=== PATIENT | male | born 1955 | race Caucasian/White ===

== ENCOUNTER 2019-04-18 15:49 | Inpatient (IN) | payer MEDICARE, SELFPAY ==
[2019-04-18] VITALS (9 sets, daily range): BP systolic 125–136; BP diastolic 62–73; PULSE 86–109; RESP 18–24; TEMP 36.6–37.1; O2SAT 87–97; BMI 32.1
--- NOTE | 2019-04-18 16:12 | XR_ITS ---
WS: [id number] PORTABLE CHEST HISTORY: cough COMPARISON: 02/07/2012 New pulmonary congestion since the prior study. Interstitial thickening has progressed. There is thic kening along the fissures. No pneumonia. Minimal blunting of the costophrenic angles. Cardiac size: Mildly enlarged cardiac silhouette. Mediastinum/Aorta: Mild atherosclerosis aorta. No osseous abnormality seen. XR/XR chest 1V portable [id number] IMPRESSION: 1. Interval development of mild CHF. 2. Very tiny small pleural effusions versus pleural thickening.
--- NOTE | 2019-04-18 16:13 | ED_ITS ---
Entered by Mya Vail, acting as scribe for Radha Esquivel HPI - General Adult General: Chief complaint: General Medical Stated complaint: sob Time Seen by Provider: 04/18/19 16:11 Source: patient Mode of arrival: ambulatory Limitations: no limitations History of Present Illness: HPI narrative: 63 yo Male presents to ED with complaint of shortness of breath. Pt states that he thinks he has pneumonia. Pt states that he has been coughing and short of breath. Pt denies having any COPD or CHF. Pt states that he has been sick for about 3 weeks. Pt states that he has a productive cough with yellow phlegm. Pt denies chest pain, leg pain, and sweling. MD complaint: SOB Onset (ago): week(s) Location: chest Radiation: non-radiation Pain Consistency: constant Relieving factors: none Exacerbating factors: none Associated symptoms: Reports cough, dyspnea, fevers/chills and short of breath; Deny chest pain, confusion, diaphoresis, headache(s), malaise, nausea, rash or vomiting Treatments prior to arrival: none Review of Systems General: Reports: other (negative unless marked) Const: Denies: fever, chills, body aches, fatigue, malaise or diaphoresis Eyes: Denies: change in vision or blurry vision ENMT: Denies: throat pain, painful swallowing, hoarseness, ear pain, ear discharge, Change in hearing or nasal discharge Card: Denies: chest pain Resp: Reports: shortness of breath GI: Denies: abdominal pain, nausea, vomiting, vomiting blood, coffee grounds in vomit, diarrhea, constipation, cramping, blood in stool or black tarry stool : Denies: flank pain, difficulty urinating, painful urination, urinary frequency, urinary urgency, decreased urine ouput, urinary incontinence or blood in urine Musc: Denies: neck pain, back pain, extremity pain, extremity swelling, joint pain, joint swelling, joint warmth or joint stiffness Skin/Breast: Denies: rash, skin tenderness or yellow skin Neuro: Denies: headache, numbness in extremities, weakness in extremities, changes in sensation, lack of coordination, difficulty walking, dizziness, vertigo or confusion Endo: Denies: excessive thirst, tired all the time, cold intolerance, excessive sweating, flushing or hot flashes Andrew/Lymph: Denies: easy bruising, easy bleeding, petechiae or enlarged lymph nodes All/Imm: Denies: hives, throat swelling, tongue swelling, facial swelling or acute wheezing PFSH ED PFSH: Statuses (acute, chronic, etc) shown below reflect problem list status as previously entered and may not be historically accurate Medical History DM type 2 (diabetes mellitus, type 2) (Acute) Smoking addiction (Acute) Surgical History History of transmetatarsal amputation of foot (Acute) Family History Father Urinary bladder cancer Brother Urinary bladder cancer Social History Smoking and tobacco status: current every day smoker cigarettes Packs smoked per day: 0.5 Alcohol intake: never Substance/Drug Use: never Household members: spouse Marital status: Current occupational status: retired Physical Exam Const: COMMON NORMALS: no apparent distress, oriented x3, no limitations, healthy appearing and well nourished EXAM LIMITATIONS: no altered mental status GENERAL APPEARANCE: cooperative, well kempt and well developed ORIENTATION/CONSCIOUSNESS: Yes awake HENMT: COMMON NORMALS: normocephalic, head/scalp atraumatic, hearing grossly normal bilaterally, external ears normal, EAC's normal, external nose normal and moist oral mucous membranes HEAD & SCALP: normal to inspection, normocephalic and atraumatic FACE & SINUS: normal facial exam and face symmetric NOSE: external nose normal and nares normal EXTERNAL EAR: Yes external ears normal EXTERNAL AUDITORY CANAL: EAC's normal MOUTH: oral and palatal mucosa normal and tongue normal Eye: COMMON NORMALS: PERRL, EOMs intact bilaterally, conjunctivae normal and no scleral icterus GENERAL EYE: normal appearance of both eyes and normal light reflex CONJUNCTIVA: Yes conjunctivae normal SCLERA: sclerae normal CORNEA: Yes corneas normal PUPIL: Yes PERRL DIRECT OPHTHALMOSCOPY: Yes normal light reflex Neck/C-Spine: COMMON NORMALS: full ROM, no lymphadenopathy, supple, no menin geal signs and no JVD GENERAL: Yes normal visual inspection and Yes trachea midline CERVICAL SPINE: Yes cervical ROM normal Chest: COMMONS NORMALS: inspection of chest normal and palpation of chest normal Resp: COMMON NORMALS: normal respiratory effort, no retractions and no use of accessory muscles EFFORT & INSPECTION: Yes able to speak in complete sentences AUSCULTATION: rales and wheezes Cardio: COMMON NORMALS: no JVD, regular rate, regular rhythm, S1 normal heart sound, S2 normal heart sound, no gallops, no clicks, no murmurs and no rub JUGULAR VENOUS DISTENTION: no JVD RATE: regular rate RHYTHM: regular rhythm HEART SOUNDS: S1 normal and S2 normal GI: COMMON NORMALS: soft to palpation, non-tender, no hepatosplenomegaly and no masses INSPECTION: Yes normal to inspection PALPATION: Yes soft and Yes no hepatosplenomegaly : COMMON NORMALS: Yes no CVA tenderness BLADDER/KIDNEY EXAM: Yes no CVA tenderness Back/Pelvis: COMMON NORMALS: no CVA tenderness, thoracic and lumbar spine normal to inspection, no thoracic nor lumbar tenderness and thoraco-lumbar ROM normal Extremity: COMMON NORMALS: normal to inspection, full ROM, normal capillary refill, no joint enlargement, no clubbing, cyanosis or edema and no calf tenderness Neuro: COMMON NORMALS: oriented x3, CN's II-XII intact bilaterally, moves all extremities, no focal motor deficits and no sensory deficits noted MENINGEAL SIGNS: Yes no meningeal signs Psych: COMMON NORMALS: mental status grossly normal, thought process normal, cooperative, affect normal, speech normal and activity/motor behavior normal APPEARANCE: Yes well kempt SPEECH: Yes normal speech THOUGHT PROCESS: normal thought process Skin: COMMON NORMALS: no rashes or lesions noted, skin turgor normal, no jaundice, no petechiae and no mottling GENERAL SKIN EXAM: no rashes or lesions noted and turgor normal Course Vital Signs: Vital signs: Vital Signs Temperature 98.1 F 04/18/19 19:29 Pulse Rate 100 04/18/19 19:29 Respiratory Rate 20 H 04/18/19 19:29 Blood Pressure 125/73 04/18/19 19:29 Pulse Oximetry 93 04/18/19 19:29 MDM - General Adult MDM Narrative: Medical decision making narrative: Case reviewed with Dr. Chandra, he agrees to admission. He would like a d-dimer added and agrees to follow the YEARS algorithm with an adjusted d-dimer with the patient. Dr. Lyons is been notified about consult. Currently the patient is stable without shortness of breath or chest tightness. If the d-dimer is positive Dr. Sherman would like a CTA ordered and he will follow-up on those results. The patient will be covered with Lovenox for any type of PE in the interim. Lab Data: Labs: Lab Results 04/18/19 04/18/19 04/18/19 Range/Units 16:25 16:25 16:25 WBC 9.2 (4.0-10.0) 10^3/ uL RBC 4.60 (4.1-5.3) 10^6/u L Hgb 13.1 (11.7-16.6) g/dL Hct 41.7 L (42.0-52.0) % MCV 90.7 (80-94) fL MCH 28.5 (28.0-34.0) pg MCHC 31.4 (30.0-36.0) g/dL RDW 13.5 (12.1-15.1) % Plt Count 238 (130-400) 10^3/c mm MPV 11.2 H (7.4-10.4) fL Neut % (Auto) 65.3 % Lymph % (Auto) 25.5 % Vance % (Auto) 6.4 % Eos % (Auto) 2.2 % Baso % (Auto) 0.4 % Neut # (Auto) 6.0 (1.8-7.7) 10^3/u L Lymph # (Auto) 2.3 (0.8-4.8) 10^3/u L Vance # (Auto) 0.6 (0.2-0.9) 10^3/u L Eos # (Auto) 0.2 (0.0-0.8) 10^3/u L Baso # (Auto) 0.0 (0.0-0.1) 10^3/u L Nucleated RBC % (a uto) 0 % Nucleated RBCs # 0.0 /100WBC D-Dimer (0-0.59) ug/mIFE U Specimen Type Sample Site ABG pH (7.35-7.45) ABG pCO2 (35-45) mmHg ABG pO2 (80.0-100.0) mmH g ABG HCO3 (22-26) mmol/L ABG Base Excess (-2.0-2.0) mmol/ L Camron Test Hematocrit (42-52) % Public Information Officer ID Sodium 142 (136-145) mmol/L Potassium 3.9 (3.5-5.1) mmol/L Chloride 102 (98-107) mmol/L Carbon Dioxide 30 H (22-29) mmol/L Anion Gap 13.9 (5-19) BUN 14 (8-23) mg/dL Creatinine 0.8 (0.7-1.2) mg/dL GFR Calculation 97.3 (90-130) mL/min Glucose 78 (65-115) mg/dL Lactic Acid 1.7 (0.5-2.2) mmol/L Calcium 10.1 (8.5-10.5) mg/dL Total Bilirubin 0.5 (0.15-1.2) mg/dL AST 24 (0-40) U/L ALT 27 (0-41) U/L Alkaline Phosphata se 108 (40-130) IU/L Troponin T Baselin e (0-15) ng/mL Troponin T 120 Min [place] (0-15) ng/mL Delta Troponin T (0-10) ABS# NT-Pro-B Natriuret Pep 2051 H (0-125) pg/mL Total Protein 7.3 (6.6-8.7) g/dL Albumin 3.8 (3.5-5.2) g/dL Globulin 3.5 (1.3-4.6) g/dL Influenza Type A A g (Negative) POC Influenza B Ag (Negative) 04/18/19 04/18/19 04/18/19 Range/Units 16:25 16:25 16:38 WBC (4.0-10.0) 10^3/ uL RBC (4.1-5.3) 10^6/u L Hgb (11.7-16.6) g/dL Hct (42.0-52.0) % MCV (80-94) fL MCH (28.0-34.0) pg MCHC (30.0-36.0) g/dL RDW (12.1-15.1) % Plt Count (130-400) 10^3/c mm MPV (7.4-10.4) fL Neut % (Auto) % Lymph % (Auto) % Vance % (Auto) % Eos % (Auto) % Baso % (Auto) % Neut # (Auto) (1.8-7.7) 10^3/u L Lymph # (Auto) (0.8-4.8) 10^3/u L Vance # (Auto) (0.2-0.9) 10^3/u L Eos # (Auto) (0.0-0.8) 10^3/u L Baso # (Auto) (0.0-0.1) 10^3/u L Nucleated RBC % (a uto) % Nucleated RBCs # /100WBC D-Dimer 1.47 H (0-0.59) ug/mIFE U Specimen Type Arterial Sample Site Radial, left ABG pH 7.41 (7.35-7.45) ABG pCO2 51.5 H (35-45) mmHg ABG pO2 61.6 L (80.0-100.0) mmH g ABG HCO3 33.0 H (22-26) mmol/L ABG Base Excess 6.9 H (-2.0-2.0) mmol/ L Camron Test Pos Hematocrit 41.4 L (42-52) % Public Information Officer ID ed Sodium (136-145) mmol/L Potassium (3.5-5.1) mmol/L Chloride (98-107) mmol/L Carbon Dioxide (22-29) mmol/L Anion Gap (5-19) BUN (8-23) mg/dL Creatinine (0.7-1.2) mg/dL GFR Calculation (90-130) mL/min Glucose (65-115) mg/dL Lactic Acid (0.5-2.2) mmol/L Calcium (8.5-10.5) mg/dL Total Bilirubin (0.15-1.2) mg/dL AST (0-40) U/L ALT (0-41) U/L Alkaline Phosphata se (40-130) IU/L Troponin T Baselin e 207 H* (0-15) ng/mL Troponin T 120 Min [place] (0-15) ng/mL Delta Troponin T (0-10) ABS# NT-Pro-B Natriuret Pep (0-125) pg/mL Total Protein (6.6-8.7) g/dL Albumin (3.5-5.2) g/dL Globulin (1.3-4.6) g/dL Influenza Type A A g (Negative) POC Influenza B Ag (Negative) 04/18/19 04/18/19 Range/Units 16:48 18:24 WBC (4.0-10.0) 10^3/ uL RBC (4.1-5.3) 10^6/u L Hgb (11.7-16.6) g/dL Hct (42.0-52.0) % MCV (80-94) fL MCH (28.0-34.0) pg MCHC (30.0-36.0) g/dL RDW (12.1-15.1) % Plt Count (130-400) 10^3/c mm MPV (7.4-10.4) fL Neut % (Auto) % Lymph % (Auto) % Vance % (Auto) % Eos % (Auto) % Baso % (Auto) % Neut # (Auto) (1.8-7.7) 10^3/u L Lymph # (Auto) (0.8-4.8) 10^3/u L Vance # (Auto) (0.2-0.9) 10^3/u L Eos # (Auto) (0.0-0.8) 10^3/u L Baso # (Auto) (0.0-0.1) 10^3/u L Nucleated RBC % (a uto) % Nucleated RBCs # /100WBC D-Dimer (0-0.59) ug/mIFE U Specimen Type Sample Site ABG pH (7.35-7.45) ABG pCO2 (35-45) mmHg ABG pO2 (80.0-100.0) mmH g ABG HCO3 (22-26) mmol/L ABG Base Excess (-2.0-2.0) mmol/ L Camron Test Hematocrit (42-52) % Public Information Officer ID Sodium (136-145) mmol/L Potassium (3.5-5.1) mmol/L Chloride (98-107) mmol/L Carbon Dioxide (22-29) mmol/L Anion Gap (5-19) BUN (8-23) mg/dL Creatinine (0.7-1.2) mg/dL GFR Calculation (90-130) mL/min Glucose (65-115) mg/dL Lactic Acid (0.5-2.2) mmol/L Calcium (8.5-10.5) mg/dL Total Bilirubin (0.15-1.2) mg/dL AST (0-40) U/L ALT (0-41) U/L Alkaline Phosphata se (40-130) IU/L Troponin T Baselin e (0-15) ng/mL Troponin T 120 Min [place] 217.60 H (0-15) ng/mL Delta Troponin T 10.60 H* (0-10) ABS# NT-Pro-B Natriuret Pep (0-125) pg/mL Total Protein (6.6-8.7) g/dL Albumin (3.5-5.2) g/dL Globulin (1.3-4.6) g/dL Influenza Type A A g Negative (Negative) POC Influenza B Ag Negative (Negative) Imaging Data^: CXR: My impression: Cardiomegaly with mild to moderate pulmonary vascular congestion. EKG Data^: EKG 1: Attestation: I personally reviewed and interpreted this EKG as follows: EKG interpretation date: 04/18/19 EKG interpretation time: 16:42 Interpretation: Normal sinus rhythm at 86 beats a minute, incomplete right bundle branch block, nonspecific ST-T wave changes. Computer generated interpretation: Chest CTA 04/18/19 18:05 IMPRESSION: 1. There are bilateral pleural effusions with underlying compressive atelectasis or infiltrate. In with cardiomegaly, findings are consistent with congestive heart failure. 2. There are bilateral pulmonary ground-glass opacities likely representing pulmonary edema in this patient. 3. There is mucosal thickening of the distal esophagus consistent with esophagitis. Follow-up to exclude neoplasm as clinically warranted. 4. No evidence for pulmonary embolus. Radiation Dose CTDIVOL = (mGy): DLP = 577.8 (mGy-cm) Discharge Plan Discharge Patient Disposition: Admitted As Inpatient Admit Provider: Juan Carlos Chandra Clinical Impression: Acute non-ST elevation myocardial infarction (NSTEMI) CHF (congestive heart failure) Qualifiers: Heart failure type: unspecified Heart failure chronicity: acute Qualified Code(s): I50.9 - Heart failure, unspecified Condition: Stable Referrals: EDEN SHELTON DO [Primary Care Provider] - Discharge Date/Time: 04/18/19 19:08 Coding Level of Care Code ED Material Distributor for Chg Fwd Exam Problem Focused The documentation recorded by the Yared harman Carmen, accurately reflects the service I personally performed and the decisions made by me, Radha Esquivel
--- NOTE | 2019-04-18 16:15 | PC.NURSE ---
Pt was 87% on room air. Placed on nasal cannula at 2 lpm and immediately jumped to 94%
--- NOTE | 2019-04-18 16:19 | ECG_ITS ---
Measurements Intervals [place] Rate: 107 P: 18 OR: 149 QRS: 149 QRSD: 109 T: 45 QT: 387 QTc: 518 SINUS TACHYCARDIA POSSIBLE LEFT ATRIAL ENLARGEMENT [-0.1mV P WAVE IN V1/V2] INDETERMINATE AXIS LEFT POSTERIOR FASCICULAR BLOCK [QRS AXIS > 109, INFERIOR Q] PROBABLE INFERIOR MYOCARDIAL INFARCTION [35 ms Q WAVE IN II/aVF], PROBABLY OLD WITH POSTERIOR EXTENSION [PROMINENT R WAVE IN V1 No previous ECG available for comparison Electronically Signed On 04-18-2019 22:24:52 PORTFOLIO ADMINISTRATOR by Familia Plata M.D. [email or web address]
[2019-04-18 16:39] LABS: Basophils % 0.4 %; Eosinophils # 0.2 10^3/uL (0.0-0.8); Eosinophils % 2.2 %; Hematocrit 41.7 % (42.0-52.0); Hemoglobin 13.1 g/dL (11.7-16.6); Lymphocytes # 2.3 10^3/uL (0.8-4.8); Lymphocytes % 25.5 %; Mean Corpuscular HGB Conc 31.4 g/dL (30.0-36.0); Mean Corpuscular Hemoglobin 28.5 pg (28.0-34.0); Mean Corpuscular Volume 90.7 fL (80-94); Mean Platelet Volume 11.2 fL (7.4-10.4); Monocytes # 0.6 10^3/uL (0.2-0.9); Monocytes % 6.4 %; Neutrophils % 65.3 %; Nucleated Red Blood Cells % 0 %; Platelet Count 238 10^3/cmm (130-400); Red Cell Distribution Width 13.5 % (12.1-15.1); White Blood Count 9.2 10^3/uL (4.0-10.0)
[2019-04-18 16:49] LABS: ABG PCO2 51.5 mmHg (35-45); ABG PH Result 7.41 (7.35-7.45); Arterial Blood Gas Hematocrit 41.4 % (42-52); Base Excess ABG 6.9 mmol/L (-2.0-2.0); Blood Gas Allen Test Pos; Blood Gas Sample Site Radial, left; Blood Gas Sample Type Arterial; PO2 ABG 61.6 mmHg (80.0-100.0)
[2019-04-18 17:07] LABS: Lactic Sepsis W/Reflex 1.7 mmol/L (0.5-2.2)
[2019-04-18 17:13] LABS: Alanine Aminotransferase 27 U/L (0-41); Albumin Level 3.8 g/dL (3.5-5.2); Alkaline Phosphatase 108 IU/L (40-130); Anion Gap 13.9 (5-19); Aspartate Amino Transferase 24 U/L (0-40); Blood Urea Nitrogen 14 mg/dL (8-23); Calcium 10.1 mg/dL (8.5-10.5); Carbon Dioxide 30 mmol/L (22-29); Chloride 102 mmol/L (98-107); Creatinine Clr Calc Pharmacy 114.6734; Globulin 3.5 g/dL (1.3-4.6); Glomerular Filtration Rate 97.3 mL/min (90-130); Glucose 78 mg/dL (65-115); NT Pro B Type Natriuretic Pept 2051 pg/mL (0-125); Potassium 3.9 mmol/L (3.5-5.1); Sodium 142 mmol/L (136-145); Total Bilirubin 0.5 mg/dL (0.15-1.2); Total Protein 7.3 g/dL (6.6-8.7)
[2019-04-18 17:17] LABS: Troponin(5th) Baseline 207 ng/mL (0-15)
[2019-04-18] MEDS: ipratropium-albuterol 3 mL Neb 9 ML INHALATION (17:17)
[2019-04-18 17:29] LABS: Influenza A by IFA Negative (Negative); Influenza B by IFA Negative (Negative)
[2019-04-18] MEDS: FUROsemide 10 mg/mL SDV 4mL 40 MG IVP (17:34)
[2019-04-18] MEDS: aspirin 325 mg Tablet PO (17:34)
[2019-04-18] MEDS: enoxaparin 100 mg/mL Syringe SUBCUT (17:39)
[2019-04-18] MEDS: nitroglycerin 1 gm/inch oint Pkt 1 INCH TOPICAL (17:41)
[2019-04-18] MEDS: levofloxacin-dextrose 5 % 750 MG/150 ML PREMIX 150 MG IV (17:43)
[2019-04-18 17:59] LABS: D Dimer 1.47 ug/mIFEU (0-0.59)
--- NOTE | 2019-04-18 18:05 | CTR_ITS ---
PROCEDURE INFORMATION: Exam: CT Angiography Chest With Contrast Exam date and time: 04/18/2019 6:34 PM Age: 63 years old Clinical indication: Dyspnea; Patient HX: C/O SOB w elev d-dimer; Additional info: Dyspnea, positive d-dimer TECHNIQUE: Imaging protocol: Computed tomographic angiography of the chest with intravenous contrast. 3D rendering: MIP and/or 3D reconstructed images were created by the technologist. Total DLP: 577.8 mGy-cm Radiation optimization: All CT scans at this facility use at least one of these dose optimization techniques: automated exposure control; mA and/or kV adjustment per patient size (includes targeted exams where dose is matched to clinical indication); or iterative reconstruction. Contrast material: OMNI 350; Contrast volume: 95 ml; Contrast route: 20G; COMPARISON: CR XR chest 1V portable [id number] 04/18/2019 4:28 PM FINDINGS: Pulmonary arteries: Normal. No pulmonary emboli. Aorta: Unremarkable. No aortic aneurysm. No aortic dissection. Lungs: Bilateral pulmonary ground-glass opacities. Pleural space: There are bilateral pleural effusions with underlying compressive atelectasis or infiltrate. Heart: Mild cardiomegaly. There is a small amount of fluid in the superior pericardial recess. Mediastinum: There is mucosal thickening of the distal esophagus. Kidneys and ureters: Partially visualized left renal cyst. Lymph nodes: There are multiple mediastinal and perihilar lymph nodes. Largest lymph node is subcarinal and measures 2.8 x 1.8 centimetres. Bones/joints: There are degenerative changes in the visualized spine.There are diffuse enthesopathic changes consistent with benign diffuse idiopathic skeletal hyperostosis (DISH). Soft tissues: Unremarkable. CT/CT angio chest PE protcl [id number] IMPRESSION: 1. There are bilateral pleural effusions with underlying compressive atelectasis or infiltrate. In with cardiomegaly, findings are consistent with congestive heart failure. 2. There are bilateral pulmonary ground-glass opacities likely representing pulmonary edema in this patient. 3. There is mucosal thickening of the distal esophagus consistent with esophagitis. Follow-up to exclude neoplasm as clinically warranted. 4. No evidence for pulmonary embolus. Radiation Dose CTDIVOL = (mGy): DLP = 577.8 (mGy-cm)
--- NOTE | 2019-04-18 18:14 | PM.HP ---
Providers/Chief Complaint Primary Care Provider: EDEN SHELTON DO Chief Complaint: NSTEMI, CHF History of Present Illness Camron Burnett is a 63 year old pleasant gentleman with history of DM 2, current smoker presented to ER for evaluation due to progressive shortness of breath over the last 2-3 weeks. He states that he has been getting so short of breath that he has not been able to smoke even. Currently down to half a pack per day. He denies prior diagnosis of COPD or emphysema. He denies chest pain. He complains of severe dyspnea on even minimal exertion. Severe orthopnea, having to sleep upright in a chair. He reports he has been coughing. Her cough is productive of yellowish sputum. In ER his chest x-ray did not reveal pneumonia. His troponin is noted elevated at 207. EKG with nonspecific changes. He reports having right arm pain several weeks ago, although not currently. His BNP is elevated at 2050. Review of Systems Const: Reports: fatigue; Denies: fever, chills, body aches or malaise Eyes: Denies: change in vision or eye redness ENMT: Denies: throat pain, oral sores/lesions or ear pain Card: Reports: edema, shortness of breath on exertion and shortness of breath when lying down; Denies: chest pain or pre-syncope Resp: Reports: productive cough; Denies: shortness of breath, change in phlegm color or coughing up blood GI: Denies: abdominal pain, nausea, vomiting, diarrhea, constipation, blood in stool or black tarry stool : Denies: flank pain, difficulty urinating, urinary frequency or blood in urine Musc: Denies: back pain, joint swelling or redness Skin/Breast: Denies: rash, sores or new lesion Neuro: Denies: headache, numbness in extremities, weakness in extremities, dizziness, confusion or seizure-like activity Endo: Denies: excessive urination or excessive thirst Andrew/Lymph: Denies: easy bleeding or purpura All/Imm: Denies: hives, throat swelling or tongue swelling Medications/Allergies Home Medications Medication Instructions Recorded Confirmed Last Taken Type No Known Home Medications 04/18/19 04/18/19 Unknown History Allergies Allergy/AdvReac Type Severity Reaction Status Date / Time Penicillins Allergy ALGY-Difficulty Verified 04/18/19 16:09 Breathing PFSH Acute PFSH: Statuses (acute, chronic, etc) shown below reflect problem list status as previously entered and may not be historically accurate Medical History DM type 2 (diabetes mellitus, type 2) (Acute) Smoking addiction (Acute) Surgical History History of transmetatarsal amputation of foot (Acute) Family History Father Urinary bladder cancer Brother Urinary bladder cancer Social History Smoking and tobacco status: current every day smoker cigarettes Packs smoked per day: 0.5 Alcohol intake: never Substance/Drug Use: never Household members: spouse Marital status: Current occupational status: retired Vitals/I&O/Wt Last Vital Signs Temp 98.8 F 04/18/19 16:04 Pulse 106 H 04/18/19 18:12 Resp 18 04/18/19 18:12 BP 131/62 04/18/19 16:04 Pulse Ox 97 04/18/19 18:12 Weight last 48 hrs Weight 104.326 kg Physical Exam Const: COMMON NORMALS: no apparent distress and oriented x3 HENMT: COMMON NORMALS: oropharynx normal Neck/C-Spine: COMMON NORMALS: no JVD Resp: COMMON NORMALS: normal respiratory effort and clear to auscultation bilaterally AUSCULTATION: clear to auscultation bilaterally Cardio: COMMON NORMALS: no JVD, regular rhythm, S1 normal heart sound, S2 normal heart sound and no murmurs RHYTHM: regular rhythm HEART SOUNDS: S1 normal and S2 normal GI: COMMON NORMALS: normal to inspection, nondistended, normoactive bowel sounds, soft to palpation and non-tender PALPATION: Yes soft Extremity: COMMON NORMALS: no joint enlargement and no pedal edema Neuro: COMMON NORMALS: oriented x3 and moves all extremities Skin: COMMON NORMALS: no rashes or lesions noted GENERAL SKIN EXAM: no rashes or lesions noted Data : 04/18/19 16:25 04/18/19 16:25 Micro: Microbiology 04/18/19 16:15 Blood Culture - Preliminary Blood SPECIMEN COLLECTED 04/18/19 16:25 Blood Culture - Preliminary Blood SPECIMEN COLLECTED A&P Assessment and plan (1) Acute respiratory failure with hypoxia: Not normally on oxygen. PO2 61.6 on presentation. This appears to be multifactorial secondary to congestive heart failure with orthopnea, peripheral edema, likely also undiagnosed COPD, although currently no wheezing, and with decent air entry, and possible PE. No pneumonia on chest x-ray. D-dimer is not low. He is going to be assessed by CTA. Received aspirin, started on Lovenox due to suspected non-STEMI. We will start him on Lasix. Breathing treatments for COPD. Oxygen support Status: Acute Code(s): J96.01 - Acute respiratory failure with hypoxia (2) Acute non-ST elevation myocardial infarction (NSTEMI): Aspirin, Lovenox. Add statin. No beta-zahida at this time due to CHF. Will leave decision regarding Plavix to cardiology. Monitor on telemetry. N.p.o. after midnight. His risk factors for coronary disease include smoking history, diabetes. Status: Acute Code(s): I21.4 - Non-ST elevation (NSTEMI) myocardial infarction (3) CHF (congestive heart failure): No prior echo. Acute exacerbation of unknown type of CHF with orthopnea, MITCHELL, peripheral edema. BNP elevated at 2050. We will start him on Lasix. Assessed by TTE. Oxygen support. Status: Acute Qualifiers: Heart failure chronicity: acute Heart failure type: unspecified Qualified Code(s): I50.9 - Heart failure, unspecified Code(s): I50.9 - Heart failure, unspecified (4) DM type 2 (diabetes mellitus, type 2): Consistent carbohydrate diet. Continue insulin. Assess A1c. Status: Acute Code(s): E11.9 - Type 2 diabetes mellitus without complications (5) Smoking addiction: Discuss smoking cessation with him for 4 minutes. He reports he has been more short of breath recently, to the point he has had to cut down to half a pack per day. Advised him to stop entirely. Will order nicotine patch, gum for cravings. Status: Acute Code(s): F17.200 - Nicotine dependence, unspecified, uncomplicated Attestations Medical Necessity Statement*: Admission of over 2 midnights is continued for assessment and management of acute respiratory failure with hypoxia, non-STEMI. Coding Level of Care Code Acute Journalism Internship for Renzo Fwd Diagnoses Acute respiratory failure with hypoxia J96.01 Acute non-ST elevation myocardial infarction (NSTEMI) I21.4 CHF (congestive heart failure) I50.9 Heart failure chronicity: acute Heart failure type: unspecified DM type 2 (diabetes mellitus, type 2) E11.9 Smoking addiction F17.200
--- NOTE | 2019-04-18 18:19 | ECG_ITS ---
Measurements Intervals [place] Rate: 99 P: 26 IN: 146 QRS: 139 QRSD: 110 T: 62 QT: 389 QTc: 500 SINUS RHYTHM POSSIBLE LEFT ATRIAL ENLARGEMENT [-0.1mV P WAVE IN V1/V2] POSSIBLE INFERIOR MYOCARDIAL INFARCTION [30 ms Q WAVE IN II/aVF], PROBABLY OLD WITH POSTERIOR EXTENSION [PROMINENT R WAVE IN V1 No previous ECG available for comparison Electronically Signed On 04-18-2019 22:25:59 WAREHOUSE SHIPPING SUPERVISOR by Familia Plata M.D. [email or web address]
[2019-04-18] MEDS: iohexol 350 mg/mL 100 mL Btl IV (18:54)
--- NOTE | 2019-04-18 19:03 | PC.NURSE ---
REPORT RECEIVED FROM CRISTEL JOSEPH AND CARE TRANSFERRED TO CRISTEL PADILLA
[2019-04-18 20:15] LABS: Glucose Point of Care 129 mg/dL (70-110)
[2019-04-18] MEDS: atorvastatin 40 mg Tablet PO (20:22)
[2019-04-18] MEDS: FUROsemide 10 mg/mL SDV 2mL 20 MG IVP (20:22)
[2019-04-18 20:47] LABS: Estmated Average Glucose 194; Hemoglobin A1C 8.4 % (4.0-6.0)
[2019-04-18] MEDS: ipratropium-albuterol 3 mL Neb INHALATION (21:38)
--- NOTE | 2019-04-18 22:19 | ECG_ITS ---
Measurements Intervals Glennie Rate: 86 P: 21 NV: 142 QRS: 132 QRSD: 105 T: 71 QT: 385 QTc: 461 SINUS RHYTHM POSSIBLE LEFT ATRIAL ENLARGEMENT [-0.1mV P WAVE IN V1/V2] POSSIBLE INFERIOR MYOCARDIAL INFARCTION , PROBABLY OLD WITH POSTERIOR EXTENSION [30 ms Q WAVE IN II/aVFPROMINENT R WAVE IN V1/ No previous ECG available for comparison Electronically Signed On 04-18-2019 22:25:53 IMPROVEMENT NURSE by Familia Plata M.D. [email or web address]
--- NOTE | 2019-04-18 22:29 | P.CONIM_ITS ---
Providers/Reason For Consult Consulting Physican/Specialty*: Cardiology Reason for Consult*: Non-ST elevation RI CHF exacerbation Attending Physician: Juan Carlos Chandra Primary Care Provider: EDEN SHELTON DO History of Present Illness History of Present Illness Camron Burnett is a 63 year old male Past medical history significant for continuous tobacco abuse, PossibleCOPD, hypertension, Diabetes mellitus was admitted with worsening of shortness of breath PND orthopnea and some lower extremity edema. He was noted to be in heart failure. He was given IV Lasix and admitted. Investigation came back with troponin in the range of 206 qualifying for non-ST elevation RI. According to the patient couple of weeks ago he felt right arm pain for couple of hours which he relates 10 out of 10 otherwise he denies any history of chest pain. He admits to worsening of shortness of breath for couple months but for the last 2 weeks he has been progressively noticing that he cannot walk short distance and for last few days he was not able to sleep flat in the bed. Twelve-lead EKG is consistent with right bundle branch block otherwise no significant ST?T changes. Review of Systems General: Reports: other (negative unless marked) Const: Reports: fatigue; Denies: fever, chills, body aches, malaise or diaphoresis Eyes: Denies: change in vision, blurry vision or eye redness ENMT: Denies: throat pain, painful swallowing, hoarseness, oral sores/lesions, ear pain, ear discharge, change in hearing or nasal discharge Card: Reports: edema, shortness of breath on exertion and shortness of breath when lying down; Denies: chest pain or pre-syncope Resp: Reports: productive cough; Denies: shortness of breath, change in phlegm color or coughing up blood GI: Denies: abdominal pain, nausea, vomiting, vomiting blood, coffee grounds in vomit, diarrhea, constipation, cramping, blood in stool or black tarry stool : Denies: flank pain, difficulty urinating, painful urination, urinary frequency, urinary urgency, decreased urine ouput, urinary incontinence or blood in urine Musc: Denies: neck pain, back pain, extremity pain, extremity swelling, joint pain, joint swelling, redness, joint warmth or joint stiffness Skin/Breast: Denies: rash, skin tenderness, sores, new lesion or yellow skin Neuro: Denies: headache, numbness in extremities, weakness in extremities, changes in sensation, lack of coordination, difficulty walking, dizziness, vertigo, confusion or seizure-like activity Endo: Denies: excessive urination, excessive thirst, tired all the time, cold intolerance, excessive sweating, flushing or hot flashes Andrew/Lymph: Denies: easy bruising, easy bleeding, petechiae, purpura or enlarged lymph nodes All/Imm: Denies: hives, throat swelling, tongue swelling, facial swelling or acute wheezing Meds/Allergies Home Medications and Allergies Home Medications Medication Instructions Recorded Confirmed Type No Known Home Medications 04/18/19 04/18/19 History Allergies Allergy/AdvReac Type Severity Reaction Status Date / Time Penicillins Allergy ALGY-Difficulty Verified 04/18/19 16:09 Breathing Current Medications Current Medications Generic Name Dose Route Start Last Admin Trade Name Freq PRN Reason Stop Dose Admin Albuterol/Ipratropium 3 ml 04/18/19 21:00 04/18/19 21:38 Duoneb INHALATION 3 ml Q6H.RESPIRATORY CARSON Administration Atorvastatin Calcium 40 mg 04/18/19 21:00 04/18/19 20:22 Lipitor PO 40 mg BEDTIME CARSON Administration Furosemide 20 mg 04/18/19 19:16 04/18/19 20:22 Lasix IVP 20 mg Q12H CARSON Administration Insulin Aspart 0 unit 04/18/19 21:00 04/18/19 20:22 Novolog SUBCUT Not Given WM&BEDTIME CARSON Protocol Insulin Glargine 20 unit 04/18/19 21:00 04/18/19 20:22 Lantus SUBCUT Not Given BEDTIME CARSON PFSH Acute PFSH: Statuses (acute, chronic, etc) shown below reflect problem list status as previously entered and may not be historically accurate Medical History DM type 2 (diabetes mellitus, type 2) (Acute) Smoking addiction (Acute) Surgical History History of transmetatarsal amputation of foot (Acute) Family History Father Urinary bladder cancer Brother Urinary bladder cancer Social History Smoking and tobacco status: current every day smoker cigarettes Packs smoked per day: 0.5 Alcohol intake: never Substance/Drug Use: never Household members: spouse Marital status: Current occupational status: retired Vitals/I&O/Wt Last Vital Signs Temp 98.1 F 04/18/19 19:29 Pulse 102 H 04/18/19 21:39 Resp 24 H 04/18/19 21:39 BP 125/73 04/18/19 19:29 Pulse Ox 91 04/18/19 21:39 04/18/19 04/18/19 04/18/19 06:59 14:59 22:59 Output Total 500 / 500 Balance -500 / -500 Weight last 48 hrs Weight 230 lb Physical Exam Narrative: EXAM NARRATIVE: GENERAL: Patient is alert, awake and oriented x3. HEENT: No cyanosis. No icterus. No pallor. HEART: Regular S1 and S2. No murmur, rub or gallop. LUNGS: Basal to mid inspiratory crackles more on right then left. ABDOMEN: Soft, nontender and nondistended. Positive bowel sounds. No guarding, rebound or tenderness. CENTRAL NERVOUS SYSTEM: Grossly nonfocal. EXTREMITIES: Lower extremities with 1+ edema bilaterally. Data Micro: Micro: Microbiology 04/18/19 16:15 Blood Culture - Pr eliminary Blood SPE[facility]IMEN [facility] 04/18/19 16:25 Blood Culture - Pr eliminary Blood SPECIMEN [facility] A&P Assessment and plan (1) Acute non-ST elevation myocardial infarction (NSTEMI): Patient has underlying coronary artery disease Since he was not symptomatic, He had not seek any help. He presented this time with Acute congestive heart failure exacerbation most likely of systolic type. He has been treated as per ACS protocol. Continue aspirin statin, will add beta zahida once out of acute decompensated phase of heart failure.Continue anticoagulation with Lovenox for now. Once euvolemic which most likely over next 48 hours the plan to perform coronary angiogram for risk stratification. He will also be started on Plavix. Status: Acute Code(s): I21.4 - Non-ST elevation (NSTEMI) myocardial infarction (2) Acute respiratory failure with hypoxia: Most likely mixed picture of COPD and CHF exacerbation. Continue current regimen Status: Acute Code(s): J96.01 - Acute respiratory failure with hypoxia (3) CHF (congestive heart failure): Most likely systolic type secondary to ischemic cardiomyopathy. Echocardiogram will be a pain the morning. I will increase Lasix to 60 IV twice a day. Goal is to diurese him -1.5 L per day. Left right will be replenished. Once euvolemic we will start him on Coreg Status: Acute Qualifiers: Heart failure chronicity: acute Heart failure type: unspecified Qualified Code(s): I50.9 - Heart failure, unspecified Code(s): I50.9 - Heart failure, unspecified (4) DM type 2 (diabetes mellitus, type 2): As per medicine Status: Acute Code(s): E11.9 - Type 2 diabetes mellitus without complications (5) Smoking addiction: Status: Acute Code(s): F17.200 - Nicotine dependence, unspecified, uncomplicated Consult Attestations Medical Necessity Statement: Patient requires continuation hospitalization for above defined care. I'm expecting his stay to cross more than 2 midnights. 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
[2019-04-18 23:11] LABS: Troponin 5 6HR 191.8 ng/L (0-15); Troponin 5 6HR Delta -15.2 ng/L (0-12)
[2019-04-19] VITALS (15 sets, daily range): BP systolic 100–123; BP diastolic 53–63; PULSE 96–111; RESP 13–30; TEMP 36.3–36.9; O2SAT 90–97
[2019-04-19] MEDS: FUROsemide 10 mg/mL SDV 2mL 20 MG IVP (00:03)
[2019-04-19] MEDS: ipratropium-albuterol 3 mL Neb INHALATION ×4 (02:10→20:03)
[2019-04-19 05:19] LABS: Hematocrit 40.5 % (42.0-52.0); Hemoglobin 12.9 g/dL (11.7-16.6); Lymphocytes # 0.7 10^3/uL (0.8-4.8); Lymphocytes % 8.1 %; Mean Corpuscular HGB Conc 31.9 g/dL (30.0-36.0); Mean Corpuscular Hemoglobin 28.5 pg (28.0-34.0); Mean Corpuscular Volume 89.4 fL (80-94); Mean Platelet Volume 11.2 fL (7.4-10.4); Monocytes # 0.1 10^3/uL (0.2-0.9); Monocytes % 0.6 %; Neutrophils % 91.1 %; Nucleated Red Blood Cells % 0 %; Platelet Count 220 10^3/cmm (130-400); Red Blood Count 4.53 10^6/uL (4.1-5.3); Red Cell Distribution Width 13.4 % (12.1-15.1); White Blood Count 8.8 10^3/uL (4.0-10.0)
[2019-04-19 05:46] LABS: Anion Gap 21.1 (5-19); Blood Urea Nitrogen 18 mg/dL (8-23); Calcium 9.5 mg/dL (8.5-10.5); Carbon Dioxide 26 mmol/L (22-29); Chloride 94 mmol/L (98-107); Glomerular Filtration Rate 75.2 mL/min (90-130); Glucose 343 mg/dL (65-115); Osmolality Calculated 294 mOsm/kg (285-295); Potassium 4.1 mmol/L (3.5-5.1); Sodium 137 mmol/L (136-145)
[2019-04-19 06:20] LABS: Glucose Point of Care 304 mg/dL (70-110)
[2019-04-19] MEDS: aspirin 325 mg Tablet PO (08:23)
[2019-04-19] MEDS: FUROsemide 10 mg/mL SDV 10mL 60 MG IVP ×2 (10:52→23:34)
[2019-04-19] MEDS: morphine 4 mg/mL SDV 1 mL IVP ×2 (10:58→19:58)
[2019-04-19] MEDS: ondansetron 2 mg/ML SDV 2 mL 4 MG IVP (10:59)
[2019-04-19 11:06] LABS: Oxygen Device RA
[2019-04-19 11:32] LABS: Glucose Point of Care 372 mg/dL (70-110)
--- NOTE | 2019-04-19 14:03 | CT_ITS ---
WS: [id number] CT scan of the abdomen and pelvis with IV contrast. Additional two-dimensional coronal and sagittal reconstruction was performed. 04/19/2019 Clinical Data: Abdominal distention, pain Comparison: None. DLP: 1883.[address] scans at [facility] use at least one of these dose optimization techniques: automat ed exposure control; mA and/or kV adjustment per patient size (includes targeted exams where dose is matched to clinical indication); or iterative reconstruction. Findings: The lower lungs show no nodules or masses. There is a small right pleural effusion. The liver, spleen, adrenal glands and pancreas are normal. There are numerous small stones within th e gallbladder. The kidneys show equal bilateral contrast excretion with with bilateral renal cysts. The largest cyst on the right is 5.95 cm and on the left 4.82 cm. No renal masses, hydronephrosis or obstructing calc shravan are seen. The abdominal aorta is slightly dilated to 2.5 cm with calcification in the wall. No ab scess, adenopathy, ascites, mass, obstruction or free air is seen.. No appendicitis or diverticulitis is seen. The stomach, small bowel and colon show no acute abnormali ties. There is food material within the stomach. There is fecal material throughout colon with many s igmoid diverticula. The bladder is unremarkable. No inguinal hernia is seen. The prostate is enlarged. 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 Impression: 1. Cholelithiasis. 2. Small right pleural effusion. 3. Negative for acute intra-abdominal or pelvic abnormalities.
[2019-04-19] MEDS: acetaminophen 325 mg Tablet 650 MG PO (14:18)
[2019-04-19] MEDS: pantoprazole DR 40 mg Tablet PO (14:19)
[2019-04-19] MEDS: LORazepam 0.5 mg Tablet PO ×2 (14:30→23:34)
[2019-04-19 16:44] LABS: Glucose Point of Care 189 mg/dL (70-110)
--- NOTE | 2019-04-19 17:58 | PC.CHAP ---
Pastoral Care Encounter/Spiritual Assessment Type of Contact [] Declined butcher's assistant visit [] Patient/Family/Request visit [] Outpatient visit [] Follow-up visit [] Physician referral [] Code/Alert [x] Routine visit [] Staff referral [] Actively dying [] Patient sleeping [] Family support [] [] Out of room [] Palliative care [] [] Receiving care in room [] Pre-surgical visit [] Trauma [] Long length of stay [] ICU visit [] Other: Relational/Emotional Strength [] Patient feels connected with others/family/visitors/staff [] Distress [] Loneliness/isolation [] Abandonment Spirituality of Patient [] Person of Shakila [] Attends Anabaptism of their Shakila [] Believes in Prayer [] Reads Bible or Advent materials [] There are Spiritual issues to be addressed [employer] Consultant Interventions [] Prayer [] Active listening [] Non-anxious presence [] Spiritual/emotional support [] Crisis/trauma care [] Spiritual counseling [] Bereavement support [] Provided bereavement packet [] Provided Bible/devotional materials [] Provided toy/stuffed animal, coloring book to patient or family member [] Provided Communion [] Anointing/[place] [] Salvation [] Completed spiritual assessment [] Other: Impact on Illness or Injury [] Angry [] Fearful [] Anxious [] Often cries [] Exhaustion [] Unable to work [] Unable to attend latter day [] Unable to walk/stand [] Unable to read [] Unable to drive [] Unable to eat/drink [] Unable to sleep [] Unable to be with family [] Patient intubated [] Other: Summary Patient declined prayer and didn't need anything from the chaplains. Time spent with patient 3 minutes
--- NOTE | 2019-04-19 18:17 | PM.PN ---
Subjective Subjective: Interval history: Patient is feeling much better denies any chest pressure.Shortness of breath has improved. Diuresing adequately Vitals/I&O/Wt Last Vital Signs Temp 97.8 F 04/19/19 15:46 Pulse 106 H 04/19/19 15:46 Resp 20 H 04/19/19 15:46 BP 120/60 04/19/19 15:46 Pulse Ox 97 04/19/19 15:46 04/19/19 04/19/19 04/19/19 06:59 14:59 22:59 Intake Total 360 / 360 240 / 600 Output Total 1350 / 1850 100 / 100 150 / 250 Balance -1350 / -1850 260 / 260 90 / 350 Weight last 48 hrs Weight 235 lb 4.8 oz Weight 230 lb Physical Exam Narrative: EXAM NARRATIVE: GENERAL: Patient is alert, awake and oriented x3. HEENT: No cyanosis. No icterus. No pallor. HEART: Regular S1 and S2. No murmur, rub or gallop. LUNGS: Basal Mild Inspiratory crackles otherwise premature improved lung inspiration. ABDOMEN: Soft, nontender and nondistended. Positive bowel sounds. No guarding, rebound or tenderness. CENTRAL NERVOUS SYSTEM: Grossly nonfocal. EXTREMITIES: Lower extremities Without edema bilaterally. Data : 04/19/19 04:59 04/19/19 04:59 Micro: Microbiology 04/18/19 16:15 Blood Culture - Preliminary Blood NEGATIVE TO DATE 04/18/19 16:25 Blood Culture - Preliminary Blood NEGATIVE TO DATE A&P Assessment and plan (1) Acute non-ST elevation myocardial infarction (NSTEMI): Currently patient is stable denies any more chest pain. Continue current regimen. Once euvolemic we will proceed with angiogram. He is getting better most likely angiogram tomorrow. Status: Acute Code(s): I21.4 - Non-ST elevation (NSTEMI) myocardial infarction (2) Acute respiratory failure with hypoxia: Most likely mixed picture of COPD and CHF exacerbation. Continue current regimen Status: Acute Code(s): J96.01 - Acute respiratory failure with hypoxia (3) CHF (congestive heart failure): I will back off on Lasix to 40 mg twice a day IV. Appeared to be getting euvolemic hopefully by tomorrow we will reassess in. We will proceed with angiogram tomorrow. Status: Acute Qualifiers: Heart failure chronicity: acute Heart failure type: unspecified Qualified Code(s): I50.9 - Heart failure, unspecified Code(s): I50.9 - Heart failure, unspecified (4) DM type 2 (diabetes mellitus, type 2): As per medicine Status: Acute Code(s): E11.9 - Type 2 diabetes mellitus without complications (5) Smoking addiction: Status: Acute Code(s): F17.200 - Nicotine dependence, unspecified, uncomplicated Attestations Medical Necessity Statement*: Required continuation hospitalization for above defined Care. 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
[2019-04-19] MEDS: enoxaparin 100 mg/mL Syringe SUBCUT (18:31)
[2019-04-19] MEDS: nicotine 21 mg Patch 1 PATCH TRANSDERMA (18:34)
--- NOTE | 2019-04-19 19:16 | USCV_ITS ---
Camron Burnett Age: 63 Gender: M : 1955 Exam Date: 04/19/2019 06:28 Ordering Phys: Juan Carlos Chandra MD Technologist: Clarita Santiago [place] [facility] [place] CHF BP: 100 / 53 HR: 98 Rhythm: Sinus Technical Quality: Adequate MEASUREMENTS (Male / Female) Normal Values 2D ECHO LV Diastolic Diameter PLAX 4.1 cm 4.2 - 5.9 / 3.9 - 5.3 cm LV Systolic Diameter PLAX 4.2 cm LV Chamber Size 4.1 cm IVS Diastolic Thickness 2.0 cm 0.6 - 1.0 / 0.6 - 0.9 cm IVS Systolic Thickness 2.3 cm LVPW Diastolic Thickness 1.1 cm 0.6 - 1.0 / 0.6 - 0.9 cm LVPW Systolic Thickness 1.9 cm RV Chamber Size 3.5 cm LVOT Diameter 2.0 cm LV Ejection Fraction 2D Teich 5.9 % LV Ejection Fraction MOD 2C 50.6 % LV Ejection Fraction 2C AL 53.6 % LA Diameter 5.3 cm LA Width 3.1 cm LA Height 4.4 cm RA Width 3.6 cm RA Height 4.3 cm Aorta at Sinotubular Diameter 3.3 cm M-MODE LV Diastolic Diameter MM 5.9 cm 4.2 - 5.9 / 3.9 - 5.3 cm LV Systolic Diameter MM 3.9 cm LV Ejection Fraction MM Teich 61.5 % IVS Diastolic Thickness MM 1.3 cm 0.6 - 1.0 / 0.6 - 0.9 cm IVS Systolic Thickness MM 1.7 cm LVPW Diastolic Thickness MM 1.3 cm 0.6 - 1.0 / 0.6 - 0.9 cm LVPW Systolic Thickness MM 1.8 cm RV Diastolic Diameter MM 1.9 cm Aortic Annulus Diameter 4.3 cm LA Ao Ratio MM 1.2 MV E Point Septal Separation 0.7 cm DOPPLER AV Peak Velocity 143.0 cm/s LVOT Peak Velocity 95.0 cm/s AV Area Cont Eq vti 2.0 cm squared AV Area Cont Eq pk 2.1 cm squared MV Area PHT 9.6 cm squared Mitral E to A Ratio 1.0 MV E' Velocity 8.0 cm/s Mitral E to MV E' Ratio 15.5 Mitral E to LV E' Lateral Ratio 14.3 Mitral E to LV E' Septal Ratio 16.9 TR Peak Velocity 150.4 cm/s TR Peak Gradient 9.0 mmHg TR Mean Velocity 109.2 cm/s TR Mean Gradient 5.7 mmHg TR Velocity Time Integral 41.0 cm TV Peak E Velocity 91.0 cm/s Right Atrial Pressure 8.0 mmHg Pulmonary Artery Systolic Pressu 17.0 mmHg PV Peak Velocity 98.0 cm/s RV Acceleration Time 0.1 s RV Ejection Time 0.3 s RV AcT/ET 0.4 FINDINGS Left Ventricle Normal left ventricular size and systolic function, EF 55 %. No regional wall motion abnormalities. Right Ventricle Normal right ventricular size and systolic function. Right Atrium Upper limit of normal size Left Atrium Upper limit of normal size Mitral Valve No gross abnormalities noted Aortic Valve No gross abnormalities noted Tricuspid Valve No gross abnormalities noted Pulmonic Valve No gross abnormalities noted Pericardium No pericardial effusion. Aorta Normal aortic annulus size. CONCLUSIONS Normal left ventricular size and systolic function, EF 55 %. No regional wall motion abnormalities. Both atria, upper limit of normal size. There is no pericardial effusion. Normal aortic root size. Technically somewhat limited study because of poor ultrasonic window No previous study is available for comparison. Dr Jovon Marinelli MD FACC (Electronically Signed) Final Date: 19 April 2019 17:16 S
--- NOTE | 2019-04-19 20:04 | PC.NURSE ---
Patient sitting up in bed/c/o pain in abdominal area and refused treatment from respiratory therapy, encouraged patient to allow for the respiratory treatment and teaching provided to patient, will be moving patient to room 106, patient c/o heat control in room from neighbor. Consents signed for cardiac cath in am. Patient getting respiratory treatment at this time. Call light within reach. Care continued.
--- NOTE | 2019-04-19 20:07 | PM.PN ---
Subjective Subjective: Interval history: This morning he was initially feeling somewhat better, subsequently having some spasms in the upper abdomen which were contributing to his discomfort, as well as shortness of breath. He does have cough which may be contributing to his spasms. Denies any vomiting. Last bowel movement was yesterday. Denies eructation. Feels that his abdomen is somewhat full. Denies trouble urinating. Vitals/I&O/Wt Last Vital Signs Temp 97.4 F L 04/19/19 19:32 Pulse 99 04/19/19 20:03 Resp 18 04/19/19 19:58 BP 109/59 04/19/19 19:32 Pulse Ox 96 04/19/19 20:03 04/19/19 04/19/19 04/19/19 06:59 14:59 22:59 Intake Total 360 / 360 240 / 600 Output Total 1350 / 1850 100 / 100 150 / 250 Balance -1350 / -1850 260 / 260 90 / 350 Weight last 48 hrs Weight 106.73 kg Weight 104.326 kg Physical Exam Const: COMMON NORMALS: oriented x3 GENERAL APPEARANCE: in distress (Mild distress with abdominal spasms in the upper abdomen. Causing him some additional trouble breathing. Saturation is 97% on nasal cannula.) NUTRITIONAL APPEARANCE: overweight HENMT: COMMON NORMALS: oropharynx normal Neck/C-Spine: COMMON NORMALS: no JVD Resp: COMMON NORMALS: normal respiratory effort and clear to auscultation bilaterally AUSCULTATION: clear to auscultation bilaterally Cardio: COMMON NORMALS: no JVD, regular rhythm, S1 normal heart sound, S2 normal heart sound and no murmurs RHYTHM: regular rhythm HEART SOUNDS: S1 normal and S2 normal GI: COMMON NORMALS: soft to palpation and non-tender INSPECTION: Yes abdominal distension and Yes central obesity AUSCULTATION: Yes normoactive bowel sounds PALPATION: Yes soft Extremity: COMMON NORMALS: no joint enlargement and no pedal edema Neuro: COMMON NORMALS: oriented x3 and moves all extremities Skin: COMMON NORMALS: no rashes or lesions noted GENERAL SKIN EXAM: no rashes or lesions noted Data : 04/19/19 04:59 04/19/19 04:59 Micro: Microbiology 04/18/19 16:15 Blood Culture - Preliminary Blood NEGATIVE TO DATE 04/18/19 16:25 Blood Culture - Preliminary Blood NEGATIVE TO DATE A&P Assessment and plan (1) Acute respiratory failure with hypoxia: This morning initially feeling better, subsequently with some worse respiratory distress due to abdominal discomfort, with cramping in the upper abdomen. Saturation 97% on 5 L nasal cannula. He felt that his abdomen is somewhat distended. Requested for bladder scan. He does report he had a last bowel movement yesterday. Denies eructation, vomiting. Requested assessment by CT abdomen pelvis without contrast, with finding of unremarkable urinary bladder. With cholelithiasis, possibly contributing to symptoms, otherwise as discussed with him symptoms suspected secondary to esophagitis as seen on CTA. Started on PPI. Suspected undiagnosed COPD. Prescription with him and family family think he is also somewhat anxious/irritable secondary to nicotine withdrawal. Ordered nicotine patch. Continue treatment for heart failure per cardiology. His Lasix dose was increased to 60 mg IV twice daily. There are bilateral pleural effusions with underlying compressive atelectasis or infiltrate. Continue breathing treatments for COPD. Add budesonide nebs. Oxygen support. He is agreeable to BiPAP support in case this was necessary. Status: Acute Code(s): J96.01 - Acute respiratory failure with hypoxia (2) Acute non-ST elevation myocardial infarction (NSTEMI): Aspirin, Lovenox. Statin. No beta-zahida at this time due to CHF. Monitor on telemetry. His risk factors for coronary disease include smoking history, diabetes. Appreciate cardiology recommendations. Plan is for additional risk stratification by angiography when he is closer to euvolemia. Status: Acute Code(s): I21.4 - Non-ST elevation (NSTEMI) myocardial infarction (3) CHF (congestive heart failure): Acute diastolic CHF. Orthopnea, MITCHELL, peripheral edema. BNP elevated at 2050. Continue Lasix. Oxygen support. Status: Acute Qualifiers: Heart failure chronicity: acute Heart failure type: unspecified Qualified Code(s): I50.9 - Heart failure, unspecified Code(s): I50.9 - Heart failure, unspecified (4) DM type 2 (diabetes mellitus, type 2): Consistent carbohydrate diet. Continue insulin. A1c is close to goal at 8.4. Status: Acute Code(s): E11.9 - Type 2 diabetes mellitus without complications (5) Smoking addiction: Continue to encourage cessation. Nicotine patch and gum. Status: Acute Code(s): F17.200 - Nicotine dependence, unspecified, uncomplicated Additional A&P Information Esophagitis: Continue PPI. Once he is out of acute episode consider follow-up to exclude neoplasm. Attestations Medical Necessity Statement*: Continue admission for assessment of management of acute respiratory failure with hypoxia, CHF exacerbation, suspected undiagnosed COPD, non-STEMI. 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
[2019-04-19 20:39] LABS: Glucose Point of Care 244 mg/dL (70-110)
[2019-04-19] MEDS: insulin glargine 100 units/1 mL 20 UNIT SUBCUT (21:33)
[2019-04-19] MEDS: atorvastatin 40 mg Tablet PO (21:33)
[2019-04-19] MEDS: levofloxacin-dextrose 5 % 750 MG/150 ML PREMIX 150 MG IV (21:39)
[2019-04-20] VITALS (12 sets, daily range): BP systolic 120–137; BP diastolic 66–76; PULSE 94–103; RESP 13–24; TEMP 36.4–36.7; O2SAT 94–98
[2019-04-20] MEDS: ipratropium-albuterol 3 mL Neb INHALATION ×4 (01:29→20:45)
[2019-04-20 05:12] LABS: Basophils % 0.1 %; Eosinophils % 0.1 %; Hematocrit 45.2 % (42.0-52.0); Hemoglobin 13.8 g/dL (11.7-16.6); Lymphocytes # 2.6 10^3/uL (0.8-4.8); Lymphocytes % 17.6 %; Mean Corpuscular HGB Conc 30.5 g/dL (30.0-36.0); Mean Corpuscular Hemoglobin 29.5 pg (28.0-34.0); Mean Corpuscular Volume 96.6 fL (80-94); Mean Platelet Volume 11.8 fL (7.4-10.4); Monocytes % 6.7 %; Neutrophils # 11.1 10^3/uL (1.8-7.7); Neutrophils % 75.1 %; Nucleated Red Blood Cells % 0 %; Platelet Count 195 10^3/cmm (130-400); Red Blood Count 4.68 10^6/uL (4.1-5.3); Red Cell Distribution Width 13.9 % (12.1-15.1); White Blood Count 14.8 10^3/uL (4.0-10.0)
[2019-04-20] MEDS: enoxaparin 100 mg/mL Syringe SUBCUT ×2 (05:34→18:17)
[2019-04-20 05:37] LABS: Alanine Aminotransferase 22 U/L (0-41); Alkaline Phosphatase 101 IU/L (40-130); Anion Gap 21.7 (5-19); Aspartate Amino Transferase 20 U/L (0-40); Blood Urea Nitrogen 33 mg/dL (8-23); Calcium 9.5 mg/dL (8.5-10.5); Carbon Dioxide 29 mmol/L (22-29); Chloride 95 mmol/L (98-107); Globulin 3.1 g/dL (1.3-4.6); Glucose 164 mg/dL (65-115); Potassium 4.7 mmol/L (3.5-5.1); Sodium 141 mmol/L (136-145); Total Bilirubin 0.4 mg/dL (0.15-1.2); Total Protein 7.1 g/dL (6.6-8.7)
[2019-04-20 06:12] LABS: Glucose Point of Care 180 mg/dL (70-110)
--- NOTE | 2019-04-20 07:37 | PC.NURSE ---
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 CREATININE 1.4. VERBAL ORDERS RECEIVED TO POSTPONE THE [facility] SCHEDULED FOR THIS AM TO Friday AT 1000. DR NEAL WAS GOING TO NOTIFY [facility] AND THIS NURSE SPOKE WITH EDEN IN SCHEDULING.
[2019-04-20] MEDS: budesonide 0.5 mg/2 mL Neb INHALATION ×2 (08:23→20:46)
[2019-04-20] MEDS: aspirin 325 mg Tablet PO (08:37)
[2019-04-20] MEDS: pantoprazole DR 40 mg Tablet PO (08:37)
[2019-04-20] MEDS: nicotine 21 mg Patch 1 PATCH TRANSDERMA (08:37)
[2019-04-20 11:32] LABS: Glucose Point of Care 141 mg/dL (70-110)
[2019-04-20 16:46] LABS: Glucose Point of Care 151 mg/dL (70-110)
--- NOTE | 2019-04-20 19:48 | PM.PN ---
Subjective Subjective: Interval history: Breathing much better however creatinine has worsened due to slightly over diuresis. Vitals/I&O/Wt Last Vital Signs Temp 97.7 F 04/20/19 19:13 Pulse 101 H 04/20/19 19:13 Resp 24 H 04/20/19 19:13 BP 128/76 04/20/19 19:13 Pulse Ox 97 04/20/19 19:13 04/20/19 04/20/19 04/20/19 06:59 14:59 22:59 Intake Total 580 / 580 240 / 820 Output Total 1925 / 2175 600 / 600 Balance -1925 / -1575 580 / 580 -360 / 220 Weight last 48 hrs Weight 228 lb 4.8 oz Weight 235 lb 4.8 oz Physical Exam Narrative: EXAM NARRATIVE: GENERAL: Patient is alert, awake and oriented x3. NECK: No jugular vein distension. HEENT: No cyanosis. No icterus. No pallor. HEART: Regular S1 and S2. No murmur, rub or gallop. LUNGS: Clear to auscultate bilaterally. ABDOMEN: Soft, nontender and nondistended. Positive bowel sounds. No guarding, rebound or tenderness. CENTRAL NERVOUS SYSTEM: Grossly nonfocal. EXTREMITIES: Lower extremities without edema bilaterally. Pulses palpable in the lower extremities, both dorsalis pedis and posterior tibial. Data : 04/20/19 04:20 04/20/19 04:20 Micro: Microbiology 04/18/19 16:15 Blood Culture - Preliminary Blood NEGATIVE TO DATE 04/18/19 16:25 Blood Culture - Preliminary Blood NEGATIVE TO DATE A&P Assessment and plan (1) Acute respiratory failure with hypoxia: Mixed picture of CHF and COPD. Much improved. Continue current regimen Status: Acute Code(s): J96.01 - Acute respiratory failure with hypoxia (2) Smoking addiction: Patient was counseled about smoking Status: Acute Code(s): F17.200 - Nicotine dependence, unspecified, uncomplicated (3) DM type 2 (diabetes mellitus, type 2): As per medicine Status: Acute Code(s): E11.9 - Type 2 diabetes mellitus without complications (4) Acute non-ST elevation myocardial infarction (NSTEMI): We will proceed with coronary angiogram tomorrow if creatinine is stable until continue current regimen. Status: Acute Code(s): I21.4 - Non-ST elevation (NSTEMI) myocardial infarction (5) CHF (congestive heart failure): I will hold Lasix for now. We'll check his chem 7 the morning if stable we'll proceed with angiogram otherwise it will be deferred. 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
[2019-04-20 20:17] LABS: Glucose Point of Care 178 mg/dL (70-110)
[2019-04-20 20:33] LABS: Anion Gap 19.1 (5-19); Blood Urea Nitrogen 34 mg/dL (8-23); Calcium 9.5 mg/dL (8.5-10.5); Carbon Dioxide 26 mmol/L (22-29); Chloride 96 mmol/L (98-107); Glucose 195 mg/dL (65-115); Osmolality Calculated 285 mOsm/kg (285-295); Potassium 5.1 mmol/L (3.5-5.1); Sodium 136 mmol/L (136-145)
[2019-04-20] MEDS: levofloxacin-dextrose 5 % 750 MG/150 ML PREMIX 150 MG IV (20:50)
[2019-04-20] MEDS: atorvastatin 40 mg Tablet PO (20:51)
[2019-04-20] MEDS: sodium chloride 0.9% 1,000 ML 100 ML IV (20:52)
[2019-04-20] MEDS: insulin glargine 100 units/1 mL 20 UNIT SUBCUT (20:54)
--- NOTE | 2019-04-20 21:05 | P.PN_ITS ---
Subjective Subjective: Interval history: Today he is doing better. Breathing is improved. He has been weaning down on oxygen. Currently down to 2 L. Symptoms in his belly have improved. He reports has not had a bowel movement in several days. Vitals/I&O/Wt Last Vital Signs Temp 97.7 F 04/20/19 19:13 Pulse 101 H 04/20/19 20:50 Resp 24 H 04/20/19 20:50 BP 128/76 04/20/19 19:13 Pulse Ox 95 04/20/19 20:50 04/20/19 04/20/19 04/20/19 06:59 14:59 22:59 Intake Total 580 / 580 240 / 820 Output Total 1925 / 2175 600 / 600 Balance -1925 / -1425 580 / 580 -360 / 220 Weight last 48 hrs Weight 103.555 kg Weight 106.73 kg Physical Exam Const: COMMON NORMALS: oriented x3 GENERAL APPEARANCE: cooperative and comfortable; not in distress NUTRITIONAL APPEARANCE: overweight HENMT: COMMON NORMALS: oropharynx normal Neck/C-Spine: COMMON NORMALS: no JVD Resp: COMMON NORMALS: normal respiratory effort and clear to auscultation bilaterally AUSCULTATION: clear to auscultation bilaterally Cardio: COMMON NORMALS: no JVD, regular rhythm, S1 normal heart sound, S2 normal heart sound and no murmurs RHYTHM: regular rhythm HEART SOUNDS: S1 normal and S2 normal GI: COMMON NORMALS: soft to palpation and non-tender INSPECTION: Yes abdominal distension and Yes central obesity AUSCULTATION: Yes normoactive bowel sounds PALPATION: Yes soft Extremity: COMMON NORMALS: no joint enlargement and no pedal edema Neuro: COMMON NORMALS: oriented x3 and moves all extremities Skin: COMMON NORMALS: no rashes or lesions noted GENERAL SKIN EXAM: no rashes or lesions noted Data : 04/20/19 04:20 04/20/19 20:10 Micro: Microbiology 04/18/19 16:15 Blood Culture - Preliminary Blood NEGATIVE TO DATE 04/18/19 16:25 Blood Culture - Preliminary Blood NEGATIVE TO DATE A&P Assessment and plan (1) Acute respiratory failure with hypoxia: Today he is improving. He weaning down on oxygen, currently down to 2 L. Breathing is more comfortable. Undiagnosed COPD exacerbation and pneumonia. Abdominal symptoms have resolved. Requested assessment by CT abdomen pelvis without contrast, with finding of unremarkable urinary bladder. With cholelithiasis, possibly contributing to symptoms, otherwise as discussed with him abdominal symptoms suspected secondary to esophagitis as seen on CTA. Continue PPI. Irritability resolved with nicotine patch. Lasix will hold at this time as appears he was over diuresed. Receiving gentle IV hydration. There are bilateral pleural effusions with underlying compressive atelectasis or infiltrate. Will decrease IV fluid rate somewhat. Continue breathing treatments for COPD. Budesonide nebs. Oxygen support. Status: Acute Code(s): J96.01 - Acute respiratory failure with hypoxia (2) Acute non-ST elevation myocardial infarction (NSTEMI): Aspirin, Lovenox. Statin. No beta-zahida at this time due to CHF. Monitor on telemetry. His risk factors for coronary disease include smoking history, diabetes. Appreciate cardiology recommendations. Plan is for additional risk stratification by angiography tomorrow. Status: Acute Code(s): I21.4 - Non-ST elevation (NSTEMI) myocardial infarction (3) CHF (congestive heart failure): This had improved. Hypoxia improved. Now with mild acute kidney injury, suspected perhaps with overdiuresis. Further Lasix held. Started on gentle IV hydration. Monitor volume status. Status: Acute Qualifiers: Heart failure chronicity: acute Heart failure type: unspecified Qualified Code(s): I50.9 - Heart failure, unspecified Code(s): I50.9 - Heart failure, unspecified (4) DM type 2 (diabetes mellitus, type 2): Consistent carbohydrate diet. Continue insulin. A1c is close to goal at 8.4. Status: Acute Code(s): E11.9 - Type 2 diabetes mellitus without complications (5) Smoking addiction: Continue to encourage cessation. Nicotine patch and gum. Status: Acute Code(s): F17.200 - Nicotine dependence, unspecified, uncomplicated Additional A&P Information Esophagitis: Continue PPI. Once he is out of acute episode of illness consider follow-up with endoscopy to exclude neoplasm. Attestations Medical Necessity Statement*: Continue admission for assessment management acute hypoxia, pneumonia, COPD exacerbation, non-STEMI. Coding Level of Care Code Acute Priming Powder Premix Blender for Renzo Courtney Diagnoses Acute respiratory failure with hypoxia J96.01 Acute non-ST elevation myocardial infarction (NSTEMI) I21.4 CHF (congestive heart failure) I50.9 Heart failure chronicity: acute Heart failure type: unspecified DM type 2 (diabetes mellitus, type 2) E11.9 Smoking addiction F17.200
[2019-04-20] MEDS: polyethylene glycol 3350 Pkt 17 gm PO (22:11)
[2019-04-21] VITALS (35 sets, daily range): BP systolic 108–140; BP diastolic 59–81; PULSE 89–107; RESP 15–29; TEMP 36.3–36.6; O2SAT 87–98
[2019-04-21 05:03] LABS: Basophils % 0.4 %; Eosinophils # 0.1 10^3/uL (0.0-0.8); Eosinophils % 0.9 %; Hematocrit 43.2 % (42.0-52.0); Hemoglobin 13.3 g/dL (11.7-16.6); Lymphocytes # 2.4 10^3/uL (0.8-4.8); Lymphocytes % 23.7 %; Mean Corpuscular HGB Conc 30.8 g/dL (30.0-36.0); Mean Corpuscular Hemoglobin 28.4 pg (28.0-34.0); Mean Corpuscular Volume 92.1 fL (80-94); Mean Platelet Volume 11.5 fL (7.4-10.4); Monocytes # 0.7 10^3/uL (0.2-0.9); Monocytes % 7.4 %; Neutrophils # 6.8 10^3/uL (1.8-7.7); Neutrophils % 67.4 %; Nucleated Red Blood Cells % 0 %; Platelet Count 226 10^3/cmm (130-400); Red Blood Count 4.69 10^6/uL (4.1-5.3); Red Cell Distribution Width 13.6 % (12.1-15.1)
[2019-04-21] MEDS: enoxaparin 100 mg/mL Syringe SUBCUT (05:19)
[2019-04-21 05:31] LABS: Alanine Aminotransferase 23 U/L (0-41); Albumin Level 3.9 g/dL (3.5-5.2); Alkaline Phosphatase 92 IU/L (40-130); Anion Gap 15.6 (5-19); Aspartate Amino Transferase 25 U/L (0-40); Blood Urea Nitrogen 29 mg/dL (8-23); Calcium 9.7 mg/dL (8.5-10.5); Carbon Dioxide 29 mmol/L (22-29); Chloride 97 mmol/L (98-107); Globulin 3.3 g/dL (1.3-4.6); Glomerular Filtration Rate 67.4 mL/min (90-130); Glucose 139 mg/dL (65-115); Potassium 4.6 mmol/L (3.5-5.1); Sodium 137 mmol/L (136-145); Total Bilirubin 0.8 mg/dL (0.15-1.2); Total Protein 7.2 g/dL (6.6-8.7)
[2019-04-21 06:10] LABS: Glucose Point of Care 136 mg/dL (70-110)
--- NOTE | 2019-04-21 07:11 | XACV_ITS ---
Exam Room: [facility] Ht: 180 cm Wt: 103 kg BSA: 2.31 m2 Gender: Male : 1955 Any Known Allergies: Penicillins Exam Priority: Routine Procedure(s): Procedure Description: Diagnostic procedure Procedure Description: PCI procedure Procedure Description: Drug Eluting Coronary Stent Procedure Description: PTCA Procedure Description: Miscellaneous Procedure Description: ACT Procedure Description: Coronary Angiography Diagnostic Cath Status: Elective Diagnostic Findings LM has 0% stenosis. pLAD to mLAD: Moderate 50% stenosis, CHARLY: 3 flow. Mid Circumflex Coronary Artery: Severe 95% stenosis, CHARLY: 3 flow. pRCA to mRCA: Moderate 50% stenosis, CHARLY: 3 flow. Coronary angiography shows right dominance. PCI Status: Elective PCI Indication: NSTE - ACS Interventional Findings Mid Circumflex Coronary Artery: 95% stenosis treated with AB TREK 2.50X15 RX BALLOON, AB TREK 2.75X8 RX BALLOON, MDTheron Emerson TRINA 2.75X18 SIMÓN, and MDT JO EUPHORA RX [id number] BALLOON. 0% residual stenosis, CHARLY: 3 flow. Conclusions There is severe coronary artery disease with three vessel disease. Mid Circumflex Coronary Artery was treated with three Balloon and Drug Eluting Stent. Recommendations 1-Return to inpatient for close monitoring and routine cath care2-Risk factor modification for secondary prevention3-Statin and aspirin 81 mg life-long, if tolerated4-Patient was pre-loaded with 600 mg of Plavix, continue Plavix 75mg p.o. daily for at least one year. We will assess at the end of one year again to continue if further or not5-Continue optimal medical management6-Follow up with Dr. Plata in four weeks and your primary care in 10 days. Diagnostic RX Recommendation: PCI w/o planned CABG Pressures Phase:Rest AO : 99 mmHg / 75 mmHg ( 87 mmHg ) @ 5:37:00 AM Clinical Evaluation EBL: 5mL-10mL Procedural Details Procedure Consent Obtained. Pre-Procedure Time Out. Identified patient by full name and date of as verbalized by the patient/guarantor. Does the consent match the physician's order: Yes. Accurate & Complete Informed Consent: Yes. Inpatient/Outpatient History & Physical on Chart: Yes. If H&P is completed, is and addenduem needed: No; If yes, is the addendum complete: N/A. Visualize and Verify Site with Patient/Guarantor: N/A. Relevant Radiology Images available: Yes. Pre-op teaching completed and patient verbalized understanding. The risks, benefits, and alternatives of sedation and/or procedure were discussed by physician. The patient agrees to continue. Procedure started. Correct patient, site and procedure confirmed by cath team. Current diagnosis: NSTEMI. PERRLA. Strong, equal hand tipple operator bilaterally. Lungs clear x 5 lobes. IV Site on Arrival: 20 gauge in the left forearm. IV Fluids: 0.9% NaCl at KVO. 30 mL infused prior to school laboratory technician. Pre Procedural Pulses: bilateral dorsalis pedis was 3+. Pre Procedural Pulses: bilateral posterior tibial was 3+. Pre Procedural Pulses: bilateral radial was 3+. Oxygen started at 2liters/min via nasal canula. bilateral groins was prepped with chloroprep then draped in the usual sterile fashion. right radial was prepped with chloroprep then draped in the usual sterile fashion. Physician notified. Baseline sample Acquired. HR: 97 BPM. Equipment: 6F - Radial. ACIST Manifold Kit Model BT 2000. Cardiac Cath Pack. Heparinized Saline (2 units/mL), 1000 mL bag. Physician arrived. Physician scrubbed in. Immediate Pre-Procedure Time Out. Correct Patient: Yes; Correct Procedure: Yes; Correct Site: Yes; Correct Patient Position: Yes; Correct Supplies: Yes; Dried Flammable Prep: Yes; Blood Products Available: No;. Lidocaine 1% infiltrated to the right radial. Arterial access obtained. A 6 telugu TIG catheter in over wire. Multiple views taken of left coronary artery. Catheter redirected to the RCA. Multiple views taken of right coronary artery. Catheter removed over the wire. 6 telugu XB 3.5 guide catheter was inserted over the wire. Family updated by Clarita Chavez. [place] wire inserted. Inflation number : 1 A AB TREK 2.50X15 RX BALLOON was prepped and advanced across the Mid CX , then inflated to 8 SEAN for 0:25 seconds. Inflation number: 2 The AB TREK 2.50X15 RX BALLOON was reinflated across the Mid CX, to 12 SEAN for 0:06 seconds. balloon out. intact stent coming out. Inflation number: 3 The AB TREK 2.50X15 RX BALLOON was reinflated across the Mid CX, to 16 SEAN for 0:12 seconds. Inflation number: 4 The AB TREK 2.50X15 RX BALLOON was reinflated across the Mid CX, to 16 SEAN for 0:13 seconds. Inflation number : 5 A AB TREK 2.75X8 RX BALLOON was prepped and advanced across the Mid CX , then inflated to 14 SEAN for 0:18 seconds. Inflation number: 6 The AB TREK 2.75X8 RX BALLOON was reinflated across the Mid CX, to 14 SEAN for 0:02 seconds. Inflation number: 7 The AB TREK 2.75X8 RX BALLOON was reinflated across the Mid CX, to 14 SEAN for 0:11 seconds. Inflation number: 8 The AB TREK 2.75X8 RX BALLOON was reinflated across the Mid CX, to 14 SEAN for 0:12 seconds. Inflation number: 9 The AB TREK 2.75X8 RX BALLOON was reinflated across the Mid CX, to 14 SEAN for 0:07 seconds. Inflation number: 10 The AB TREK 2.75X8 RX BALLOON was reinflated across the Mid CX, to 16 SEAN for 0:18 seconds. Inflation Number : 11 A BEAR R TRINA 2.75X18 SIMÓN -Lot Number# [id number] was prepped and advanced across the Mid CX. The stent was deployed at 16 SEAN for 0:14 seconds. Stent expiration date: 10/21/2020. Stent balloon out over wire. Inflation number : 12 A MDT NC EUPHORA RX [id number] BALLOON was prepped and advanced across the Mid CX , then inflated to 12 SEAN for 0:09 seconds. Inflation number: 13 The MDT NC EUPHORA RX 2.12S62JE BALLOON was reinflated across the Mid CX, to 16 SEAN for 0:14 seconds. Inflation number: 14 The MDT NC EUPHORA RX 2.28L72ME BALLOON was reinflated across the Mid CX, to 16 SEAN for 0:05 seconds. Balloon out. Wire out. Guide catheter out. ACT drawn. Results 269 seconds. Therapeutic limits - pre-heparin administration 90-150 seconds and monitoring heparin during a vascular procedure >250 seconds. TR band placed. Hemostasis obtained. Post Procedure: Pulses reassessed and unchanged. PERRLA. Strong, equal hand tipple operator bilaterally. No VTE prophylaxis required. Medication's Wasted: Lidocaine 1% = 18 mL. Medication's Wasted: Nitro = 49.8 mg. Medication's Wasted: Heparin = 2000 units. Medication's Wasted: Other = Versed 1` mg. Medication's Wasted: Other = Fentanyl 25mcg. Total IV fluids: 67.5 mL. PCI Indication: New Onset Angina. Post-op diagnosis: CAD. Complications: None. Estimated blood loss: 5mL-10mL. Procedure completed. Patient transferred by wheelchair to 1st floor. Vital chart was stopped. Site: Right Radial artery Sheath Size: 6 Fr Hemostasis Success: Unsuccessful Procedure Medications Start: 11:34 AM Stop: 11:34 AM Medication: Versed Amount: 1 mg Route: I.V. Start: 11:34 AM Stop: 11:34 AM Medication: Fentanyl Amount: 50 mcg Route: I.V. Start: 11:34 AM Stop: 11:34 AM Medication: Nitrogylcerin Amount: 200 mcg Route: I.A. Start: 11:38 AM Stop: 11:38 AM Medication: Heparin Amount: 9000 units Route: I.V. Start: 12:00 PM Stop: 12:00 PM Medication: Versed 1 mg and Fentanyl 25 mcg Amount: 1 Route: I.V. I, the attending physician, have reviewed and verified all procedure medications. Yes, all medications given per verbal order History/Risk Factors Hypertension: Yes Dyslipidemia: No Diabetic Therapy: Insulin Peripheral Arterial Disease (PAD): No Myocardial Infarction (GA): No Obesity: No Renal Disease: No Prior Interventions PCI: No CABG: No Valve Surgery: No Report Signatures Finalized by:Familia Plata MD on 05/05/2019 7:29:47 PM
[2019-04-21] MEDS: pantoprazole DR 40 mg Tablet PO (08:01)
[2019-04-21] MEDS: aspirin 325 mg Tablet PO (08:01)
[2019-04-21] MEDS: nicotine 21 mg Patch 1 PATCH TRANSDERMA (08:01)
[2019-04-21] MEDS: polyethylene glycol 3350 Pkt 17 gm PO ×2 (08:02→17:56)
[2019-04-21] MEDS: ipratropium-albuterol 3 mL Neb INHALATION ×2 (08:31→21:28)
[2019-04-21] MEDS: budesonide 0.5 mg/2 mL Neb INHALATION ×2 (08:31→21:28)
[2019-04-21] MEDS: LORazepam 0.5 mg Tablet PO (09:44)
[2019-04-21] MEDS: diphenhydrAMINE 50 mg Capsule PO (09:44)
[2019-04-21] MEDS: clopidogrel 300 mg Tablet 600 MG PO (12:39)
--- NOTE | 2019-04-21 14:08 | P.PN_ITS ---
Subjective Subjective: Interval history: s/p cardiac cath today with stent placement. No new complaints Medications: Reviewed: Yes Vitals/I&O/Wt Last Vital Signs Temp 97.8 F 04/21/19 07:40 Pulse 101 H 04/21/19 08:41 Resp 22 H 04/21/19 08:31 BP 140/74 04/21/19 07:40 Pulse Ox 95 04/21/19 08:31 04/20/19 04/21/19 04/21/19 22:59 06:59 14:59 Intake Total 329.166 / 909.166 Output Total 1350 / 1350 575 / 1925 750 / 750 Balance -1020.834 / -440.834 -575 / -1015.834 -750 / -750 Weight last 48 hrs Weight 103.555 kg Physical Exam Narrative: EXAM NARRATIVE: GEN: Awake, alert and oriented, no acute distress CVS: S1S2 N RS: CTA B/L Abd: Soft, nt/nd , bs+ CAREER COORDINATOR: no focal neuro deficits Data : 04/21/19 04:35 04/21/19 04:35 A&P Assessment and plan (1) Acute respiratory failure with hypoxia: No new complaints today Undiagnosed COPD exacerbation and pneumonia. Abdominal symptoms have resolved. Requested assessment by CT abdomen pelvis without contrast, with finding of unremarkable urinary bladder. With cholelithiasis, possibly contributing to symptoms, otherwise as discussed with him abdominal symptoms suspected secondary to esophagitis as seen on CTA. Continue PPI. Irritability resolved with nicotine patch. Lasix on hold today, will resume 40mg po tomorrow Continue breathing treatments for COPD. Budesonide nebs. Oxygen support. Status: Acute Code(s): J96.01 - Acute respiratory failure with hypoxia (2) Acute non-ST elevation myocardial infarction (NSTEMI): Aspirin, Lovenox. Statin. No beta-zahida at this time due to CHF. Monitor on telemetry. His risk factors for coronary disease include smoking history, diabetes. S/P angiogram with stent placement today Status: Acute Code(s): I21.4 - Non-ST elevation (NSTEMI) myocardial infarction (3) CHF (congestive heart failure): This had improved. Hypoxia improved. Now with mild acute kidney injury, suspected perhaps with overdiuresis. Further Lasix held. Started on gentle IV hydration. cr improving. Monitor volume status. Status: Acute Qualifiers: Heart failure chronicity: acute Heart failure type: unspecified Qualified Code(s): I50.9 - Heart failure, unspecified Code(s): I50.9 - Heart failure, unspecified (4) DM type 2 (diabetes mellitus, type 2): Consistent carbohydrate diet. Continue insulin. A1c is close to goal at 8.4. Status: Acute Code(s): E11.9 - Type 2 diabetes mellitus without complications (5) Smoking addiction: Continue to encourage cessation. Nicotine patch and gum. Status: Acute Code(s): F17.200 - Nicotine dependence, unspecified, uncomplicated Additional A&P Information Esophagitis: Continue PPI. Once he is out of acute episode of illness consider follow-up with endoscopy to exclude neoplasm. 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
--- NOTE | 2019-04-21 15:15 | PC.NURSE ---
pt agitated again. aide attempted to help pt stand to use the urinal and patient proceeded to elbow aide. notified and ordered Ativan 0.5 mg.
--- NOTE | 2019-04-21 16:00 | PC.NURSE ---
pt agitated. and ripping wires off. pt educated on needing to be monitored. dr notified of pt behavior and came to talk to pt.
[2019-04-21 16:51] LABS: Glucose Point of Care 181 mg/dL (70-110)
[2019-04-21] MEDS: LORazepam 2 mg/mL INJ 1 mL 0.5 MG IVP (17:54)
--- NOTE | 2019-04-21 18:30 | PC.NURSE ---
while helping pt go to bath room he elbowed me and almost fell and told me to leave him the hell alone i steped back and let him go to bathroom than i helped him back to bed
--- NOTE | 2019-04-21 20:00 | PM.PN ---
Subjective Subjective: Interval history: Patient underwent coronary angiogram today. Found to have significant circumflex stenosis and mild to moderate disease of mid LAD. LCx mid highly calcified lesion was treated with single drug-eluting stent deployed at high SEAN followed by postdilatation with noncompliant balloon. Patient tolerated procedure well.. Vitals/I&O/Wt Last Vital Signs Temp 97.9 F 04/21/19 16:00 Pulse 99 04/21/19 18:15 Resp 22 H 04/21/19 18:15 BP 126/77 04/21/19 17:00 Pulse Ox 96 04/21/19 18:15 04/21/19 04/21/19 04/21/19 06:59 14:59 22:59 Intake Total 120 / 120 240 / 360 Output Total 575 / 1925 1150 / 1150 800 / 1950 Balance -575 / -1015.834 -1030 / -1030 -560 / -1590 Weight last 48 hrs Weight 228 lb 4.8 oz Physical Exam Narrative: EXAM NARRATIVE: GENERAL: Patient is alert, awake and oriented x3. NECK: No jugular vein distension. HEENT: No cyanosis. No icterus. No pallor. HEART: Regular S1 and S2. No murmur, rub or gallop. LUNGS: Clear to auscultate bilaterally. ABDOMEN: Soft, nontender and nondistended. Positive bowel sounds. No guarding, rebound or tenderness. CENTRAL NERVOUS SYSTEM: Grossly nonfocal. EXTREMITIES: Lower extremities without edema bilaterally. Data : 04/21/19 04:35 04/21/19 04:35 A&P Assessment and plan (1) Acute respiratory failure with hypoxia: Improved. Continue current regimend Status: Acute Code(s): J96.01 - Acute respiratory failure with hypoxia (2) Smoking addiction: Discussed with the patient. Status: Acute Code(s): F17.200 - Nicotine dependence, unspecified, uncomplicated (3) DM type 2 (diabetes mellitus, type 2): As per medicine Status: Acute Code(s): E11.9 - Type 2 diabetes mellitus without complications (4) Acute non-ST elevation myocardial infarction (NSTEMI): Status post PCI to mid circumflex. Continue Plavix beta zahida statin , discontinue anticoagulation Status: Acute Code(s): I21.4 - Non-ST elevation (NSTEMI) myocardial infarction (5) CHF (congestive heart failure): Well compensated now. 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
--- NOTE | 2019-04-21 20:09 | PC.NURSE ---
Patient had been confused on and off earlier today. Patient also became aggressive earlier today. Patient is refusing to wear telemetry and oxygen at this time. Will not put telemetry back on patient for patient and staff safety. Patient was educated on need for telemetry and oxygen and is still refusing. One-on-one sitter at bedside. Will continue to monitor.
[2019-04-21 20:43] LABS: Glucose Point of Care 172 mg/dL (70-110)
[2019-04-21] MEDS: levofloxacin-dextrose 5 % 750 MG/150 ML PREMIX 150 MG IV (20:45)
[2019-04-21] MEDS: insulin glargine 100 units/1 mL 20 UNIT SUBCUT (20:45)
[2019-04-21] MEDS: atorvastatin 40 mg Tablet PO (20:45)
--- NOTE | 2019-04-21 21:10 | PC.NURSE ---
Patient appears to be calm at this time. Patient answered correctly to person, time, place, and situation at this time. Will continue to monitor. Patient appears to be confused on and off. One on one sitter at bedside.
--- NOTE | 2019-04-21 22:55 | PC.NURSE ---
Nurse checked patient's oxygen saturation and it was at 82 percent. Nurse educated patient that his oxygen was low and that is was best to put his oxygen back on. Patient asks how low is it? Nurse replied 82 percent. Patient states oh, I guess and nurse helped patient put nasal cannula back on. Patient is currently at 93% oxygen saturation with nasal cannula at 2 L.
--- NOTE | 2019-04-22 01:24 | PC.NURSE ---
Patient agreed to let nurse put telemetry leads on.
[2019-04-22 04:00] VITALS: BP 122/76; PULSE 89; RESP 18; TEMP 36.8; O2SAT 94
[2019-04-22 05:30] LABS: Basophils % 0.3 %; Eosinophils # 0.2 10^3/uL (0.0-0.8); Eosinophils % 1.7 %; Hemoglobin 14.7 g/dL (11.7-16.6); Lymphocytes # 1.7 10^3/uL (0.8-4.8); Lymphocytes % 19.7 %; Mean Corpuscular Hemoglobin 29.5 pg (28.0-34.0); Mean Corpuscular Volume 92.4 fL (80-94); Mean Platelet Volume 11.4 fL (7.4-10.4); Monocytes # 0.7 10^3/uL (0.2-0.9); Monocytes % 7.7 %; Neutrophils # 6.1 10^3/uL (1.8-7.7); Neutrophils % 70.4 %; Nucleated Red Blood Cells % 0 %; Platelet Count 212 10^3/cmm (130-400); Red Blood Count 4.98 10^6/uL (4.1-5.3); Red Cell Distribution Width 13.2 % (12.1-15.1); White Blood Count 8.7 10^3/uL (4.0-10.0)
--- NOTE | 2019-04-22 05:39 | PC.NURSE ---
Patient is currently on room air with oxygen saturation of 94%.
[2019-04-22 05:53] LABS: Alanine Aminotransferase 28 U/L (0-41); Albumin Level 3.6 g/dL (3.5-5.2); Alkaline Phosphatase 95 IU/L (40-130); Anion Gap 15.4 (5-19); Aspartate Amino Transferase 31 U/L (0-40); Blood Urea Nitrogen 19 mg/dL (8-23); Calcium 9.6 mg/dL (8.5-10.5); Carbon Dioxide 28 mmol/L (22-29); Chloride 97 mmol/L (98-107); Globulin 3.8 g/dL (1.3-4.6); Glomerular Filtration Rate 75.2 mL/min (90-130); Glucose 126 mg/dL (65-115); Potassium 4.4 mmol/L (3.5-5.1); Sodium 136 mmol/L (136-145); Total Bilirubin 1.1 mg/dL (0.15-1.2); Total Protein 7.4 g/dL (6.6-8.7)
[2019-04-22 06:21] LABS: Glucose Point of Care 147 mg/dL (70-110)
[2019-04-22 06:58] VITALS: BP 165/137; PULSE 82; RESP 11; TEMP 37.1; O2SAT 99
[2019-04-22 07:27] VITALS: BP 130/76; PULSE 92; RESP 24; TEMP 36.8; O2SAT 94
[2019-04-22] MEDS: clopidogrel 75 mg Tablet PO (08:14)
[2019-04-22] MEDS: nicotine 21 mg Patch 1 PATCH TRANSDERMA (08:14)
[2019-04-22] MEDS: pantoprazole DR 40 mg Tablet PO (08:14)
[2019-04-22] MEDS: aspirin 325 mg Tablet PO (08:14)
--- NOTE | 2019-04-22 09:45 | DCPLANNER ---
Pg 2 of IM explained to and signed by pt. No questions, copy provided.
--- NOTE | 2019-04-22 10:32 | P.PN_ITS ---
Subjective Subjective: Interval history: Patient is feeling better he would like to go home. Denies any chest pain no overnight complication. Breathing better. Medications: Reviewed: Yes Vitals/I&O/Wt Last Vital Signs Temp 98.2 F 04/22/19 07:27 Pulse 92 04/22/19 07:27 Resp 24 H 04/22/19 07:27 BP 130/76 04/22/19 07:27 Pulse Ox 94 04/22/19 07:27 04/21/19 04/22/19 04/22/19 22:59 06:59 14:59 Intake Total 937 / 1057 740 / 1797 240 / 240 Output Total 800 / 1950 50 / 2000 Balance 137 / -893 690 / -203 240 / 240 Weight last 48 hrs Weight 222 lb 6.4 oz Physical Exam Narrative: EXAM NARRATIVE: GENERAL: Patient is alert, awake and oriented x3. NECK: No jugular vein distension. HEENT: No cyanosis. No icterus. No pallor. HEART: Regular S1 and S2. No murmur, rub or gallop. LUNGS: Clear to auscultate bilaterally. ABDOMEN: Soft, nontender and nondistended. Positive bowel sounds. No guarding, rebound or tenderness. CENTRAL NERVOUS SYSTEM: Grossly nonfocal. EXTREMITIES: Lower extremities without edema bilaterally. Data : 04/22/19 05:00 04/22/19 05:00 A&P Assessment and plan (1) Acute respiratory failure with hypoxia: Improved. Continue current Medications. Status: Acute Code(s): J96.01 - Acute respiratory failure with hypoxia (2) Smoking addiction: Discussed with the patient. Status: Acute Code(s): F17.200 - Nicotine dependence, unspecified, uncomplicated (3) DM type 2 (diabetes mellitus, type 2): As per medicine Status: Acute Code(s): E11.9 - Type 2 diabetes mellitus without complications (4) Acute non-ST elevation myocardial infarction (NSTEMI): Status post intervention to circumflex with single drug-eluting stent. Patient tolerated procedure well without any complication. He is ambulating fine. Denies any chest pain. He is in compensated state of heart failure. He would like to go home. We will discharge him. He is going to follow-up with cardiology in 7 days. Status: Acute Code(s): I21.4 - Non-ST elevation (NSTEMI) myocardial infarction (5) CHF (congestive heart failure): Well compensated. Continue Lasix 40 mg and potassium 20 mg by mouth daily. Status: Acute Qualifiers: Heart failure chronicity: acute Heart failure type: unspecified Qualified Code(s): I50.9 - Heart failure, unspecified Code(s): I50.9 - Heart failure, unspecified Attestations Medical Necessity Statement*: Patient can be discharged home if okay with medicine. Coding Level of Care Code Established Pt Acute Septic Tank Service Technician for Radhag Alexanderd Patient Type Established History Expanded Problem Focused Exam Expanded Problem Focused Medical Decision Making Moderate Complexity Diagnoses Acute respiratory failure with hypoxia J96.01 Smoking addiction F17.200 DM type 2 (diabetes mellitus, type 2) E11.9 Acute non-ST elevation myocardial infarction (NSTEMI) I21.4 CHF (congestive heart failure) I50.9 Heart failure chronicity: acute Heart failure type: unspecified
[2019-04-22 10:38] VITALS: BP 130/76; PULSE 92; RESP 24; TEMP 36.8; O2SAT 94
--- NOTE | 2019-04-22 10:44 | PM.DCS ---
Discharge Providers Date of Admission: 04/18/19 18:34 Date of Discharge: April 22, 2019 Attending Provider at Admission: Juan Carlos Chandra Attending Provider at Discharge: Clemencia Frazier MD Primary Care Provider: EDEN SHELTON DO Diagnoses at Discharge Discharge Diagnosis (1) Acute respiratory failure with hypoxia: Status: Acute (2) Smoking addiction: Status: Acute (3) DM type 2 (diabetes mellitus, type 2): Status: Acute (4) Acute non-ST elevation myocardial infarction (NSTEMI): Status: Acute (5) CHF (congestive heart failure): Status: Acute Qualifiers: Heart failure chronicity: acute Heart failure type: unspecified Qualified Code(s): I50.9 - Heart failure, unspecified Reason for Visit Reason for Visit: Reason For Visit: NSTEMI, CHF Hospital Course Discharge Summary: Camron Burnett is a 63 year old pleasant gentleman with history of DM 2, current smoker presented to ER for evaluation due to progressive shortness of breath over the last 2-3 weeks. He states that he has been getting so short of breath that he has not been able to smoke even. Received aspirin, started on Lovenox due to non-STEMI upon arrival. Also had CHF for which Lasix. Once volume status was optimized he underwent cardiac catheterization and received a stent to the LCx on 04/21/2019. Hospital course was otherwise notable for some abdominal pain for which he underwent CT abdomen and pelvis which showed cholelithiasis but otherwise no acute changes. He also had some esophagitis for which she was started on a PPI. Other problems include SHAYLA likely secondary to overdiuresis which eventually resolved. Creatinine is now back down to 1.0. Postprocedure he exhibited signs of nicotine withdrawal with increased agitation and irritability in spite of having a nicotine patch on. He is being discharged home today in a stable condition. He is to follow-up with cardiology HOME CARE MANAGER RN within a week and with Dr. Plata in 6 to 8 weeks. Physical Exam Narrative: EXAM NARRATIVE: GEN: Awake, alert and oriented, no acute distress CVS: S1S2 N RS: CTA B/L Abd: Soft, nt/nd , bs+ PRINTING MACHINIST: no focal neuro deficits Discharge Data Data Completed and Pending: Completed Studies During Hospitalization Category Date Time Status CT abdomen pelvis wo con 99751 Rout ine Cat Scan 04/19/19 14:[address] angio chest PE protcl [id number] Stat Cat Scan 04/18/19 18:05 Completed XR chest 1V elizabet ble [id number] Stat Exams 04/18/19 16:12 Completed CV echo complete* [id number] Routine Ultrasound 04/19/19 19:16 Completed Pending at discharge Category Date Time Status ROTARY DRIER FEEDER request for service Routin e Exams 04/21/19 07:11 Taken Blood Culture Sta t Lab 04/18/19 16:15 Results Labs from last 24 hours 04/22/19 04/22/19 04/22/19 06:14 05:00 05:00 WBC 8.7 RBC 4.98 Hgb 14.7 Hct 46.0 MCV 92.4 MCH 29.5 MCHC 32.0 RDW 13.2 Plt Count 212 MPV 11.4 H Neut % (Auto) 70.4 Lymph % (Auto) 19.7 [place] % (Auto) 7.7 Eos % (Auto) 1.7 Baso % (Auto) 0.3 Neut # (Auto) 6.1 Lymph # (Auto) 1.7 [place] # (Auto) 0.7 Eos # (Auto) 0.2 Baso # (Auto) 0.0 Nucleated RBC % (a uto) 0 Nucleated RBCs # 0.0 Sodium 136 Potassium 4.4 Chloride 97 L Carbon Dioxide 28 Anion Gap 15.4 BUN 19 Creatinine 1.0 GFR Calculation 75.2 L Glucose 126 H POC Glucose 147 Calcium 9.6 Total Bilirubin 1.1 AST 31 ALT 28 Alkaline Phosphata se 95 Total Protein 7.4 Albumin 3.6 Globulin 3.8 04/21/19 04/21/19 20:37 16:37 WBC RBC Hgb Hct MCV MCH MCHC RDW Plt Count MPV Neut % (Auto) Lymph % (Auto) [place] % (Auto) Eos % (Auto) Baso % (Auto) Neut # (Auto) Lymph # (Auto) [place] # (Auto) Eos # (Auto) Baso # (Auto) Nucleated RBC % (a uto) Nucleated RBCs # Sodium Potassium Chloride Carbon Dioxide Anion Gap BUN Creatinine GFR Calculation Glucose POC Glucose 172 181 Calcium Total Bilirubin AST ALT Alkaline Phosphata se Total Protein Albumin Globulin Vitals: Last Vital Signs Temp 98.2 F 04/22/19 10:38 Pulse 92 04/22/19 10:38 Resp 24 H 04/22/19 10:38 BP 130/76 04/22/19 10:38 Pulse Ox 94 04/22/19 10:38 Discharge Plan Discharge Patient Disposition: Home, Self-Care Condition: Stable Prescriptions: New atorvastatin 40 mg Tablet 40 mg PO BEDTIME Qty: 90 RF: 4 aspirin 325 mg Tablet 160 mg PO DAILY Qty: 90 RF: 3 clopidogrel 75 mg Tablet 75 mg PO DAILY Qty: 90 RF: 3 pantoprazole 40 mg Tablet,Delayed Release (Dr/Ec) 40 mg PO DAILY Qty: 30 RF: 3 metoprolol succinate 25 mg capsule,sprinkle,ER 24hr 12.5 mg PO DAILY Qty: 30 RF: 4 lisinopril 2.5 mg tablet 2.5 mg PO DAILY Qty: 30 RF: 3 Lasix 40 mg tablet 40 mg PO DAILY Qty: 30 RF: 3 potassium chloride 20 mEq tablet extended release 20 meq PO DAILY Qty: 60 RF: 4 Discharge Orders: Discharge Order (Routine); Ordered 04/22/19 Ordered By: Familia Plata Referrals: EDEN SHELTON DO [Primary Care Provider] - Chantel Krishnamurthy FNP [Nurse Practitioner] - 7-10 days Discharge Diet: Cardiac and Low Salt Discharge Activity: Increase activity as tolerated Patient Instructions: Metoprolol (By mouth), Lisinopril (By mouth), Aspirin (By mouth), Atorvastatin (By mouth), Clopidogrel (By mouth), Pantoprazole (By mouth), Myocardial Infarction (DC) Activity Restrictions/Additional Instructions: fOLLOW-UP WITH dR. Plata IN 6-8 WEEKS. fOLLOW-UP WITH Chantel Krishnamurthy CARDIOLOGY NO spect PATIENT in 7-10 days. If you gain more than 3 pounds in couple of days take extra water/Lasix pill. Discharge Attestations Time Spent in Discharge Care*: less than 30 min Quality Metrics Clinical Quality Measures During this hospital stay, did patient experience: AMI Clinical Trial Participant: No Contraindication to aspirin (AMI): Aspirin given Contraindication to statin: Statin prescribed Coding Level of Care Code Acute Chemistry Physics Teacher for Renzo Fwd Diagnoses Acute respiratory failure with hypoxia J96.01 Smoking addiction F17.200 DM type 2 (diabetes mellitus, type 2) E11.9 Acute non-ST elevation myocardial infarction (NSTEMI) I21.4 CHF (congestive heart failure) I50.9 Heart failure chronicity: acute Heart failure type: unspecified
== END 2019-04-22 11:20 | disposition home or self-care (01) | DRG 246 ==
LOC: ER 18:41 → CSU 18:42
PROVIDERS: Internal Medicine Cardiovascular Disease; Admitting Provider Internal Medicine; Emergency Provider Emergency Medicine; Family Provider Internal Medicine; PCP Internal Medicine; Visit Provider Student in an Organized Health Care Education/Training Program
PROC: 027034Z Dilation of Coronary Artery, One Artery with Drug-eluting Intraluminal Device, Percutaneous Approach (ICD-10-PCS; principal; 2019-04-21 10:00)
PROC: 027034Z Dilation of Coronary Artery, One Artery with Drug-eluting Intraluminal Device, Percutaneous Approach (ICD-10-PCS; 2019-04-21 10:00)
DX: I21.4 Non-ST elevation (NSTEMI) myocardial infarction (principal); J96.01 Acute respiratory failure with hypoxia; N17.9 Acute kidney failure, unspecified; E11.9 Type 2 diabetes mellitus without complications; F17.210 Nicotine dependence, cigarettes, uncomplicated; I50.9 Heart failure, unspecified; J44.9 Chronic obstructive pulmonary disease, unspecified; I25.10 Atherosclerotic heart disease of native coronary artery without angina pectoris; K80.20 Calculus of gallbladder without cholecystitis without obstruction; K20.9 Esophagitis, unspecified
CPT/HCPCS: 12345; 36415; 36416; 36600; 71045; 71275; 74176; 80048; 80053; 82803; 82962; 83036; 83605; 83880; 84484; 85025; 85347; 85378; 87040; 87804; 93005; 93306; 93454; 94640; 96372; 96375; 99283; C1725; C1769; C1874; C1887; C1894; C9600; J1644; J1650; J1815; J1940; J1956; J2001; J2060; J2250; J2270; J2405; J2930; J3010; J3490; J7030; J7626; Q0163; Q9967

== ENCOUNTER → 2019-04-28 10:37 | Outpatient (BNVA) | payer MEDICARE, SELFPAY | PROVIDERS: Family Provider Internal Medicine; PCP Internal Medicine; Visit Provider Nurse Practitioner Family | DX: I25.10 Atherosclerotic heart disease of native coronary artery without angina pectoris (principal); E11.9 Type 2 diabetes mellitus without complications; I21.4 Non-ST elevation (NSTEMI) myocardial infarction; I50.9 Heart failure, unspecified | CPT/HCPCS: 80048 ==

== ENCOUNTER 2019-05-25 13:13 | Emergency (ER) | payer MEDICARE, SELFPAY ==
[2019-05-25 13:14] VITALS: BMI 32.1
[2019-05-25 13:19] VITALS: BP 110/73; PULSE 103; RESP 20; TEMP 37.1; O2SAT 93
--- NOTE | 2019-05-25 13:31 | ED_ITS ---
Entered by Mya Vail, acting as scribe for Deepak Camejo MD, [facility] HPI - Chest Pain General: Chief Complaint: Chest Pain Stated Complaint: LEFT SIDED CP HX TN Time Seen by Provider: 05/25/19 13:23 Source: patient Mode of arrival: EMS Limitations: no limitations History of Present Illness: HPI narrative: 63 yo Male presents to ED with complaint of left side chest pain. Pt states that his pain started yesterday but it got worse today. Pt states that the pain has been constant. Pt states that he had a heart attack and had 2 stents placed about a month ago. Pt's family states that Dr. Plata placed the stents. Pt takes a baby aspirin and plavix everyday. The pain has been present since yesterday, does not feel like his prior TN. He does not think it is cardiac in origin but his is concerned and wants him evaluated. MD complaint: chest pain Pertinent past history: coronary artery disease and prior TN Onset (ago): day(s) Timing of current episode: constant and still present Prior episodes: Yes Onset: during rest Pain location: left chest Pain radiation: back Pain scale (0-10): 1 Relieving factors: nitroglycerin Exacerbating factors: nothing Associated symptoms: Deny abdominal pain, dyspnea, fever(s), nausea, palpitations or vomiting Treatment prior to arrival: nitroglycerin Review of Systems General: Reports: 10 or more systems reviewed and unremarkable except in HPI and below Const: Denies: fever, chills or body aches Eyes: Denies: change in vision or blurry vision ENMT: Denies: throat pain, enlarged tonsils, painful swallowing, hoarseness, mouth pain or swelling of lips/tongue Card: Reports: chest pain; Denies: palpitations, irregular heart rhythm, edema or swelling of feet/ankles Resp: Denies: shortness of breath, productive cough or non-productive cough GI: Denies: abdominal pain, nausea or vomiting : Denies: flank pain, painful urination, urinary frequency, urinary urgency or urinary hesitancy Musc: Denies: neck pain, back pain or extremity swelling Skin/Breast: Denies: rash, itching or redness Neuro: Denies: headache, numbness in extremities or weakness in extremities Endo: Denies: excessive urination, excessive thirst or tired all the time PFS ED PFS: Social History Smoking and tobacco status: former smoker Alcohol intake: never Household members: spouse Marital status: Current occupational status: retired Physical Exam Const: COMMON NORMALS: no apparent distress, average body habitus, oriented x3, no limitations, healthy appearing, alert and well nourished HENMT: COMMON NORMALS: normocephalic, head/scalp atraumatic and moist oral mucous membranes HEAD & SCALP: normocephalic and atraumatic Eye: COMMON NORMALS: PERRL, EOMs intact bilaterally, conjunctivae normal and no scleral icterus CONJUNCTIVA: Yes conjunctivae normal PUPIL: Yes PERRL Neck/C-Spine: COMMON NORMALS: full ROM, supple, no meningeal signs, no JVD and no carotid bruits Chest: COMMONS NORMALS: inspection of chest normal and palpation of chest normal Resp: COMMON NORMALS: normal respiratory effort, no retractions, no use of accessory muscles, clear to auscultation bilaterally and percussion normal AUSCULTATION: clear to auscultation bilaterally PERCUSSION: percussion normal Cardio: COMMON NORMALS: no JVD, regular rate, regular rhythm, S1 normal heart sound, S2 normal heart sound, no gallops, no clicks, no murmurs, no rub and peripheral pulses 2+ throughout RATE: regular rate RHYTHM: regular rhythm HEART SOUNDS: S1 normal and S2 normal PERIPHERAL PULSES: pulses 2+ throughout GI: COMMON NORMALS: normal to inspection, nondistended, normoactive bowel sounds, soft to palpation, non-tender, no hepatosplenomegaly, no masses and no bruits PALPATION: Yes soft and Yes no hepatosplenomegaly : COMMON NORMALS: Yes no CVA tenderness BLADDER/KIDNEY EXAM: Yes no CVA tenderness Back/Pelvis: COMMON NORMALS: no CVA tenderness Extremity: COMMON NORMALS: normal to inspection, full ROM, normal capillary refill, no calf tenderness and no pedal edema Neuro: COMMON NORMALS: oriented x3 SENSORIUM/ORIENTATION: Yes alert MENINGEAL SIGNS: Yes no meningeal signs Skin: COMMON NORMALS: no rashes or lesions noted, no wounds, skin turgor normal, no jaundice, no petechiae and no mottling GENERAL SKIN EXAM: no rashes or lesions noted and turgor normal Course Reevaluation(s): Reevaluation #1: Discussed his lab and imaging findings with him. Troponin mildly elevated but a flat 2-hour delta. Compared to his troponin a few weeks ago this is significantly improved. I do not believe he is chest pain is cardiac in nature. D-dimer mildly elevated but negative CTA of his lungs. He is discharged home to follow-up with his primary care provider and especially his violin teacher within 2 days. He voiced understanding and he is in agreement with the plan. Time: 16:19 Vital Signs: Vital signs: Vital Signs Temperature 98.7 F 05/25/19 13:19 Pulse Rate 94 05/25/19 17:00 Respiratory Rate 18 05/25/19 17:00 Blood Pressure 120/61 05/25/19 17:00 Pulse Oximetry 95 05/25/19 17:00 MDM - Chest Pain MDM Narrative: Medical decision making narrative: 63-year-old man with a recent history of a non-STEMI who presented to the emergency department with left-sided chest pain that started yesterday. The pain was continuous since yesterday and evaluation in the ED showed only mildly elevated troponin with a flat 2-hour delta. He is discharged home to follow-up with his violin teacher within 2 days. Discussed with the violin teacher on-call here and she is in agreement with this plan. Medical Records: Attestation: I reviewed the patient's medical records. Lab Data: Attestation: I reviewed the patient's lab results. Labs: Lab Results 05/25/19 05/25/19 05/25/19 Range/Units 13:40 13:40 13:40 WBC 8.2 (4.0-10.0) 10^3/ uL RBC 4.39 (4.1-5.3) 10^6/u L Hgb 12.9 (11.7-16.6) g/dL Hct 41.3 L (42.0-52.0) % MCV 94.1 H (80-94) fL MCH 29.4 (28.0-34.0) pg MCHC 31.2 (30.0-36.0) g/dL RDW 13.7 (12.1-15.1) % Plt Count 179 (130-400) 10^3/c mm MPV 12.6 H (7.4-10.4) fL Neut % (Auto) 70.5 % Lymph % (Auto) 18.3 % [place] % (Auto) 7.5 % Eos % (Auto) 3.0 % Baso % (Auto) 0.5 % Neut # (Auto) 5.8 (1.8-7.7) 10^3/u L Lymph # (Auto) 1.5 (0.8-4.8) 10^3/u L [place] # (Auto) 0.6 (0.2-0.9) 10^3/u L Eos # (Auto) 0.3 (0.0-0.8) 10^3/u L Baso # (Auto) 0.0 (0.0-0.1) 10^3/u L Nucleated RBC % (a uto) 0 % Nucleated RBCs # 0.0 /100WBC D-Dimer 0.63 H (0-0.59) ug/mIFE U Sodium 133 L (136-145) mmol/L Potassium 4.5 (3.5-5.1) mmol/L Chloride 95 L (98-107) mmol/L Carbon Dioxide 26 (22-29) mmol/L Anion Gap 16.5 (5-19) BUN 22 (8-23) mg/dL Creatinine 1.0 (0.7-1.2) mg/dL GFR Calculation 75.2 L (90-130) mL/min Glucose 324 H (65-115) mg/dL Calculated Osmolal ity 285 (285-295) mOsm/k g Calcium 9.4 (8.5-10.5) mg/dL Total Bilirubin 0.9 (0.15-1.2) mg/dL AST 22 (0-40) U/L ALT 30 (0-41) U/L Alkaline Phosphata se 119 (40-130) IU/L Troponin T Baselin e (0-15) ng/mL Troponin T 120 Min [place] (0-15) ng/mL Delta Troponin T (0-10) ABS# NT-Pro-B Natriuret Pep 1274 H (0-125) pg/mL Total Protein 6.8 (6.6-8.7) g/dL Albumin 3.9 (3.5-5.2) g/dL Globulin 2.9 (1.3-4.6) g/dL Lipase 19 (13-60) U/L 05/25/19 05/25/19 Range/Units 13:40 15:30 WBC (4.0-10.0) 10^3/ uL RBC (4.1-5.3) 10^6/u L Hgb (11.7-16.6) g/dL Hct (42.0-52.0) % MCV (80-94) fL MCH (28.0-34.0) pg MCHC (30.0-36.0) g/dL RDW (12.1-15.1) % Plt Count (130-400) 10^3/c mm MPV (7.4-10.4) fL Neut % (Auto) % Lymph % (Auto) % [place] % (Auto) % Eos % (Auto) % Baso % (Auto) % Neut # (Auto) (1.8-7.7) 10^3/u L Lymph # (Auto) (0.8-4.8) 10^3/u L [place] # (Auto) (0.2-0.9) 10^3/u L Eos # (Auto) (0.0-0.8) 10^3/u L Baso # (Auto) (0.0-0.1) 10^3/u L Nucleated RBC % (a uto) % Nucleated RBCs # /100WBC D-Dimer (0-0.59) ug/mIFE U Sodium (136-145) mmol/L Potassium (3.5-5.1) mmol/L Chloride (98-107) mmol/L Carbon Dioxide (22-29) mmol/L Anion Gap (5-19) BUN (8-23) mg/dL Creatinine (0.7-1.2) mg/dL GFR Calculation (90-130) mL/min Glucose (65-115) mg/dL Calculated Osmolal ity (285-295) mOsm/k g Calcium (8.5-10.5) mg/dL Total Bilirubin (0.15-1.2) mg/dL AST (0-40) U/L ALT (0-41) U/L Alkaline Phosphata se (40-130) IU/L Troponin T Baselin e 32 H (0-15) ng/mL Troponin T 120 Min [place] 32.57 H (0-15) ng/mL Delta Troponin T 0.57 (0-10) ABS# NT-Pro-B Natriuret Pep (0-125) pg/mL Total Protein (6.6-8.7) g/dL Albumin (3.5-5.2) g/dL Globulin (1.3-4.6) g/dL Lipase (13-60) U/L Imaging Data^: CXR: Radiologist's impression: [place] [address] XRay Report Signed Patient: Camron Burnett #: [id number] : 5Acct#:[id number] Age/Sex: 63 / MADM Date: 05/25/19 Loc: ERRoom/Bed: Attending Dr: Ordering Provider/Ordering MD: Deepak Camejo MD, [facility] Date of Service: 05/25/19 Procedure(s): XR chest 1V portable [id number] Accession Number(s): [id number] Report Number: [id number] WS: [id number] XR chest 1V portable [id number] REASON FOR EXAM: chest pain FINDINGS: The lung flanagan are hypoaerated. The heart is not enlarged. There appears to be stents seen in the left side of the heart. The lung flanagan are clear no pneumonia or pulmonary edema. XR/XR chest 1V portable [id number] IMPRESSION: Negative chest for active pathology. Dictated By:Shawn Ivory DO Signed By:Shawn Ivory DOSigned Date/Time:05/25/191406 DD/ 06 CTA Chest: Radiologist's impression: [place] [address] CT Scan Report Signed Patient: Camron Burnett #: [id number] : 5Acct#:[id number] Age/Sex: 63 / MADM Date: 05/25/19 Loc: ERRoom/Bed: Attending Dr: Ordering Provider/Ordering MD: Deepak Camejo MD, [facility] Date of Service: 05/25/19 Procedure(s): CT angio chest PE protcl [id number] Accession Number(s): [id number] Report Number: [id number] WS: [id number] CTA scan of the chest with IV contrast. Additional two-dimensional coronal and sagittal reconstruction and MIP images was performed. 05/25/2019 Clinical Data: CHest pain, SOB Comparison: CT chest PE study, 04/18/2019. DLP: 562.[address] scans at [facility] use at least one of these dose optimization techniques: automated exposure control; mA and/or kV adjustment per patient size (includes targeted exams where dose is matched to clinical indication); or iterative reconstruction. Findings: The central pulmonary arteries and peripheral pulmonary arteries fill normally with no evidence of intermittent luminal filling defects. No pulmonary embolic disease is noted. No nodules, masses or effusions are seen. The heart size is normal with no pericardial effusion. The pulmonary arterial system and thoracic aorta demon strate no abnormalities or dilatations. No pneumonia or pneumothorax is seen. There is no axillary or significant mediastinal adenopathy. The enlarged subcarinal node is seen. There is thickening of the wall the distal esophagus unchanged. The thyroid gland shows normal enhancement. The trachea bifurcates into the bronchi. The upper abdomen shows no abnormalities. The visualized liver, spleen, pa ncreas, gallbladder, adrenal glands and superior poles of the kidneys show a posterior low density lesion of the left kidney which is likely a cyst.. 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 CT/CT angio chest PE protcl [id number] Impression: 1. Negative for pulmonary embolic disease. 2. No pneumonia or pneumothorax is seen. 3. Mild thickening of the wall of the distal esophagus. Dictated By:Summer Way MD Signed By:Summer Way MDSigned Date/Time:05/25/19 1523 DD/ 1515 EKG Data^: EKG 1: EKG interpretation date: 05/25/19 Computer generated interpretation: [address] [address] Electrocardiograph Report Signed Patient: Camron Burnett #: [id number] [id number] Age/Sex: 63 / MADM Date: 05/25/19 Loc: ERRoom/Bed: Attending Dr: Ordering Provider/Ordering MD: Deepak aCmejo MD, [facility] Date of Service: 05/25/19 Procedure(s): ECG 12 lead EKG Accession Number(s): [id number] Report Number: [id number] Measurements Intervals [place] Rate: 87 P: 43 [place]: 145 QRS: 31 QRSD: 97 T: 64 QT: 367 QTc: 443 SINUS RHYTHM INDETERMINATE AXIS ATYPICAL ECG Compared to ECG 04/18/2019 22:20:35 Sinus tachycardia no longer present Left posterior fascicular block no longer present Myocardial infarct finding no longer present Electronically Signed On 05-25-2019 17:43:29 CDT by Janice Wasserman M.D. [email or web address] Dictated By:Janice Wasserman MD Signed By:Janice Wasserman MDSigned Date/Time:05/25/19 647 Discharge Plan Discharge Patient Disposition: Home, Self-Care Clinical Impression: Chest pain Qualifiers: Chest pain type: unspecified Qualified Code(s): R07.9 - Chest pain, unspecified Condition: Stable Prescriptions: Continued aspirin [Adult Low Dose Aspirin] 81 mg tablet,delayed release (DR/EC) 81 mg PO DAILY RF: 0 Lasix 40 mg tablet 40 mg PO BID 90 Days Qty: 180 RF: 3 metoprolol succinate 25 mg tablet extended release 24 hr 12.5 mg PO BID 90 Days Qty: 90 RF: 3 atorvastatin 40 mg Tablet 40 mg PO BEDTIME Qty: 90 RF: 4 clopidogrel 75 mg Tablet 75 mg PO DAILY Qty: 90 RF: 3 pantoprazole 40 mg Tablet,Delayed Release (Dr/Ec) 40 mg PO DAILY Qty: 30 RF: 3 lisinopril 2.5 mg tablet 2.5 mg PO DAILY Qty: 30 RF: 3 Humalog KwikPen Insulin 100 unit/mL Insulin Pen See Rx Instructions .ROUTE .COMPLEX RF: 0 Lantus Solostar U-100 Insulin 100 unit/mL (3 mL) Insulin Pen 20 unit SUBCUT BEDTIME RF: 0 potassium chloride 20 mEq tablet extended release 40 meq PO DAILY RF: 0 Discharge Orders: Discharge Order (Routine); Ordered 05/25/19 Ordered By: Deepak Camejo Referrals: Deepak Camejo MD, [facility] [Emergency Provider] - EDEN SHELTON DO [Primary Care Provider] - 1-3 days Familia Plata MD [Physician] - 1-3 days Patient Instructions: Chest Pain (ED) Activity Restrictions/Additional Instructions: Return for any new or worsening symptoms. Follow-up with your violin teacher within 2 days for further evaluation and management. Continue home medications as prescribed. Discharge Date/Time: 05/25/19 17:00 Coding Level of Care Code ED Health Benefits Specialist for Chg Fwd Exam Comprehensive The documentation recorded by the Yared harman Carmen, accurately reflects the service I personally performed and the decisions made by Bashir hess Adegoke I, MD, [facility] May 25, 2019 13:13
--- NOTE | 2019-05-25 13:36 | ECG_ITS ---
Measurements Intervals [place] Rate: 87 P: 43 [place]: 145 QRS: 31 QRSD: 97 T: 64 QT: 367 QTc: 443 SINUS RHYTHM INDETERMINATE AXIS ATYPICAL ECG Compared to ECG 04/18/2019 22:20:35 Sinus tachycardia no longer present Left posterior fascicular block no longer present Myocardial infarct finding no longer present Electronically Signed On 05-25-2019 17:43:29 CDT by Janice Wasserman M.D. [email or web address]
--- NOTE | 2019-05-25 13:36 | XR_ITS ---
WS: [id number] XR chest 1V portable [id number] REASON FOR EXAM: chest pain FINDINGS: The lung flanagan are hypoaerated. The heart is not enlarged. There appears to be stents seen in the left side of the heart. The lung flanagan are clear no pneumonia or pulmonary edema. XR/XR chest 1V portable [id number] IMPRESSION: Negative chest for active pathology.
[2019-05-25 13:54] LABS: Basophils % 0.5 %; Eosinophils # 0.3 10^3/uL (0.0-0.8); Hematocrit 41.3 % (42.0-52.0); Hemoglobin 12.9 g/dL (11.7-16.6); Lymphocytes # 1.5 10^3/uL (0.8-4.8); Lymphocytes % 18.3 %; Mean Corpuscular HGB Conc 31.2 g/dL (30.0-36.0); Mean Corpuscular Hemoglobin 29.4 pg (28.0-34.0); Mean Corpuscular Volume 94.1 fL (80-94); Mean Platelet Volume 12.6 fL (7.4-10.4); Monocytes # 0.6 10^3/uL (0.2-0.9); Monocytes % 7.5 %; Neutrophils # 5.8 10^3/uL (1.8-7.7); Neutrophils % 70.5 %; Nucleated Red Blood Cells % 0 %; Platelet Count 179 10^3/cmm (130-400); Red Blood Count 4.39 10^6/uL (4.1-5.3); Red Cell Distribution Width 13.7 % (12.1-15.1); White Blood Count 8.2 10^3/uL (4.0-10.0)
[2019-05-25 14:05] LABS: D Dimer 0.63 ug/mIFEU (0-0.59)
[2019-05-25 14:08] VITALS: BP 107/62; PULSE 102; RESP 18; O2SAT 95
[2019-05-25 14:13] LABS: Alanine Aminotransferase 30 U/L (0-41); Albumin Level 3.9 g/dL (3.5-5.2); Alkaline Phosphatase 119 IU/L (40-130); Anion Gap 16.5 (5-19); Aspartate Amino Transferase 22 U/L (0-40); Blood Urea Nitrogen 22 mg/dL (8-23); Calcium 9.4 mg/dL (8.5-10.5); Carbon Dioxide 26 mmol/L (22-29); Chloride 95 mmol/L (98-107); Globulin 2.9 g/dL (1.3-4.6); Glomerular Filtration Rate 75.2 mL/min (90-130); Glucose 324 mg/dL (65-115); Lipase 19 U/L (13-60); NT Pro B Type Natriuretic Pept 1274 pg/mL (0-125); Osmolality Calculated 285 mOsm/kg (285-295); Potassium 4.5 mmol/L (3.5-5.1); Sodium 133 mmol/L (136-145); Total Bilirubin 0.9 mg/dL (0.15-1.2); Total Protein 6.8 g/dL (6.6-8.7)
[2019-05-25 14:27] LABS: Troponin(5th) Baseline 32 ng/mL (0-15)
--- NOTE | 2019-05-25 14:44 | CT_ITS ---
WS: [id number] CTA scan of the chest with IV contrast. Additional two-dimensional coronal and sagittal reconstructio n and MIP images was performed. 05/25/2019 Clinical Data: CHest pain, SOB Comparison: CT chest PE study, 04/18/2019. DLP: 562.[address] scans at [facility] use at least one of these dose optimization techniques: automat ed exposure control; mA and/or kV adjustment per patient size (includes targeted exams where dose is matched to clinical indication); or iterative reconstruction. Findings: The central pulmonary arteries and peripheral pulmonary arteries fill normally with no evidence of in termittent luminal filling defects. No pulmonary embolic disease is noted. No nodules, masses or effusions are seen. The heart size is normal with no pericardial effusion. The pulmonary arterial system and thoracic aorta demonstrate no abnormalities or dilatations. No pneumoni a or pneumothorax is seen. There is no axillary or significant mediastinal adenopathy. The enlarged s ubcarinal node is seen. There is thickening of the wall the distal esophagus unchanged. The thyroid g land shows normal enhancement. The trachea bifurcates into the bronchi. The upper abdomen shows no abnormalities. The visualized liver, spleen, pancreas, gallbladder, adrena l glands and superior poles of the kidneys show a posterior low density lesion of the left kidney whi ch is likely a cyst.. The bones of the thoracic and upper lumbar spine show osteoarthritis of the thoracic vertebral bodies .. CT/CT angio chest PE protcl [id number] Impression: 1. Negative for pulmonary embolic disease. 2. No pneumonia or pneumothorax is seen. 3. Mild thickening of the wall of the distal esophagus.
[2019-05-25 14:49] VITALS: BP 107/62; PULSE 90; RESP 19; O2SAT 94
[2019-05-25] MEDS: iohexol 350 mg/mL 100 mL Btl IV (15:02)
[2019-05-25 15:29] VITALS: BP 112/67; PULSE 88; RESP 24; O2SAT 95
[2019-05-25 16:10] LABS: Troponin 5 2HR 32.57 ng/mL (0-15); Troponin 5 2HR Delta 0.57 ABS# (0-10)
[2019-05-25 17:00] VITALS: BP 120/61; PULSE 94; RESP 18; O2SAT 95
--- NOTE | 2019-05-26 12:46 | DCPLANNER ---
child care centre manager had message to schedule a follow up appointment for patient with [facility]. child care centre manager called [facility], spoke with Domi, gave clinic patients information. child care centre manager was told that patients information would be printed and reviewed. Clinic will call patient with appointment information.
--- NOTE | 2019-05-27 10:07 | DCPLANNER ---
Patient has a follow up appointment for patient with [facility], on Friday, May 31, 2019 at 2:00 with T[employer] I PARAPROFESSIONAL, Iveth Quach.
--- NOTE | 2019-06-08 08:05 | DCPLANNER ---
Patient did not attend appointment scheduled for 05.31.19 with [facility].
== END 2019-05-25 17:00 | disposition home or self-care (01) ==
PROVIDERS: Emergency Provider Family Medicine; Family Provider Internal Medicine; PCP Internal Medicine
DX: R07.9 Chest pain, unspecified (principal); I25.2 Old myocardial infarction; R79.89 Other specified abnormal findings of blood chemistry; Z87.891 Personal history of nicotine dependence
CPT/HCPCS: 12345; 36415; 71045; 71275; 80053; 83690; 83880; 84484; 85025; 85378; 93005; 99283; 99284; Q9967

== ENCOUNTER 2019-07-30 17:24 | Inpatient (IN) | payer MEDICARE, SELFPAY ==
[2019-07-30] MEDS: sodium chloride 0.9% 1,000 ML 999 ML IV ×2 (17:30→17:40)
[2019-07-30 17:33] VITALS: BP 162/131; PULSE 116; RESP 22; TEMP 36.4; O2SAT 95; BMI 32.1
--- NOTE | 2019-07-30 17:33 | ECG_ITS ---
Measurements Intervals [place] Rate: 108 P: 37 [place]: 132 QRS: -4 QRSD: 93 T: 51 QT: 319 QTc: 428 SINUS TACHYCARDIA POSSIBLE LEFT ATRIAL ENLARGEMENT [-0.1mV P WAVE IN V1/V2] INDETERMINATE AXIS INFERIOR MYOCARDIAL INFARCTION , OF INDETERMINATE AGE WITH POSTERIOR EXTENSION [4 [40+ ms Q WAVE AND/OR ST/T ABNORMALITY IN II/aV Compared to ECG 05/25/2019 15:40:42 Myocardial infarct finding now present Sinus rhythm no longer present Electronically Signed On 08-01-2019 11:08:32 CDT by Eron Sterling MD [email or web address]
--- NOTE | 2019-07-30 17:33 | XRR_ITS ---
PROCEDURE INFORMATION: Exam: XR Chest, 1 View Exam date and time: 07/30/2019 5:34 PM Age: 64 years old Clinical indication: Chest pain TECHNIQUE: Imaging protocol: XR of the chest Views: 1 view. COMPARISON: CR XR chest 1V portable [id number] 05/25/2019 1:50 PM FINDINGS: Lungs: Mild linear atelectasis in the lung bases. The lungs are otherwise clear. Pleural space: Unremarkable. No pleural effusion. No pneumothorax. Heart/Mediastinum: Unremarkable. No cardiomegaly. Bones/joints: Unremarkable. XR/XR chest 1V portable [id number] IMPRESSION: No acute findings.
--- NOTE | 2019-07-30 17:38 | W.ED.CHESTPA ---
HPI - Chest Pain General: Chief Complaint: Chest Pain Stated Complaint: CHEST PAIN Time Seen by Provider: 07/30/19 17:33 History of Present Illness: HPI narrative: Patient is a 64-year-old male who presents today with chest pain. He came in by ambulance and on initial presentation looked extremely uncomfortable. When I went into the room he was holding the right side of his lower chest and abdomen. He states that he is having severe pain there and even drinking pickle juice did not help. He believes this is a muscle cramp and not an KY. He had an KY and stents placed 2 or 3 months ago. He also tells me that 1 month ago he had another heart attack at home but did not come in to be seen for it. That was also around the first time that he had this pain in the right side of his chest and abdomen. He still has his gallbladder. He said the pain makes him nauseous. 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 Onset (ago): hour(s) (4) Timing of current episode: episodic Onset: during rest Pain location: right chest Pain radiation: abdomen Severity: severe Quality: tightness Relieving factors: nothing Associated symptoms: Reports abdominal pain and nausea; Deny dyspnea or fever(s) Treatment prior to arrival: none and other (Pickle juice) Review of Systems General: Reports: 10 or more systems reviewed and unremarkable except in HPI and below Const: Denies: fever(s), chills, fatigue or malaise Eyes: Denies: change in vision ENMT: Denies: odynophagia Card: Reports: chest pain; Denies: swelling of feet/ankles Resp: Denies: dyspnea, productive cough or non-productive cough GI: Reports: abdominal pain and nausea : Denies: flank pain Musc: Denies: neck pain or back pain Skin/Breast: Denies: rash Neuro: Denies: headache(s), numbness in extremities or weakness in extremities Andrew/Lymph: Denies: easy bruising or easy bleeding PFSH ED PFSH: Medical History DM type 2 (diabetes mellitus, type 2) Presence of drug-eluting stent in left circumflex coronary artery 04/21/2019 Smoking addiction Surgical History History of transmetatarsal amputation of foot S/P hip replacement Family History Father Urinary bladder cancer Brother Urinary bladder cancer Social History Smoking and tobacco status: current every day smoker Alcohol intake: never Household members: spouse Marital status: Current occupational status: retired Physical Exam Const: COMMON NORMALS: patient oriented x3 and alert GENERAL APPEARANCE: cooperative, in distress and other (Patient was pale, diaphoretic, clearly in significant pain) NUTRITIONAL APPEARANCE: obese HENMT: HEAD & SCALP: normal to inspection FACE & SINUS: normal facial exam Eye: GENERAL EYE: appearance normal, both eyes and all related structures Neck/C-Spine: COMMON NORMALS: supple, no meningeal signs and no JVD Chest: COMMONS NORMALS: normal inspection of the chest Resp: COMMON NORMALS: normal respiratory effort, No use of accessory muscles and clear to auscultation bilaterally AUSCULTATION: clear to auscultation bilaterally Cardio: COMMON NORMALS: no JVD, regular rate, regular rhythm and No murmurs present (Cardio) RATE: regular rate RHYTHM: regular rhythm GI: COMMON NORMALS: Normal to inspection, nondistended, normoactive bowel sounds present INSPECTION: Yes normal to inspection AUSCULTATION: Yes normoactive bowel sounds PALPATION: Yes Firmness to palpation present (GI) and Yes Tenderness to palpation present (GI) Details: RUQ Back/Pelvis: COMMON NORMALS: thoracic and lumbar spine normal to inspection Extremity: COMMON NORMALS: normal to inspection Neuro: COMMON NORMALS: patient oriented x3, moves all extremities, no focal motor deficits and no sensory deficits noted SENSORIUM/ORIENTATION: Yes alert MENINGEAL SIGNS: Yes no meningeal signs Psych: COMMON NORMALS: mental status grossly normal, cooperative and normal affect Skin: COMMON NORMALS: no rashes or lesions noted and turgor normal GENERAL SKIN EXAM: no rashes or lesions noted and turgor normal Course ED course: Patient with high blood pressure initially. Significant pain. Pain is really localized in the right upper quadrant and right lower chest. Patient keeps telling me that it is a muscle cramp however he became significantly hypotensive with a blood pressure manually of 60/40. He was given 2 L of normal saline and I did a bedside ultrasound without any obvious findings. Then took him immediately to CT to look for an aortic aneurysm. Fortunately this was negative and no other significant finding in the abdomen or chest was noted. His blood pressure did come back up into the 130s and he was given some pain medicine. The pain came and went and when he got severe his blood pressure did drop some again. I am wondering if maybe this is a vagal reaction to the pain. His EKGs are unchanged and his troponins are negative. It is possible that this could be a muscle cramp but his hypotension and history are very concerning and we will admit him. Vital Signs: Vital signs: Vital Signs Temperature 97.6 F 07/30/19 17:33 Pulse Rate 116 H 07/30/19 17:33 Respiratory Rate 18 07/30/19 20:20 Blood Pressure 162/131 07/30/19 17:33 Pulse Oximetry 100 07/30/19 20:20 MDM - Chest Pain Lab Data: Labs: Lab Results 07/30/19 07/30/19 07/30/19 Range/Units 17:40 17:40 17:40 WBC 11.2 H (4.0-10.0) 10^3/ uL RBC 4.76 (4.1-5.3) 10^6/u L Hgb 13.7 (11.7-16.6) g/dL Hct 43.4 (42.0-52.0) % MCV 91.2 (80-94) fL MCH 28.8 (28.0-34.0) pg MCHC 31.6 (30.0-36.0) g/dL RDW 12.9 (12.1-15.1) % Plt Count 226 (130-400) 10^3/c mm MPV 12.1 H (7.4-10.4) fL Neut % (Auto) 70.7 % Lymph % (Auto) 20.9 % [place] % (Auto) 6.4 % Eos % (Auto) 1.4 % Baso % (Auto) 0.4 % Neut # (Auto) 7.9 H (1.8-7.7) 10^3/u L Lymph # (Auto) 2.3 (0.8-4.8) 10^3/u L [place] # (Auto) 0.7 (0.2-0.9) 10^3/u L Eos # (Auto) 0.2 (0.0-0.8) 10^3/u L Baso # (Auto) 0.0 (0.0-0.1) 10^3/u L Nucleated RBC % (a uto) 0 % Nucleated RBCs # 0.0 /100WBC PT 13.40 H (10.5-13.3) SECO NDS INR 0.99 (0.8-1.2) APTT 27.3 (23.9-36.7) SECO NDS Sodium 141 (136-145) mmol/L Potassium 5.0 (3.5-5.1) mmol/L Chloride 98 (98-107) mmol/L Carbon Dioxide 29 (22-29) mmol/L Anion Gap 19.0 (5-19) BUN 26 H (8-23) mg/dL Creatinine 1.4 H (0.7-1.2) mg/dL GFR Calculation 50.9 L (90-130) mL/min Glucose 225 H (65-115) mg/dL POC Glucose (70-110) mg/dL Calculated Osmolal ity 296 H (285-295) mOsm/k g Calcium 9.4 (8.5-10.5) mg/dL Total Bilirubin 0.4 (0.15-1.2) mg/dL AST 14 (0-40) U/L ALT 21 (0-41) U/L Alkaline Phosphata se 139 H (40-130) IU/L Troponin T Baselin e (0-15) ng/mL Troponin T 120 Min [place] (0-15) ng/mL Delta Troponin T (0-10) ABS# NT-Pro-B Natriuret Pep 799 H (0-125) pg/mL Total Protein 7.0 (6.6-8.7) g/dL Albumin 4.3 (3.5-5.2) g/dL Globulin 2.7 (1.3-4.6) g/dL Lipase 35 (13-60) U/L Urine Color (Yellow) Urine Appearance (CLEAR) Urine pH (5-7) Ur Specific Gravit y (1.005-1.030) Urine Protein (Negative) Urine Glucose (UA) (Normal) Urine Ketones (Negative) Urine Blood (Negative) Urine Nitrate (Negative) Urine Bilirubin (NEGATIVE) Urine Urobilinogen (Negative) mg/dL Ur Leukocyte Pily ase (Negative) 07/30/19 07/30/19 07/30/19 Range/Units 17:40 18:07 19:12 WBC (4.0-10.0) 10^3/ uL RBC (4.1-5.3) 10^6/u L Hgb (11.7-16.6) g/dL Hct (42.0-52.0) % MCV (80-94) fL MCH (28.0-34.0) pg MCHC (30.0-36.0) g/dL RDW (12.1-15.1) % Plt Count (130-400) 10^3/c mm MPV (7.4-10.4) fL Neut % (Auto) % Lymph % (Auto) % [place] % (Auto) % Eos % (Auto) % Baso % (Auto) % Neut # (Auto) (1.8-7.7) 10^3/u L Lymph # (Auto) (0.8-4.8) 10^3/u L [place] # (Auto) (0.2-0.9) 10^3/u L Eos # (Auto) (0.0-0.8) 10^3/u L Baso # (Auto) (0.0-0.1) 10^3/u L Nucleated RBC % (a uto) % Nucleated RBCs # /100WBC PT (10.5-13.3) SECO NDS INR (0.8-1.2) APTT (23.9-36.7) SECO NDS Sodium (136-145) mmol/L Potassium (3.5-5.1) mmol/L Chloride (98-107) mmol/L Carbon Dioxide (22-29) mmol/L Anion Gap (5-19) BUN (8-23) mg/dL Creatinine (0.7-1.2) mg/dL GFR Calculation (90-130) mL/min Glucose (65-115) mg/dL POC Glucose 202 (70-110) mg/dL Calculated Osmolal ity (285-295) mOsm/k g Calcium (8.5-10.5) mg/dL Total Bilirubin (0.15-1.2) mg/dL AST (0-40) U/L ALT (0-41) U/L Alkaline Phosphata se (40-130) IU/L Troponin T Baselin e 30 H (0-15) ng/mL Troponin T 120 Min [place] 24.84 H (0-15) ng/mL Delta Troponin T -5.16 L (0-10) ABS# NT-Pro-B Natriuret Pep (0-125) pg/mL Total Protein (6.6-8.7) g/dL Albumin (3.5-5.2) g/dL Globulin (1.3-4.6) g/dL Lipase (13-60) U/L Urine Color (Yellow) Urine Appearance (CLEAR) Urine pH (5-7) Ur Specific Gravit y (1.005-1.030) Urine Protein (Negative) Urine Glucose (UA) (Normal) Urine Ketones (Negative) Urine Blood (Negative) Urine Nitrate (Negative) Urine Bilirubin (NEGATIVE) Urine Urobilinogen (Negative) mg/dL Ur Leukocyte Pily ase (Negative) 07/30/19 Range/Units 19:50 WBC (4.0-10.0) 10^3/ uL RBC (4.1-5.3) 10^6/u L Hgb (11.7-16.6) g/dL Hct (42.0-52.0) % MCV (80-94) fL MCH (28.0-34.0) pg MCHC (30.0-36.0) g/dL RDW (12.1-15.1) % Plt Count (130-400) 10^3/c mm MPV (7.4-10.4) fL Neut % (Auto) % Lymph % (Auto) % [place] % (Auto) % Eos % (Auto) % Baso % (Auto) % Neut # (Auto) (1.8-7.7) 10^3/u L Lymph # (Auto) (0.8-4.8) 10^3/u L [place] # (Auto) (0.2-0.9) 10^3/u L Eos # (Auto) (0.0-0.8) 10^3/u L Baso # (Auto) (0.0-0.1) 10^3/u L Nucleated RBC % (a uto) % Nucleated RBCs # /100WBC PT (10.5-13.3) SECO NDS INR (0.8-1.2) APTT (23.9-36.7) SECO NDS Sodium (136-145) mmol/L Potassium (3.5-5.1) mmol/L Chloride (98-107) mmol/L Carbon Dioxide (22-29) mmol/L Anion Gap (5-19) BUN (8-23) mg/dL Creatinine (0.7-1.2) mg/dL GFR Calculation (90-130) mL/min Glucose (65-115) mg/dL POC Glucose (70-110) mg/dL Calculated Osmolal ity (285-295) mOsm/k g Calcium (8.5-10.5) mg/dL Total Bilirubin (0.15-1.2) mg/dL AST (0-40) U/L ALT (0-41) U/L Alkaline Phosphata se (40-130) IU/L Troponin T Baselin e (0-15) ng/mL Troponin T 120 Min [place] (0-15) ng/mL Delta Troponin T (0-10) ABS# NT-Pro-B Natriuret Pep (0-125) pg/mL Total Protein (6.6-8.7) g/dL Albumin (3.5-5.2) g/dL Globulin (1.3-4.6) g/dL Lipase (13-60) U/L Urine Color Yellow (Yellow) Urine Appearance Clear (CLEAR) Urine pH 5 (5-7) Ur Specific Gravit y 1.005 (1.005-1.030) Urine Protein Neg (Negative) Urine Glucose (UA) Norm (Normal) Urine Ketones Negative (Negative) Urine Blood Neg (Negative) Urine Nitrate Negative (Negative) Urine Bilirubin Neg (NEGATIVE) Urine Urobilinogen Norm (Negative) mg/dL Ur Leukocyte Pily ase Negative (Negative) EKG Data^: EKG 1: EKG interpretation date: 07/30/19 EKG interpretation time: 17:38 Interpretation: sinus tach 108. LAS, old inferior [place]. No acute ischemic changes Critical Care Time Critical Care Time: Critical Care Time: Yes Total Critical Care Time: 35 Attestation: I spent 35 minutes of critical care time devoted to this patient. This entailed multiple re-evaluations due to episodes of hypotension. Repeat fluid boluses and reassessments. And went to CT with him due to concerns over possible AAA and hypotension at that time. Discharge Plan Discharge Admit Provider: Clemencia Frazier Coding Level of Care Code ED Tai Chi Instructor for g Fwd Exam Comprehensive
[2019-07-30 17:57] LABS: Basophils % 0.4 %; Eosinophils # 0.2 10^3/uL (0.0-0.8); Eosinophils % 1.4 %; Hematocrit 43.4 % (42.0-52.0); Hemoglobin 13.7 g/dL (11.7-16.6); Lymphocytes # 2.3 10^3/uL (0.8-4.8); Lymphocytes % 20.9 %; Mean Corpuscular HGB Conc 31.6 g/dL (30.0-36.0); Mean Corpuscular Hemoglobin 28.8 pg (28.0-34.0); Mean Corpuscular Volume 91.2 fL (80-94); Mean Platelet Volume 12.1 fL (7.4-10.4); Monocytes # 0.7 10^3/uL (0.2-0.9); Monocytes % 6.4 %; Neutrophils # 7.9 10^3/uL (1.8-7.7); Neutrophils % 70.7 %; Nucleated Red Blood Cells % 0 %; Platelet Count 226 10^3/cmm (130-400); Red Blood Count 4.76 10^6/uL (4.1-5.3); Red Cell Distribution Width 12.9 % (12.1-15.1); White Blood Count 11.2 10^3/uL (4.0-10.0)
--- NOTE | 2019-07-30 18:08 | CTR_ITS ---
PROCEDURE INFORMATION: Exam: CT Angiography Chest Without And With Contrast Exam date and time: 07/30/2019 6:21 PM Age: 64 years old Clinical indication: Chest pain; Other: Central; Abdominal pain; Generalized; Patient HX: C/O chest and abd pain w hypotension; Additional info: Abdominal pain, hypotension TECHNIQUE: Imaging protocol: Computed tomographic angiography of the chest without and with intravenous contrast. 3D rendering: MIP and/or 3D reconstructed images were created by the technologist. Radiation optimization: All CT scans at this facility use at least one of these dose optimization techniques: automated exposure control; mA and/or kV adjustment per patient size (includes targeted exams where dose is matched to clinical indication); or iterative reconstruction. Contrast material: VISI 320; Contrast volume: 95 ml; Contrast route: 18G; COMPARISON: CT abdomen pelvis wo con [id number] 04/19/2019 3:25 PM RADIATION DOSE METRICS: Total DLP: 5268.4 mGy-cm FINDINGS: Pulmonary arteries: Normal. No pulmonary emboli. Aorta: Unremarkable. No aortic aneurysm. No aortic dissection. Lungs: Mild dependent atelectasis. The lungs are otherwise clear. Pleural space: Unremarkable. No pneumothorax. No pleural effusion. Heart: Unremarkable. No cardiomegaly. No pericardial effusion. Lymph nodes: Unremarkable. No enlarged lymph nodes. Bones/joints: Unremarkable. No acute fracture. Soft tissues: Unremarkable. IMPRESSION: 1. No aortic dissection or aneurysm. 2. No evidence for pulmonary embolus. PROCEDURE INFORMATION: Exam: CT Angiography Abdomen and Pelvis With Contrast Exam date and time: 07/30/2019 6:21 PM Age: 64 years old Clinical indication: Chest pain; Other: Central; Abdominal pain; Generalized; Patient HX: C/O chest and abd pain w hypotension; Additional info: Abdominal pain, hypotension TECHNIQUE: Imaging protocol: Computed tomographic angiography of the abdomen and pelvis with intravenous contrast material. 3D rendering: MIP and/or 3D reconstructed images were created by the technologist. Radiation optimization: All CT scans at this facility use at least one of these dose optimization techniques: automated exposure control; mA and/or kV adjustment per patient size (includes targeted exams where dose is matched to clinical indication); or iterative reconstruction. Contrast material: VISI 320; Contrast volume: 95 ml; Contrast route: 18G; COMPARISON: CT abdomen pelvis con [id number] 04/19/2019 3:25 PM RADIATION DOSE METRICS: Total DLP: 5268.4 mGy-cm FINDINGS: Aorta: Diffuse atherosclerotic plaque of the abdominal aorta with mild-moderate narrowing of the mid infrarenal abdominal aorta. No aneurysm or dissection. Celiac trunk and mesenteric arteries: The left gastric artery arises directly from the aorta. Renal arteries: No occlusion or significant stenosis. Right iliac arteries: Calcified plaque throughout the right common and external iliac arteries with multifocal mild stenoses. Left iliac arteries: Calcified plaque in the left common and external iliac arteries with multifocal mild stenosis. Liver: No mass. Gallbladder and bile ducts: Unremarkable. No calcified stones. No ductal dilation. Pancreas: Unremarkable. No mass. No ductal dilation. Spleen: Unremarkable. No splenomegaly. Adrenals: Unremarkable. No mass. Kidneys and ureters: Bilateral fluid density renal cysts measuring up to 5.8 cm on the right. Mild chronic perinephric stranding is most likely physiologic. Stomach and bowel: Unremarkable. No obstruction. No mucosal thickening. Appendix: No evidence of appendicitis. Intraperitoneal space: Unremarkable. No free air. No significant fluid collection. Lymph nodes: Unremarkable. No enlarged lymph nodes. Bladder: Unremarkable. No mass. Reproductive: Unremarkable as visualized. Bones/joints: Right hip arthroplasty changes with myositis ossificans surrounding the right hip. Degenerative spine. No compression fracture. Soft tissues: Unremarkable. CT/CT angio chest abdomen pelvis IMPRESSION: 1. No evidence for aneurysm or dissection. 2. Calcified and noncalcified plaque with mild to moderate stenosis of the mid infrarenal abdominal aorta. 3. Multiple renal cysts. No follow-up recommended. Radiation Dose CTDIVOL = (mGy): DLP = 5268.4~5268.4 (mGy-cm)
[2019-07-30 18:09] LABS: Glucose Point of Care 202 mg/dL (70-110)
[2019-07-30] MEDS: ondansetron 2 mg/ML SDV 2 mL 4 MG IVP (18:10)
[2019-07-30] MEDS: famotidine 20 mg/2 mL INJ 40 MG IVP (18:15)
[2019-07-30 18:33] LABS: Alanine Aminotransferase 21 U/L (0-41); Albumin Level 4.3 g/dL (3.5-5.2); Alkaline Phosphatase 139 IU/L (40-130); Aspartate Amino Transferase 14 U/L (0-40); Blood Urea Nitrogen 26 mg/dL (8-23); Calcium 9.4 mg/dL (8.5-10.5); Carbon Dioxide 29 mmol/L (22-29); Chloride 98 mmol/L (98-107); Globulin 2.7 g/dL (1.3-4.6); Glomerular Filtration Rate 50.9 mL/min (90-130); Glucose 225 mg/dL (65-115); Lipase 35 U/L (13-60); NT Pro B Type Natriuretic Pept 799 pg/mL (0-125); Osmolality Calculated 296 mOsm/kg (285-295); Sodium 141 mmol/L (136-145); Total Bilirubin 0.4 mg/dL (0.15-1.2)
[2019-07-30 18:43] LABS: INR 0.99 (0.8-1.2)
[2019-07-30 18:44] LABS: Partial Thromboplastin Time 27.3 SECONDS (23.9-36.7)
--- NOTE | 2019-07-30 18:44 | PC.NURSE ---
pt's daughter Jolly: [phone]
[2019-07-30] MEDS: iodixanol 320 mg/mL 100mL Btl IV (18:46)
--- NOTE | 2019-07-30 18:48 | PC.NURSE ---
charisseid not adm due to pt becoming hypotensive 70/40. notified
[2019-07-30 19:06] LABS: Troponin(5th) Baseline 30 ng/mL (0-15)
[2019-07-30 19:37] LABS: Troponin 5 2HR 24.84 ng/mL (0-15)
[2019-07-30 19:57] LABS: Troponin 5 2HR Delta -5.16 ABS# (0-10)
[2019-07-30 20:20] VITALS: RESP 18; O2SAT 100
[2019-07-30] MEDS: HYDROmorphone 1 mg/mL INJ 1 mL 0.5 MG IVP (20:20)
--- NOTE | 2019-07-30 20:24 | PC.NURSE ---
during pt rounding, pt stating pain has returned in RUQ 10/17. B/P have maintaining above 130 systolic. Report given to bladimir Taylor to adm jeremías that was ordered at admission
[2019-07-30 20:52] LABS: Add Urine Microscopic? NO
[2019-07-30 21:01] LABS: Protein Urine Neg (Negative); Specific Gravity, Urine 1.005 (1.005-1.030); Urine Appearance Clear (CLEAR); Urine Color Yellow (Yellow); pH Urine 5 (5-7)
[2019-07-30 21:02] LABS: Bilirubin Urine Neg (NEGATIVE); Blood Urine Neg (Negative); Glucose Urine UA Norm (Normal); Ketones Urine Negative (Negative); Leukocyte Esterase Urine Negative (Negative); Nitrate Urine Negative (Negative); Urobilinogen Urine Norm (Negative)
--- NOTE | 2019-07-30 21:48 | PC.NURSE ---
during pt rounding, pt states his pain has returned but in different area of LLQ. Orders obtained for pain management
--- NOTE | 2019-07-30 21:50 | PC.NURSE ---
pt's daughter Maggie updated on pt's status
[2019-07-30] MEDS: LORazepam 2 mg/mL INJ 1 mL 0.5 MG IVP (22:04)
[2019-07-30] MEDS: sodium chloride 0.9% 250 ML 999 ML IV (22:04)
--- NOTE | 2019-07-30 22:36 | PC.NURSE ---
transfer to floor delayed due to completion of 250cc infusion
--- NOTE | 2019-07-30 22:44 | P.HP_ITS ---
Providers/Chief Complaint Admitting Physician: Clemencia Frazier MD Primary Care Provider: EDEN SHELTON DO Chief Complaint: CHEST PAIN History of Present Illness Camron Burnett is a 64 year old male with history of DM 2, current smoker , CAD, diastolic CHF, ischemic cardiomyopathy , recent NSTEMI Apr 2019 s/p PCI with stenting to Lcx on 04/21/2019 and moderate disease of LAD. Also knwon to have cholelithiasis and esophagitis and nicotine dependence. He was assessed via phone interview by his outpatient application developer last on 05/30 few days after presenting to ER with c/o chest pain. EKG and troponins were negative at the time. On his 05/30 visit, he had complained of continued muscle spasm in his chest, worsening with exertion. He was started on Imdur 15mg daily with plan to increase as needed. He states he believes he suffered a heart attack at this time as he had intense pain radiating down to his R arm during this episode, however decided against coming to the hospital. orthopena +. He has been having worsening dyspnea on exertion since then. He states also having gained 10 pounds in the last month, however weight has been stable over the past week, as has lower extremity swelling. He returns to ER today with c/o right sided chest pain which stated at rest this evening withotu any apparent triggering factors. he beleives this to be a muscle pull as this feels different from the time he needed PCI. Pain is cramping to dull throbbing in nature, 10/10 at its peak, made worse with positional changes. Additionally he c/o pain in the epigastric region of the abdomen and looks obviously in distress at time when this is going on. he also looks fairly short of breath when he has this spasm . Pain lasts for a few minutes at a time. In the Er this was relived with dilaudid. In the ER, he was noted to have an episode when during this pain, wherein he b ecame significantly hypotensive with a blood pressure manually of 60/40. He was given 2 L of normal saline and a bedside ultrasound without any obvious findings. He also underwent CTA chest which was negative for PE, Unremarkable pleural space, No pneumothorax. No pleural effusion, No pericardial effusion, clear lungs, no evidence of aortic dissection or anuersym. CTA abdomen also showed no dissection, mild to moderate stenosis of the mid infrarenal abdominal aorta, without any acute abdominal issues. Liver and biliary system were unremarkable, as was the pancreas. Lipase is negative, unremarkabale stomach and bowel, no free intraperitoneal air or evidence of appendicitis. Incidentally noted renal cysts, no stones or hydronephrosis. EKG does not show any acute ST-T changes. troponins are midly elevated at 30 and 24, with negative delta. BNP at 799, lower than previous admission. Labs notable for SHAYLA with cr 1.4. No h/o fever. No h/o URI symptoms, cough, palpitations. Nausea+, 1 episode of diarrhea yesetrday, no BM since then, passing flatus Review of Systems General: Reports: 10 or more systems reviewed and unremarkable except in HPI and below Const: Denies: fever(s), chills or body aches Eyes: Denies: change in vision, blurry vision or photophobia ENMT: Denies: throat pain, enlarged tonsils, odynophagia, hoarseness or nasal congestion Card: Reports: chest pain, edema, swelling of feet/ankles, dyspnea on exertion and orthopnea; Denies: palpitations, irregular heart rhythm, lightheadedness or pre-syncope Resp: Reports: dyspnea; Denies: productive cough, non-productive cough, wheezing, stridor, pain on inspiration, change in phlegm color, hemoptysis or chest congestion GI: Reports: abdominal pain, nausea and GI cramping; Denies: vomiting, hematemesis, coffee ground emesis, dysphagia, heartburn, diarrhea, constipation, change in stool character, hematochezia or melena : Denies: flank pain, dysuria, urinary frequency, urinary urgency, urinary hesitancy or hematuria Musc: Denies: neck pain, back pain, extremity pain, joint swelling, joint warm th or deformity Neuro: Denies: headache(s), numbness in extremities, weakness in extremities, sensory changes, difficulty walking, frequent falls, dizziness, vertigo, behavioral changes, Slurred speech present or seizure-like activity Psych: Denies: anxiety, depression, suicidal ideation or homicidal ideation Endo: Denies: polyuria, polydipsia, tired all the time, cold intolerance or hot flashes Andrew/Lymph: Denies: easy bruising or easy bleeding Medications/Allergies Home Medications Medication Instructions Recorded Confirmed Last Taken Type atorvastatin 40 mg PO BEDTIME #90 tab 04/22/19 05/31/19 05/24/19 Rx clopidogrel 75 mg PO DAILY #90 tab 04/22/19 05/31/19 05/25/19 Rx lisinopril 2.5 mg PO DAILY #30 tab 04/22/19 05/31/19 05/25/19 Rx metoprolol succinate 25 mg 12.5 mg PO BID 90 Days #90 tab 04/22/19 05/31/19 05/25/19 07:00 Rx tablet,extended release 24 hr pantoprazole 40 mg PO DAILY #30 tab 04/22/19 05/31/19 05/25/19 Rx aspirin 81 mg tablet,delayed 81 mg PO DAILY 05/20/19 05/31/19 05/25/19 History release furosemide 40 mg tablet 40 mg PO BID 90 Days #180 tab 05/20/19 05/31/19 05/25/19 07:00 Rx Humalog KwikPen Insulin See Rx Instructions .ROUTE .COMPLEX 05/25/19 05/31/19 Unknown History Lantus Solostar U-100 Insulin 20 unit SUBCUT BEDTIME 05/25/19 05/31/19 Unknown History potassium chloride 40 meq PO DAILY 05/25/19 05/31/19 05/25/19 07:00 History isosorbide mononitrate 30 mg 15 mg PO DAILY #30 tab 05/31/19 05/31/19 Unknown Rx tablet,extended release 24 hr Allergies Allergy/AdvReac Type Severity Reaction Status Date / Time codeine Allergy UNKNOWN Verified 07/30/19 17:38 REACTION, PT STATES Penicillins Allergy ALGY-Difficulty Verified 07/30/19 17:38 Breathing PFSH Acute PFSH: Medical History DM type 2 (diabetes mellitus, type 2) Presence of drug-eluting stent in left circumflex coronary artery 04/21/2019 Smoking addiction Surgical History History of transmetatarsal amputation of foot S/P hip replacement Family History Father Urinary bladder cancer Brother Urinary bladder cancer Social History Smoking and tobacco status: current every day smoker Alcohol intake: never Household members: spouse Marital status: Current occupational status: retired Vitals/I&O/Wt Last Vital Signs Temp 97.6 F 07/30/19 17:33 Pulse 116 H 07/30/19 17:33 Resp 18 07/30/19 20:20 BP 162/131 07/30/19 17:33 Pulse Ox 100 07/30/19 20:20 Weight last 48 hrs Weight 104.326 kg Physical Exam Narrative: EXAM NARRATIVE: GEN: Awake, alert and oriented, appears to be in obvious distress with pain, most recently triggered by turning sides in bed. He looks uncomfortable, pale and tachypneic. 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 Chest and abdominal pain. Overall patient appears to be in significant distress during episodes of chest pain and appears to be ill with pallor and dyspnea. He points to his R side of the chest and epigatrsic and LUQ during pain episode, which is precipitated by minimal movements. He has a h/o esophagitis and reflux, however symptoms are not adequately releived after receiving iv pepcid and dilaudid. Will try GI cocktail and protonix iv to see if this is more helpful. CTA abdomen does not show any acute abdominal issues and there is no localizing abdominal signs on exam. Liver and biliary tree unremarkable. LFTs are normal. CTA chest ruled out PE, pleural collections. Lungs are grossly clear without any consolidation. No h/o URI type symptoms to explain pleurisy. BNP not significantly elevated at this time, however clinically with dyspnea, tachypnea, 02 say 88-92% and rales, clinically appears to have CHF exacerbation. Of note he has received 2L IVF resuscitation in the ER after BP drop to 60/40. Currently BP 121/63 will start with lasix 20mg IVP now and increase per response and BP stability EKG currently without St-T changes and troponins are negative. However without any other obvious source to explain the pain, I am concerned about unstable angina. Will start patient on nitroglycerin infusion for the same. Prefer to infusion for now over nitropaste or S/L or Imdur for now given BP lability noted in the ED. Continue ASA and Plavix. If pain persists in spite of starting NTG and Lasix, will start full dose lovenox Continue b blockers Cardiology consult in am 2. Diastolic CHF, clinically with signs of exacerbation. 20mg IVP now, further based on response and BP 3. HTN: Lisinopril on hold given SHAYLA 4. Diabetes mellitus: Insulin sliding scale 5. 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
[2019-07-30 22:50] VITALS: BP 99/64; PULSE 66; RESP 16; O2SAT 100
[2019-07-30 23:14] VITALS: BP 121/63; PULSE 57; RESP 12; TEMP 36.8; O2SAT 94
--- NOTE | 2019-07-30 23:33 | ECG_ITS ---
Measurements Intervals [place] Rate: 88 P: 20 LA: 138 QRS: 265 QRSD: 98 T: 62 QT: 379 QTc: 460 SINUS RHYTHM INFERIOR MYOCARDIAL INFARCTION , PROBABLY OLD WITH POSTERIOR EXTENSION [40+ ms Q WAVE AND/OR ST/T ABNORMALITY IN II/aVFPROMINE Compared to ECG 05/25/2019 15:40:42 Myocardial infarct finding now present Indeterminate axis no longer present Electronically Signed On 07-30-2019 21:49:46 CDT by Janice Wasserman M.D. [email or web address]
--- NOTE | 2019-07-30 23:53 | PC.NURSE ---
RN reviewed and agrees with assessment
[2019-07-31] VITALS (11 sets, daily range): BP systolic 98–154; BP diastolic 52–74; PULSE 73–110; RESP 14–23; TEMP 36.6–36.8; O2SAT 93–99
[2019-07-31] MEDS: nitroglycerin drip 50 MG/250 ML PREMIX IV (00:51)
--- NOTE | 2019-07-31 01:57 | PC.NURSE ---
patient arrived to the floor via ER in a wheelchair. patient is alert and oriented, walks. patient complains of abd pain and diaphragm pain still. Dr. Frazier saw pateint, decided to start him on nitro drip (started out on 5 mcg) for pain, as paste made him bottom out. bp went from 154/74 to 131/63 hr bouncing from 57 to 90, averaging in 70s for the most part. patient resting but has asked for pain medication. Dr. Frazier also wanted him on o2 though sats were in upper 90s but patient getting out of breath when moving in bed. We also placed a alexander catheter to keep bladder drained and alleviate that from causing him pain from that area.
[2019-07-31] MEDS: FUROsemide 10 mg/mL SDV 4mL 20 MG IVP (02:19)
[2019-07-31] MEDS: pantoprazole 40 mg SDV IVP (02:20)
[2019-07-31] MEDS: HYDROmorphone 1 mg/mL INJ 1 mL 0.5 MG IVP ×3 (02:20→18:40)
[2019-07-31] MEDS: enoxaparin 40 mg/0.4 mL Syringe SUBCUT (02:21)
[2019-07-31] MEDS: lidocaine 2% viscous 15 ML, aluminum-mag hydrox-simethicon 30 ML, sucralfate oral liq 1 GM PO (02:21)
--- NOTE | 2019-07-31 03:45 | PC.NURSE ---
At 02:20 the patients hr was dipping down into upper 40s so I titrated the nitro drip to 2.5 mcg/hr. at that time the patient still showed signs of pain.
[2019-07-31 06:18] LABS: Glucose Point of Care 200 mg/dL (70-110)
[2019-07-31 06:36] LABS: Alanine Aminotransferase 19 U/L (0-41); Albumin Level 3.7 g/dL (3.5-5.2); Alkaline Phosphatase 124 IU/L (40-130); Anion Gap 16.6 (5-19); Aspartate Amino Transferase 14 U/L (0-40); Blood Urea Nitrogen 23 mg/dL (8-23); Calcium 9.7 mg/dL (8.5-10.5); Carbon Dioxide 28 mmol/L (22-29); Chloride 101 mmol/L (98-107); Creatinine Clr Calc Pharmacy 82.3015; Globulin 3.2 g/dL (1.3-4.6); Glomerular Filtration Rate 67.2 mL/min (90-130); Glucose 215 mg/dL (65-115); Magnesium 1.9 mg/dL (1.7-2.3); Osmolality Calculated 295 mOsm/kg (285-295); Potassium 4.6 mmol/L (3.5-5.1); Sodium 141 mmol/L (136-145); Total Bilirubin 0.6 mg/dL (0.15-1.2); Total Protein 6.9 g/dL (6.6-8.7)
--- NOTE | 2019-07-31 07:30 | PC.NURSE ---
Addendum entered by Kate Lombardi RN 07/31/19 08:53: 0730-Initial bedside rounding with [facility] Supervisor and night hospitalist in room. Pt denies any pain at this time. Pt stated, i did not have a chest pain. Received order to stop the nitro drip. Noted Sinus Tachycardia in 110-120s. Pt noted to have a dry cough. He coughs very hard. Educated pt to use a pillow to splint his abdomen when he coughs hard. pt verbalizes understanding. Will monitor. Original Note: Domo
--- NOTE | 2019-07-31 08:09 | P.CONIM_ITS ---
Providers/Reason For Consult Consulting Physican/Specialty*: CardiologyAsher MD Reason for Consult*: Acute congestive heart failure Attending Physician: Gasper Vega MD Primary Care Provider: EDEN SHELTON DO History of Present Illness History of Present Illness Camron Burnett is a 64 year old male who presents with upper abdominal, epigastric and low chest fullness. this has been going on in a constant fashion for days. He states it is a band like fullness not worse with exertion or movement although his chronic back pain seems to also contribute to his symptoms. He notes difficulty breathing. He has known CAD and COPD. He underwent coronary stenting a few months ago but states this discomfort is not similar to his coronary pain. He has a history of congestive heart failure and takes diuretic therapy with lasix on a daily basis. His weight fluctuates between 5-10 pounds on a regular basis. He was reluctant to come in and waited two days with nearly constant discomfort. Upon arriving to the ED the patient was treated with oxygen, IV nitrates and analgesia. he required a fluid bolus due to hypotension with topical nitrates. since then he has improved with diuretic therapy having diuresed with IV lasix nearly a liter over night. he states his abdomen is less tense. He ruled out for troponin elevation. He has remained relatively tachycardic with minimal activity. Blood pressure has been stable. He was placed on IV nitroglycerin at low dose and this has been weaned. he is resting comfortably in bed although he required IV narcotics for control of back pain overnight. I have been asked to see for consideration of coronary disease and heart failure. Review of Systems General: Reports: 10 or more systems reviewed and unremarkable except in HPI and below Const: Denies: fever(s), chills or body aches Eyes: Denies: change in vision, blurry vision or photophobia ENMT: Denies: throat pain, enlarged tonsils, odynophagia, hoarseness or nasal congestion Card: Reports: chest pain, edema, swelling of feet/ankles, dyspnea on exertion and orthopnea; Denies: palpitations, irregular heart rhythm, lightheadedness or pre-syncope Resp: Reports: dyspnea; Denies: productive cough, non-productive cough, wheezing, stridor, pain on inspiration, change in phlegm color, hemoptysis or chest congestion GI: Reports: abdominal pain, nausea and GI cramping; Denies: vomiting, hematemesis, coffee ground emesis, dysphagia, heartburn, diarrhea, constipation, change in stool character, hematochezia or melena : Denies: flank pain, dysuria, urinary frequency, urinary urgency, urinary hesitancy or hematuria Musc: Denies: neck pain, back pain, extremity pain, joint swelling, joint warmth or deformity Neuro: Denies: headache(s), numbness in extremities, weakness in extremities, sensory changes, difficulty walking, frequent falls, dizziness, vertigo, behavioral changes, Slurred speech present or seizure-like activity Psych: Denies: anxiety, depression, suicidal ideation or homicidal ideation Endo: Denies: polyuria, polydipsia, tired all the time, cold intolerance or hot flashes Andrew/Lymph: Denies: easy bruising or easy bleeding Meds/Allergies Home Medications and Allergies Home Medications Medication Instructions Recorded Confirmed Last Taken Type atorvastatin 40 mg PO BEDTIME #90 tab 04/22/19 07/31/19 07/29/19 22:00 Rx clopidogrel 75 mg PO DAILY #90 tab 04/22/19 07/31/19 07/30/19 08:00 Rx lisinopril 2.5 mg PO DAILY #30 tab 04/22/19 07/31/19 07/30/19 08:00 Rx metoprolol succinate 25 mg 12.5 mg PO BID 90 Days #90 tab 04/22/19 07/31/19 07/30/19 18:00 Rx tablet,extended release 24 hr pantoprazole 40 mg PO DAILY #30 tab 04/22/19 07/31/19 07/30/19 08:00 Rx aspirin 81 mg tablet,delayed 81 mg PO DAILY 05/20/19 07/31/19 07/30/19 08:00 History release furosemide 40 mg tablet 40 mg PO BID 90 Days #180 tab 05/20/19 07/31/19 07/30/19 08:00 Rx Lantus Solostar U-100 Insulin 20 unit SUBCUT BEDTIME 05/25/19 07/31/19 07/29/19 22:00 History insulin lispro [Humalog KwikPen See Rx Instructions .ROUTE .COMPLEX 05/25/19 07/31/19 07/30/19 08:00 History Insulin] potassium chloride 40 meq PO DAILY 05/25/19 07/31/19 07/30/19 08:00 History isosorbide mononitrate 30 mg 15 mg PO DAILY #30 tab 05/31/19 07/31/19 07/30/19 08:00 Rx tablet,extended release 24 hr Allergies Allergy/AdvReac Type Severity Reaction Status Date / Time codeine Allergy UNKNOWN Verified 07/30/19 17:38 REACTION, PT STATES Penicillins Allergy ALGY-Difficulty Verified 07/30/19 17:38 Breathing Current Medications Current Medications Generic Name Dose Route Start Last Admin Trade Name Freq PRN Reason Stop Dose Admin Enoxaparin Sodium 40 mg 07/31/19 01:00 07/31/19 02:21 Lovenox SUBCUT 40 mg Q24H CARSON Administration Furosemide 20 mg 07/31/19 01:00 07/31/19 02:19 Lasix IVP 20 mg Q12H CARSON Administration Hydromorphone HCl 0.5 mg 07/31/19 00:42 07/31/19 02:20 Dilaudid Inj IVP 0.5 mg Q4H PRN Administration PAIN Nitroglycerin/Dextrose 50 mg in 250 mls @ 0 mls/hr 07/31/19 00:30 07/31/19 02:30 Nitroglycerin Drip IV 8.33 mcg/min .Q0M CARSON 2.5 mls/hr Titration Protocol Per Protocol PFSH Acute PFSH: Medical History DM type 2 (diabetes mellitus, type 2) Presence of drug-eluting stent in left circumflex coronary artery 04/21/2019 Smoking addiction Surgical History History of transmetatarsal amputation of foot S/P hip replacement Family History Father Urinary bladder cancer Brother Urinary bladder cancer Social History Smoking and tobacco status: current every day smoker Alcohol intake: never Household members: spouse Marital status: Current occupational status: retired Vitals/I&O/Wt Last Vital Signs Temp 98.2 F 07/31/19 04:00 Pulse 101 H 07/31/19 04:00 Resp 14 07/31/19 04:00 BP 116/72 07/31/19 04:00 Pulse Ox 96 07/31/19 04:00 07/30/19 07/31/19 07/31/19 22:59 06:59 14:59 Intake Total 108.25 / 108.25 Output Total 1000 / 1000 Balance -891.75 / -891.75 Weight last 48 hrs Weight 230 lb Physical Exam Narrative: EXAM NARRATIVE: Const: COMMON NORMALS: no acute distress, patient oriented x3 and alert GENERAL APPEARANCE: cooperative and appears older than stated age NUTRITIONAL APPEARANCE: obese HENMT: COMMON NORMALS: normocephalic HEAD & SCALP: normocephalic Chest: COMMONS NORMALS: normal palpation of entire chest wall Resp: COMMON NORMALS: normal respiratory effort EFFORT & INSPECTION: Yes able to speak in complete sentences AUSCULTATION: abnormal I/E ratio and diminished lung sounds bilateral and diffuse Cardio: COMMON NORMALS: regular rate, regular rhythm, S1 normal heart sound present, S2 normal heart sound present, No gallops present (Cardio), No murmurs present (Cardio) and No rub (Cardio) PALPATION: normal PMI RATE: regular rate RHYTHM: regular rhythm HEART SOUNDS: S1 normal heart sound present, S2 normal heart sound present and Gallop heart sound present S4 gallop PERIPHERAL PULSES: radial pulses present GI: INSPECTION: Yes abdominal distension and Yes central obesity AUSCULTATION: Yes normoactive bowel sounds PALPATION: Yes Firmness to palpation present (GI) : COMMON NORMALS: Yes no CVA tenderness BLADDER/KIDNEY EXAM: Yes no CVA tenderness Back/Pelvis: COMMON NORMALS: no CVA tenderness Extremity: COMMON NORMALS: normal to inspection and no clubbing, cyanosis or edema Neuro: COMMON NORMALS: patient oriented x3 and CN's II-XII intact bilaterally SENSORIUM/ORIENTATION: Yes alert Psych: COMMON NORMALS: mental status grossly normal, Normal thought process present and cooperative THOUGHT PROCESS: Normal thought process present Skin: COMMON NORMALS: no rashes or lesions noted and turgor normal GENERAL SKIN EXAM: no rashes or lesions noted and turgor normal Urinary Catheter Management^: [place]: Cath Placed During This Visit: yes Urinary Catheter Date of Insertion: 07/31/19 Urinary Catheter Time of Insertion: 00:45 A&P Assessment and plan (1) CHF (congestive heart failure): Continue diuretic therapy guided by accurate I and O goal 2 liter diuresis. Continue beta zahida metoprolol succinate increase dose to 25 mg daily. Wean IV nitrates to imdur 30 mg daily. Status: Acute Qualifiers: Heart failure chronicity: acute Heart failure type: unspecified Qualified Code(s): I50.9 - Heart failure, unspecified (2) Smoking addiction: Discussed contribution of tobacco use to development and worsening of heart failure due to hypoxia. smoking cessation recommended although he is reluctant. Status: Acute (3) Coronary artery disease: No indication of acute coronary syndrome. Guideline therapy is indicated and ongoing. No indication for invasive evaluation. Status: Acute (4) Presence of drug-eluting stent in left circumflex coronary artery: Continue dual antiplatelet therapy. Status: Acute (5) Chest pain: Not typical for his ischemic heart disease and thus would continue current managment. Status: Acute (6) Acute right heart failure: Maintain adequate oxygenation. Diuresis indicated. Smoking cessation. Status: Acute (7) Diastolic heart failure: Guideline therapy with diuresis as mainstay. Agree with nitrates. Status: Acute Consult Attestations Medical Necessity Statement: Medically necessary for inpatient hospitalilzation for management of heart failure, acute presentation. Time Spent in Patient Care: Greater than 35 minutes (>than 50% of time spent in counselling and/or direct pt care on unit) . 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
[2019-07-31 08:37] LABS: Glucose Point of Care 254 mg/dL (70-110)
--- NOTE | 2019-07-31 08:39 | USCV_ITS ---
Camron Burnett Age: 64 Gender: M : 1955 Exam Date: 07/31/2019 11:08 Ordering Phys: Gasper Vega MD Technologist: Fidel Garces Exam Location: [facility] [place] Indication: CHF, POST IN BP: 127 / 58 HR: Rhythm: Sinus Technical Quality: Technically difficult study MEASUREMENTS (Male / Female) Normal Values 2D ECHO LV Diastolic Diameter PLAX 4.1 cm 4.2 - 5.9 / 3.9 - 5.3 cm LV Systolic Diameter PLAX 3.3 cm IVS Diastolic Thickness 0.8 cm 0.6 - 1.0 / 0.6 - 0.9 cm IVS Systolic Thickness 1.2 cm LVPW Diastolic Thickness 1.1 cm 0.6 - 1.0 / 0.6 - 0.9 cm LVPW Systolic Thickness 1.1 cm LVOT Diameter 2.0 cm LV Ejection Fraction 2D Teich 39.2 % LV Ejection Fraction MOD 2C 61.8 % LV Ejection Fraction 2C AL 61.6 % LA Diameter 5.5 cm M-MODE LV Diastolic Diameter MM 6.5 cm 4.2 - 5.9 / 3.9 - 5.3 cm LV Systolic Diameter MM 5.0 cm LV Ejection Fraction MM Teich 46.0 % IVS Diastolic Thickness MM 1.2 cm 0.6 - 1.0 / 0.6 - 0.9 cm IVS Systolic Thickness MM 1.5 cm LVPW Diastolic Thickness MM 1.2 cm 0.6 - 1.0 / 0.6 - 0.9 cm LVPW Systolic Thickness MM 2.0 cm RV Diastolic Diameter MM 1.5 cm Aortic Annulus Diameter 4.0 cm LA Ao Ratio MM 1.4 MV E Point Septal Separation 1.2 cm FINDINGS Left Ventricle Severely increased left ventricular mass. Mildly increased septal wall thickness. Mildly increased posterior wall thickness. Mildly decreased fractional shortening. Mildly decreased midwall fractional shortening. Moderately increased left ventricular diastolic diameter. Mildly decreased left ventricular ejection fraction. Right Ventricle The right ventricle is normal in size and function. Right Atrium The right atrium is normal in size. Left Atrium The left atrium is normal in size. Mitral Valve Structurally normal mitral valve without significant stenosis or prolapse. There is no mitral regurgitation. Aortic Valve Structurally normal aortic valve without significant sclerosis or stenosis. There is no aortic regurgitation. Tricuspid Valve Structurally normal tricuspid valve without significant stenosis or regurgitation. Pulmonary artery systolic pressure is normal. Pulmonic Valve Structurally normal pulmonic valve without significant stenosis. There is no pulmonic regurgitation. Pericardium Normal pericardium without effusion. Aorta Normal ascending aorta dimension. CONCLUSIONS Poor image quality affects interpretation. If clinically indicated alternative iamging recommended. The LV function appears abnormal with inferior basal hypokinesis. EF estimated at 50%. LV diastolic function indeterminate. Mitral and aortic valve appear to function normally without regurgitation or stenosis. Right sided chamber sizes normal with normal RV function. No pericardial effusion. Dr. Eron Sterling MD (Electronically Signed) Final Date: 31 Jul 2019 12:24 S
--- NOTE | 2019-07-31 08:39 | PC.NURSE ---
refused his breakfast tray Blood sugar 254. pt would like an apple juice instead.
[2019-07-31] MEDS: aspirin 81 mg EC Tablet PO (08:41)
[2019-07-31] MEDS: isosorbide mononitrate ER 30 mg Tablet 15 MG PO (08:42)
[2019-07-31] MEDS: pantoprazole DR 40 mg Tablet PO (08:42)
[2019-07-31] MEDS: clopidogrel 75 mg Tablet PO (08:42)
[2019-07-31] MEDS: metoprolol succinate ER (24 HR) 25 mg Tablet PO ×2 (08:42→16:53)
--- NOTE | 2019-07-31 09:13 | PC.NURSE ---
Pt is adamant to remove his catheter [place] cath removed as ordered this morning. Pt is assisted to get up and move to the recliner. Pt stated the bed is hard on his back and looked uncomfortable in the bed. He transferred with standby assist to the recliner.
--- NOTE | 2019-07-31 09:17 | PC.NURSE ---
Sinus Tachy in upper 110-125s Pt noted to be tachycardic when he gets up from the bed to the recliner. Noted he is breathes and snores through his mouth. O2 sat maintains in 91-93% on room air.
--- NOTE | 2019-07-31 09:42 | P.PN_ITS ---
Subjective Subjective: Interval history: Admitted overnight. Labs and vitals noted. Telemetry appreciated. On examination sitting in chair, stating he is feeling better than when he came in. Denies of having any current nausea, vomiting, chest pain, palpitations, difficulty in breathing. He denies of having any current chest pains. Vitals/I&O/Wt Last Vital Signs Temp 97.8 F 07/31/19 08:00 Pulse 104 H 07/31/19 08:00 Resp 14 07/31/19 08:00 BP 127/58 07/31/19 08:00 Pulse Ox 96 07/31/19 04:00 07/30/19 07/31/19 07/31/19 22:59 06:59 14:59 Intake Total 108.25 / 108.25 Output Total 1000 / 1000 300 / 300 Balance -891.75 / -891.75 -300 / -300 Weight last 48 hrs Weight 104.326 kg Physical Exam Narrative: EXAM NARRATIVE: General: No acute distress, AO x3 HEENT: PERRLA, pupils bilaterally equal and reactive Chest: Normal vesicular breath sounds, no added sounds, equal good air entry bilaterally CVS: S1-S2 regular, no murmurs, tachycardia, no gallops, no rubs Abdomen: Soft, nontender, no organomegaly, distended, bowel sounds present Neuro: No focal deficits, no facial deformity, AO x3, power 5/5 in all limbs Urinary Catheter Management^: [place]: Cath Placed During This Visit: yes Reason for Continuing Indwelling Catheter: Acute Urinary Retention or Obstruction Urinary Catheter Date of Insertion: 07/31/19 Urinary Catheter Time of Insertion: 00:45 Data : 07/30/19 17:40 07/31/19 06:04 A&P Assessment and plan (1) Diastolic heart failure: Status: Acute (2) Unstable angina: Status: Acute (3) Coronary artery disease: Status: Acute (4) Chest pain: Status: Acute (5) Presence of drug-eluting stent in left circumflex coronary artery: Status: Acute (6) Smoking addiction: Status: Acute Additional A&P Information Chest and abdominal pain: On admission patient mostly had pain in the epigastric and left upper quadrant. Patient does have history of esophagitis and reflux. Minimal improvement with GI cocktail overnight. Extensive work-up including CTA abdomen pelvis and chest unremarkable overnight. Liver functions within normal limits. Pleuritic pain ruled out with no viral, bronchitis type symptoms. Symptoms most likely because of diastolic and right heart failure causing mild angina: Appreciate cardiology recommendations. NTG stopped earlier today morning. Continue with Imdur. IV Lasix 40 mg twice daily. Strict input output charting. Daily weights. Target diuresis negative of 2 L in 24 hours. CAD: Continue with home dose of aspirin, Plavix, statin. Because of persistent tachycardia I have increased the dose of metoprolol to 25 mg twice daily. Hypertension: Patient had SHAYLA on admission so lisinopril is on hold. Blood pressure borderline. We will continue to monitor. Keep mean artery pressure was 65 mmHg. SAHYLA: Baseline creatinine seems to be around 1. At present down to 1.1 with 1.4 on admission. Medical reconciliation done for nephrotoxic drugs. Type 2 diabetes mellitus: Insulin sliding scale at moderate dose. Carb consistent cardiac diet. DC [place] catheter. Nicotine patch Full code Dvt ppx: lovenox Attestations Medical Necessity Statement*: Diastolic heart failure. Unstable angina Time Spent in Patient Care: Greater than 35 minutes (>than 50% of time spent in counselling and/or direct pt care on unit) . Coding Level of Care Code Acute Prints And Drawings Curator for [facility] Courtney Diagnoses Diastolic heart failure I50.30 Unstable angina I20.0 Coronary artery disease I25.10 Chest pain R07.9 Presence of drug-eluting stent in left circumflex coronary artery Z95.5 Smoking addiction F17.200
[2019-07-31] MEDS: cyclobenzaprine 10 mg Tablet PO ×2 (10:10→16:53)
[2019-07-31] MEDS: FUROsemide 10 mg/mL SDV 2mL 20 MG IVP (10:10)
[2019-07-31] MEDS: nicotine 14 mg Patch 1 PATCH TRANSDERMA (10:12)
[2019-07-31 11:56] LABS: Glucose Point of Care 234 mg/dL (70-110)
--- NOTE | 2019-07-31 12:00 | PC.NURSE ---
Sleeping/refused his lunch tray only drink apple juice 118 mls, reports of abdominal pain/spasm 8/10 pain scale post Flexeril Administration. IVP Dilaudid given as PRN order. Will Monitor.Administer o2 at 2 l/min due to desaturation to 88-90% on room air. will monitor.
--- NOTE | 2019-07-31 14:33 | PC.CHAP ---
Pastoral Care Encounter/Spiritual Assessment Type of Contact [] Declined curriculum and instruction specialist visit [] Patient/Family/Request visit [] Outpatient visit [] Follow-up visit [] Physician referral [] Code/Alert [X] Routine visit [] Staff referral [] Actively dying [] Patient sleeping [] Family support [] [] Out of room [] Palliative care [] [] Receiving care in room [] Pre-surgical visit [] Trauma [] Long length of stay [] ICU visit [] Other: Relational/Emotional Strength [] Patient feels connected with others/family/visitors/staff [] Distress [] Loneliness/isolation [] Abandonment Spirituality of Patient [] Person of Shakila [] Attends Anglican of their Shakila [] Believes in Prayer [] Reads Bible or Rastafari materials [] There are Spiritual issues to be addressed Director Outpatient Services Interventions [] Prayer [] Active listening [] Non-anxious presence [] Spiritual/emotional support [] Crisis/trauma care [] Spiritual counseling [] Bereavement support [] Provided bereavement packet [] Provided Bible/devotional materials [] Provided toy/stuffed animal, coloring book to patient or family member [] Provided Communion [] Anointing/[place] [] Salvation [] Completed spiritual assessment [] Other: Impact on Illness or Injury [] Angry [] Fearful [] Anxious [] Often cries [] Exhaustion [] Unable to work [] Unable to attend orthodoxy [] Unable to walk/stand [] Unable to read [] Unable to drive [] Unable to eat/drink [] Unable to sleep [] Unable to be with family [] Patient intubated [] Other: Summary Time spent with patient
[2019-07-31] MEDS: FUROsemide 10 mg/mL SDV 4mL 40 MG IV (16:53)
[2019-07-31 17:33] LABS: Glucose Point of Care 189 mg/dL (70-110)
--- NOTE | 2019-07-31 18:30 | PC.NURSE ---
Addendum entered by Kate Lombardi RN 07/31/19 19:27: BP-110/62 Original Note: Abdominal pain on a scale 9/10, desaturation in o2 86-88%. applied 2 L NC Pt stated he is having abdominal pain, tightness. He had a 2x diarrhea yesterday r/t drinking milk. Received orders to get EKG. VS-BP-10/62; HR-100; o2sat 93% on RA. 1100 mls UO this shift. Dilaudid IVP PRN as ordered given.
--- NOTE | 2019-07-31 18:31 | ECG_ITS ---
Measurements Intervals [place] Rate: 102 P: 17 GA: 139 QRS: -47 QRSD: 102 T: 55 QT: 348 QTc: 453 SINUS TACHYCARDIA POSSIBLE LEFT ATRIAL ENLARGEMENT [-0.1mV P WAVE IN V1/V2] INDETERMINATE AXIS LEFT ANTERIOR FASCICULAR BLOCK [QRS AXIS <= -45, QR IN I, RS IN II] INFERIOR MYOCARDIAL INFARCTION [40+ ms Q WAVE AND/OR ST/T ABNORMALITY IN II/aVF], OF INDETERMINATE AGE WITH POSTERIOR EXTENSION Compared to ECG 07/30/2019 19:35:57 Indeterminate axis now present Left anterior fascicular block now present Sinus rhythm no longer present Myocardial infarct finding still present Electronically Signed On 08-01-2019 11:05:41 CDT by Eron Sterling MD [email or web address]
[2019-07-31] MEDS: atorvastatin 40 mg Tablet PO (20:40)
[2019-08-01] VITALS (8 sets, daily range): BP systolic 109–125; BP diastolic 52–70; PULSE 87–96; RESP 12–26; TEMP 36.4–36.9; O2SAT 91–95
[2019-08-01] MEDS: enoxaparin 40 mg/0.4 mL Syringe SUBCUT (01:52)
--- NOTE | 2019-08-01 03:49 | PC.NURSE ---
PT DENIES PAIN AT THIS TIME. PT RATES PAIN 0/10 AT THIS TIME. SPEECH IS LESS GARBLED. WILL CONTINUE TO MONITOR.
[2019-08-01 04:32] LABS: Glucose Point of Care 193 mg/dL (70-110)
[2019-08-01 06:06] LABS: Basophils # 0.1 10^3/uL (0.0-0.1); Basophils % 0.6 %; Eosinophils # 0.3 10^3/uL (0.0-0.8); Eosinophils % 3.4 %; Hematocrit 42.5 % (42.0-52.0); Hemoglobin 12.9 g/dL (11.7-16.6); Lymphocytes % 21.8 %; Mean Corpuscular HGB Conc 30.4 g/dL (30.0-36.0); Mean Corpuscular Hemoglobin 28.4 pg (28.0-34.0); Mean Corpuscular Volume 93.4 fL (80-94); Mean Platelet Volume 11.8 fL (7.4-10.4); Monocytes # 0.8 10^3/uL (0.2-0.9); Neutrophils # 5.9 10^3/uL (1.8-7.7); Neutrophils % 65.1 %; Nucleated Red Blood Cells % 0 %; Platelet Count 160 10^3/cmm (130-400); Red Blood Count 4.55 10^6/uL (4.1-5.3); Red Cell Distribution Width 12.9 % (12.1-15.1)
[2019-08-01 06:22] LABS: Alanine Aminotransferase 19 U/L (0-41); Albumin Level 3.7 g/dL (3.5-5.2); Alkaline Phosphatase 121 IU/L (40-130); Anion Gap 18.5 (5-19); Aspartate Amino Transferase 20 U/L (0-40); Blood Urea Nitrogen 24 mg/dL (8-23); Carbon Dioxide 27 mmol/L (22-29); Chloride 95 mmol/L (98-107); Glomerular Filtration Rate 67.2 mL/min (90-130); Glucose 161 mg/dL (65-115); Osmolality Calculated 282 mOsm/kg (285-295); Potassium 4.5 mmol/L (3.5-5.1); Sodium 136 mmol/L (136-145); Total Bilirubin 0.8 mg/dL (0.15-1.2); Total Protein 6.7 g/dL (6.6-8.7)
--- NOTE | 2019-08-01 07:02 | P.PN_ITS ---
Subjective Subjective: Interval history: Camron Burnett is a 64 year old male who presents with upper abdominal, epigastric and low chest fullness. this has been going on in a constant fashion for days. He states it is a band like fullness not worse with exertion or movement although his chronic back pain seems to also contribute to his symptoms. He notes difficulty breathing. He has known CAD and COPD. He underwent coronary stenting a few months ago but states this discomfort is not similar to his coronary pain. He has a history of congestive heart failure and takes diuretic therapy with lasix on a daily basis. His weight fluctuates between 5-10 pounds on a regular basis. He was reluctant to come in and waited two days with nearly constant discomfort. Upon arriving to the ED the patient was treated with oxygen, IV nitrates and analgesia. he required a fluid bolus due to hypotension with topical nitrates. since then he has improved with diuretic therapy having diuresed with IV lasix nearly a liter over night. he states his abdomen is less tense. He ruled out for troponin elevation. He has remained relatively tachycardic with minimal activity. Blood pressure has been stable. He was placed on IV nitroglycerin at low dose and this has been weaned. he is resting comfortably in bed although he required IV narcotics for control of back pain overnight. I have been asked to see for consideration of coronary disease and heart failure. Today he is improved. he is sleeping without orthopnea. he has required pain medication for his back but his abdomen is less distended. No chest pain. he points to both sides of his mid abdomen when he relates his pain. No arrhythmia per monitor. Off IV nitrates. Tolerating medications. Medications: Reviewed: Yes Vitals/I&O/Wt Last Vital Signs Temp 97.8 F 08/01/19 04:00 Pulse 88 08/01/19 04:00 Resp 12 08/01/19 04:00 BP 109/52 08/01/19 04:00 Pulse Ox 92 08/01/19 04:00 07/31/19 08/01/19 08/01/19 22:59 06:59 14:59 Intake Total 120 / 356 Output Total 420 / 1120 600 / 1720 Balance -300 / -764 -600 / -1364 Weight last 48 hrs Weight 232 lb 3.2 oz Weight 230 lb Weight 230 lb Physical Exam Const: COMMON NORMALS: no acute distress and patient oriented x3 NUTRITIONAL APPEARANCE: overweight Neck/C-Spine: COMMON NORMALS: no JVD Chest: COMMONS NORMALS: normal inspection of the chest and normal palpation of entire chest wall Resp: COMMON NORMALS: normal respiratory effort and clear to auscultation bilaterally AUSCULTATION: clear to auscultation bilaterally and diminished lung sounds bilateral and diffuse Cardio: COMMON NORMALS: no JVD, regular rate, regular rhythm, S1 normal heart sound present, S2 normal heart sound present, No gallops present (Cardio) and No murmurs present (Cardio) RATE: regular rate RHYTHM: regular rhythm HEART SOUNDS: S1 normal heart sound present and S2 normal heart sound present GI: COMMON NORMALS: Normal to inspection, nondistended, normoactive bowel so unds present, Soft to palpation and No hepatosplenomegaly present PALPATION: Yes Soft to palpation and Yes No hepatosplenomegaly present Extremity: COMMON NORMALS: normal to inspection, full ROM, capillary refill normal and no pedal edema Neuro: COMMON NORMALS: patient oriented x3, CN's II-XII intact bilaterally, mo ves all extremities and no focal motor deficits Psych: COMMON NORMALS: mental status grossly normal, Normal thought process present and cooperative THOUGHT PROCESS: Normal thought process present Skin: COMMON NORMALS: no rashes or lesions noted and turgor normal GENERAL SKIN EXAM: no rashes or lesions noted and turgor normal Urinary Catheter Management^: [place]: Cath Placed During This Visit: yes Reason for Continuing Indwelling Catheter: Acute Urinary Retention or Obstruction Urinary Catheter Date of Insertion: 07/31/19 Urinary Catheter Time of Insertion: 00:45 Data : 08/01/19 06:02 08/01/19 06:02 A&P Assessment and plan (1) Diastolic heart failure: Improved on current medical therapy. Baseline dosing of diuretic should be increased at home and if necessary increased to avoid volume overload on an as needed basis. Discussed with patient. Continue isosorbide and metoprolol at 25 mg to 50 mg daily. Status: Acute (2) Acute right heart failure: Diuretic needs will be higher in patients with presumed pulmonary hy pertension and right heart failure. As above. Status: Acute (3) Presence of drug-eluting stent in left circumflex coronary artery: Continue dual antiplatelet therapy and atorvastatin. Low dose Dheeraj inhibitor and metoprolol reasonable. Status: Acute (4) Smoking addiction: He is not interested in tobacco cessation. Status: Acute Attestations Medical Necessity Statement*: Nearing discharge. IV diuretic today. Switch to oral medication. Possible discharge later today. Time Spent in Patient Care: 16 - 35 minutes (>than 50% of time spent in counselling and/or direct pt care on unit) . Coding Level of Care Code Acute Cnc Manager for Renzo Courtney Diagnoses Diastolic heart failure I50.30 Acute right heart failure I50.811 Presence of drug-eluting stent in left circumflex coronary artery Z95.5 Smoking addiction F17.200
[2019-08-01 07:56] LABS: Glucose Point of Care 186 mg/dL (70-110)
[2019-08-01] MEDS: FUROsemide 10 mg/mL SDV 4mL 40 MG IV (08:03)
[2019-08-01] MEDS: nicotine 14 mg Patch 1 PATCH TRANSDERMA (08:03)
[2019-08-01] MEDS: pantoprazole DR 40 mg Tablet PO (08:04)
[2019-08-01] MEDS: clopidogrel 75 mg Tablet PO (08:04)
[2019-08-01] MEDS: metoprolol succinate ER (24 HR) 25 mg Tablet PO ×2 (08:04→16:19)
[2019-08-01] MEDS: aspirin 81 mg EC Tablet PO (08:04)
[2019-08-01 11:16] LABS: Glucose Point of Care 281 mg/dL (70-110)
--- NOTE | 2019-08-01 15:06 | PC.RESP ---
Smoking Cessation information and a schedule of classes to patient.
--- NOTE | 2019-08-01 15:14 | PM.PN ---
Subjective Subjective: Interval history: No acute events overnight. On examination patient states he is feeling a lot better. States his abdomen is not as distended anymore. Denies of having any nausea, vomiting, headache, dizziness. Had mild abdominal pain yesterday in the evening but subsided on its own. Denies of having any further abdominal chest pain. Vitals/I&O/Wt Last Vital Signs Temp 98.2 F 08/01/19 07:39 Pulse 89 08/01/19 11:24 Resp 22 H 08/01/19 11:24 BP 125/70 08/01/19 11:24 Pulse Ox 94 08/01/19 11:24 08/01/19 08/01/19 08/01/19 06:59 14:59 22:59 Intake Total 444 / 444 Output Total 600 / 1720 1030 / 1030 Balance -600 / -1364 -586 / -586 Weight last 48 hrs Weight 105.324 kg Weight 104.326 kg Weight 104.326 kg Physical Exam Narrative: EXAM NARRATIVE: General: No acute distress, AO x3 HEENT: PERRLA, pupils bilaterally equal and reactive Chest: Normal vesicular breath sounds, no added sounds, equal good air entry bilaterally CVS: S1-S2 regular, no murmurs, tachycardia, no gallops, no rubs Abdomen: Soft, nontender, no organomegaly, distended, bowel sounds present Neuro: No focal deficits, no facial deformity, AO x3, power 5/5 in all limbs Urinary Catheter Management^: [place]: Cath Placed During This Visit: yes, but has since been removed by the nurse Reason for Continuing Indwelling Catheter: Decision to DC Catheter Urinary Catheter Date of Insertion: 07/31/19 Urinary Catheter Time of Insertion: 00:45 Date Urinary Catheter Removed: 07/31/19 Time Urinary Catheter Discontinued: 09:00 Data : 08/01/19 06:02 08/01/19 06:02 A&P Assessment and plan (1) Diastolic heart failure: Status: Acute (2) Unstable angina: Status: Acute (3) Coronary artery disease: Status: Acute (4) Chest pain: Status: Acute (5) Presence of drug-eluting stent in left circumflex coronary artery: Status: Acute (6) Smoking addiction: Status: Acute Additional A&P Information Chest and abdominal pain: On admission patient mostly had pain in the epigastric and left upper quadrant. Patient does have history of esophagitis and reflux. Minimal improvement with GI cocktail overnight. Extensive work-up including CTA abdomen pelvis and chest unremarkable overnight. Liver functions within normal limits. Pleuritic pain ruled out with no viral, bronchitis type symptoms. Symptoms most likely because of diastolic and right heart failure causing mild angina: Appreciate cardiology recommendations. Patient overall 2.8 L negative. Patient is already received Lasix IV dose today morning. We will switch to oral therapy in the evening. Patient is not responding much to Lasix. We will switch to torsemide 40 mg in the evening. Continue current dose of Imdur. Strict input output charting. Daily weights. Target diuresis negative of 2 L in 24 hours. CAD: Continue with home dose of aspirin, Plavix, statin. Heart rate better controlled. Continue with metoprolol 25 mg twice daily. Hypertension: Patient had SHAYLA on admission so lisinopril is on hold. Blood pressure is better today. We will continue to monitor. Keep mean artery pressure was 65 mmHg. SHAYLA: Resolved. Baseline creatinine seems to be around 1. At present down to 1.1 with 1.4 on admission. Medical reconciliation done for nephrotoxic drugs. Type 2 diabetes mellitus: Insulin sliding scale at moderate dose. Carb consistent cardiac diet. DC [place] catheter. Nicotine patch Full code Dvt ppx: lovenox Plan if patient continues to do well can plan to discharge tomorrow. Attestations Medical Necessity Statement*: Diastolic heart failure. Time Spent in Patient Care: Greater than 35 minutes Coding Level of Care Code Acute Anaesthetic Technician for [facility] Diagnoses Diastolic heart failure I50.30 Unstable angina I20.0 Coronary artery disease I25.10 Chest pain R07.9 Presence of drug-eluting stent in left circumflex coronary artery Z95.5 Smoking addiction F17.200
[2019-08-01] MEDS: TORSEmide 20 mg Tablet 40 MG PO (16:18)
[2019-08-01 16:29] LABS: Glucose Point of Care 160 mg/dL (70-110)
[2019-08-01] MEDS: isosorbide mononitrate ER 30 mg Tablet 15 MG PO (18:22)
[2019-08-01] MEDS: atorvastatin 40 mg Tablet PO (20:19)
[2019-08-01] MEDS: cyclobenzaprine 10 mg Tablet PO (21:55)
--- NOTE | 2019-08-01 21:56 | PC.NURSE ---
Patient c/o having muscle spasms. Administered Flexeril as ordered.
[2019-08-01] MEDS: HYDROmorphone 1 mg/mL INJ 1 mL 0.5 MG IVP (22:17)
[2019-08-01 22:37] LABS: Glucose Point of Care 284 mg/dL (70-110)
--- NOTE | 2019-08-01 22:56 | PC.NURSE ---
On assessment at shift change the patient was calmly sitting on the side of the bed and when inquired about his muscle spasms and pain he said he wasnt having any. i popped back into his room a fwe minutes later to get his vitals and he had kicked back on his bed with arms and legs crossed calmly watching tv , answering questions and being cooperative.
--- NOTE | 2019-08-01 22:57 | PC.NURSE ---
At 2209 patient called out c/o increased pain and muscle spasms. Found patient to be up and down from the bed, very restless, and complaining of severe pain and discomfort. At 2216, Dilaudid 0.5mg IVP was adminstered as ordered. .
[2019-08-02] MEDS: enoxaparin 40 mg/0.4 mL Syringe SUBCUT (00:53)
--- NOTE | 2019-08-02 01:21 | PC.NURSE ---
patient sitting on side of the bed, rubbing lower legs. when questioned about them he stated they were marielle horses and he was trying to rub them out.says he gets these often and makes it hard to walk at home alot of the time.
[2019-08-02 03:42] VITALS: BP 118/65; PULSE 93; RESP 22; TEMP 36.6; O2SAT 92
[2019-08-02 06:18] LABS: Basophils % 0.5 %; Eosinophils # 0.2 10^3/uL (0.0-0.8); Eosinophils % 2.7 %; Hematocrit 41.4 % (42.0-52.0); Hemoglobin 13.3 g/dL (11.7-16.6); Lymphocytes # 1.6 10^3/uL (0.8-4.8); Lymphocytes % 18.5 %; Mean Corpuscular HGB Conc 32.1 g/dL (30.0-36.0); Mean Corpuscular Hemoglobin 29.2 pg (28.0-34.0); Mean Corpuscular Volume 90.8 fL (80-94); Mean Platelet Volume 12.5 fL (7.4-10.4); Monocytes # 0.7 10^3/uL (0.2-0.9); Monocytes % 7.8 %; Neutrophils # 6.2 10^3/uL (1.8-7.7); Neutrophils % 70.3 %; Nucleated Red Blood Cells % 0 %; Platelet Count 157 10^3/cmm (130-400); Red Blood Count 4.56 10^6/uL (4.1-5.3); Red Cell Distribution Width 12.8 % (12.1-15.1); White Blood Count 8.8 10^3/uL (4.0-10.0)
[2019-08-02 06:30] LABS: Alanine Aminotransferase 21 U/L (0-41); Albumin Level 3.9 g/dL (3.5-5.2); Alkaline Phosphatase 119 IU/L (40-130); Anion Gap 22.2 (5-19); Aspartate Amino Transferase 20 U/L (0-40); Blood Urea Nitrogen 36 mg/dL (8-23); Calcium 9.8 mg/dL (8.5-10.5); Carbon Dioxide 26 mmol/L (22-29); Chloride 87 mmol/L (98-107); Globulin 3.5 g/dL (1.3-4.6); Glomerular Filtration Rate 50.9 mL/min (90-130); Glucose 214 mg/dL (65-115); Osmolality Calculated 276 mOsm/kg (285-295); Potassium 4.2 mmol/L (3.5-5.1); Sodium 131 mmol/L (136-145); Total Bilirubin 0.9 mg/dL (0.15-1.2); Total Protein 7.4 g/dL (6.6-8.7)
[2019-08-02 06:55] LABS: Glucose Point of Care 216 mg/dL (70-110)
[2019-08-02] MEDS: TORSEmide 20 mg Tablet 40 MG PO (07:43)
[2019-08-02 08:00] VITALS: BP 107/62; PULSE 101; PULSE 99; RESP 22; TEMP 36.6; O2SAT 95
--- NOTE | 2019-08-02 08:14 | PM.PN ---
Subjective Subjective: Interval history: No cardiac complaints this morning. Did have some bilateral lower quadrant muscle spasms treated with dilaudid and flexeryl. He feels better this morning. Medications: Reviewed: Yes Vitals/I&O/Wt Last Vital Signs Temp 97.9 F 08/02/19 08:00 Pulse 101 H 08/02/19 08:00 Resp 22 H 08/02/19 08:00 BP 107/62 08/02/19 08:00 Pulse Ox 95 08/02/19 08:00 08/01/19 08/02/19 08/02/19 22:59 06:59 14:59 Intake Total 458 / 902 Output Total 1495 / 2525 450 / 2975 125 / 125 Balance -1037 / -1623 -450 / -2073 -125 / -125 Weight last 48 hrs Weight 228 lb Weight 232 lb 3.2 oz Weight 232 lb 3.2 oz Weight 230 lb Physical Exam Const: COMMON NORMALS: no acute distress and no limitations NUTRITIONAL APPEARANCE: obese Neck/C-Spine: COMMON NORMALS: no JVD Chest: COMMONS NORMALS: normal inspection of the chest and normal palpation of entire chest wall Resp: COMMON NORMALS: normal respiratory effort, No retractions and clear to auscultation bilaterally AUSCULTATION: clear to auscultation bilaterally and abnormal I/E ratio Cardio: COMMON NORMALS: no JVD, regular rate, regular rhythm, S1 normal heart sound present, S2 normal heart sound present, No gallops present (Cardio), No clicks present (Cardio) and No murmurs present (Cardio) RATE: regular rate RHYTHM: regular rhythm HEART SOUNDS: S1 normal heart sound present and S2 normal heart sound present GI: COMMON NORMALS: Normal to inspection, nondistended, normoactive bowel sounds present, Soft to palpation and No hepatosplenomegaly present AUSCULTATION: Yes normoactive bowel sounds PALPATION: Yes Soft to palpation and Yes No hepatosplenomegaly present Extremity: COMMON NORMALS: capillary refill normal and no clubbing, cyanosis or edema Neuro: COMMON NORMALS: CN's II-XII intact bilaterally, moves all extremities and no focal motor deficits Psych: COMMON NORMALS: mental status grossly normal, Normal thought process present and cooperative THOUGHT PROCESS: Normal thought process present Urinary Catheter Management^: [place]: Cath Placed During This Visit: yes, but has since been removed by the nurse Reason for Continuing Indwelling Catheter: Decision to DC Catheter Urinary Catheter Date of Insertion: 07/31/19 Urinary Catheter Time of Insertion: 00:45 Date Urinary Catheter Removed: 07/31/19 Time Urinary Catheter Discontinued: 09:00 Data : 08/02/19 05:45 08/02/19 05:45 A&P Assessment and plan (1) Diastolic heart failure: Heart failure has cleared. Go to oral daily dosing of torsemide as ordered. Continue metoprolol xl and nitrates. Status: Acute (2) Acute right heart failure: Compensated with diuretic therapy. Status: Acute (3) Presence of drug-eluting stent in left circumflex coronary artery: Status: Acute (4) Coronary artery disease: Stable. No clear angina. Continue current antiplatelet therapy. Continue beta zahida and ntirates. Status: Acute Attestations Medical Necessity Statement*: Recovering. Time Spent in Patient Care: 16 - 35 minutes (>than 50% of time spent in counselling and/or direct pt care on unit). Coding Level of Care Code Acute Bump Grader Operator for Renzo Courtney Diagnoses Diastolic heart failure I50.30 Acute right heart failure I50.811 Presence of drug-eluting stent in left circumflex coronary artery Z95.5 Coronary artery disease I25.10
[2019-08-02] MEDS: isosorbide mononitrate ER 30 mg Tablet 15 MG PO (09:02)
[2019-08-02] MEDS: cyclobenzaprine 10 mg Tablet PO (09:02)
[2019-08-02] MEDS: aspirin 81 mg EC Tablet PO (09:02)
[2019-08-02] MEDS: clopidogrel 75 mg Tablet PO (09:02)
[2019-08-02] MEDS: pantoprazole DR 40 mg Tablet PO (09:02)
[2019-08-02] MEDS: metoprolol succinate ER (24 HR) 25 mg Tablet PO (09:02)
[2019-08-02] MEDS: nicotine 14 mg Patch 1 PATCH TRANSDERMA (09:03)
--- NOTE | 2019-08-02 09:03 | DCPLANNER ---
Pg 2 of IM updated and reviewed with pt., no questions, copy provided.
[2019-08-02 11:17] VITALS: BP 94/62; PULSE 110; RESP 25; TEMP 36.7; O2SAT 93
[2019-08-02 11:56] LABS: Glucose Point of Care 289 mg/dL (70-110)
[2019-08-02 13:11] VITALS: BP 94/62; PULSE 110; RESP 25; TEMP 36.7; O2SAT 93
--- NOTE | 2019-08-02 17:18 | P.DS_ITS ---
Discharge Providers Date of Admission: 07/30/19 20:28 Date of Discharge: August 02, 2019 Attending Provider at Admission: Clemencia Frazier MD Attending Provider at Discharge: Luis Simons MD Primary Care Provider: EDEN SHELTON DO Diagnoses at Discharge Discharge Diagnosis (1) Diastolic heart failure: Status: Acute (2) Acute right heart failure: Status: Acute (3) Presence of drug-eluting stent in left circumflex coronary artery: Status: Acute Problem details: 04/21/2019 (4) Coronary artery disease: Status: Acute Reason for Visit Reason for Visit: Reason For Visit: CHEST PAIN Hospital Course Discharge Summary: This is a 64-year-old male with a past medical history of type 2 diabetes mellitus, current smoker, CAD with recent history of stenting for NSTEMI April 2019 status post PCI diastolic CHF, ischemic cardiomyopathy, who presents with shortness of breath and angina Patient was admitted for diastolic and right-sided heart failure severity causing mild angina, patient was admitted, received IV diuresis, cardiology was consulted, patient clinically improved, on discharge patient was discharged on torsemide 20 mg twice daily, with repeat blood work in 1 week, with a follow-up with cardiology in 2 weeks. Patient's Imdur and metoprolol also uptitrated during her admission, he tolerated it well, discharge with outpatient follow-up with cardiology. Patient on discharge was also advised of compliance of aspirin, Plavix, statin, lisinopril, beta-zahida given his recent stent placement. Patient also had abdominal pain on admission, patient CT abdomen and pelvis showed no acute pathology, liver functions were within normal limits, no sig nificant leukocytosis, likely secondary to mild esophagitis, patient symptom abated on discharge. Physical Exam Const: COMMON NORMALS: no acute distress and patient oriented x3 HENMT: COMMON NORMALS: normocephalic HEAD & SCALP: normocephalic Neck/C-Spine: COMMON NORMALS: no JVD Resp: COMMON NORMALS: normal respiratory effort, No retractions, No use of accessory muscles and clear to auscultation bilaterally AUSCULTATION: clear to auscultation bilaterally Cardio: COMMON NORMALS: no JVD, regular rate, regular rhythm, S1 normal heart sound present and S2 normal heart sound present RATE: regular rate RHYTHM: regular rhythm HEART SOUNDS: S1 normal heart sound present and S2 normal heart sound present GI: COMMON NORMALS: Normal to inspection, nondistended, normoactive bowel sounds present, Soft to palpation, non-tender, No hepatosplenomegaly present, no masses and no bruits PALPATION: Yes Soft to palpation and Yes No hepatosplenomegaly present Extremity: COMMON NORMALS: capillary refill normal, no clubbing, cyanosis or edema, no calf tenderness and no pedal edema Neuro: COMMON NORMALS: patient oriented x3 Psych: COMMON NORMALS: mental status grossly normal Urinary Catheter Management^: [place]: Cath Placed During This Visit: yes, but has since been removed by the nurse Reason for Continuing Indwelling Catheter: Decision to DC Catheter Urinary Catheter Date of Insertion: 07/31/19 Urinary Catheter Time of Insertion: 00:45 Date Urinary Catheter Removed: 07/31/19 Time Urinary Catheter Discontinued: 09:00 Discharge Data Data Completed and Pending: Completed Studies During Hospitalization Category Date Time Status CT angio chest ab domen pelvis Urgen t Cat Scan 07/30/19 18:08 Completed XR chest 1V elizabet ble [id number] Stat Exams 07/30/19 17:33 Completed CV echo limited 9 3308 Urgent Ultrasound 07/31/19 08:39 Completed Labs from last 24 hours 08/02/19 08/02/19 08/02/19 11:15 06:28 05:45 WBC RBC Hgb Hct MCV MCH MCHC RDW Plt Count MPV Neut % (Auto) Lymph % (Auto) [place] % (Auto) Eos % (Auto) Baso % (Auto) Neut # (Auto) Lymph # (Auto) [place] # (Auto) Eos # (Auto) Baso # (Auto) Nucleated RBC % (a uto) Nucleated RBCs # Sodium 131 L Potassium 4.2 Chloride 87 L Carbon Dioxide 26 Anion Gap 22.2 H BUN 36 H Creatinine 1.4 H GFR Calculation 50.9 L Glucose 214 H POC Glucose 289 216 Calculated Osmolal ity 276 L Calcium 9.8 Total Bilirubin 0.9 AST 20 ALT 21 Alkaline Phosphata se 119 Total Protein 7.4 Albumin 3.9 Globulin 3.5 08/02/19 08/01/19 05:45 20:18 WBC 8.8 RBC 4.56 Hgb 13.3 Hct 41.4 L MCV 90.8 MCH 29.2 MCHC 32.1 D RDW 12.8 Plt Count 157 MPV 12.5 H Neut % (Auto) 70.3 Lymph % (Auto) 18.5 [place] % (Auto) 7.8 Eos % (Auto) 2.7 Baso % (Auto) 0.5 Neut # (Auto) 6.2 Lymph # (Auto) 1.6 [place] # (Auto) 0.7 Eos # (Auto) 0.2 Baso # (Auto) 0.0 Nucleated RBC % (a uto) 0 Nucleated RBCs # 0.0 Sodium Potassium Chloride Carbon Dioxide Anion Gap BUN Creatinine GFR Calculation Glucose POC Glucose 284 Calculated Osmolal ity Calcium Total Bilirubin AST ALT Alkaline Phosphata se Total Protein Albumin Globulin Vitals: Last Vital Signs Temp 98.1 F 08/02/19 13:11 Pulse 110 H 08/02/19 13:11 Resp 25 H 08/02/19 13:11 BP 94/62 08/02/19 13:11 Pulse Ox 93 08/02/19 13:11 Discharge Plan Discharge Patient Disposition: Home, Self-Care Condition: Stable Prescriptions: New cyclobenzaprine 10 mg Tablet 10 mg PO TID PRN (Reason: Muscle Spasms) 5 Days Qty: 15 RF: 0 torsemide 20 mg Tablet 20 mg PO BID 30 Days Qty: 60 RF: 0 isosorbide mononitrate 30 mg Tablet Extended Release 24 Hr 15 mg PO BID 30 Days Qty: 30 RF: 0 metoprolol succinate 25 mg Tablet Extended Release 24 Hr 25 mg PO BID 30 Days Qty: 60 RF: 0 Klor-Con M20 20 mEq tablet,ER particles/crystals 20 meq PO DAILY 30 Days Qty: 30 RF: 0 Continued aspirin [Adult Low Dose Aspirin] 81 mg tablet,delayed release (DR/EC) 81 mg PO DAILY RF: 0 atorvastatin 40 mg Tablet 40 mg PO BEDTIME Qty: 90 RF: 4 clopidogrel 75 mg Tablet 75 mg PO DAILY Qty: 90 RF: 3 pantoprazole 40 mg Tablet,Delayed Release (Dr/Ec) 40 mg PO DAILY Qty: 30 RF: 3 lisinopril 2.5 mg tablet 2.5 mg PO DAILY Qty: 30 RF: 3 insulin lispro [Humalog KwikPen Insulin] 100 unit/mL Insulin Pen See Rx Instructions .ROUTE .COMPLEX RF: 0 Lantus Solostar U-100 Insulin 100 unit/mL (3 mL) Insulin Pen 20 unit SUBCUT BEDTIME RF: 0 potassium chloride 20 mEq tablet extended release 40 meq PO DAILY RF: 0 Discontinued Lasix 40 mg tablet 40 mg PO BID 90 Days Qty: 180 RF: 3 isosorbide mononitrate 30 mg tablet extended release 24 hr 15 mg PO DAILY Qty: 30 RF: 2 metoprolol succinate 25 mg tablet extended release 24 hr 12.5 mg PO BID 90 Days Qty: 90 RF: 3 Discharge Orders: Discharge Order (Routine); Ordered 08/02/19 Ordered By: Luis Simons Other Ambulatory Orders: Comprehensive Metabolic Panel (Routine) Timeframe: 1 Week Facility: [facility] - Location: Lab - Main Lab Ordered By: Luis Simons Referrals: Familia Plata MD [Physician] - 2 weeks ([facility] will call you to set a cardiology follow up to be seen in 2 weeks. If you don't hear from them by tomorrow afternoon, please give them a call at [phone]) Discharge Diet: Cardiac Discharge Activity: Resume usual activity Patient Instructions: Type 2 Diabetes, Metoprolol (By mouth), Cyclobenzaprine (By mouth), Potassium Chloride (By mouth), Isosorbide Mononitrate (By mouth), Torsemide (By mouth), Heart Failure (GEN), Coronary Artery Disease (DC), Chest Pain (DC), How to Stop Smoking (DC), CHF Stoplight, Chest Pain Stoplight Activity Restrictions/Additional Instructions: Please stop by [facility] to have a Comprehensive Metabolic Blood Panel done in 1 week. Discharge Date/Time: 08/02/19 13:48 Discharge Attestations Time Spent in Discharge Care*: less than 30 min Quality Metrics Clinical Quality Measures During this hospital stay, did patient experience: None Coding Level of Care Code Acute Certified Anesthesiologist Assistant for Renzo Fwd Diagnoses Diastolic heart failure I50.30 Acute right heart failure I50.811 Presence of drug-eluting stent in left circumflex coronary artery Z95.5 Coronary artery disease I25.10
== END 2019-08-02 13:48 | disposition home or self-care (01) | DRG 291 ==
LOC: ER 17:47 → CSU 21:09
PROVIDERS: Emergency Medicine; Student in an Organized Health Care Education/Training Program; Admitting Provider Student in an Organized Health Care Education/Training Program; Emergency Provider Student in an Organized Health Care Education/Training Program; PCP Internal Medicine; Visit Provider Family Medicine
DX: I11.0 Hypertensive heart disease with heart failure (principal); I50.31 Acute diastolic (congestive) heart failure; N17.9 Acute kidney failure, unspecified; E11.9 Type 2 diabetes mellitus without complications; F17.210 Nicotine dependence, cigarettes, uncomplicated; I25.110 Atherosclerotic heart disease of native coronary artery with unstable angina pectoris; I25.5 Ischemic cardiomyopathy; I25.2 Old myocardial infarction; K80.20 Calculus of gallbladder without cholecystitis without obstruction; Z89.429 Acquired absence of other toe(s), unspecified side; Z89.419 Acquired absence of unspecified great toe; Z96.649 Presence of unspecified artificial hip joint; R33.9 Retention of urine, unspecified; J44.9 Chronic obstructive pulmonary disease, unspecified; Z79.82 Long term (current) use of aspirin; Z79.02 Long term (current) use of antithrombotics/antiplatelets; Z79.4 Long term (current) use of insulin
CPT/HCPCS: 12345; 36415; 36416; 51702; 71045; 71275; 74174; 80053; 81003; 82962; 83690; 83735; 83880; 84484; 85025; 85610; 85730; 93005; 93010; 93308; 96372; 96375; 99283; C9113; J1170; J1650; J1815; J1940; J2060; J2405; J3490; J7030; J7040; Q9967

== ENCOUNTER 2019-08-11 10:51 | Outpatient (CLI) | payer MEDICARE, SELFPAY ==
[2019-08-11 11:56] LABS: Alanine Aminotransferase 28 U/L (0-41); Albumin Level 4.1 g/dL (3.5-5.2); Alkaline Phosphatase 110 IU/L (40-130); Anion Gap 18.6 (5-19); Aspartate Amino Transferase 19 U/L (0-40); Blood Urea Nitrogen 19 mg/dL (8-23); Calcium 9.9 mg/dL (8.5-10.5); Carbon Dioxide 33 mmol/L (22-29); Chloride 96 mmol/L (98-107); Globulin 3.3 g/dL (1.3-4.6); Glomerular Filtration Rate 84.7 mL/min (90-130); Glucose 247 mg/dL (65-115); Osmolality Calculated 303 mOsm/kg (285-295); Potassium 3.6 mmol/L (3.5-5.1); Sodium 144 mmol/L (136-145); Total Bilirubin 0.4 mg/dL (0.15-1.2); Total Protein 7.4 g/dL (6.6-8.7)
== END 2019-08-11 10:52 | disposition home or self-care (01) ==
LOC: LAB 10:54
PROVIDERS: PCP Internal Medicine; Visit Provider Family Medicine
DX: Z01.89 Encounter for other specified special examinations (principal)
CPT/HCPCS: 80053

== ENCOUNTER 2019-08-20 10:20 | Emergency (ER) | payer MEDICARE, SELFPAY ==
[2019-08-20 10:30] VITALS: BP 118/73; PULSE 98; RESP 20; TEMP 36.4; O2SAT 98; BMI 31.8
--- NOTE | 2019-08-20 10:39 | ED_ITS ---
HPI - Chest Pain General: Chief Complaint: Chest Pain Stated Complaint: cp Time Seen by Provider: 08/20/19 10:27 History of Present Illness: HPI narrative: 64-year-old male who comes in complaining of 3 weeks of intermittent chest pain he was hospitalized a few weeks ago and had a big work-up he is previously had angioplasty with stents. He has right-sided heart failure and ischemic cardiomyopathy. He took 3 months cyclobenzaprine at home states did not get any better chest pain worsened this morning he does not know anything in particular that set it off. He called Dr. Vitale's office and Dr. Vitale's office advised him to come in. He is intermittently having chest pain seems very spasmodic looking at his old records with similar pattern that he came in with previously. He did have an episode of extremely low blood pressure at her previous ER visit and mimicked that today as well pressure dropping into the 80s. MD complaint: chest pain Pertinent past history: coronary artery disease and other (CHF) Onset (ago): day(s) Timing of current episode: episodic Prior episodes: Yes Onset: during exertion Pain location: left chest Pain radiation: back Severity: similar to previous episodes Quality: aching and heaviness Relieving factors: rest Exacerbating factors: inspiration Associated symptoms: Reports dyspnea; Deny abdominal pain, fever(s), nausea or vomiting Review of Systems Const: Denies: fever(s), chills, body aches, change in appetite, fatigue or malaise ENMT: Denies: throat pain, ear or mastoid pain, nasal discharge or nasal congestion Card: Reports: chest pain and dyspnea on exertion; Denies: edema or orthopnea Resp: Reports: dyspnea; Denies: productive cough or non-productive cough GI: Denies: abdominal pain, nausea, vomiting, hematemesis, coffee ground emesis, diarrhea, constipation, bloating, hematochezia or melena : Denies: flank pain, dysuria, urinary frequency or urinary urgency Skin/Breast: Denies: rash or pruritus PFSH ED PFSH: Medical History DM type 2 (diabetes mellitus, type 2) Presence of drug-eluting stent in left circumflex coronary artery 04/21/2019 Smoking addiction Surgical History History of transmetatarsal amputation of foot S/P hip replacement Family History Father Urinary bladder cancer Brother Urinary bladder cancer Social History Smoking and tobacco status: former smoker Alcohol intake: never Household members: spouse Marital status: Current occupational status: retired Physical Exam Const: COMMON NORMALS: no acute distress GENERAL APPEARANCE: cooperative and comfortable ORIENTATION/CONSCIOUSNESS: Yes awake, Yes oriented to person, Yes oriented to place and Yes oriented to time HENMT: COMMON NORMALS: normocephalic, atraumatic, hearing grossly normal bilaterally, external ears normal, EAC's normal, TM's normal bilaterally, Normal nasal mucous membranes and turbinates present, moist oral mucous membranes and oropharynx normal HEAD & SCALP: normocephalic and atraumatic NOSE: Normal nasal mucous membranes and turbinates present EXTERNAL EAR: Yes external ears normal EXTERNAL AUDITORY CANAL: EAC's normal TYMPANIC MEMBRANE: TM's normal bilaterally Eye: COMMON NORMALS: Equal, round and reactive pupils present, EOMs intact bilaterally, conjunctivae normal and no scleral icterus CONJUNCTIVA: Yes conjunctivae normal PUPIL: Yes Equal, round and reactive pupils present Neck/C-Spine: COMMON NORMALS: full ROM, no lymphadenopathy, supple and no JVD Lymph: LYMPHATIC: no lymphadenopathy noted and no lymphedema noted Resp: COMMON NORMALS: normal respiratory effort, No retractions, No use of accessory muscles and clear to auscultation bilaterally AUSCULTATION: clear to auscultation bilaterally Cardio: COMMON NORMALS: no JVD, regular rate, regular rhythm and No murmurs present (Cardio) RATE: regular rate RHYTHM: regular rhythm GI: COMMON NORMALS: Soft to palpation and No hepatosplenomegaly present AUSCULTATION: Yes normoactive bowel sounds PALPATION: Yes Soft to palpation, No Tenderness to palpation present (GI), No Guarding due to palpation present (GI) and Yes No hepatosplenomegaly present Extremity: COMMON NORMALS: normal to inspection, capillary refill normal, no clubbing, cyanosis or edema, no calf tenderness and no pedal edema Neuro: SENSORIUM/ORIENTATION: Yes oriented to person, Yes oriented to place and Yes oriented to time Skin: COMMON NORMALS: no rashes or lesions noted GENERAL SKIN EXAM: no rashes or lesions noted Course Vital Signs: Vital signs: Vital Signs Temperature 97.5 F L 08/20/19 10:30 Pulse Rate 100 08/20/19 14:41 Respiratory Rate 23 H 08/20/19 14:41 Blood Pressure 99/75 08/20/19 14:41 Pulse Oximetry 96 08/20/19 14:41 MDM - Chest Pain MDM Narrative: Medical decision making narrative: Discussed with Dr. Vitale. At this point does not really look like there is nothing we can do in terms of admitting the patient he does not feel as if admission is necessary patient seems to have more esophageal spasm reviewed results with the patient. He is also hypotensive Dr. Plata recommend stopping the Lasix decreasing the metoprolol and stopping lisinopril he wants to see the patient back in the office early next week. Return to the ER if he has any problems. Lab Data: Labs: Lab Results 08/20/19 08/20/19 08/20/19 Range/Units 11:23 11:23 11:23 WBC 9.2 (4.0-10.0) 10^3/ uL RBC 4.96 (4.1-5.3) 10^6/u L Hgb 14.0 (11.7-16.6) g/dL Hct 43.7 (42.0-52.0) % MCV 88.1 (80-94) fL MCH 28.2 (28.0-34.0) pg MCHC 32.0 (30.0-36.0) g/dL RDW 12.7 (12.1-15.1) % Plt Count 209 (130-400) 10^3/c mm MPV 12.1 H (7.4-10.4) fL Neut % (Auto) 72.0 % Lymph % (Auto) 17.6 % [place] % (Auto) 7.7 % Eos % (Auto) 2.1 % Baso % (Auto) 0.4 % Neut # (Auto) 6.7 (1.8-7.7) 10^3/u L Lymph # (Auto) 1.6 (0.8-4.8) 10^3/u L [place] # (Auto) 0.7 (0.2-0.9) 10^3/u L Eos # (Auto) 0.2 (0.0-0.8) 10^3/u L Baso # (Auto) 0.0 (0.0-0.1) 10^3/u L Nucleated RBC % (a uto) 0 % Nucleated RBCs # 0.0 /100WBC Sodium 134 L (136-145) mmol/L Potassium 4.3 (3.5-5.1) mmol/L Chloride 89 L (98-107) mmol/L Carbon Dioxide 31 H (22-29) mmol/L Anion Gap 18.3 (5-19) BUN 34 H (8-23) mg/dL Creatinine 1.5 H (0.7-1.2) mg/dL GFR Calculation 47.0 L (90-130) mL/min Glucose 360 H (65-115) mg/dL Calculated Osmolal ity 290 (285-295) mOsm/k g Lactate 3.5 H (0.5-2.2) mmol/L Calcium 9.9 (8.5-10.5) mg/dL Total Bilirubin 0.7 (0.15-1.2) mg/dL AST 19 (0-40) U/L ALT 29 (0-41) U/L Alkaline Phosphata se 172 H (40-130) IU/L Creatine Kinase 95 (39-308) U/L Troponin T Baselin e (0-15) ng/L Troponin T 120 Min mario (0-15) ng/L Delta Troponin T (0-10) ABS# NT-Pro-B Natriuret Pep 437 H (0-125) pg/mL Total Protein 8.2 (6.6-8.7) g/dL Albumin 4.9 (3.5-5.2) g/dL Globulin 3.3 (1.3-4.6) g/dL Lipase 37 (13-60) U/L 08/20/19 08/20/19 Range/Units 11:23 13:53 WBC (4.0-10.0) 10^3/ uL RBC (4.1-5.3) 10^6/u L Hgb (11.7-16.6) g/dL Hct (42.0-52.0) % MCV (80-94) fL MCH (28.0-34.0) pg MCHC (30.0-36.0) g/dL RDW (12.1-15.1) % Plt Count (130-400) 10^3/c mm MPV (7.4-10.4) fL Neut % (Auto) % Lymph % (Auto) % [place] % (Auto) % Eos % (Auto) % Baso % (Auto) % Neut # (Auto) (1.8-7.7) 10^3/u L Lymph # (Auto) (0.8-4.8) 10^3/u L [place] # (Auto) (0.2-0.9) 10^3/u L Eos # (Auto) (0.0-0.8) 10^3/u L Baso # (Auto) (0.0-0.1) 10^3/u L Nucleated RBC % (a uto) % Nucleated RBCs # /100WBC Sodium (136-145) mmol/L Potassium (3.5-5.1) mmol/L Chloride (98-107) mmol/L Carbon Dioxide (22-29) mmol/L Anion Gap (5-19) BUN (8-23) mg/dL Creatinine (0.7-1.2) mg/dL GFR Calculation (90-130) mL/min Glucose (65-115) mg/dL Calculated Osmolal ity (285-295) mOsm/k g Lactate (0.5-2.2) mmol/L Calcium (8.5-10.5) mg/dL Total Bilirubin (0.15-1.2) mg/dL AST (0-40) U/L ALT (0-41) U/L Alkaline Phosphata se (40-130) IU/L Creatine Kinase (39-308) U/L Troponin T Baselin e 32 H (0-15) ng/L Troponin T 120 Min mario 30.09 H (0-15) ng/L Delta Troponin T -1.91 L (0-10) ABS# NT-Pro-B Natriuret Pep (0-125) pg/mL Total Protein (6.6-8.7) g/dL Albumin (3.5-5.2) g/dL Globulin (1.3-4.6) g/dL Lipase (13-60) U/L Discharge Plan Discharge Patient Disposition: Home, Self-Care Clinical Impression: Diastolic heart failure, Hypotension Coronary artery disease Qualifiers: Coronary Disease-Associated Artery/Lesion type: [place] artery [place] vs. transplanted heart: [place] heart Associated angina: without angina Qualified Code(s): I25.10 - Atherosclerotic heart disease of [place] coronary artery without angina pectoris Condition: Stable Prescriptions: Changed metoprolol succinate 25 mg Tablet Extended Release 24 Hr 12.5 mg PO BID 30 Days Qty: 60 RF: 0 Discontinued lisinopril 2.5 mg tablet 2.5 mg PO DAILY Qty: 30 RF: 3 furosemide [Lasix] 40 mg Tablet 40 mg PO BID RF: 0 No Action aspirin [Adult Low Dose Aspirin] 81 mg tablet,delayed release (DR/EC) 162 - 243 mg PO DAILY RF: 0 pantoprazole 40 mg tablet,delayed release (DR/EC) 40 mg PO DAILY Qty: 30 RF: 3 atorvastatin 40 mg Tablet 40 mg PO BEDTIME Qty: 90 RF: 4 clopidogrel 75 mg Tablet 75 mg PO DAILY Qty: 90 RF: 3 cyclobenzaprine 10 mg Tablet 10 mg PO TID PRN (Reason: unknown) RF: 0 Calcium 500 500 mg calcium (1,250 mg) Tablet 500 mg PO DAILY RF: 0 insulin lispro [Humalog KwikPen Insulin] 100 unit/mL Insulin Pen 12 unit SUBCUT TID RF: 0 Lantus Solostar U-100 Insulin 100 unit/mL (3 mL) Insulin Pen 20 unit SUBCUT BEDTIME RF: 0 potassium chloride 20 mEq tablet extended release 20 meq PO TID RF: 0 torsemide 20 mg Tablet 20 mg PO BID 30 Days Qty: 60 RF: 0 isosorbide mononitrate 30 mg Tablet Extended Release 24 Hr 15 mg PO BID 30 Days Qty: 30 RF: 0 Discharge Orders: Discharge Order (Routine); Ordered 08/20/19 Ordered By: Mo Stock Referrals: Familia Plata MD [Physician] - (Call Dr. Vitale's office for a follow-up appointment on 08/23/2019) Discharge Diet: Usual diet Discharge Activity: Limit activity as instructed Discharge Date/Time: 08/20/19 14:41 Coding Level of Care Code ED Shaft Repairer for g Fwd Exam Comprehensive
--- NOTE | 2019-08-20 10:39 | XR_ITS ---
WS: [id number] PORTABLE CHEST HISTORY: dyspnea/cough COMPARISON: 07/30/2019 No pneumonia. No nodule. No pleural effusion or pneumothorax. Cardiac size: Normal. Mediastinum/Aorta: Normal mediastinum. No osseous abnormality seen. XR/XR chest 1V portable [id number] IMPRESSION: Unremarkable portable chest.
--- NOTE | 2019-08-20 10:39 | ECG_ITS ---
Measurements Intervals [place] Rate: 91 P: 23 LA: 138 QRS: -19 QRSD: 94 T: 64 QT: 385 QTc: 474 SINUS RHYTHM POSSIBLE LEFT ATRIAL ENLARGEMENT [-0.1mV P WAVE IN V1/V2] POSSIBLE INFERIOR MYOCARDIAL INFARCTION , PROBABLY OLD WITH POSTERIOR EXTENSION [30 ms Q WAVE IN II/aVFPROMINENT R WAVE IN V1/ Compared to ECG 07/31/2019 18:55:24 Sinus tachycardia no longer present Indeterminate axis no longer present Left anterior fascicular block no longer present Myocardial infarct finding still present Electronically Signed On 08-21-2019 14:57:52 CDT by Jovon Marinelli M.D. [email or web address]
[2019-08-20] MEDS: ondansetron 2 mg/ML SDV 2 mL 4 MG IVP (10:51)
[2019-08-20] MEDS: morphine 4 mg/mL SDV 1 mL IVP (10:51)
--- NOTE | 2019-08-20 11:11 | PC.NURSE ---
portable chest xray at bedside
[2019-08-20 11:30] LABS: Basophils % 0.4 %; Eosinophils # 0.2 10^3/uL (0.0-0.8); Eosinophils % 2.1 %; Hematocrit 43.7 % (42.0-52.0); Lymphocytes # 1.6 10^3/uL (0.8-4.8); Lymphocytes % 17.6 %; Mean Corpuscular Hemoglobin 28.2 pg (28.0-34.0); Mean Corpuscular Volume 88.1 fL (80-94); Mean Platelet Volume 12.1 fL (7.4-10.4); Monocytes # 0.7 10^3/uL (0.2-0.9); Monocytes % 7.7 %; Neutrophils # 6.7 10^3/uL (1.8-7.7); Nucleated Red Blood Cells % 0 %; Platelet Count 209 10^3/cmm (130-400); Red Blood Count 4.96 10^6/uL (4.1-5.3); Red Cell Distribution Width 12.7 % (12.1-15.1); White Blood Count 9.2 10^3/uL (4.0-10.0)
[2019-08-20 11:48] LABS: Alanine Aminotransferase 29 U/L (0-41); Albumin Level 4.9 g/dL (3.5-5.2); Alkaline Phosphatase 172 IU/L (40-130); Anion Gap 18.3 (5-19); Aspartate Amino Transferase 19 U/L (0-40); Blood Urea Nitrogen 34 mg/dL (8-23); Calcium 9.9 mg/dL (8.5-10.5); Carbon Dioxide 31 mmol/L (22-29); Chloride 89 mmol/L (98-107); Creatine Phosphokinase 95 U/L (39-308); Globulin 3.3 g/dL (1.3-4.6); Glucose 360 mg/dL (65-115); Lipase 37 U/L (13-60); Osmolality Calculated 290 mOsm/kg (285-295); Potassium 4.3 mmol/L (3.5-5.1); Sodium 134 mmol/L (136-145); Total Bilirubin 0.7 mg/dL (0.15-1.2); Total Protein 8.2 g/dL (6.6-8.7)
--- NOTE | 2019-08-20 11:52 | PC.NURSE ---
Call light went off and the daughter of the patient stated that the patient was sweaty, can't breath, and his chest hurts performed repeat EKG at 1150. Informed patient's nurse, doctor was notified.
[2019-08-20 11:56] VITALS: BP 86/54; PULSE 91; RESP 23; O2SAT 99
[2019-08-20] MEDS: HYDROmorphone 1 mg/mL INJ 1 mL 0.4 MG IVP (12:07)
[2019-08-20] MEDS: sodium chloride 0.9% 500 ML 999 ML IV (12:07)
--- NOTE | 2019-08-20 12:13 | PC.NURSE ---
PT SAID IF YOU DON'T TAKE CARE OF THIS PAIN I'LL KILL MYSELF . ED PROVIDER IN ROOM. NURSE IN ROOM. PAIN ADDRESSED. PT DENIES SI.
[2019-08-20 12:19] LABS: Lactate (Lactic Acid level) 3.5 mmol/L (0.5-2.2)
[2019-08-20 12:22] LABS: NT Pro B Type Natriuretic Pept 437 pg/mL (0-125)
--- NOTE | 2019-08-20 12:39 | ECG_ITS ---
Measurements Intervals [place] Rate: 95 P: [place]: 0 QRS: -7 QRSD: 90 T: 67 QT: 348 QTc: 439 SUPRAVENTRICULAR RHYTHM-possibly sinus INDETERMINATE AXIS INFERIOR MYOCARDIAL INFARCTION , OF INDETERMINATE AGE WITH POSTERIOR EXTENSION [4 [40+ ms Q WAVE AND/OR ST/T ABNORMALITY IN II/aV Compared to ECG 07/31/2019 18:55:24 Supraventricular rhythm now present Sinus tachycardia no longer present Left anterior fascicular block no longer present Myocardial infarct finding still present Heavy artifact, need to repeat Electronically Signed On 08-21-2019 15:22:10 CDT by Jovon Marinelli M.D. [id number]
--- NOTE | 2019-08-20 12:41 | PC.NURSE ---
Timed second EKG done at 1239 and shown to ER doctor
[2019-08-20 12:42] LABS: Troponin(5th) Baseline 32 ng/L (0-15)
[2019-08-20 14:19] LABS: Troponin 5 2HR 30.09 ng/L (0-15)
[2019-08-20 14:22] LABS: Troponin 5 2HR Delta -1.91 ABS# (0-10)
[2019-08-20 14:41] VITALS: BP 99/75; PULSE 100; RESP 23; O2SAT 96
--- NOTE | 2019-08-23 09:34 | DCPLANNER ---
mine safety manager had message to schedule a follow up appointment for patient with Dr. Plata at [facility]. mine safety manager called [facility], spoke with Oma, gave clinic patients information. mine safety manager was told that patients information would be printed and reviewed. Clinic will call patient with appointment information.
--- NOTE | 2019-08-24 08:38 | DCPLANNER ---
Patient has a follow up appointment scheduled for Saturday, August 24, 2019 at 9:00 with FUELS SALES REPRESENTATIVE, Iveth Quach. Clinic will call patient with the appointment information.
--- NOTE | 2019-09-03 14:02 | DCPLANNER ---
Patient had an appointment scheduled with [facility], patient did not attend the appointment.
== END 2019-08-20 14:41 | disposition home or self-care (01) ==
PROVIDERS: Emergency Provider Family Medicine; PCP Internal Medicine
DX: I25.10 Atherosclerotic heart disease of native coronary artery without angina pectoris (principal); I11.0 Hypertensive heart disease with heart failure; I50.30 Unspecified diastolic (congestive) heart failure; I95.9 Hypotension, unspecified; Z79.02 Long term (current) use of antithrombotics/antiplatelets; Z79.82 Long term (current) use of aspirin; Z79.4 Long term (current) use of insulin; E11.9 Type 2 diabetes mellitus without complications; Z87.891 Personal history of nicotine dependence
CPT/HCPCS: 12345; 36415; 71045; 80053; 82550; 83605; 83690; 83880; 84484; 85025; 87040; 93005; 96361; 96374; 96375; 99283; 99284; J1170; J2270; J2405; J7040

== ENCOUNTER 2020-03-25 14:11 | Emergency (ER) | payer MEDICARE, SELFPAY ==
[2020-03-25 14:17] VITALS: BP 111/58; PULSE 102; RESP 18; TEMP 36.4; O2SAT 96; BMI 32.1
[2020-03-25 14:20] VITALS: RESP 18
--- NOTE | 2020-03-25 14:32 | XRR_ITS ---
PROCEDURE INFORMATION: Exam: XR Left Foot Complete Exam date and time: 03/25/2020 2:51 PM Age: 64 years old Clinical indication: Pain; Foot; Left; Prior surgery; Surgery type: Toes; Additional info: Open wound underlying distal 1st metatarsal TECHNIQUE: Imaging protocol: XR Left foot. Views: 3 or more views. COMPARISON: No relevant prior studies available. FINDINGS: Bones/joints: Postoperative partial amputation 4th and 5th rays are noted. No bony destruction or osteomyelitis. No acute fracture. There is calcaneal enthesopathy. Old fracture deformity of the distal calcaneus at the calcaneal cuboid joint is noted. Soft tissues: There is a trace amount of subcutaneous emphysema medial to the 1st metatarsal head. There is soft tissue edema adjacent to the 1st MTP joint. No foreign body. XR/XR foot LT min 3V* [id number] IMPRESSION: No acute bony abnormality. Soft tissue edema and probable trace subcutaneous emphysema is noted adjacent to the 1st metatarsal head. This is suspected to be due to an open wound/ulcer.
--- NOTE | 2020-03-25 14:34 | W.ED.WOUNDLC ---
HPI - Wound/Laceration General: Chief Complaint: Wound/Laceration Stated Complaint: left foot injury Time Seen by Provider: 03/25/20 14:22 History of Present Illness: HPI narrative: 64-year-old male presents to the emergency room with an open wound on the base of his left foot underlying the distal first metatarsal. He had some callused skin that he pulled loose it created an open wound. It has a little bit of drainage very slight redness around the edges. He denies any fever. 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 He is an insulin-dependent diabetic and has significant peripheral neuropathy. He has no sensation of pain in this foot due to the peripheral neuropathy. Onset (ago): day(s) Extremity Location: Left: foot Place: home Associated symptoms: Reports numbness; Denies chills, fever(s), foreign body sensation, inability to move, nausea, pain, syncope or vomiting Treatments prior to arrival: bandage Review of Systems Const: Denies: fever(s) ENMT: Denies: throat pain, ear or mastoid pain, nasal discharge or nasal congestion Card: Denies: syncope Resp: Denies: dyspnea, productive cough or non-productive cough GI: Denies: vomiting : Denies: flank pain, dysuria, urinary frequency or urinary urgency Skin/Breast: Denies: rash or pruritus PFSH ED PFSH: Medical History DM type 2 (diabetes mellitus, type 2) Presence of drug-eluting stent in left circumflex coronary artery 04/21/2019 Smoking addiction Surgical History History of transmetatarsal amputation of foot S/P hip replacement Family History Father Urinary bladder cancer Brother Urinary bladder cancer Social History Smoking and tobacco status: former smoker Alcohol intake: never Household members: spouse Marital status: Current occupational status: retired Physical Exam Const: COMMON NORMALS: no acute distress GENERAL APPEARANCE: cooperative and comfortable ORIENTATION/CONSCIOUSNESS: Yes awake, Yes oriented to person, Yes oriented to place and Yes oriented to time HENMT: COMMON NORMALS: normocephalic, atraumatic and hearing grossly normal bilaterally HEAD & SCALP: normocephalic and atraumatic Neck/C-Spine: COMMON NORMALS: no JVD Resp: COMMON NORMALS: normal respiratory effort, No retractions, No use of accessory muscles and clear to auscultation bilaterally AUSCULTATION: clear to auscultation bilaterally Cardio: COMMON NORMALS: no JVD, regular rate, regular rhythm and No murmurs present (Cardio) RATE: regular rate RHYTHM: regular rhythm GI: COMMON NORMALS: Soft to palpation and No hepatosplenomegaly present AUSCULTATION: Yes normoactive bowel sounds PALPATION: Yes Soft to palpation, No Tenderness to palpation present (GI), No Guarding due to palpation present (GI) and Yes No hepatosplenomegaly present Extremity: COMMON NORMALS: normal to inspection, capillary refill normal, no clubbing, cyanosis or edema, no calf tenderness and no pedal edema Neuro: SENSORIUM/ORIENTATION: Yes oriented to person, Yes oriented to place and Yes oriented to time Skin: NARRATIVE SKIN EXAM: Open wound of the sole of foot distal underlying first metatarsal head is approximately 5 cm x 2 cm. There is mild localized erythema no active drainage. Course Vital Signs: Vital signs: Vital Signs Temperature 97.5 F L 03/25/20 14:17 Pulse Rate 88 03/25/20 19:55 Respiratory Rate 22 H 03/25/20 19:55 Blood Pressure 117/65 03/25/20 19:55 Pulse Oximetry 92 03/25/20 19:55 MDM - Wound/Laceration MDM Narrative: Medical decision making narrative: CT shows early osteomyelitis of the sesamoid bones but none of the first metatarsal head and there is no abscess. Will discharge home on Levaquin topical mupirocin and have the patient follow-up with wound care early next week any worsening or change symptoms return. Patient at high risk for loss of foot given his diabetes peripheral artery disease previous amputation in same foot. Lab Data: Labs: Lab Results 03/25/20 03/25/20 Range/Units 14:59 14:59 WBC 8.9 (4.0-10.0) 10^3/ uL RBC 4.78 (4.1-5.3) 10^6/u L Hgb 13.8 (11.7-16.6) g/dL Hct 43.9 (42.0-52.0) % MCV 91.8 (80-94) fL MCH 28.9 (28.0-34.0) pg MCHC 31.4 (30.0-36.0) g/dL RDW 14.4 (12.1-15.1) % Plt Count 191 (130-400) 10^3/c mm MPV 11.9 H (7.4-10.4) fL Neut % (Auto) 72.4 % Lymph % (Auto) 19.6 % [place] % (Auto) 6.2 % Eos % (Auto) 1.2 % Baso % (Auto) 0.3 % Neut # (Auto) 6.41 (1.8-7.7) 10^3/u L Lymph # (Auto) 1.7 (0.8-4.8) 10^3/u L [place] # (Auto) 0.6 (0.2-0.9) 10^3/u L Eos # (Auto) 0.1 (0.0-0.8) 10^3/u L Baso # (Auto) 0.0 (0.0-0.1) 10^3/u L Nucleated RBC % (a uto) 0 % Nucleated RBCs # 0.0 /100WBC Sodium 136 (136-145) mmol/L Potassium 4.4 (3.5-5.1) mmol/L Chloride 97 L (98-107) mmol/L Carbon Dioxide 32 H (22-29) mmol/L Anion Gap 11.4 (5-19) BUN 22 (8-23) mg/dL Creatinine 1.0 (0.7-1.2) mg/dL GFR Calculation 75.0 L (90-130) mL/min Glucose 284 H (65-115) mg/dL Calculated Osmolal ity 296 H (285-295) mOsm/k g Calcium 9.3 (8.5-10.5) mg/dL Discharge Plan Discharge Patient Disposition: Home Clinical Impression: Cellulitis and abscess of foot, Foot ulcer Condition: Stable Prescriptions: New levofloxacin 750 mg tablet 750 mg PO DAILY 10 Days RF: 0 mupirocin 2 % ointment 1 applic topical DAILY Qty: 22 RF: 0 No Action DOK 100 mg capsule 200 mg PO DAILY PRN (Reason: Constipation) RF: 0 atorvastatin 40 mg tablet 40 mg PO BEDTIME@1999 RF: 0 torsemide 20 mg tablet 20 mg PO BID@ RF: 0 clopidogrel 75 mg tablet 75 mg PO DAILY@08 RF: 0 Adult Low Dose Aspirin 81 mg tablet,delayed release (DR/EC) 162 mg PO BEDTIME@1999 RF: 0 pantoprazole 40 mg tablet,delayed release (DR/EC) 40 mg PO DAILY@0800 RF: 0 metoprolol succinate 25 mg tablet extended release 24 hr 12.5 mg PO BID@ RF: 0 potassium chloride 20 mEq tablet extended release 20 meq PO BID@ RF: 0 insulin lispro [Humalog KwikPen Insulin] 100 unit/mL Insulin Pen 12 unit SUBCUT TID RF: 0 Lantus Solostar U-100 Insulin 100 unit/mL (3 mL) insulin pen 50 unit SUBCUT BEDTIME RF: 0 Discharge Orders: Discharge ED (Routine); Ordered 03/25/20 Ordered By: Mo Stock Referrals: Simin Martínez FIELD SALES REPRESENTATIVE [Primary Care Provider] - Discharge Diet: Usual diet Discharge Activity: Limit activity as instructed Activity Restrictions/Additional Instructions: Case management will call to get you an appointment with wound care for early next week. If you have any fever sweats chills or worsening symptoms return immediately Coding Level of Care Code ED Application Integrator for [facility] Fwkt Exam Detailed
[2020-03-25 15:29] LABS: Basophils % 0.3 %; Eosinophils # 0.1 10^3/uL (0.0-0.8); Eosinophils % 1.2 %; Hematocrit 43.9 % (42.0-52.0); Hemoglobin 13.8 g/dL (11.7-16.6); Lymphocytes # 1.7 10^3/uL (0.8-4.8); Lymphocytes % 19.6 %; Mean Corpuscular HGB Conc 31.4 g/dL (30.0-36.0); Mean Corpuscular Hemoglobin 28.9 pg (28.0-34.0); Mean Corpuscular Volume 91.8 fL (80-94); Mean Platelet Volume 11.9 fL (7.4-10.4); Monocytes # 0.6 10^3/uL (0.2-0.9); Monocytes % 6.2 %; Neutrophils # 6.41 10^3/uL (1.8-7.7); Neutrophils % 72.4 %; Nucleated Red Blood Cells % 0 %; Platelet Count 191 10^3/cmm (130-400); Red Blood Count 4.78 10^6/uL (4.1-5.3); Red Cell Distribution Width 14.4 % (12.1-15.1); White Blood Count 8.9 10^3/uL (4.0-10.0)
--- NOTE | 2020-03-25 15:31 | CTR_ITS ---
PROCEDURE INFORMATION: Exam: CT Left Lower Extremity With Contrast, Foot Exam date and time: 03/25/2020 4:09 PM Age: 64 years old Clinical indication: Injury or trauma; Other: Opem diabetic foot ulcer; Laceration; Left; Without foreign body; Prior surgery; Additional info: Open diabetic foot ulcer - subcutaneous emphysema TECHNIQUE: Imaging protocol: CT of the Left lower extremity with intravenous contrast was performed. Exam focused on the foot. Radiation optimization: All CT scans at this facility use at least one of these dose optimization techniques: automated exposure control; mA and/or kV adjustment per patient size (includes targeted exams where dose is matched to clinical indication); or iterative reconstruction. Contrast material: OMNI 300; Contrast volume: 95 ml; Contrast route: INTRAVENOUS (IV); COMPARISON: CR (LOW EXM, ) 03/25/2020 2:40 PM RADIATION DOSE METRICS: Total DLP (mGy-cm): 175.65 FINDINGS: Bones/joints: There is no bony destruction of the 1st metatarsal or base of the 1st proximal phalanx but there is subtle destruction of the medial cortex of the medial sesamoid bone best seen in the coronal plane series 501, image 79. No osteomyelitis in the 1st distal phalanx or remaining bones of the forefoot. There is calcaneal enthesopathy and there are moderate degenerative changes in the midfoot. 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 No acute fracture or dislocation. The patient is status post transmetatarsal amputation of the 4th and 5th rays. Soft tissues: There is soft tissue edema within ulcer just medial to the 1st metatarsal head. There is also abundant edema of the 1st toe. This is just deep to the ulcer. There is mild diffuse edema of the skin and subcutaneous fat of the forefoot and less prominently the hindfoot and and ankle. No localized fluid collection or definite abscess is identified. There is no gas in the soft tissues except for the ulcer noted above. CT/CT foot LT w con [id number] IMPRESSION: 1. Soft tissue ulcer medial to the 1st metatarsal head with cellulitis and no abscess. 2. Early osteomyelitis/bony destruction of the medial sesamoid bone is noted. No osteomyelitis of the 1st metatarsal or 1st proximal phalanx or remaining foot. 3. 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 Radiation Dose CTDIVOL = (mGy): DLP = 175.65 (mGy-cm)
[2020-03-25] MEDS: tetanus-dipt-pertussis 0.5 mL SDV IM (15:41)
[2020-03-25 15:45] LABS: Anion Gap 11.4 (5-19); Blood Urea Nitrogen 22 mg/dL (8-23); Calcium 9.3 mg/dL (8.5-10.5); Carbon Dioxide 32 mmol/L (22-29); Chloride 97 mmol/L (98-107); Glucose 284 mg/dL (65-115); Osmolality Calculated 296 mOsm/kg (285-295); Potassium 4.4 mmol/L (3.5-5.1); Sodium 136 mmol/L (136-145)
[2020-03-25] MEDS: iohexol 300 mg/mL 100 mL Btl IV (17:43)
[2020-03-25] MEDS: levofloxacin-dextrose 5 % 750 MG/150 ML PREMIX 100 MG IV (18:10)
[2020-03-25 18:13] VITALS: BP 117/65; PULSE 88; RESP 22; O2SAT 92
--- NOTE | 2020-03-25 18:32 | PC.NURSE ---
Case management # to contact Daughter (Simin) whom cares for patient asked she be contacted at [phone] for appointment details
--- NOTE | 2020-03-25 19:30 | PC.NURSE ---
during discharge patient was offered to dress the wound to the left foot; patient was angry stating just get this IV out of me and get me outta here. I offered again to dress the wound, but patient refused and began to put his shoes on. After removing IV and instructing patient on how to take ABX and that case management would be contacting him, I took the patient out to his family who was waiting in their car; patient began telling family that they didn't even dress my wound I'm never coming back here again. I informed daughter after she yelled at me for not dressing wound that I did offer to dress the wound but that the patient wouldn't let me.
[2020-03-25 19:55] VITALS: BP 117/65; PULSE 88; RESP 22; O2SAT 92
--- NOTE | 2020-03-27 11:00 | DCPLANNER ---
gate manager had message to schedule a follow up appointment for patient with wound care. gate manager called the ortho clinic, spoke with Jamilah, gave clinic patients information. A follow up appointment was scheduled for Friday, March 30, [address] gato [address] Chavez. gate manager called patient and gave patient the appointment information.
== END 2020-03-25 19:28 | disposition home or self-care (01) ==
PROVIDERS: Emergency Provider Family Medicine; PCP Nurse Practitioner Family
DX: L03.116 Cellulitis of left lower limb (principal); L02.612 Cutaneous abscess of left foot; Z79.02 Long term (current) use of antithrombotics/antiplatelets; Z79.82 Long term (current) use of aspirin; Z79.4 Long term (current) use of insulin; E11.9 Type 2 diabetes mellitus without complications; Z89.439 Acquired absence of unspecified foot; Z87.891 Personal history of nicotine dependence; Z23 Encounter for immunization; S91.302A Unspecified open wound, left foot, initial encounter; X58.XXXA Exposure to other specified factors, initial encounter
CPT/HCPCS: 12345; 36415; 73630; 73701; 80048; 85025; 87040; 90471; 90715; 96365; 96366; 99282; 99284; 99291; J1956; Q9967

== ENCOUNTER 2020-03-29 13:04 | Outpatient (CLI) | payer MEDICARE, SELFPAY ==
--- NOTE | 2020-03-31 15:17 | DCPLANNER ---
Patient had a follow up appointment scheduled for 03.29.20 with Wound Care - patient did attend appointment.
== END 2020-03-29 13:05 | disposition home or self-care (01) ==
PROVIDERS: PCP Nurse Practitioner Family; Visit Provider Thoracic Surgery (Cardiothoracic Vascular Surgery)
DX: E11.621 Type 2 diabetes mellitus with foot ulcer (principal); L97.422 Non-pressure chronic ulcer of left heel and midfoot with fat layer exposed; E11.622 Type 2 diabetes mellitus with other skin ulcer; L97.822 Non-pressure chronic ulcer of other part of left lower leg with fat layer exposed
CPT/HCPCS: 11042; G0463; L3260

== ENCOUNTER 2020-04-05 13:03 | Outpatient (CLI) | payer MEDICARE, SELFPAY | END 2020-04-05 13:04 | disposition home or self-care (01) | LOC: WOUND 13:04 | PROVIDERS: PCP Nurse Practitioner Family; Visit Provider Thoracic Surgery (Cardiothoracic Vascular Surgery) | DX: E11.621 Type 2 diabetes mellitus with foot ulcer (principal); L97.422 Non-pressure chronic ulcer of left heel and midfoot with fat layer exposed; E11.622 Type 2 diabetes mellitus with other skin ulcer; L97.822 Non-pressure chronic ulcer of other part of left lower leg with fat layer exposed | CPT/HCPCS: 11042; 11045 ==

== ENCOUNTER 2020-04-12 09:36 | Outpatient (CLI) | payer MEDICARE, SELFPAY | END 2020-04-12 09:37 | disposition home or self-care (01) | LOC: WOUND 09:37 | PROVIDERS: PCP Nurse Practitioner Family; Visit Provider Thoracic Surgery (Cardiothoracic Vascular Surgery) | DX: E11.622 Type 2 diabetes mellitus with other skin ulcer (principal); L97.822 Non-pressure chronic ulcer of other part of left lower leg with fat layer exposed | CPT/HCPCS: 97597 ==

== ENCOUNTER 2020-04-19 09:14 | Outpatient (CLI) | payer MEDICARE, SELFPAY | END 2020-04-19 09:15 | disposition home or self-care (01) | LOC: WOUND 09:15 | PROVIDERS: PCP Nurse Practitioner Family; Visit Provider Thoracic Surgery (Cardiothoracic Vascular Surgery) | DX: E11.622 Type 2 diabetes mellitus with other skin ulcer (principal); L97.822 Non-pressure chronic ulcer of other part of left lower leg with fat layer exposed | CPT/HCPCS: 11042 ==

== ENCOUNTER 2020-05-10 13:31 | Outpatient (CLI) | payer MEDICARE, SELFPAY | END 2020-05-10 13:32 | disposition home or self-care (01) | LOC: WOUND 13:32 | PROVIDERS: PCP Nurse Practitioner Family; Visit Provider Thoracic Surgery (Cardiothoracic Vascular Surgery) | DX: Z09 Encounter for follow-up examination after completed treatment for conditions other than malignant neoplasm (principal) | CPT/HCPCS: 99212 ==

== ENCOUNTER 2021-02-26 11:16 | Emergency (ER) | payer MEDICARE, SELFPAY ==
[2021-02-26 12:17] VITALS: BP 93/62; PULSE 112; RESP 18; TEMP 36.7; O2SAT 94; BMI 32.1
[2021-02-26 12:25] LABS: Glucose Point of Care 201 mg/dL (70-110)
--- NOTE | 2021-02-26 12:30 | XR_ITS ---
WS: [id number] Exam: XR tibia fibula RT 2V [id number] Date/Time of Exam: 02/26/2021 12:32 PM Reason For Exam: trauma/injury There is a comminuted fracture of the lower fibula with only slight angulation. There is also a nondi splaced fracture of the proximal metaphysis of the fibula as well as the fibular head. There also nathalie ears to be a posterior tibial shelf fracture without significant displacement. Soft tissue injury see n along the anterior aspect of the lower leg. XR/XR tibia fibula RT 2V [id number] IMPRESSION: 1. Fractures of the proximal and distal fibula. There is some angulation of the distal fibular fracture. 2. Nondisplaced posterior tibial shelf fracture that comprises a small part of the articulating surface.
--- NOTE | 2021-02-26 12:30 | XRR_ITS ---
PROCEDURE INFORMATION: Exam: XR Right Hip Exam date and time: 02/26/2021 12:30 PM Age: 65 years old Clinical indication: Injury or trauma; Blunt trauma (contusions or hematomas); Right; Injury date: 02/25/21; Injury details: Fall yesterday, diabetic and bruises. C/O pain RT ankle, hip, lower leg, and foot; Prior surgery; Additional info: Trauma/injury TECHNIQUE: Imaging protocol: XR Right hip. Views: 1 view hip with pelvis when performed. COMPARISON: CT abdomen pelvis wo con [id number] 04/19/2019 3:25 PM FINDINGS: Bones/joints: A right total hip arthroplasty is noted. There appears to be lucency adjacent to the mid femoral stem that could reflect hardware loosening. There could be a subtle nondisplaced intertrochanteric fracture. There is heterotopic bone adjacent to the right hip. There is chronic deformity immediately inferior to the right acetabulum. Mild degenerative changes at the left hip. Soft tissues: No gross soft tissue swelling. XR/XR hip RT 2-3V wo/w pel* [id number] IMPRESSION: 1. A right total hip arthroplasty is noted. There appears to be lucency adjacent to the mid femoral stem that could reflect hardware loosening. 2. There could be a subtle nondisplaced intertrochanteric fracture. 3. Consider CT to better characterize.
--- NOTE | 2021-02-26 12:30 | XRR_ITS ---
PROCEDURE INFORMATION: Exam: XR Right Ankle Exam date and time: 02/26/2021 12:30 PM Age: 65 years old Clinical indication: Fall blunt right ankle trauma. TECHNIQUE: Imaging protocol: XR Right ankle. Views: 3 or more views. COMPARISON: No relevant prior studies available. FINDINGS: Bones/joints: There is an oblique, mildly displaced fracture involving the distal diaphysis of the fibula. Possible nondisplaced fracture involving the posterior malleolus of the distal tibia. Tiny posterior calcaneal spur. The visualized Achilles tendon is grossly normal in morphology. Mild degenerative changes at the tibiotalar articulation. There is a probable small intra-articular body in the anterior tibiotalar joint. Soft tissues: Soft tissue swelling involving the lower leg with bullae. XR/XR ankle RT min 3V* [id number] IMPRESSION: 1. Oblique, mildly displaced fracture involving the distal diaphysis of the fibula. 2. Possible nondisplaced fracture involving the posterior malleolus of the distal tibia. 3. Mild degenerative changes at the tibiotalar articulation. There is a probable small intra-articular body in the anterior tibiotalar joint. 4. Soft tissue swelling involving the lower leg with bullae.
--- NOTE | 2021-02-26 12:30 | XRR_ITS ---
PROCEDURE INFORMATION: Exam: XR Right Foot Exam date and time: 02/26/2021 12:30 PM Age: 65 years old Clinical indication: Fall with blunt trauma on 02/25/21. Fell yesterday. Diabetic with bruises. Complains of pain in the right ankle, hip, lower leg and foot. TECHNIQUE: Imaging protocol: XR Right foot. Views: 3 or more views. COMPARISON: No relevant prior studies available. FINDINGS: Bones/joints: There is a comminuted, minimally displaced, intra-articular fracture involving the distal aspect of the proximal phalanx of the 4th toe. Mild scattered degenerative changes. No calcaneal spur. Soft tissues: Dorsal soft tissue swelling. XR/XR foot RT min 3V* [id number] IMPRESSION: 1. Comminuted, minimally displaced, intra-articular fracture involving the distal aspect of the proximal phalanx of the 4th toe. 2. Dorsal soft tissue swelling.
--- NOTE | 2021-02-26 12:31 | ED_ITS ---
Documented by User: [email or web address] Fam 02/26/21 12:33 HPI - Fall General: Chief Complaint: Fall Stated Complaint: Fell yesterday, diabetic and brusies Time Seen by Provider: 02/26/21 12:31 Source: patient Mode of arrival: wheelchair Limitations: no limitations History of Present Illness: HPI Narrative: Patient is a 65-year-old diabetic here with following a fall. Patient states he fell yesterday evening. states he has been falling frequently. He suffers from chronic bilateral lower extremity neuropathy. Patient states he injured his right lower leg and ankle yesterday. states he has developed large blood filled appearing blisters to the extremity. PFS ED PFSH: Medical History DM type 2 (diabetes mellitus, type 2) Presence of drug-eluting stent in left circumflex coronary artery 04/21/2019 Smoking addiction Surgical History History of transmetatarsal amputation of foot S/P hip replacement Family History Father Urinary bladder cancer Brother Urinary bladder cancer Social History Alcohol intake: never Household members: spouse Marital status: Current occupational status: retired Physical Exam Const: COMMON NORMALS: no acute distress, no limitations and alert GENERAL APPEARANCE: cooperative HENMT: TEETH & GINGIVA: Yes edentulous Resp: COMMON NORMALS: normal respiratory effort Extremity: NARRATIVE EXTREMITY EXAM: TTP R lower leg/ankle; a few large bulla present Neuro: SENSORIUM/ORIENTATION: Yes alert Course Vital Signs: Vital signs: Vital Signs Temperature 98.1 F 02/26/21 12:17 Pulse Rate 112 H 02/26/21 12:17 Respiratory Rate 15 02/26/21 18:49 Blood Pressure 93/62 02/26/21 12:17 Pulse Oximetry 94 02/26/21 12:17 MDM - Fall MDM Narrative: Medical decision making narrative: Brief history and physical exam was performed as part of the triage process. Due to current ED wait time patient will be placed in waiting room until a room becomes available. Explained to patient he/she will be seen in order of severity. Patient is currently safe to wait in the waiting room until we can get them placed. Patient informed that if condition worsens at any time to please let the front line supervisor know. Lab Data: Labs: Lab Results 02/26/21 02/26/21 02/26/21 12:22 13:52 13:52 WBC 13.0 10^3/uL H 10 ^3/uL (4.0-10.0) RBC 4.61 10^6/uL 10^6 /uL (4.1-5.3) Hgb 13.9 g/dL g/dL (11.7-16.6) Hct 42.5 % % (42.0-52.0) MCV 92.2 fl fl (80-94) MCH 30.2 pg pg (28.0-34.0) MCHC 32.7 g/dL g/dL (30.0-36.0) RDW 13.5 % % (12.1-15.1) Plt Count 218 10^3/cmm 10^3 /cmm (130-400) MPV 11.6 fL H fL (7.4-10.4) Neut % (Auto) 74.6 % % Lymph % (Auto) 17.1 % % Banner % (Auto) 7.2 % % Eos % (Auto) 0.2 % % Baso % (Auto) 0.4 % % Neut # (Auto) 9.69 10^3/uL H 10 ^3/uL (1.8-7.7) Lymph # (Auto) 2.2 10^3/uL 10^3/ uL (0.8-4.8) Banner # (Auto) 0.9 10^3/uL 10^3/ uL (0.2-0.9) Eos # (Auto) 0.0 10^3/uL 10^3/ uL (0.0-0.8) Baso # (Auto) 0.1 10^3/uL 10^3/ uL (0.0-0.1) Nucleated RBC % (a uto) 0 % % Nucleated RBCs # 0.0 /100WBC /100W BC Sodium 134 mmol/L L mmol /L (136-145) Potassium 5.1 mmol/L mmol/L (3.5-5.1) Chloride 92 mmol/L L mmol/ L (98-107) Carbon Dioxide 24 mmol/L mmol/L (22-29) Anion Gap 23.1 H (5-19) BUN 29 mg/dL H mg/dL (8-23) Creatinine 1.6 mg/dL H mg/dL (0.7-1.2) GFR Calculation 43.5 mL/min L mL/ min (90-130) Glucose 207 mg/dL H mg/dL (65-115) POC Glucose 201 mg/dL H mg/dL (70-110) Calculated Osmolal ity 290 mOsm/kg mOsm/ kg (285-295) Lactic Acid Lactic Acid (Sepsi s) Calcium 8.5 mg/dL mg/dL (8.5-10.5) Total Bilirubin 1.4 mg/dL H mg/dL (0.15-1.2) AST 14 U/L U/L (0-40) ALT 21 U/L U/L (0-41) Alkaline Phosphata se 171 IU/L H IU/L (40-130) Troponin T Baselin e Troponin T 120 Min enterprise Delta Troponin T Total Protein 6.9 g/dL g/dL (6.6-8.7) Albumin 4.1 g/dL g/dL (3.5-5.2) Globulin 2.8 g/dL g/dL (1.3-4.6) 02/26/21 02/26/21 02/26/21 13:52 13:52 16:03 WBC RBC Hgb Hct MCV MCH MCHC RDW Plt Count MPV Neut % (Auto) Lymph % (Auto) Banner % (Auto) Eos % (Auto) Baso % (Auto) Neut # (Auto) Lymph # (Auto) Banner # (Auto) Eos # (Auto) Baso # (Auto) Nucleated RBC % (a uto) Nucleated RBCs # Sodium Potassium Chloride Carbon Dioxide Anion Gap BUN Creatinine GFR Calculation Glucose POC Glucose Calculated Osmolal ity Lactic Acid 2.1 mmol/L mmol/L (0.5-2.2) Lactic Acid (Sepsi s) Calcium Total Bilirubin AST ALT Alkaline Phosphata se Troponin T Baselin e 27 ng/L H ng/L (0-15) Troponin T 120 Min enterprise 29.20 ng/L H ng/L (0-15) Delta Troponin T 2.20 ABS# ABS# (0-10) Total Protein Albumin Globulin 02/26/21 16:03 WBC RBC Hgb Hct MCV MCH MCHC RDW Plt Count MPV Neut % (Auto) Lymph % (Auto) Banner % (Auto) Eos % (Auto) Baso % (Auto) Neut # (Auto) Lymph # (Auto) Banner # (Auto) Eos # (Auto) Baso # (Auto) Nucleated RBC % (a uto) Nucleated RBCs # Sodium Potassium Chloride Carbon Dioxide Anion Gap BUN Creatinine GFR Calculation Glucose POC Glucose Calculated Osmolal ity Lactic Acid Lactic Acid (Sepsi s) 2.8 mmol/L H mmol /L (0.5-2.2) Calcium Total Bilirubin AST ALT Alkaline Phosphata se Troponin T Baselin e Troponin T 120 Min enterprise Delta Troponin T Total Protein Albumin Globulin Discharge Plan Discharge Patient Disposition: Home Clinical Impression: Ankle fracture, Fracture, tibial plateau, History of fracture of hip Condition: Stable Prescriptions: New hydrocodone-acetaminophen 5-325 mg tablet 1 tab PO Q6H PRN (Reason: pain) Qty: 20 RF: 0 No Action atorvastatin 40 mg tablet 40 mg PO BEDTIME@1999 Qty: 90 RF: 3 clopidogrel 75 mg tablet 75 mg PO DAILY@0800 Qty: 90 RF: 3 metoprolol succinate 25 mg tablet extended release 24 hr 12.5 mg PO BID@ Qty: 90 RF: 3 pantoprazole 40 mg tablet,delayed release (DR/EC) 40 mg PO DAILY@0800 Qty: 90 RF: 3 potassium chloride 20 mEq tablet extended release 20 meq PO BID@799,1999 Qty: 180 RF: 3 torsemide 20 mg tablet 20 mg PO BID@799,1999 Qty: 180 RF: 3 (DME) Karlos Alcazar See Rx Instructions .ROUTE .MEDSUPPLY Qty: 1 RF: 0 silver sulfadiazine 1 % cream 1 applic topical DAILY Qty: 50 RF: 0 DOK 100 mg capsule 200 mg PO DAILY PRN (Reason: Constipation) RF: 0 Adult Low Dose Aspirin 81 mg tablet,delayed release (DR/EC) 162 mg PO BEDTIME@1999 RF: 0 mupirocin 2 % ointment 1 applic topical DAILY Qty: 22 RF: 0 insulin lispro [Humalog KwikPen Insulin] 100 unit/mL Insulin Pen 12 unit SUBCUT TID RF: 0 Lantus Solostar U-100 Insulin 100 unit/mL (3 mL) insulin pen 40 unit SUBCUT BID RF: 0 Discharge Orders: Discharge ED (Routine); Ordered 02/26/21 Ordered By: Mo Stock Other Ambulatory Orders: DME: Wheelchair (Order) Location: None Selected Ordered By: Mo Stock Referrals: Simin Martínez FNP [Primary Care Provider] - Patient Instructions: Opioid Safety Activity Restrictions/Additional Instructions: Nonweightbearing on the right leg use wheelchair. quality systems manager will make arrangements for you to see orthopedics later this week. Coding Level of Care Code ED Health Information Administrator for Chg Fwd Exam Expanded Problem Focused Documented by User: Mo Stock, 03/02/21 06:19 HPI - Fall General: Chief Complaint: Fall Stated Complaint: Fell yesterday, diabetic and brusies Time Seen by Provider: 02/26/21 12:31 History of Present Illness: HPI Narrative: 65-year-old male presents emergency room with complaint of right leg pain. He has pain at the ankle knee and some with a previous hip arthroplasty. Patient denies striking his head denies any loss conscious he has developed significant blisters of the anterior portion of the ankle.He denies any fever sweats or chills. Patient has a history of frequent falls thought to be related to neuropathy. MD complaint: fall Onset (ago): day(s) Fall from: standing Fall witnessed: yes, by family Place fall occurred: home Loss of consciousness: None Prolonged down time: no Context: tripped/slipped Associated symptoms-after fall: Denies chest pain Review of Systems Const: Denies: fever(s), chills, body aches, change in appetite, fatigue or malaise ENMT: Denies: throat pain, ear or mastoid pain, nasal discharge or nasal congestion Card: Denies: chest pain, edema, dyspnea on exertion or orthopnea Resp: Denies: dyspnea, productive cough or non-productive cough : Denies: flank pain, dysuria, urinary frequency or urinary urgency PFSH ED PFSH: Medical History DM type 2 (diabetes mellitus, type 2) Presence of drug-eluting stent in left circumflex coronary artery 04/21/2019 Smoking addiction Surgical History History of transmetatarsal amputation of foot S/P hip replacement Family History Father Urinary bladder cancer Brother Urinary bladder cancer Social History Alcohol intake: never Household members: spouse Marital status: Current occupational status: retired Physical Exam Const: COMMON NORMALS: no acute distress GENERAL APPEARANCE: cooperative and comfortable ORIENTATION/CONSCIOUSNESS: Yes awake, Yes oriented to person, Yes oriented to place and Yes oriented to time HENMT: COMMON NORMALS: normocephalic, atraumatic, hearing grossly normal bilaterally, external ears normal, EAC's normal, TM's normal bilaterally, Normal nasal mucous membranes and turbinates present, moist oral mucous membranes and oropharynx normal HEAD & SCALP: normocephalic and atraumatic NOSE: Normal nasal mucous membranes and turbinates present EXTERNAL EAR: Yes external ears normal EXTERNAL AUDITORY CANAL: EAC's normal TYMPANIC MEMBRANE: TM's normal bilaterally Eye: COMMON NORMALS: Equal, round and reactive pupils present, EOMs intact bilaterally, conjunctivae normal and no scleral icterus CONJUNCTIVA: Yes conjunctivae normal PUPIL: Yes Equal, round and reactive pupils present Neck/C-Spine: COMMON NORMALS: full ROM, no lymphadenopathy, supple and no JVD Lymph: LYMPHATIC: no lymphadenopathy noted and no lymphedema noted Resp: COMMON NORMALS: normal respiratory effort, No retractions, No use of accessory muscles and clear to auscultation bilaterally AUSCULTATION: clear to auscultation bilaterally Cardio: COMMON NORMALS: no JVD, regular rate, regular rhythm and No murmurs present (Cardio) RATE: regular rate RHYTHM: regular rhythm GI: COMMON NORMALS: Soft to palpation and No hepatosplenomegaly present AUSCULTATION: Yes normoactive bowel sounds PALPATION: Yes Soft to palpation, No Tenderness to palpation present (GI), No Guarding due to palpation present (GI) and Yes No hepatosplenomegaly present Extremity: COMMON NORMALS: normal to inspection and capillary refill normal OTHER: Fracture blisters on the anterior distal tibia no sign of infection mild swelling of the ankle fourth toe and the knee on the right side. Neuro: SENSORIUM/ORIENTATION: Yes oriented to person, Yes oriented to place and Yes oriented to time Skin: COMMON NORMALS: no rashes or lesions noted GENERAL SKIN EXAM: no rashes or lesions noted Course Vital Signs: Vital signs: Vital Signs Temperature 98.1 F 02/26/21 12:17 Pulse Rate 112 H 02/26/21 12:17 Respiratory Rate 15 02/26/21 18:49 Blood Pressure 93/62 02/26/21 12:17 Pulse Oximetry 94 02/26/21 12:17 MDM - Fall MDM Narrative: Medical decision making narrative: Distal fibula as well as tibial plateau fractures and fourth toe fracture there is also concern of a fracture around the hip prosthesis although it is not compromised the structure of the hip at this point. Discussed with Dr. Degroot she concurs with a posterior splint to the lower leg in conjunction with a knee brace and have the patient be nonweightbearing. Because of his peripheral neuropathy at home believe he can safely use crutches fact I think it will actually almost ensure that he has another fall. We will get him a wheelchair with an elevated right leg. Set him up for follow-up with Dr. Degroot later this week. Return if he has further problems. Lab Data: Labs: Lab Results 02/26/21 02/26/21 02/26/21 12:22 13:52 13:52 WBC 13.0 10^3/uL H 10 ^3/uL (4.0-10.0) RBC 4.61 10^6/uL 10^6 /uL (4.1-5.3) Hgb 13.9 g/dL g/dL (11.7-16.6) Hct 42.5 % % (42.0-52.0) MCV 92.2 fl fl (80-94) MCH 30.2 pg pg (28.0-34.0) MCHC 32.7 g/dL g/dL (30.0-36.0) RDW 13.5 % % (12.1-15.1) Plt Count 218 10^3/cmm 10^3 /cmm (130-400) MPV 11.6 fL H fL (7.4-10.4) Neut % (Auto) 74.6 % % Lymph % (Auto) 17.1 % % Banner % (Auto) 7.2 % % Eos % (Auto) 0.2 % % Baso % (Auto) 0.4 % % Neut # (Auto) 9.69 10^3/uL H 10 ^3/uL (1.8-7.7) Lymph # (Auto) 2.2 10^3/uL 10^3/ uL (0.8-4.8) Banner # (Auto) 0.9 10^3/uL 10^3/ uL (0.2-0.9) Eos # (Auto) 0.0 10^3/uL 10^3/ uL (0.0-0.8) Baso # (Auto) 0.1 10^3/uL 10^3/ uL (0.0-0.1) Nucleated RBC % (a uto) 0 % % Nucleated RBCs # 0.0 /100WBC /100W BC Sodium 134 mmol/L L mmol /L (136-145) Potassium 5.1 mmol/L mmol/L (3.5-5.1) Chloride 92 mmol/L L mmol/ L (98-107) Carbon Dioxide 24 mmol/L mmol/L (22-29) Anion Gap 23.1 H (5-19) BUN 29 mg/dL H mg/dL (8-23) Creatinine 1.6 mg/dL H mg/dL (0.7-1.2) GFR Calculation 43.5 mL/min L mL/ min (90-130) Glucose 207 mg/dL H mg/dL (65-115) POC Glucose 201 mg/dL H mg/dL (70-110) Calculated Osmolal ity 290 mOsm/kg mOsm/ kg (285-295) Lactic Acid Lactic Acid (Sepsi s) Calcium 8.5 mg/dL mg/dL (8.5-10.5) Total Bilirubin 1.4 mg/dL H mg/dL (0.15-1.2) AST 14 U/L U/L (0-40) ALT 21 U/L U/L (0-41) Alkaline Phosphata se 171 IU/L H IU/L (40-130) Troponin T Baselin e Troponin T 120 Min enterprise Delta Troponin T Total Protein 6.9 g/dL g/dL (6.6-8.7) Albumin 4.1 g/dL g/dL (3.5-5.2) Globulin 2.8 g/dL g/dL (1.3-4.6) 02/26/21 02/26/21 02/26/21 13:52 13:52 16:03 WBC RBC Hgb Hct MCV MCH MCHC RDW Plt Count MPV Neut % (Auto) Lymph % (Auto) Banner % (Auto) Eos % (Auto) Baso % (Auto) Neut # (Auto) Lymph # (Auto) Banner # (Auto) Eos # (Auto) Baso # (Auto) Nucleated RBC % (a uto) Nucleated RBCs # Sodium Potassium Chloride Carbon Dioxide Anion Gap BUN Creatinine GFR Calculation Glucose POC Glucose Calculated Osmolal ity Lactic Acid 2.1 mmol/L mmol/L (0.5-2.2) Lactic Acid (Sepsi s) Calcium Total Bilirubin AST ALT Alkaline Phosphata se Troponin T Baselin e 27 ng/L H ng/L (0-15) Troponin T 120 Min enterprise 29.20 ng/L H ng/L (0-15) Delta Troponin T 2.20 ABS# ABS# (0-10) Total Protein Albumin Globulin 02/26/21 16:03 WBC RBC Hgb Hct MCV MCH MCHC RDW Plt Count MPV Neut % (Auto) Lymph % (Auto) Banner % (Auto) Eos % (Auto) Baso % (Auto) Neut # (Auto) Lymph # (Auto) Banner # (Auto) Eos # (Auto) Baso # (Auto) Nucleated RBC % (a uto) Nucleated RBCs # Sodium Potassium Chloride Carbon Dioxide Anion Gap BUN Creatinine GFR Calculation Glucose POC Glucose Calculated Osmolal ity Lactic Acid Lactic Acid (Sepsi s) 2.8 mmol/L H mmol /L (0.5-2.2) Calcium Total Bilirubin AST ALT Alkaline Phosphata se Troponin T Baselin e Troponin T 120 Min enterprise Delta Troponin T Total Protein Albumin Globulin Discharge Plan Discharge Patient Disposition: Home Clinical Impression: Ankle fracture, Fracture, tibial plateau, History of fracture of hip Condition: Stable Prescriptions: New hydrocodone-acetaminophen 5-325 mg tablet 1 tab PO Q6H PRN (Reason: pain) Qty: 20 RF: 0 No Action atorvastatin 40 mg tablet 40 mg PO BEDTIME@1999 Qty: 90 RF: 3 clopidogrel 75 mg tablet 75 mg PO DAILY@0800 Qty: 90 RF: 3 metoprolol succinate 25 mg tablet extended release 24 hr 12.5 mg PO BID@799,1999 Qty: 90 RF: 3 pantoprazole 40 mg tablet,delayed release (DR/EC) 40 mg PO DAILY@0800 Qty: 90 RF: 3 potassium chloride 20 mEq tablet extended release 20 meq PO BID@799,1999 Qty: 180 RF: 3 torsemide 20 mg tablet 20 mg PO BID@799,1999 Qty: 180 RF: 3 (DME) Cam Walker See Rx Instructions .ROUTE .MEDSUPPLY Qty: 1 RF: 0 silver sulfadiazine 1 % cream 1 applic topical DAILY Qty: 50 RF: 0 DOK 100 mg capsule 200 mg PO DAILY PRN (Reason: Constipation) RF: 0 Adult Low Dose Aspirin 81 mg tablet,delayed release (DR/EC) 162 mg PO BEDTIME@1999 RF: 0 mupirocin 2 % ointment 1 applic topical DAILY Qty: 22 RF: 0 insulin lispro [Humalog KwikPen Insulin] 100 unit/mL Insulin Pen 12 unit SUBCUT TID RF: 0 Lantus Solostar U-100 Insulin 100 unit/mL (3 mL) insulin pen 40 unit SUBCUT BID RF: 0 Discharge Orders: Discharge ED (Routine); Ordered 02/26/21 Ordered By: Mo Stock Other Ambulatory Orders: DME: Wheelchair (Order) Location: None Selected Ordered By: Mo Stock Referrals: Simin Martínez FNP [Primary Care Provider] - Patient Instructions: Opioid Safety Activity Restrictions/Additional Instructions: Nonweightbearing on the right leg use wheelchair. quality systems manager will make arrangements for you to see orthopedics later this week. Coding Level of Care Code ED Health Information Administrator for Renzo Fwd Exam Expanded Problem Focused
--- NOTE | 2021-02-26 12:33 | XR_ITS ---
WS: [id number] Exam: XR chest 1V portable [id number] Date/Time of Exam: 02/26/2021 12:33 PM Reason For Exam: frequent falls Comparison 08/20/2019. Lungs are clear and fully inflated. Cardiomediastinal structures are unremarkable for technique. Legal Aid jane rightward deviation of the trachea. Bony structures are intact. Mild thoracic scoliosis. XR/XR chest 1V portable [id number] IMPRESSION: 1. No acute cardiopulmonary finding. 2. Chronic rightward tracheal deviation.
--- NOTE | 2021-02-26 12:34 | ECG_ITS ---
[facility] Test Date: 2021-02-26 Pat Name: Camron Burnett Department: Room: Gender: Male Inspector Receiving: : 1955 Requested By: Linnette Mora Order Number: [id number] Sun MD: RADHA NEAL Measurements Intervals [place] Rate: 111 P: AK: QRS: -25 QRSD: 98 T: 51 QT: 340 QTc: 464 Interpretive Statements SINUS TACHYCARDIA INDETERMINATE AXIS Compared to ECG 08/20/2019 12:44:50 Indeterminate axis now present Sinus rhythm no longer present Myocardial infarct finding no longer present Electronically Signed On 02-26-2021 18:51:47 TRANSFER TABLE OPERATOR HELPER by RADHA NEAL [id number] f
[2021-02-26 14:08] LABS: Basophils # 0.1 10^3/uL (0.0-0.1); Basophils % 0.4 %; Eosinophils % 0.2 %; Hematocrit 42.5 % (42.0-52.0); Hemoglobin 13.9 g/dL (11.7-16.6); Lymphocytes # 2.2 10^3/uL (0.8-4.8); Lymphocytes % 17.1 %; Mean Corpuscular HGB Conc 32.7 g/dL (30.0-36.0); Mean Corpuscular Hemoglobin 30.2 pg (28.0-34.0); Mean Corpuscular Volume 92.2 fl (80-94); Mean Platelet Volume 11.6 fL (7.4-10.4); Monocytes # 0.9 10^3/uL (0.2-0.9); Monocytes % 7.2 %; Neutrophils # 9.69 10^3/uL (1.8-7.7); Neutrophils % 74.6 %; Nucleated Red Blood Cells % 0 %; Platelet Count 218 10^3/cmm (130-400); Red Blood Count 4.61 10^6/uL (4.1-5.3); Red Cell Distribution Width 13.5 % (12.1-15.1)
[2021-02-26 14:21] LABS: Alanine Aminotransferase 21 U/L (0-41); Albumin Level 4.1 g/dL (3.5-5.2); Alkaline Phosphatase 171 IU/L (40-130); Anion Gap 23.1 (5-19); Aspartate Amino Transferase 14 U/L (0-40); Blood Urea Nitrogen 29 mg/dL (8-23); Calcium 8.5 mg/dL (8.5-10.5); Carbon Dioxide 24 mmol/L (22-29); Chloride 92 mmol/L (98-107); Globulin 2.8 g/dL (1.3-4.6); Glomerular Filtration Rate 43.5 mL/min (90-130); Glucose 207 mg/dL (65-115); Lactic Sepsis W/Reflex 2.1 mmol/L (0.5-2.2); Osmolality Calculated 290 mOsm/kg (285-295); Potassium 5.1 mmol/L (3.5-5.1); Sodium 134 mmol/L (136-145); Total Bilirubin 1.4 mg/dL (0.15-1.2); Total Protein 6.9 g/dL (6.6-8.7)
[2021-02-26 14:22] LABS: Troponin(5th) Baseline 27 ng/L (0-15)
[2021-02-26 15:46] LABS: Reflex Lactate Order REFLEX LACTIC ORDERD
[2021-02-26 16:32] LABS: Lactic Acid level (Lactate) 2.8 mmol/L (0.5-2.2)
[2021-02-26 18:10] VITALS: RESP 15
[2021-02-26 18:49] VITALS: RESP 15
--- NOTE | 2021-02-27 10:12 | PC.SOCIAL ---
Addendum entered by Jeanie Yi RN 02/27/21 16:13: Per Tracie in Cent scheduling CT has been scheduled for 03/01 at 1530 and check in time of 1515 WPI. Original Note: CT order/ HH and Ortho follow up sent to ED CM. Called patient and clarified it was the right knee not left that is having the pain. Spoke with Dr Stock who agreed the consult should have stated right knee. Order written up for [facility] scheduling to schedule patient for the CT of right knee. Sent to Tracie via email requesting read receipt and to schedule ingrid. Jamilah at ortho called and information provided. The documentation will be reviewed and they will call patient with appt. Notified patient that both [facility] Scheduling and Ortho will be calling with appts. Discussed HH and notified him that PCP will need to order. Suggest that he see if can do a televisit or phone visit since he is having quite a bit of pain and frequent falls with multiple fractures. This nurse also called the clinic and spoke to Tiara to ask that she talk to simin martínez PCP to see if a phone visit or televisit can be conducted to order HH. She will discuss with provider. Sent all records and imaging reports to Simin Martínez Office at [facility] to her attention and Tiara with coversheet requesting the same as what was discussed over phone. Clinic should follow up with patient.
--- NOTE | 2021-03-01 12:50 | DCPLANNER ---
Patient had a follow up appointment scheduled for 02.28.[address] Omalley at [facility] - patient did attend appointment. Patient has CT of the knee scheduled for , March 01, 2021 at 3:30. Centralized scheduling will call patient with appointment information.
--- NOTE | 2021-03-02 07:28 | DCPLANNER ---
Patient had an outpatient CT scan scheduled for 03.01.21 - patient did not attend appointment.
== END 2021-02-26 19:45 | disposition home or self-care (01) ==
PROVIDERS: Physician Assistant; Emergency Provider Family Medicine; PCP Nurse Practitioner Family
DX: R26.9 Unspecified abnormalities of gait and mobility (principal); S82.141A Displaced bicondylar fracture of right tibia, initial encounter for closed fracture; S82.831A Other fracture of upper and lower end of right fibula, initial encounter for closed fracture; S92.911A Unspecified fracture of right toe(s), initial encounter for closed fracture; W19.XXXA Unspecified fall, initial encounter; Z91.81 History of falling; Z98.890 Other specified postprocedural states; E11.621 Type 2 diabetes mellitus with foot ulcer; F17.210 Nicotine dependence, cigarettes, uncomplicated
CPT/HCPCS: 29515; 36416; 71045; 73502; 73590; 73610; 73630; 80053; 82962; 83605; 84484; 85025; 93005; 99283

== ENCOUNTER 2021-02-28 16:39 | Outpatient (CLI) | payer MEDICARE, SELFPAY | END 2021-02-28 16:40 | disposition home or self-care (01) | LOC: SPT 16:40 | PROVIDERS: PCP Nurse Practitioner Family; Visit Provider Specialist | DX: Z46.89 Encounter for fitting and adjustment of other specified devices (principal); S82.141D Displaced bicondylar fracture of right tibia, subsequent encounter for closed fracture with routine healing; S82.891D Other fracture of right lower leg, subsequent encounter for closed fracture with routine healing; X58.XXXD Exposure to other specified factors, subsequent encounter | CPT/HCPCS: 97760; L4361 ==

== ENCOUNTER 2021-03-06 09:41 | Outpatient (CLI) | payer MEDICARE, SELFPAY | END 2021-03-06 09:42 | disposition home or self-care (01) | LOC: WOUND 09:42 | PROVIDERS: PCP Nurse Practitioner Family; Visit Provider Nurse Practitioner Family | DX: I96 Gangrene, not elsewhere classified (principal); E11.622 Type 2 diabetes mellitus with other skin ulcer; L97.819 Non-pressure chronic ulcer of other part of right lower leg with unspecified severity; F17.210 Nicotine dependence, cigarettes, uncomplicated | CPT/HCPCS: G0463 ==

== ENCOUNTER 2021-03-13 13:40 | Outpatient (CLI) | payer MEDICARE, SELFPAY | END 2021-03-13 13:41 | disposition home or self-care (01) | LOC: WOUND 13:47 | PROVIDERS: PCP Nurse Practitioner Family; Visit Provider Nurse Practitioner Family | DX: Z09 Encounter for follow-up examination after completed treatment for conditions other than malignant neoplasm (principal); F17.210 Nicotine dependence, cigarettes, uncomplicated; E11.9 Type 2 diabetes mellitus without complications | CPT/HCPCS: 99212 ==

== ENCOUNTER → 2021-03-19 11:00 | Outpatient (BNVA) | payer MEDICARE, SELFPAY | PROVIDERS: PCP Nurse Practitioner Family; Visit Provider Specialist | DX: S82.831D Other fracture of upper and lower end of right fibula, subsequent encounter for closed fracture with routine healing (principal); X58.XXXD Exposure to other specified factors, subsequent encounter | CPT/HCPCS: 73590 ==

== ENCOUNTER → 2021-04-02 11:22 | Outpatient (BNVA) | payer MEDICARE, BC, SELFPAY | PROVIDERS: PCP Nurse Practitioner Family; Visit Provider Specialist | DX: S82.231A Displaced oblique fracture of shaft of right tibia, initial encounter for closed fracture (principal); S92.131A Displaced fracture of posterior process of right talus, initial encounter for closed fracture; X58.XXXA Exposure to other specified factors, initial encounter | CPT/HCPCS: 73590; 73610 ==

== ENCOUNTER → 2021-04-16 15:48 | Outpatient (BNVA) | payer MEDICARE, SELFPAY | PROVIDERS: PCP Nurse Practitioner Family; Visit Provider Specialist | DX: Z20.822 Contact with and (suspected) exposure to COVID-19 (principal) | CPT/HCPCS: 87635 ==

== ENCOUNTER → 2021-04-18 13:05 | Outpatient (BNVA) | payer MEDICARE, SELFPAY | PROVIDERS: PCP Nurse Practitioner Family; Visit Provider Specialist | DX: S92.501A Displaced unspecified fracture of right lesser toe(s), initial encounter for closed fracture (principal); S82.831A Other fracture of upper and lower end of right fibula, initial encounter for closed fracture; S82.851A Displaced trimalleolar fracture of right lower leg, initial encounter for closed fracture; X58.XXXA Exposure to other specified factors, initial encounter | CPT/HCPCS: 73590; 73610 ==

== ENCOUNTER → 2021-04-23 08:57 | Outpatient (BNVA) | payer MEDICARE, SELFPAY | PROVIDERS: PCP Nurse Practitioner Family; Visit Provider Specialist | DX: Z20.822 Contact with and (suspected) exposure to COVID-19 (principal) | CPT/HCPCS: 87635 ==

== ENCOUNTER 2021-04-27 05:39 | Day surgery (SDC) | payer MEDICARE, SELFPAY ==
[2021-04-18 15:06] VITALS: BMI 35.7
[2021-04-27] VITALS (11 sets, daily range): BP systolic 124–159; BP diastolic 51–85; PULSE 78–87; RESP 16–25; TEMP 36.1–36.8; O2SAT 91–100
--- NOTE | 2021-04-27 | SCC_ITS ---
Procedure done: Right ankle fusion 71.5 seconds of fluoroscopic guidance, for a cumulative dose of 1.99 mGy, was provided to Dr. Omalley by the radiology department. C-arm images of the RIGHT ankle were saved for the patient's permanent record. KANDISD
--- NOTE | 2021-04-27 | XR_ITS ---
WS: [id number] INTRAOPERATIVE TECHNIQUE: 3 Spot fluoroscopic images for intraoperative purposes. FLUOROSCOPY TIME: 71.5 seconds CLINICAL INFORMATION: RT ORIF FRACTURE. COMPARISON: None. FINDINGS: Lateral plate and screw fixation distal tibia and talus. Additional cannulated screw fixation posteri or malleolus through the talus into the navicular. Soft tissue edema. Hardware appears in good positi on. Resection of the distal fibula. XR/XR ankle RT 2V [id number] IMPRESSION: Images obtained for intraoperative purposes.
[2021-04-27 06:15] LABS: Add Urine Microscopic? NO; Charge for UA Resulting for Rev
[2021-04-27 06:28] LABS: Bilirubin Urine Neg (Negative); Blood Urine Neg (Negative); Glucose Urine UA Norm (Normal); Ketones Urine Negative (Negative); Leukocyte Esterase Urine Negative (Negative); Nitrate Urine Negative (Negative); Protein Urine Neg (Negative); Specific Gravity, Urine 1.005 (1.005-1.030); Urine Appearance Clear (CLEAR); Urine Color Straw (Yellow); Urobilinogen Urine 4 mg/dL (Negative); pH Urine 7 (5-7)
[2021-04-27] MEDS: CELEcoxib 200 mg Capsule 400 MG PO (06:33)
[2021-04-27 06:34] LABS: Basophils % 0.5 %; Eosinophils # 0.3 10^3/uL (0.0-0.8); Eosinophils % 3.6 %; Hematocrit 41.8 % (42.0-52.0); Hemoglobin 13.2 g/dL (11.7-16.6); Lymphocytes # 2.1 10^3/uL (0.8-4.8); Mean Corpuscular HGB Conc 31.6 g/dL (30.0-36.0); Mean Corpuscular Hemoglobin 29.1 pg (28.0-34.0); Mean Corpuscular Volume 92.1 fl (80-94); Monocytes # 0.6 10^3/uL (0.2-0.9); Monocytes % 6.4 %; Neutrophils # 5.66 10^3/uL (1.8-7.7); Neutrophils % 65.3 %; Nucleated Red Blood Cells % 0 %; Platelet Count 211 10^3/cmm (130-400); Red Blood Count 4.54 10^6/uL (4.1-5.3); Red Cell Distribution Width 13.7 % (12.1-15.1); White Blood Count 8.7 10^3/uL (4.0-10.0)
[2021-04-27] MEDS: acetaminophen 1,000 MG/100 ML PIGGYBACK 400 MG IV (06:34)
[2021-04-27] MEDS: sodium chloride 0.9% 1,000 ML 30 ML IV (06:34)
[2021-04-27 06:36] LABS: Glucose Point of Care 136 mg/dL (70-110)
[2021-04-27] MEDS: vancomycin 1,000 MG in sodium chloride 0.9% 250 ML 167 MG IV (06:42)
--- NOTE | 2021-04-27 06:43 | P.HPUD_ITS ---
Surgery/Procedure H&P Update DATE OF PROCEDURE: April 27, 2021 DATE H&P PERFORMED: 04/18/21 H&P UPDATE INFORMATION: I have reviewed H&P completed within last 30 days, I have examined patient prior to procedure, No changes to prior documentation and H&P is in [facility] on date indicated PREOP DIAGNOSIS: Right trimalleolar ankle fracture, Instability, Charcot joint PLANNED PROCEDURE: Operation Date: 04/27/21 07:00 Proposed Procedures p Ankle Fusion [id number]/s92.501a(Right) - Ines Omalley MD Related Problem List Diagnoses (1) Other instability, right ankle: (2) Charcot's joint of right ankle: (3) Traumatic arthritis of right ankle: (4) Trimalleolar fracture of right ankle: (5) Fracture of proximal end of right fibula: Qualifiers: Encounter type: initial encounter Fracture type: closed Fracture morphology: other fracture Qualified Code(s): S82.831A - Other fracture of upper and lower end of right fibula, initial encounter for closed fracture
--- NOTE | 2021-04-27 06:47 | ECG_ITS ---
[facility] Test Date: 2021-04-27 Pat Name: Camron Burnett Department: Room: Gender: Male Dining Car Steward: : 1955 Requested By: Jeb Abraham Order Number: [id number] Sun MD: Janice Wasserman M.D. Measurements Intervals Max Rate: 83 P: 35 ID: 150 QRS: 29 QRSD: 102 T: 62 QT: 401 QTc: 473 Interpretive Statements SINUS RHYTHM Compared to ECG 02/26/2021 17:34:47 Sinus tachycardia no longer present Indeterminate axis no longer present Electronically Signed On 04-27-2021 15:27:38 SITE PROMOTION AGENT by Janice Wasserman M.D. [id number]
--- NOTE | 2021-04-27 06:51 | ANES.PREANE2 ---
Pre-Anesthetic Assessment Height/Weight: Height 1.73 m Weight 106.594 kg Temp Pulse Resp BP Pulse Ox 98.2 F 81 18 134/74 97 04/27/21 06:20 04/27/21 06:20 04/27/21 06:20 04/27/21 06:20 04/27/21 06:20 Preop Diagnosis: Right trimalleolar ankle fracture Operation Date: 04/19/21 19:30 Proposed Procedures p ORIF Ankle right with syndesmotic fixation [id number](Right) - Ines Omalley MD Operation Date: 04/27/21 07:00 Proposed Procedures p Ankle Fusion 57768/S82.851a/s82.831a/s92.501a(Right) - Ines Omalley MD Was Beta Nikki taken within 24 hours: Yes Was Clonidine taken within 24 hours: N/A Last intake: Intake Last Liquid Date 04/26/21 Last Liquid Time 23:59 Last Solid Date 04/26/21 Last Solid Time 20:00 Social Tobacco and No alcohol Exam alert, oriented x 3, clear to auscultation bilaterally and regular rate & rhythm Airway Submandibular: within normal limits Cervical ROM: Other (Limited) Mallampati: Class III Dentition: false Pulmonary Exertional Dyspnea and Shortness of Breath CXR 02/2021 XR/XR chest 1V portable 00039 IMPRESSION: 1. No acute cardiopulmonary finding. 2. Chronic rightward tracheal deviation. ? CV/HEM Coronary Artery Disease S/P stent METS < 4 ekg 02/2021 ?Interpretive Statements SINUS TACHYCARDIA INDETERMINATE AXIS Compared to ECG 08/20/2019 12:44:50 Indeterminate axis now present Sinus rhythm no longer present Myocardial infarct finding no longer present Electronically Signed On 02-26-2021 18:51:47 PATHOLOGY LABORATORY TECHNOLOGIST by RADHA NEAL [email or web address] 07/2019 CONCLUSIONS ?Poor image quality affects interpretation.? If clinically ?indicated alternative iamging recommended.? The LV function ?appears abnormal with inferior basal hypokinesis.? EF estimated ?at 50%.? LV diastolic function indeterminate.? Mitral and aortic ?valve appear to function normally without regurgitation or ?stenosis.? Right sided chamber sizes normal with normal RV ?function.? No pericardial effusion. GI Denies GERD Metabolic Diabetes Mellitus Musc/skel Osteoarthritis/DJD Neuropsych Neuropathy Denies stroke or seizure Anesthetic Plan ASA status: 3 (65 year old male with hx of CAD s/p stenting, reduced METS, MITCHELL, obesity, and smoking. ) Anesthesia: Anesthesia Evaluation and General Other: We discussed risk and benefits of general anesthesia including PONV, sore throat (sometimes severe), corneal abrasion, positioning and peripheral nerve injuries, life threatening allergic reaction, post operative ICU admission requiring prolonged intubation, stroke, heart attack, , and rare incidences of recall. Patient consents to proceed with general anesthesia. Risk of > 500 ml blood loss (7ml/kg in children): No Medications/Allergies Home Medications Medication Instructions Recorded Confirmed Last Taken Type insulin lispro 100 unit/mL 12 unit SUBCUT TID 05/25/19 04/27/21 04/26/21 History subcutaneous pen (Humalog KwikPen (U-100) Insulin) aspirin 81 mg tablet,delayed 162 mg PO BEDTIME@199903/25/20 04/18/21 03/24/20 History release (Adult Low Dose Aspirin) atorvastatin 40 mg tablet 40 mg PO BEDTIME@1999 #90 tab 10/02/20 04/27/21 04/26/21 Rx clopidogrel 75 mg tablet 75 mg PO DAILY@0800 #90 tab 10/02/20 04/27/21 04/20/21 Rx insulin glargine 100 unit/mL (3 40 unit SUBCUT BID ml 10/02/20 04/27/21 04/26/21 History mL) subcutaneous pen (Lantus Solostar U-100 Insulin) metoprolol succinate 25 mg 12.5 mg PO BID@0800,1999 #90 tab 10/02/20 04/27/21 04/26/21 20:00 Rx tablet,extended release 24 hr pantoprazole 40 mg tablet,delayed 40 mg PO DAILY@0800 #90 tab 10/02/20 04/27/21 04/26/21 Rx release potassium chloride 20 mEq 20 meq PO BID@08 #180 tab 10/02/20 04/27/21 04/26/21 Rx tablet,extended release torsemide 20 mg tablet 20 mg PO BID@0800,1999 #180 tab 10/02/20 04/27/21 04/26/21 Rx Cam Walker #1 ea 02/28/21 04/18/21 Unknown Rx silver sulfadiazine 1 % topical 1 applic TOPICAL DAILY #50 g 02/28/21 04/18/21 Unknown Rx cream Allergies Allergy/AdvReac Type Severity Reaction Status Date / Time codeine Allergy UNKNOWN Verified 04/18/21 15:00 REACTION, PT STATES Penicillins Allergy ALGY-Difficulty Verified 04/18/21 15:00 Breathing Current Medications Generic Name Dose Route Start Last Admin Trade Name Freq PRN Reason Stop Dose Admin Vancomycin HCl 1,000 mg/ 250 mls @ 250 mls/hr 04/27/21 05:52 04/27/21 06:42 Sodium Chloride IV 04/27/21 06:51 167 mls/hr CCTV TECHNICIAN ONE Administration Protocol Sodium Chloride 1,000 mls @ 30 mls/hr 04/27/21 06:00 04/27/21 06:34 Sodium Chloride 0.9% IV 04/28/21 05:59 30 mls/hr .Q24H CARSON Administration PFSH Anesthesia Medical History DM type 2 (diabetes mellitus, type 2) Presence of drug-eluting stent in left circumflex coronary artery 04/21/2019 Smoking addiction Surgical History History of transmetatarsal amputation of foot S/P hip replacement Family History Father Urinary bladder cancer Brother Urinary bladder cancer Social History Smoking and tobacco status: former smoker Alcohol intake: never Household members: spouse Marital status: Current occupational status: retired Data Anesthesia : 04/27/21 Unknown 04/27/21 Unknown Short CBC 04/27/21 Range/Units Unknown WBC 8.7 (4.0-10.0) 10^3/uL Hgb 13.2 (11.7-16.6) g/dL Hct 41.8 L (42.0-52.0) % MCV 92.1 (80-94) fl Plt Count 211 (130-400) 10^3/cmm Neut % (Auto) 65.3 % Neut # (Auto) 5.66 (1.8-7.7) 10^3/uL Urine 04/27/21 Range/Units 06:05 Urine Color Straw (Yellow) Urine Appearance Clear (CLEAR) Urine pH 7 (5-7) Ur Specific [place] 1.005 (1.005-1.030) Urine Protein Neg (Negative) Urine Glucose (UA) Norm (Normal) Urine Ketones Negative (Negative) Urine Nitrate Negative (Negative) Urine Bilirubin Neg (Negative) Ur Leukocyte Esterase Negative (Negative) Cardiac Studies: Echocardiogram Limited Views 07/31/19 Echocardiogram Ultrasound 04/19/19
[2021-04-27 06:55] LABS: Alanine Aminotransferase 18 U/L (0-41); Albumin Level 3.8 g/dL (3.5-5.2); Alkaline Phosphatase 168 IU/L (40-130); Aspartate Amino Transferase 14 U/L (0-40); Blood Urea Nitrogen 20 mg/dL (8-23); Calcium 8.7 mg/dL (8.5-10.5); Carbon Dioxide 30 mmol/L (22-29); Chloride 99 mmol/L (98-107); Globulin 3.8 g/dL (1.3-4.6); Glomerular Filtration Rate 96.7 mL/min (90-130); Glucose 159 mg/dL (65-115); Osmolality Calculated 298 mOsm/kg (285-295); Sodium 141 mmol/L (136-145); Total Bilirubin 0.4 mg/dL (0.15-1.2); Total Protein 7.6 g/dL (6.6-8.7)
--- NOTE | 2021-04-27 07:07 | W.PM.OPSUD ---
Surgery/Procedure H&P Update DATE OF PROCEDURE: April 27, 2021 DATE H&P PERFORMED: 04/18/21 CHANGES TO PREVIOUS DOCUMENTATION: None PREOP DIAGNOSIS: Right trimalleolar ankle fracture PLANNED PROCEDURE: Operation Date: 04/19/21 19:30 Proposed Procedures p ORIF Ankle right with syndesmotic fixation [id number](Right) - Ines Omalley MD Operation Date: 04/27/21 07:00 Proposed Procedures p Ankle Fusion 49848/S82.851a/s82.831a/s92.501a(Right) - Ines Omalley MD
[2021-04-27] MEDS: vancomycin 1,000 MG SDV 1000 MG IRRIGATION (07:55)
[2021-04-27] MEDS: lidocaine 1% INJ 20 mL INJECTION (07:59)
--- NOTE | 2021-04-27 10:20 | PM.OP ---
Operative Report Procedure: I attest that the following operative report is a accurate record of the operative procedure performed on Ayan Burnett date of 1955 with procedure performed on 04/27/2021. I was an hr administrative assistant to Dr. Lyssa SAEZ and assisted with the operative management of the patient's right ankle arthrodesis as documented below. Date of procedure: April 27, 2021 Pre-op diagnosis: Right trimalleolar ankle fracture with traumatic arthritis, Charcot's joint, and instability of ankle ? Post-op diagnosis: Right trimalleolar ankle fracture with traumatic arthritis, Charcot's joint, and instability of ankle ? ? Procedure done: Right ankle fusion Implants: [place] 28 right standard lateral tibiotalar Silverback fusion plate with 4.2 millimeters screws in the talus, 4.5 millimeter screws in the tibia, all locking except for the compression screw at the superior aspect of the plate, and with one 7.0 posterior tibia to talus compression screw Pathology: none sent Surgeon: Co-surgeons:? Ines Omalley MD and Kwesi Rucker DPM [employer]: [facility] operating room technicians Anesthesia: MAC (MAC with ankle block per Dr. 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 Osteopenic bone.? No evidence of gross infection. Condition: stable Disposition: PACU (Then discharge to home with family) Brief History: This is a established 65 year old male patient here today for ankle fusion following a trimalleolar ankle fracture with development of instability, nonunion, and Charcot joint.? DOI: 02/26/21. Patient is 8 weeks post injury. Patient states that he has neuropathy to his lower extremities and does not feel any pain. Patient is utilizing a walker today upon arrival.? Since his last visit, he states he has not been walking on the ankle.? Prior to presenting today, discussion had been undertaken with the patient regarding the risks and benefits of open reduction internal fixation versus right ankle fusion.? I also consulted with Dr. Rucker from the podiatry service here, and we both agreed that the definitive procedure for this gentleman was most appropriately right ankle fusion.? We therefore proceeded to the surgical procedure as cosurgeons. Procedure: Patient was seen in the preoperative holding area and leg was marked. Patient was brought to the operating theater and placed on the operating room table.? The patient stated he had very little sensation in the right lower extremity.? Therefore, preoperatively, an ankle block was placed with 25 cc of a one-to-one mixture of 0.5% bupivacaine and 1% lidocaine.? This was administered by Dr. Rucker.? The patient is an ASA 3.? He was under a MAC through the surgical procedure without complaints of pain or discomfort.? After administration of the MAC with ankle block, the patient's right lower extremity was prepped and draped in usual fashion utilizing DuraPrep. The leg was draped free. Fluoroscopy was used throughout the surgical procedure. We had a tourniquet high on the right lower extremity. This was elevated to 300 mmHg and total tourniquet time was 116 minutes. Tourniquet elevation followed exsanguination of the leg. A surgical pause was performed prior to surgical incision. At the time of the surgical pause, we identified the site and side of surgery as well as the patient's identity and availability of equipment. We also confirmed appropriate administration of IV antibiotics, vancomycin 1 g.? Fluoroscopy was available for use throughout the procedure as well. Following the above, an incision was made centering over the patient's right distal fibula.? The incision was carried approximately 12 mm proximal to the tip of the lateral malleolus continuing distally and curving anteriorly toward the base of the fourth metatarsal.? The incision was continued through skin utilizing a scalpel with hemostasis being obtained.? Blunt dissection was then used to further enter the lateral malleolar area.? Upon dissection down onto the distal fibula, there was noted to be a long oblique distal fibular fracture.? This was complex in multiple planes.? Preoperatively, we had planned to take down the fibula and not repair it.? Plans were made for the use of a lateral tibiotalar plate.? It was felt that the fibula would give no benefit to the construct, and in fact, we would likely not be able to close the skin if the fibula was replaced.? Soft tissue dissection was continued anteriorly and posteriorly to the fibula.? We were able to remove the fibula dissecting it from the lateral talus as well.? A beveling was accomplished of the remaining fibula distally.? We cleared enough fibula to allow the plate to sit comfortably on the lateral border of the tibia.? Once this was accomplished.? The hindfoot distractor was placed with K wires and we were able to visualize the joint surface. A winifred was used to remove cartilage from the surfaces of the distal tibia and the talus.? We also used an osteotome and ring curettes.? We were able to drill into the surface of the talus and tibia as well to give the best surface for fusion.? Once the distal tibia and talus have been prepared, we placed the plate in appropriate position.? It was provisionally pinned to the construct after a K wire had been placed through the anterior tibia into the talus for provisional reduction and appropriate fusion position.? The desired position was that of neutral dorsiflexion with slight external rotation of approximately 5 degrees.? Also, minimal valgus was felt to be acceptable.? Fluoroscopy was used in AP and lateral planes to assure that the plate was fitted appropriately.? Also, we wanted to determine the position of the talus in the mortise.? Being satisfied with the position, attention was directed to attaching the [place] lateral TT plate to the talus initially. The plate was attached to the talus.? We evaluated the position and a slight adjustment was made.? We then used the jig to place the posterior to anterior 7.0 compression screw.? Prior to placement of this, we placed 1 screw proximally in the tibia to give compression across the fusion site.? The 7.0 compression screw was then placed without difficulty from posterior to anterior.? Once again, position in AP and lateral planes was evaluated utilizing fluoroscopy.? This was tightened into position, and with this, we did have some reduction of the posterior malleolar fracture as well.? Attention was redirected to the primary lateral fibular plate. Locking screws were placed throughout the proximal portion of the plate.? Again screw length and position was evaluated on AP and lateral fluoroscopic views.? We were very satisfied.? Palpation at the fusion site demonstrated that no Biologics were necessary to fill any gaps in this fusion site.? Therefore, attention was directed to closure.? 2-0 Vicryl was used to close the fascial tissues, and we did incorporate the peroneal tendons to give a better coverage and closure of the plate.? Following this, 3-0 Monocryl was used in the subcutaneous tissues.? The skin was closed with skin blake.? Sterile dressing was then placed consisting of Adaptic, 4 x 4's, Unaboot flex roll, soft roll, and a fiberglass cast.? The patient is to remain nonweightbearing.? The procedure was well tolerated without complication. Tourniquet time was 116 minutes at 300 mmHg. The patient will be discharged home to follow-up in my office as scheduled. Related Problem List Diagnoses (1) Trimalleolar fracture of right ankle: (2) Other instability, right ankle: (3) Charcot's joint of right ankle: (4) Traumatic arthritis of right ankle: (5) Fracture of proximal end of right fibula: DD/ 1049
[2021-04-27] MEDS: fentaNYL 50 mcg/mL INJ 2mL IVP (10:25)
--- NOTE | 2021-04-27 10:49 | P.OP_ITS ---
Operative Report Date of procedure: April 27, 2021 Pre-op diagnosis: Right trimalleolar ankle fracture with traumatic arthritis, Charcot's joint, and instability of ankle Post-op diagnosis: Right trimalleolar ankle fracture with traumatic arthritis, Charcot's joint, and instability of ankle Procedure done: Right ankle fusion Implants: [place] 28 right standard lateral tibiotalar Silverback fusion plate with 4.2 millimeters screws in the talus, 4.5 millimeter screws in the tibia, all locking except for the compression screw at the superior aspect of the plate, and with one 7.0 posterior tibia to talus compression screw Pathology: none sent Surgeon: Co-surgeons: Ines Omalley MD and Kwesi Rucker DPM [place]: [facility] operating room technicians Anesthesia: MAC (MAC with ankle block per Dr. 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 Osteopenic bone. No evidence of gross infection. Condition: stable Disposition: PACU (Then discharge to home with family) Brief History: This is a established 65 year old male patient here today for ankle fusion following a trimalleolar ankle fracture with development of instability, nonunion, and Charcot joint. DOI: 02/26/21. Patient is 8 weeks post injury. Patient states that he has neuropathy to his lower extremities and does not feel any pain. Patient is utilizing a walker today upon arrival.? Since his last visit, he states he has not been walking on the ankle.? Prior to presenting today, discussion had been undertaken with the patient regarding the risks and benefits of open reduction internal fixation versus right ankle fusion. I also consulted with Dr. Rucker from the podiatry service here, and we both agreed that the definitive procedure for this gentleman was most appropriately right ankle fusion. We therefore proceeded to the surgical procedure as cosurgeons. Procedure: Patient was seen in the preoperative holding area and leg was marked. Patient was brought to the operating theater and placed on the operating room table. The patient stated he had very little sensation in the right lower extremity. Therefore, preoperatively, an ankle block was placed with 25 cc of a one-to-one mixture of 0.5% bupivacaine and 1% lidocaine. This was administered by Dr. Rucker. The patient is an ASA 3. He was under a MAC through the surgical procedure without complaints of pain or discomfort. After administration of the MAC with ankle block, the patient's right lower extremity was prepped and draped in usual fashion utilizing DuraPrep. The leg was draped free. Fluoroscopy was used throughout the surgical procedure. We had a tourniquet high on the right lower extremity. This was elevated to 300 mmHg and total tourniquet time was 116 minutes. Tourniquet elevation followed exsanguination of the leg. A surgical pause was performed prior to surgical incision. At the time of the surgical pause, we identified the site and side of surgery as well as the patient's identity and availability of equipment. We also confirmed appropriate administration of IV antibiotics, vancomycin 1 g. Fluoroscopy was available for use throughout the procedure as well. Following the above, an incision was made centering over the patient's right distal fibula. The incision was carried approximately 12 mm proximal to the tip of the lateral malleolus continuing distally and curving anteriorly toward the base of the fourth metatarsal. The incision was continued through skin utilizing a scalpel with hemostasis being obtained. Blunt dissection was then used to further enter the lateral malleolar area. Upon dissection down onto the distal fibula, there was noted to be a long oblique distal fibular fracture. This was complex in multiple planes. Preoperatively, we had planned to take parag n the fibula and not repair it. Plans were made for the use of a lateral tibiotalar plate. It was felt that the fibula would give no benefit to the construct, and in fact, we would likely not be able to close the skin if the fibula was replaced. Soft tissue dissection was continued anteriorly and posteriorly to the fibula. We were able to remove the fibula dissecting it from the lateral talus as well. A beveling was accomplished of the remaining fibula distally. We cleared enough fibula to allow the plate to sit comfortably on the lateral border of the tibia. Once this was accomplished. The hindfoot distractor was placed with K wires and we were able to visualize the joint surface. A winifred was used to remove cartilage from the surfaces of the distal tibia and the talus. We also used an osteotome and ring curettes. We were able to drill into the surface of the talus and tibia as well to give the best surface for fusion. Once the distal tibia and talus have been prepared, we placed the plate in appropriate position. It was provisionally pinned to the construct after a K wire had been placed through the anterior tibia into the talus for provisional reduction and appropriate fusion position. The desired position was that of neutral dorsiflexion with slight external rotation of approximately 5 degrees. Also, minimal valgus was felt to be acceptable. Fluoroscopy was used in AP and lateral planes to assure that the plate was fitted appropriately. Also, we wanted to determine the position of the talus in the mortise. Being satisfied with the position, attention was directed to attaching the [place] lateral TT plate to the talus initially. The plate was attached to the talus. We evaluated the position and a slight adjustment was made. We then used the jig to place the posterior to anterior 7.0 compression screw. Prior to placement of this, we placed 1 screw proximally in the tibia to give compression across the fusion site. The 7.0 compression screw was then placed without difficulty from posterior to anterior. Once again, position in AP and lateral planes was evaluated utilizing fluoroscopy. This was tightened into position, and with this, we did have some reduction of the posterior malleolar fracture as well. Attention was redirected to the primary lateral fibular plate. Locking screws were placed throughout the proximal portion of the plate. Again screw length and position was evaluated on AP and lateral fluoroscopic views. We were very satisfied. Palpation at the fusion site demonstrated that no Biologics were necessary to fill any gaps in this fusion site. Therefore, attention was directed to closure. 2-0 Vicryl was used to close the fascial tissues, and we did incorporate the peroneal tendons to give a better coverage and closure of the plate. Following this, 3-0 Monocryl was used in the subcutaneous tissues. The skin was closed with skin blake. Sterile dressing was then placed consisting of Adaptic, 4 x 4's, Unaboot flex roll, soft roll, and a fiberglass cast. The patient is to remain nonweightbearing. The procedure was well tolerated without complication. Tourniquet time was 116 minutes at 300 mmHg. The patient will be discharged home to follow-up in my office as scheduled. Related Problem List Diagnoses (1) Trimalleolar fracture of right ankle: (2) Other instability, right ankle: (3) Charcot's joint of right ankle: (4) Traumatic arthritis of right ankle: (5) Fracture of proximal end of right fibula:
[2021-04-27] MEDS: HYDROmorphone 1 mg/mL INJ 1 mL 0.5 MG IVP (11:23)
--- NOTE | 2021-04-27 15:14 | ANE.PACU2 ---
Inpatient post-anesthesia follow up: Airway intact: Yes Vital signs: Temperature 97.4 F Pulse Rate 84 Respiratory Rate 18 Blood Pressure 124/51 Pulse Oximetry 93 Oxygen Delivery Me thod Room Air Oxygen Flow Rate 6 Fraction of Inspir ed Oxygen Hydration adequate: Yes Nausea and vomiting: No Pain level: 4 Mental status: Baseline
== END 2021-04-27 12:00 | disposition home or self-care (01) ==
PROVIDERS: PCP Nurse Practitioner Family; Visit Provider Specialist
PROC: (CPT 27870; principal; 2021-04-27 07:00)
DX: S82.851A Displaced trimalleolar fracture of right lower leg, initial encounter for closed fracture (principal); X58.XXXA Exposure to other specified factors, initial encounter; M14.671 Charcot's joint, right ankle and foot; M25.371 Other instability, right ankle; I25.10 Atherosclerotic heart disease of native coronary artery without angina pectoris; Z95.5 Presence of coronary angioplasty implant and graft; E11.9 Type 2 diabetes mellitus without complications; K21.9 Gastro-esophageal reflux disease without esophagitis; F17.210 Nicotine dependence, cigarettes, uncomplicated; Z79.82 Long term (current) use of aspirin; Z79.4 Long term (current) use of insulin
CPT/HCPCS: 27870; 36415; 36416; 73600; 76000; 80053; 81003; 82962; 85025; 93005; 96365; 96374; C1713; J1170; J2704; J3010; J3370; J3490; J7030; J7050

== ENCOUNTER → 2021-05-16 09:58 | Outpatient (BNVA) | payer MEDICARE, SELFPAY | PROVIDERS: PCP Nurse Practitioner Family; Visit Provider Specialist | DX: S82.851A Displaced trimalleolar fracture of right lower leg, initial encounter for closed fracture (principal); X58.XXXA Exposure to other specified factors, initial encounter; Z89.9 Acquired absence of limb, unspecified | CPT/HCPCS: 73610 ==

== ENCOUNTER → 2021-06-18 09:52 | Outpatient (BNVA) | payer MEDICARE, SELFPAY | PROVIDERS: PCP Nurse Practitioner Family; Visit Provider Specialist | DX: M12.571 Traumatic arthropathy, right ankle and foot (principal); S82.851A Displaced trimalleolar fracture of right lower leg, initial encounter for closed fracture; X58.XXXA Exposure to other specified factors, initial encounter; F17.210 Nicotine dependence, cigarettes, uncomplicated | CPT/HCPCS: 29405; 73610; Q4038 ==

== ENCOUNTER → 2021-07-09 10:52 | Outpatient (BNVA) | payer OTHER, SELFPAY | PROVIDERS: PCP Nurse Practitioner Family; Visit Provider Specialist | DX: M12.571 Traumatic arthropathy, right ankle and foot (principal); M14.671 Charcot's joint, right ankle and foot; S82.851A Displaced trimalleolar fracture of right lower leg, initial encounter for closed fracture | CPT/HCPCS: 73610 ==

== ENCOUNTER → 2021-08-08 13:37 | Outpatient (BNVA) | payer OTHER, SELFPAY | PROVIDERS: PCP Nurse Practitioner Family; Visit Provider Specialist | DX: M14.671 Charcot's joint, right ankle and foot (principal); M12.571 Traumatic arthropathy, right ankle and foot | CPT/HCPCS: 73610 ==

== ENCOUNTER 2021-08-08 15:09 | Outpatient (CLI) | payer OTHER, SELFPAY | END 2021-08-08 15:10 | disposition home or self-care (01) | LOC: SPT 15:09 | PROVIDERS: PCP Nurse Practitioner Family; Visit Provider Specialist | DX: Z46.89 Encounter for fitting and adjustment of other specified devices (principal); M14.671 Charcot's joint, right ankle and foot; M12.571 Traumatic arthropathy, right ankle and foot; Z98.890 Other specified postprocedural states | CPT/HCPCS: 97760; L4361 ==

== ENCOUNTER → 2021-09-19 08:37 | Outpatient (BNVA) | payer OTHER, SELFPAY | PROVIDERS: PCP Nurse Practitioner Family; Visit Provider Specialist | DX: M14.671 Charcot's joint, right ankle and foot (principal); M25.371 Other instability, right ankle; S82.851A Displaced trimalleolar fracture of right lower leg, initial encounter for closed fracture | CPT/HCPCS: 73610 ==

== ENCOUNTER 2021-09-19 14:10 | Outpatient (CLI) | payer OTHER, SELFPAY | END 2021-09-19 14:11 | disposition home or self-care (01) | LOC: SPT 14:12 | PROVIDERS: PCP Nurse Practitioner Family; Visit Provider Specialist | DX: Z46.89 Encounter for fitting and adjustment of other specified devices (principal); M12.571 Traumatic arthropathy, right ankle and foot; M14.671 Charcot's joint, right ankle and foot; M25.371 Other instability, right ankle | CPT/HCPCS: 97760; L1902 ==

== ENCOUNTER 2021-10-05 10:04 | Emergency (ER) | payer MEDICARE, SELFPAY ==
[2021-10-05 10:52] VITALS: BP 148/76; PULSE 95; RESP 18; TEMP 36.7; O2SAT 93; BMI 33.5
--- NOTE | 2021-10-05 11:00 | XR_ITS ---
WS: [id number] Exam: XR tibia fibula RT 2V [id number] Date/Time of Exam: 10/05/2021 11:00 AM Reason For Exam: fall, pain There is a transverse fracture through the lower diaphysis of the tibia with minimal medial displacem ent of the proximal fragment. No other acute fractures are seen. The lower fibula has been excised. T here is operative fusion of the ankle mortise with medial plate and screw fixation. XR/XR tibia fibula RT 2V [id number] IMPRESSION: 1. Minimally displaced transverse fracture through the lower tibial diaphysis a s noted above.
--- NOTE | 2021-10-05 11:00 | XR_ITS ---
WS: [id number] Exam: XR ankle RT 2V [id number] Date/Time of Exam: 10/05/2021 11:00 AM Reason For Exam: fall, pain There is an acute transverse fracture of the lower diaphysis of the tibia. This is just above the pre -existing plate and screw fixation within the ankle. The distal fibula has been excised. The fracture shows minimal displacement. There is lateral plate and screw fixation of the ankle mortise. There is also an oblique coursing screw that courses through the lower tibia into the anterior talus. XR/XR ankle RT 2V [id number] IMPRESSION: 1. Transverse fracture through the lower tibial diaphysis just above the ankle. 2. Hardware in the ankle as detailed above.
--- NOTE | 2021-10-05 11:10 | W.ED.FALL ---
HPI - Fall General: Chief Complaint: Fall Stated Complaint: Fell, hurt leg Time Seen by Provider: 10/05/21 11:08 Source: patient Mode of arrival: wheelchair Limitations: no limitations History of Present Illness: 66-year-old male presents to the ER today for possible broken ankle. Patient reports he had surgery about 8 months ago on his hip knee and right ankle after a fall. Patient reports he had some pins or metal placed in the ankle. He was doing okay until he fell this a.m. and patient reports now he has what he describes as a floppy ankle. Patient reports his ankle is externally rotated and is very painful. Patient is unable to walk on it at this time. Patient reports his previous surgeries were done by Dr. Degroot. Patient denies any numbness or tingling. Rates pain a 7 out of 10 at this time but has not taken anything for it. Review of Systems General: Reports: 10 or more systems reviewed and unremarkable except in HPI and below PFSH ED PFSH: Medical History DM type 2 (diabetes mellitus, type 2) Presence of drug-eluting stent in left circumflex coronary artery 04/21/2019 Smoking addiction Surgical History History of transmetatarsal amputation of foot S/P hip replacement Family History Father Urinary bladder cancer Brother Urinary bladder cancer Social History Smoking and tobacco status: current every day smoker Alcohol intake: never Household members: spouse Marital status: Current occupational status: retired Physical Exam Const: COMMON NORMALS: no acute distress, average body habitus, no limitations, alert and well nourished Resp: COMMON NORMALS: normal respiratory effort EFFORT & INSPECTION: Yes able to speak in complete sentences Cardio: COMMON NORMALS: regular rate and regular rhythm RATE: regular rate RHYTHM: regular rhythm Extremity: NARRATIVE EXTREMITY EXAM: Patient is noted to have external rotation of the right ankle. Patient has 2+ pitting edema bilaterally chronically so no obvious swelling is noted. No bruising is noted. Patient has normal distal pedal pulses. Patient is tender across the distal tibia. Neuro: SENSORIUM/ORIENTATION: Yes alert and Yes other (equal pulses bilaterally) Psych: MOOD & AFFECT: Yes Flat affect present Skin: NARRATIVE SKIN EXAM: flaking, dry skin noted on R ankle/lower leg Course ED course: 66-year-old male presents to the ER today for right lower extremity pain after a fall this morning. Patient reports a history of an ankle fusion surgery within the last year. Patient reports when he tripped this morning and fell he felt a pop in his lower leg and has had pain since. Patient reports a deformity of the right lower leg. On exam it is noted patient has external rotation of the right foot. He has tenderness across the tibia. We will go ahead and get an x-ray at this time. Consultations: Consultation #1: I spoke with Dr. Adkins. Recommended a PML/Sugar tong splint, non weight bearing and F/U with Dr. Omalley next week. Time: 11:31 Vital Signs: Vital signs: Vital Signs Temperature 98.1 F 10/05/21 10:52 Pulse Rate 95 10/05/21 10:52 Respiratory Rate 18 10/05/21 10:52 Blood Pressure 148/76 10/05/21 10:52 Pulse Oximetry 93 10/05/21 10:52 Oxygen Delivery Me thod 10/05/21 10:52 MDM - Fall Medical Decision Making 66-year-old male presents to the ER today for right lower extremity pain after a fall this morning. Patient reports a history of an ankle fusion surgery within the last year. Patient reports when he tripped this morning and fell he felt a pop in his lower leg and has had pain since. Patient reports a deformity of the right lower leg. On exam it is noted patient has external rotation of the right foot. He has tenderness across the tibia. Patient has minimal swelling however difficult to assess due to pedal edema. We will go ahead and get an x-ray at this time. Patient has a transverse fracture of the R tibia just proximal to the fusion. I spoke with Dr. Adkins who recommends patient be splinted at this time. Patient to follow-up with Dr. Degroot next week. Discussed with patient findings. We will place patient in a sugar-tong and PML splint. Discussed with patient he is to be completely nonweightbearing at this time. Recommended rest and elevation, apply ice to reduce any swelling. We will send patient home with something for pain. He should contact Dr. Degroot's office today and schedule an appointment for first of next week. Return to the ER with new or worsening symptoms. Patient verbalized understanding and was in agreement with the treatment plan. Critical Care Time Critical Care Time: Critical Care Time: No Discharge Plan Discharge Condition: Stable Prescriptions: No Action atorvastatin 40 mg tablet 40 mg PO BEDTIME@1999 Qty: 90 3RF clopidogrel 75 mg tablet 75 mg PO DAILY@0800 Qty: 90 3RF metoprolol succinate 25 mg tablet extended release 24 hr 12.5 mg PO BID@799,1999 Qty: 90 3RF pantoprazole 40 mg tablet,delayed release (DR/EC) 40 mg PO DAILY@0800 Qty: 90 3RF potassium chloride 20 mEq tablet extended release 20 meq PO BID@799,1999 Qty: 180 3RF torsemide 20 mg tablet 20 mg PO BID@799,1999 Qty: 180 3RF (DME) Lace up ankle brace right foot See Rx Instructions .Route .MEDSUPPLY Qty: 1 0RF Rx Instructions: As directed (DME) CAM boot See Rx Instructions .Route .MEDSUPPLY Qty: 1 0RF Rx Instructions: As directed (DME) CAM boot See Rx Instructions .Route .MEDSUPPLY Qty: 1 0RF Rx Instructions: As directed aspirin [Adult Low Dose Aspirin] 81 mg tablet,delayed release (DR/EC) 162 mg PO BEDTIME@1999 insulin lispro [Humalog KwikPen Insulin] 100 unit/mL Insulin Pen 12 unit SUBCUT TID Lantus Solostar U-100 Insulin 100 unit/mL (3 mL) insulin pen 40 unit SUBCUT BID tramadol 50 mg tablet 50 mg PO Q8H PRN (Reason: pain) Qty: 30 0RF Referrals: Simin Martínez FNP [Primary Care Provider] - Coding Level of Care Code ED Technology Trainer for Renoz Courtney
--- NOTE | 2021-10-08 14:59 | DCPLANNER ---
Addendum entered by Lilibeth Duggan 10/09/21 13:16: Patient had a follow up appointment scheduled for 10.08.[address] Rucker at ortho - patient did attend appointment. Original Note: facility manager histology had message to schedule a follow up appointment for patient. facility manager histology sent patients to the front office staff at ortho. Patients information will be printed and reviewed. Clinic will call patient with appointment information.
--- NOTE | 2021-10-08 15:01 | DCPLANNER ---
cycle manager had message to do a home health referral, an order was not left in the chart patient will need to follow up with primary care and ask primary to refer him to home health. cycle manager called and explained this to patient. He stated that he sees his primary care this week and will talk to her about the referral.
== END 2021-10-05 12:54 | disposition home or self-care (01) ==
PROVIDERS: Emergency Provider Physician Assistant; PCP Nurse Practitioner Family
DX: S82.221A Displaced transverse fracture of shaft of right tibia, initial encounter for closed fracture (principal); Z79.02 Long term (current) use of antithrombotics/antiplatelets; Z79.82 Long term (current) use of aspirin; Z79.4 Long term (current) use of insulin; E11.9 Type 2 diabetes mellitus without complications; F17.210 Nicotine dependence, cigarettes, uncomplicated; W19.XXXA Unspecified fall, initial encounter
CPT/HCPCS: 73590; 73600; 99283

== ENCOUNTER → 2021-10-08 07:26 | Outpatient (BNVA) | payer MEDICARE, SELFPAY | PROVIDERS: PCP Nurse Practitioner Family; Visit Provider Podiatrist Foot & Ankle Surgery | DX: S82.391A Other fracture of lower end of right tibia, initial encounter for closed fracture (principal); Y92.000 Kitchen of unspecified non-institutional (private) residence as the place of occurrence of the external cause; W01.0XXA Fall on same level from slipping, tripping and stumbling without subsequent striking against object, initial encounter | CPT/HCPCS: 99214; 99215 ==

== ENCOUNTER → 2021-10-11 15:55 | Outpatient (BNVA) | payer MEDICARE, SELFPAY | PROVIDERS: PCP Nurse Practitioner Family; Visit Provider Podiatrist Foot & Ankle Surgery | DX: X58.XXXA Exposure to other specified factors, initial encounter (principal); R60.9 Edema, unspecified; S82.301A Unspecified fracture of lower end of right tibia, initial encounter for closed fracture | CPT/HCPCS: 99214 ==

== ENCOUNTER → 2021-10-18 15:48 | Outpatient (BNVA) | payer MEDICARE, SELFPAY | PROVIDERS: PCP Nurse Practitioner Family; Visit Provider Podiatrist Foot & Ankle Surgery | DX: S82.391G Other fracture of lower end of right tibia, subsequent encounter for closed fracture with delayed healing (principal); M25.571 Pain in right ankle and joints of right foot; R53.1 Weakness; X58.XXXD Exposure to other specified factors, subsequent encounter | CPT/HCPCS: 73610; 99214 ==

== ENCOUNTER 2021-10-19 08:54 | Day surgery (SDC) | payer MEDICARE, SELFPAY ==
[2021-10-18 12:59] VITALS: BMI 32.1
[2021-10-19] VITALS (11 sets, daily range): BP systolic 134–162; BP diastolic 66–87; PULSE 95–99; RESP 16–19; TEMP 36.3; O2SAT 91–99
--- NOTE | 2021-10-19 | XR_ITS ---
WS: [id number] INTRAOPERATIVE TECHNIQUE: 8Spot fluoroscopic images for intraoperative purposes. FLUOROSCOPY TIME: 267.4 seconds CLINICAL INFORMATION: Deep hardware removal right ankle with tibial talocalcaneal COMPARISON: None. FINDINGS: Intramedullary janina and screw fixation tibial shaft extending into the calcaneus. Screw fixation acros s the calcaneus. XR/XR ankle RT 2V [id number] IMPRESSION: Images obtained for intraoperative purposes.
--- NOTE | 2021-10-19 | SCC_ITS ---
Procedure done: Deep hardware removal right ankle with tibial talocalcaneal arthrodesis right lower extremity. CPT code 51838, 02162, 42535 267.4 seconds of fluoroscopic guidance, for a cumulative dose of 9.41 mGy, was provided to Dr. Rucker by the radiology department. C-arm images of the right ankle were saved for the patient's permanent record. [facility]
[2021-10-19 09:44] LABS: Glucose Point of Care 384 mg/dL (70-110)
[2021-10-19] MEDS: sodium chloride 0.9% 1,000 ML 30 ML IV (09:51)
--- NOTE | 2021-10-19 09:56 | ANES.PREANE2 ---
Pre-Anesthetic Assessment Height/Weight: Height 1.8 m Weight 104.326 kg O2 Del Method 10/19/21 09:37 Preop Diagnosis: Right distal tibial fracture Operation Date: 10/19/21 10:50 Proposed Procedures p Deep hardware removal and tibial talocalcaneal arthrodesis, right lower [id number](Right) - Kwesi Rucker DPM s tibial talocalcaneal arthrodesis, right lower extremity(Right) - Kwesi Rucker DPM Familial anesthetic complications: none Was Beta Nikki taken within 24 hours: Yes Was Clonidine taken within 24 hours: N/A Last intake: Intake Last Liquid Date 10/18/21 Last Liquid Time 23:00 Last Solid Date 10/18/21 Last Solid Time 22:00 Social Tobacco and No alcohol Exam alert, oriented x 3 and regular rate & rhythm Light b/l wheeze Airway Mallampati: Class IV Dentition: other (poor dentition) Pulmonary None reported CV/HEM Coronary Artery Disease (LCX stent > 1year ago, holding blood thinners), Congestive Heart Failure (diastolic) and Hypertension GI Gastroesophageal Reflux Disease Metabolic Diabetes Mellitus and Hyperlipidemia BG 372, patient states he's often this high. 10 units of insulin IV to start Musc/skel None reported Neuropsych None reported Anesthetic Plan ASA status: 4 Anesthesia: General Risk of > 500 ml blood loss (7ml/kg in children): No Medications/Allergies Home Medications Medication Instructions Recorded Confirmed Last Taken Type insulin lispro 100 unit/mL 12 unit SUBCUT TID 05/25/19 10/19/21 10/18/21 History subcutaneous pen (Humalog KwikPen (U-100) Insulin) aspirin 81 mg tablet,delayed 162 mg PO BEDTIME@199903/25/20 10/18/21 10/15/21 History release (Adult Low Dose Aspirin) atorvastatin 40 mg tablet 40 mg PO BEDTIME@1999 #90 tabs 10/02/20 10/18/21 10/15/21 Rx clopidogrel 75 mg tablet 75 mg PO DAILY@08 #90 tabs 10/02/20 10/18/21 10/15/21 Rx metoprolol succinate 25 mg 12.5 mg PO BID@08,1999 #90 tabs 10/02/20 10/18/21 10/15/21 Rx tablet,extended release 24 hr pantoprazole 40 mg tablet,delayed 40 mg PO DAILY@0800 #90 tabs 10/02/20 10/18/21 10/15/21 Rx release potassium chloride 20 mEq 20 meq PO BID@08,1999 #180 tabs 10/02/20 10/18/21 10/15/21 Rx tablet,extended release torsemide 20 mg tablet 20 mg PO BID@0800,1999 #180 tabs 10/02/20 10/18/21 10/15/21 Rx tramadol 50 mg tablet 50 mg PO Q8H PRN pain #30 tabs 04/27/21 10/18/21 10/15/21 Rx CAM boot #1 ea 08/08/21 10/18/21 Unknown Rx CAM boot #1 ea 08/08/21 10/18/21 Unknown Rx Lace up ankle brace right foot #1 ea 09/19/21 10/18/21 Unknown Rx hydrocodone 5 mg-acetaminophen 325 1 tab PO Q8H PRN pain #15 tabs 10/05/21 10/18/21 Unknown Rx mg tablet Allergies Allergy/AdvReac Type Severity Reaction Status Date / Time codeine Allergy UNKNOWN Verified 10/18/21 15:50 REACTION, PT STATES Penicillins Allergy ALGY-Difficulty Verified 10/18/21 15:50 Breathing Current Medications Generic Name Dose Route Start Last Admin Trade Name Freq PRN Reason Stop Dose Admin Sodium Chloride 1,000 mls @ 30 mls/hr 10/19/21 09:30 10/19/21 09:51 Sodium Chloride 0.9% IV 10/20/21 09:29 30 mls/hr .Q24H CARSON Administration PFSH Anesthesia Medical History DM type 2 (diabetes mellitus, type 2) Presence of drug-eluting stent in left circumflex coronary artery 04/21/2019 Smoking addiction Surgical History History of transmetatarsal amputation of foot S/P hip replacement Family History Father Urinary bladder cancer Brother Urinary bladder cancer Social History Smoking and tobacco status: current every day smoker Alcohol intake: never Household members: spouse Marital status: Current occupational status: retired Data Anesthesia Cardiac Studies: Echocardiogram Limited Views 07/31/19 Echocardiogram Ultrasound 04/19/19
[2021-10-19] MEDS: insulin regular-human 100 units/1 mL 10 UNIT IVP (09:57)
[2021-10-19 10:25] LABS: Glucose Point of Care 337 mg/dL (70-110)
[2021-10-19 10:31] LABS: Basophils % 0.4 %; Eosinophils # 0.1 10^3/uL (0.0-0.8); Eosinophils % 1.2 %; Hematocrit 43.9 % (42.0-52.0); Lymphocytes # 1.4 10^3/uL (0.8-4.8); Mean Corpuscular HGB Conc 31.9 g/dL (30.0-36.0); Mean Corpuscular Hemoglobin 28.7 pg (28.0-34.0); Mean Corpuscular Volume 90.1 fl (80-94); Mean Platelet Volume 11.4 fL (7.4-10.4); Monocytes # 0.2 10^3/uL (0.2-0.9); Monocytes % 1.8 %; Neutrophils # 6.55 10^3/uL (1.8-7.7); Neutrophils % 79.2 %; Nucleated Red Blood Cells % 0 %; Platelet Count 222 10^3/cmm (130-400); Red Blood Count 4.87 10^6/uL (4.1-5.3); Red Cell Distribution Width 13.9 % (12.1-15.1); White Blood Count 8.3 10^3/uL (4.0-10.0)
[2021-10-19 10:36] LABS: Glucose Point of Care 289 mg/dL (70-110)
[2021-10-19 10:53] LABS: Anion Gap 13.2 (5-19); Blood Urea Nitrogen 11 mg/dL (8-23); Calcium 8.9 mg/dL (8.5-10.5); Carbon Dioxide 29 mmol/L (22-29); Chloride 100 mmol/L (98-107); Creatinine Clr Calc Pharmacy 110.1469; Glomerular Filtration Rate 96.4 mL/min (90-130); Glucose 315 mg/dL (65-115); Osmolality Calculated 297 mOsm/kg (285-295); Potassium 4.2 mmol/L (3.5-5.1); Sodium 138 mmol/L (136-145)
[2021-10-19] MEDS: clindamycin 600 MG/50 ML PREMIX 100 MG IV (10:53)
--- NOTE | 2021-10-19 10:53 | W.PM.OPSUD ---
Surgery/Procedure H&P Update DATE OF PROCEDURE: October 19, 2021 DATE H&P PERFORMED: 10/11/21 CHANGES TO PREVIOUS DOCUMENTATION: None PREOP DIAGNOSIS: Right distal tibial fracture PLANNED PROCEDURE: Operation Date: 10/19/21 10:50 Proposed Procedures p Deep hardware removal and tibial talocalcaneal arthrodesis, right lower [id number],S82.301A(Right) - Kwesi Rucker DPM s tibial talocalcaneal arthrodesis, right lower extremity(Right) - Kwesi Rucker DPM
[2021-10-19 12:19] LABS: Glucose Point of Care 209 mg/dL (70-110)
--- NOTE | 2021-10-19 14:03 | P.OP_ITS ---
Operative Report Date of procedure: October 19, 2021 Pre-op diagnosis: Right still tibial fracture. Delayed union right tibiotalar joint. Post-op diagnosis: Same Post-op findings: None Procedure done: Deep hardware removal right ankle with tibial talocalcaneal arthrodesis right lower extremity. CPT code 15918, 11111, 02542 Implants: Bradfordwoods 28 300 mm intramedullary nail with nonlocking screws x4. 2-0 Vicryl, 3- 0 Vicryl, 4-0 nylon, skin blake Specimens removed/disposition: None Pathology: None Surgeon: Kwesi Rucker D.P.M. Commercial Loan Assistant: Nicolás Estimated blood loss: 25 See intraoperative documentation IV fluids: 0 Urine output: 0 Complications: None Findings: Incomplete healing at the right tibiotalar joint. Brief History: 66-year-old diabetic male presents as a follow-up from the emergency department with acute fracture to the right lower extremity.? Patient is status post a right tibial talar arthrodesis date date of operation 04/27/2021.? Patient had uneventful postoperative course with ankle arthrodesis.? Patient has been weightbearing without complication for several weeks.? Unfortunately patient slipped in his kitchen on 10/05/2021 injuring his right lower extremity.? Fracture at the proximal portion of the hardware right tibiotalar arthrodesis site. Case was staged out until soft tissue envelope was appropriate with decreased edema and no open wounds. He was placed into a short leg cast below the knee until that time. He presents to the operating room this morning n.p.o. preparation for surgical intervention. Discussed risks associated with the surgery are including but not limited to pain, bleeding, numbness, infection, hardware failure, delayed union, malunion, nonunion, altered mechanics, altered pedal pressures that may result in wound formation, need for advanced bracing, offloading modalities and ultimately he is at risk for below-knee amputation. Patient is adamant that he will not be placed to a senior living facility. I expressed my concern that he has poor upper body strength, he is not very mobile has poor balance, suffers from weakness. He is noncontrolled diabetic and given his previous postoperative course is at risk for future harm and injury as well as delayed healing and wound healing complications. I believe he would be best served with a senior living facility which she continues to decline. Patient is n.p.o. since midnight. Informed consent signed by patient and myself. Will need to proceed with surgery for stabilization of the fracture and removal of hardware. Unless he has intraoperative complications associate with anesthesia or surgery he demands discharge home postoperatively. Soft Issue envelope inspected prior to surgery after cast removal there were no open sores, no fracture blisters, and a mild edema. Procedure: Under mild sedation the patient was brought to the operating room and placed on the operating table in supine position. A timeout was performed. Anesthesia was then administered by the anesthesia service. Local anesthesia was not infiltrated due to severe peripheral neuropathy, patient is not insensate. Well-padded pneumatic tourniquet applied to patient's right high thigh. Right lower extremity was then scrubbed, prepped and draped utilizing normal aseptic technique. Right lower extremity was exanguinated with an Esmarch bandage and a tourniquet inflated to 250 mmHg. Attention was directed to the posterior distal tibia where percutaneously a K wire was inserted into the 7 mm Bradfordwoods 28 homerun screw and backed out in total and passed from operative field. Incision was flushed with saline and closed with 4-0 nylon. Attention was then directed to the lateral aspect of the right ankle where a previous cicatrix is well-healed and a new incision was directed over the previous incision through skin with a #15 blade with dissection carried down through skin and subcutaneous tissue to the layer of the hardware utilizing blunt and sharp technique. Care was taken to retract and preserve neurovascular and tendinous structures. All bleeders were ligated and cauterized as ne cessary. Lateral hardware was identified and a total of 12 screws and a plate were removed and passed from operative field in total followed by saline flush. Motion at the tibiotalar joint was appreciated indicative of incomplete osseous healing. Osteotome at the dorsal aspect of the talar dome and distal tibia for additional joint prep was performed followed by drilling and saline flush. Next utilizing manufacture technique a Bradfordwoods 28 300 mm x 11.5 mm in diameter tibial talocalcaneal arthrodesis nail was inserted with excellent bony apposition and compression noted with as close to anatomic alignment as intraoperative fracture reduction would permit given soft tissue contraction and patient weightbearing since his injury. The tibiotalar calcaneal arthrodesis was then stabilized dyn amically with the dynamic stabilization technique of the nail for additional compression. All bone voids were filled with biologic graft provided by Miles Allen at the tibiotalar arthrodesis site. Hardware confirmed to be excellently placed in all 3 planes utilizing AP, oblique and lateral view both at the distal and proximal portion of the nail. The incision sites were then flushed with saline solution and closed the percutaneous sites were closed with 4-0 nylon. The lateral incision at the right lateral ankle was closed in a layered fashion with 2-0 Vicryl deep tissue, 3-0 Vicryl subcutaneous tissue and skin blake. The incision sites were then dressed with Adaptic, sterile 4 x 4's, Kerlix, Dheeraj wrap followed by application of short leg cast. Tourniquet was deflated and a prompt hyperemic response is noted to the distal digits of the right lower extremity. Patient tolerated the procedure and anesthesia well and was transferred to the PACU with vital signs stable and vascular status intact. Following a period of postop monitoring he will be discharged home. Patient will require strict nonweightbearing at all times to the right lower extremity. He has a wheelchair for this. Will require a bedside commode to facilitate less risky transfers into the bathroom where in his home would be required to be weightbearing. Patient has poor upper body strength has not a candidate for a walker. A order for a bedside commode will be sent to [facility] [employer] [facility] postoperatively. Patient will require in-home health aide for assistance of daily living. Will apply to home health today. Requesting at least 3X weekly home health aide visits.
--- NOTE | 2021-10-19 14:03 | XR_ITS ---
WS: [id number] XR ankle RT min 3V* [id number] REASON FOR EXAM: post op FINDINGS: Removal of arthrodesis plate and screw appliances from the right ankle joint. Placement of tibial intramedullary janina through the transverse fracture of the distal tibia and fibula the talus and subtalar joint into the calcaneus, anchored by 2 oblique screws in the calcaneus. Fracture fragments and surgical appliances are in proper position and alignment. XR/XR ankle RT min 3V* [id number] IMPRESSION: Removal of previous hardware and intramedullary janina fixation of acute tibial fr acture as above.
[2021-10-19 14:13] LABS: Glucose Point of Care 263 mg/dL (70-110)
[2021-10-19] MEDS: insulin regular-human 10 UNIT in SYRINGE 1 EACH IVP (14:17)
--- NOTE | 2021-10-19 14:38 | ANE.PACU2 ---
Inpatient post-anesthesia follow up: Airway intact: Yes Vital signs: Temperature 97.4 F Pulse Rate 96 Respiratory Rate 17 Blood Pressure 148/73 Pulse Oximetry 98 Oxygen Delivery Me thod Simple Mask Oxygen Flow Rate 6 Fraction of Inspir ed Oxygen Hydration adequate: Yes Nausea and vomiting: No Pain level: 1 Mental status: Baseline
[2021-10-19 15:02] LABS: Glucose Point of Care 288 mg/dL (70-110)
[2021-10-19] MEDS: HYDROcodone-acetaminophen 5-325 mg Tablet 1 TAB PO (16:19)
== END 2021-10-19 16:20 | disposition home or self-care (01) ==
PROVIDERS: Anesthesiology; PCP Nurse Practitioner Family; Visit Provider Podiatrist Foot & Ankle Surgery
PROC: (CPT 28740; 2021-10-19 10:40)
PROC: (CPT 20680; 2021-10-19 10:40)
DX: S82.201A Unspecified fracture of shaft of right tibia, initial encounter for closed fracture (principal); X58.XXXA Exposure to other specified factors, initial encounter; I25.10 Atherosclerotic heart disease of native coronary artery without angina pectoris; Z95.5 Presence of coronary angioplasty implant and graft; I11.0 Hypertensive heart disease with heart failure; I50.30 Unspecified diastolic (congestive) heart failure; K21.9 Gastro-esophageal reflux disease without esophagitis; E11.9 Type 2 diabetes mellitus without complications; E78.5 Hyperlipidemia, unspecified; Z79.4 Long term (current) use of insulin; Z79.82 Long term (current) use of aspirin; F17.210 Nicotine dependence, cigarettes, uncomplicated
CPT/HCPCS: 20680; 28725; 36415; 36416; 73600; 73610; 76000; 80048; 82962; 85025; C1713; C1762; J1100; J1170; J1815; J2405; J2704; J3010; J3490; J7030

== ENCOUNTER → 2021-11-01 13:51 | Outpatient (BNVA) | payer MEDICARE, SELFPAY | PROVIDERS: PCP Nurse Practitioner Family; Visit Provider Podiatrist Foot & Ankle Surgery | DX: S82.391D Other fracture of lower end of right tibia, subsequent encounter for closed fracture with routine healing (principal); X58.XXXD Exposure to other specified factors, subsequent encounter | CPT/HCPCS: 29405; 73610; 99024 ==

== ENCOUNTER → 2021-11-16 14:11 | Outpatient (BNVA) | payer MEDICARE, SELFPAY | PROVIDERS: PCP Nurse Practitioner Family; Visit Provider Podiatrist Foot & Ankle Surgery | DX: Z98.890 Other specified postprocedural states (principal); Z87.81 Personal history of (healed) traumatic fracture | CPT/HCPCS: 73610; 99024 ==

== ENCOUNTER 2021-11-16 15:16 | Outpatient (CLI) | payer MEDICARE, SELFPAY | END 2021-11-16 15:17 | disposition home or self-care (01) | LOC: SPT 15:18 | PROVIDERS: PCP Nurse Practitioner Family; Visit Provider Podiatrist Foot & Ankle Surgery | DX: S82.899D Other fracture of unspecified lower leg, subsequent encounter for closed fracture with routine healing (principal); S82.143D Displaced bicondylar fracture of unspecified tibia, subsequent encounter for closed fracture with routine healing; S92.919D Unspecified fracture of unspecified toe(s), subsequent encounter for fracture with routine healing; X58.XXXD Exposure to other specified factors, subsequent encounter | CPT/HCPCS: 97760; 99024; L4361 ==

== ENCOUNTER → 2021-11-22 10:58 | Outpatient (BNVA) | payer MEDICARE, SELFPAY | PROVIDERS: PCP Nurse Practitioner Family; Visit Provider Podiatrist Foot & Ankle Surgery | DX: Z98.890 Other specified postprocedural states (principal); Z87.81 Personal history of (healed) traumatic fracture; S82.391D Other fracture of lower end of right tibia, subsequent encounter for closed fracture with routine healing; E11.9 Type 2 diabetes mellitus without complications; T81.31XD Disruption of external operation (surgical) wound, not elsewhere classified, subsequent encounter; X58.XXXD Exposure to other specified factors, subsequent encounter; Z79.4 Long term (current) use of insulin | CPT/HCPCS: 99024; 99214 ==

== ENCOUNTER 2022-06-07 09:39 | Observation (INO) | payer MEDICARE, MEDICAID, SELFPAY ==
[2022-06-07 09:56] VITALS: BP 104/65; PULSE 88; RESP 17; TEMP 36.8; O2SAT 95
--- NOTE | 2022-06-07 10:16 | XR_ITS ---
WS: [id number] Exam: XR KUB [id number] Date/Time of Exam: 06/07/2022 10:39 AM Reason For Exam: Constipation No bowel obstruction or free air. No sign of constipation. No evidence of organ enlargement. Right to praveena hip arthroplasty partially visualized. Degenerative changes and spondylosis of the visualized tho racic and lumbar spine. XR/XR KUB [id number] IMPRESSION: 1. No acute abdominal finding. No sign of constipation or bowel obstruction.
--- NOTE | 2022-06-07 10:36 | ED_ITS ---
Documented by User: [email or web address] Corcoran 06/07/22 16:35 HPI - Abdominal Pain General: Chief Complaint: Abdominal Pain Stated Complaint: hemroid/cant go to the bathroom Time Seen by Provider: 06/07/22 10:16 History of Present Illness: Patient is a 66-year-old male comes to the ED with abdominal pain. Past medical history of diabetes and CHF. Patient is noncom pliant with his meds and says he only does a shot of insulin when he feels like it and is unsure the last time he used insulin. Symptoms have been going on now for approximately 2 to 3 weeks. Says eating any food causes worsening pain and nausea. He denies any episodes of emesis. He says he has not had anything to eat in approximately 3 or 4 days. He rates his abdominal pain currently a 7 out of 10. He is also complaining of hemorrhoids for the past 2 to 3 weeks as well and he has been treating it with some [id number] hemorrhoid suppositories. Patient is concerned that he is constipated since he has not had a formed stool in close to a week, but patient does admit that he has not been eating anything since onset of symptoms. He has passed some liquid stool over the past couple days. Denies any rectal bleeding or blood in stool. Denies any fevers, chills, vomiting, dysuria, hematuria. Associated Symptoms: Reports constipation and nausea; Denies chills, diarrhea, dysuria, fever(s), hematochezia, hematuria and vomiting Review of Systems Const: Denies: fever(s), chills or fatigue Eyes: Denies: change in vision or eye discomfort ENMT: Denies: throat pain, odynophagia, nasal discharge or nasal congestion Card: Denies: chest pain, palpitations, edema, swelling of feet/ankles, dyspnea on exertion or orthopnea Resp: Denies: dyspnea, productive cough or non-productive cough GI: Reports: abdominal pain, nausea, constipation and rectal swelling (Hemorrhoids); Denies: vomiting, diarrhea or hematochezia : Denies: flank pain, difficulty urinating, dysuria or hematuria Musc: Denies: neck pain, back pain or extremity swelling Skin/Breast: Denies: rash or new lesions Neuro: Denies: headache(s), numbness in extremities or weakness in extremities PFSH ED PFSH: Medical History DM type 2 (diabetes mellitus, type 2) Presence of drug-eluting stent in left circumflex coronary artery 04/21/2019 Smoking addiction Surgical History History of transmetatarsal amputation of foot S/P hip replacement Family History Father Urinary bladder cancer Brother Urinary bladder cancer Social History Smoking and tobacco status: current every day smoker Alcohol intake: never Household members: spouse Marital status: Current occupational status: retired Physical Exam Const: COMMON NORMALS: patient oriented x3 and alert GENERAL APPEARANCE: cooperative HENMT: COMMON NORMALS: normocephalic HEAD & SCALP: normocephalic MOUTH: moist mucous membranes abnormal Details: parched THROAT: posterior oropharynx normal and uvula midline Neck/C-Spine: COMMON NORMALS: supple GENERAL: Yes normal visual inspection Resp: COMMON NORMALS: normal respiratory effort, No retractions, No use of accessory muscles and clear to auscultation bilaterally AUSCULTATION: clear to auscultation bilaterally Cardio: COMMON NORMALS: regular rate, regular rhythm, S1 normal heart sound present, S2 normal heart sound present, No gallops present (Cardio), No clicks present (Cardio), No murmurs present (Cardio) and Peripheral pulses 2+ throughout RATE: regular rate RHYTHM: regular rhythm HEART SOUNDS: S1 normal heart sound present and S2 normal heart sound present PERIPHERAL PULSES: Peripheral pulses 2+ throughout GI: COMMON NORMALS: Normal to inspection, nondistended, normoactive bowel sounds present, Soft to palpation and no masses PALPATION: Yes Soft to palpation and Yes Tenderness to palpation present (GI) (Generalized tenderness throughout abdomen.) : COMMON NORMALS: Yes no CVA tenderness BLADDER/KIDNEY EXAM: Yes no CVA tenderness Back/Pelvis: COMMON NORMALS: no CVA tenderness Extremity: COMMON NORMALS: normal to inspection Neuro: COMMON NORMALS: patient oriented x3 SENSORIUM/ORIENTATION: Yes alert GAIT: Yes Normal gait present Skin: GENERAL SKIN EXAM: dry skin Course Vital Signs: Vital signs: Vital Signs Temperature 97.7 F 06/07/22 16:00 Pulse Rate 89 06/07/22 16:00 Respiratory Rate 18 06/07/22 16:00 Blood Pressure 134/71 06/07/22 16:00 Pulse Oximetry 97 06/07/22 16:00 Oxygen Delivery Me thod 06/07/22 16:00 MDM - Abdominal Pain Lab Data I reviewed the patient's lab results. 06/07/22 10:42 06/07/22 10:42 Labs/Radiology: Radiology Impressions KUB X-Ray 06/07/22 10:16 IMPRESSION: 1. No acute abdominal finding. No sign of constipation or bowel obstruction. Abdomen/Pelvis CT 06/07/22 11:36 IMPRESSION: 1. Slight edema and inflammatory stranding head of the pancreas compatible with acute pancreatitis. No fluid collections. 2. Slightly aneurysmal infrarenal abdominal aorta described above a few millimeters more prominent compared to previous Laboratory Results WBC 8.2 10^3/uL (4.0-10.0) 06/07/22 10:42 RBC 5.67 10^6/uL (4.1-5.3) H 06/07/22 10:42 Hgb 16.5 g/dL (11.7-16.6) 06/07/22 10:42 Hct 50.2 % (42.0-52.0) 06/07/22 10:42 MCV 88.5 fl (80-94) 06/07/22 10:42 MCH 29.1 pg (28.0-34.0) 06/07/22 10:42 MCHC 32.9 g/dL (30.0-36.0) 06/07/22 10:42 RDW 13.2 % (12.1-15.1) 06/07/22 10:42 Plt Count 159 10^3/cmm (130-400) 06/07/22 10:42 MPV 11.5 fL (7.4-10.4) H 06/07/22 10:42 Neut % (Auto) 74.1 % 06/07/22 10:42 Lymph % (Auto) 18.2 % 06/07/22 10:42 [place] % (Auto) 5.9 % 06/07/22 10:42 Eos % (Auto) 1.0 % 06/07/22 10:42 Baso % (Auto) 0.4 % 06/07/22 10:42 Neut # (Auto) 6.06 10^3/uL (1.8-7.7) 06/07/22 10:42 Lymph # (Auto) 1.5 10^3/uL (0.8-4.8) 06/07/22 10:42 [place] # (Auto) 0.5 10^3/uL (0.2-0.9) 06/07/22 10:42 Eos # (Auto) 0.1 10^3/uL (0.0-0.8) 06/07/22 10:42 Baso # (Auto) 0.0 10^3/uL (0.0-0.1) 06/07/22 10:42 Nucleated RBC % (auto) 0 % 06/07/22 10:42 Nucleated RBCs # 0.0 /100WBC 06/07/22 10:42 Sodium 130 mmol/L (136-145) L 06/07/22 10:42 Potassium 4.1 mmol/L (3.5-5.1) 06/07/22 10:42 Chloride 94 mmol/L (98-107) L 06/07/22 10:42 Carbon Dioxide 26 mmol/L (22-29) 06/07/22 10:42 Anion Gap 14.1 (5-19) 06/07/22 10:42 BUN 12 mg/dL (8-23) 06/07/22 10:42 Creatinine 0.8 mg/dL (0.7-1.2) 06/07/22 10:42 GFR Calculation 96.4 mL/min (90-130) 06/07/22 10:42 Glucose 420 mg/dL (65-115) H 06/07/22 10:42 Estimat Average Glucose 332 06/07/22 10:42 Hemoglobin A1c 13.2 % (4.0-6.0) H 06/07/22 10:42 Calculated Osmolality 288 mOsm/kg (285-295) 06/07/22 10:42 Calcium 8.8 mg/dL (8.5-10.5) 06/07/22 10:42 Total Bilirubin 0.6 mg/dL (0.15-1.2) 06/07/22 10:42 AST 11 U/L (0-40) 06/07/22 10:42 ALT 17 U/L (0-41) 06/07/22 10:42 Alkaline Phosphatase 136 U/L (40-130) H 06/07/22 10:42 Total Protein 6.8 g/dL (6.6-8.7) 06/07/22 10:42 Albumin 3.6 g/dL (3.5-5.2) 06/07/22 10:42 Globulin 3.2 g/dL (1.3-4.6) 06/07/22 10:42 Triglycerides 229 mg/dL (0-150) H 06/07/22 10:42 Lipase 217 U/L (13-60) H 06/07/22 10:42 Urine Color Yellow (Yellow) 06/07/22 10:45 Urine Appearance Clear (CLEAR) 06/07/22 10:45 Urine pH 6.5 (5-7) 06/07/22 10:45 Ur Specific [employer] 1.010 (1.005-1.030) 06/07/22 10:45 Urine Protein Neg (Negative) 06/07/22 10:45 Urine Glucose (UA) 4+ (Normal) H 06/07/22 10:45 Urine Ketones Negative (Negative) 06/07/22 10:45 Urine Blood Neg (Negative) 06/07/22 10:45 Urine Nitrate Negative (Negative) 06/07/22 10:45 Urine Bilirubin Neg (Negative) 06/07/22 10:45 Urine Urobilinogen Norm mg/dL (Negative) 06/07/22 10:45 Ur Leukocyte Esterase Negative (Negative) 06/07/22 10:45 Serum Ketones Negative (Negative) 06/07/22 10:42 Discharge Plan Discharge Patient Disposition: Admitted As Inpatient Admit Provider: Familia Abbasi Clinical Impression: Pancreatitis, DM type 2 (diabetes mellitus, type 2) Condition: Stable Sign Out Sign Out Data: Patient Sign Out occurred on 06/07/22 at 14:43. Patient's care was discussed, and care was transferred from to Mo Stock DO. Coding Level of Care Code ED Pre Planning Advisor for Chg Fwd Documented by User: Mo Stock DO 06/07/22 14:51 HPI - Abdominal Pain General: Chief Complaint: Abdominal Pain Stated Complaint: hemroid/cant go to the bathroom Time Seen by Provider: 06/07/22 10:16 PFSH ED PFSH: Medical History DM type 2 (diabetes mellitus, type 2) Presence of drug-eluting stent in left circumflex coronary artery 04/21/2019 Smoking addiction Surgical History History of transmetatarsal amputation of foot S/P hip replacement Family History Father Urinary bladder cancer Brother Urinary bladder cancer Social History Smoking and tobacco status: current every day smoker Alcohol intake: never Household members: spouse Marital status: Current occupational status: retired Course Vital Signs: Vital signs: Vital Signs Temperature 97.7 F 06/07/22 16:00 Pulse Rate 89 06/07/22 16:00 Respiratory Rate 18 06/07/22 16:00 Blood Pressure 134/71 06/07/22 16:00 Pulse Oximetry 97 06/07/22 16:00 Oxygen Delivery Me thod 06/07/22 16:00 MDM - Abdominal Pain Medical Decision Making Chart reviewed and patient discussed with midlevel. Agree with assessment and plan.. Acute pancreatitis will require admission hospitalist has seen and evaluated patient orders have been placed. Medical Records I reviewed the patient's medical records. Lab Data 06/07/22 10:42 06/07/22 10:42 Labs/Radiology: Radiology Impressions KUB X-Ray 06/07/22 10:16 IMPRESSION: 1. No acute abdominal finding. No sign of constipation or bowel obstruction. Abdomen/Pelvis CT 06/07/22 11:36 IMPRESSION: 1. Slight edema and inflammatory stranding head of the pancreas compatible with acute pancreatitis. No fluid collections. 2. Slightly aneurysmal infrarenal abdominal aorta described above a few millimeters more prominent compared to previous Laboratory Results WBC 8.2 10^3/uL (4.0-10.0) 06/07/22 10:42 RBC 5.67 10^6/uL (4.1-5.3) H 06/07/22 10:42 Hgb 16.5 g/dL (11.7-16.6) 06/07/22 10:42 Hct 50.2 % (42.0-52.0) 06/07/22 10:42 MCV 88.5 fl (80-94) 06/07/22 10:42 MCH 29.1 pg (28.0-34.0) 06/07/22 10:42 MCHC 32.9 g/dL (30.0-36.0) 06/07/22 10:42 RDW 13.2 % (12.1-15.1) 06/07/22 10:42 Plt Count 159 10^3/cmm (130-400) 06/07/22 10:42 MPV 11.5 fL (7.4-10.4) H 06/07/22 10:42 Neut % (Auto) 74.1 % 06/07/22 10:42 Lymph % (Auto) 18.2 % 06/07/22 10:42 [place] % (Auto) 5.9 % 06/07/22 10:42 Eos % (Auto) 1.0 % 06/07/22 10:42 Baso % (Auto) 0.4 % 06/07/22 10:42 Neut # (Auto) 6.06 10^3/uL (1.8-7.7) 06/07/22 10:42 Lymph # (Auto) 1.5 10^3/uL (0.8-4.8) 06/07/22 10:42 [place] # (Auto) 0.5 10^3/uL (0.2-0.9) 06/07/22 10:42 Eos # (Auto) 0.1 10^3/uL (0.0-0.8) 06/07/22 10:42 Baso # (Auto) 0.0 10^3/uL (0.0-0.1) 06/07/22 10:42 Nucleated RBC % (auto) 0 % 06/07/22 10:42 Nucleated RBCs # 0.0 /100WBC 06/07/22 10:42 Sodium 130 mmol/L (136-145) L 06/07/22 10:42 Potassium 4.1 mmol/L (3.5-5.1) 06/07/22 10:42 Chloride 94 mmol/L (98-107) L 06/07/22 10:42 Carbon Dioxide 26 mmol/L (22-29) 06/07/22 10:42 Anion Gap 14.1 (5-19) 06/07/22 10:42 BUN 12 mg/dL (8-23) 06/07/22 10:42 Creatinine 0.8 mg/dL (0.7-1.2) 06/07/22 10:42 GFR Calculation 96.4 mL/min (90-130) 06/07/22 10:42 Glucose 420 mg/dL (65-115) H 06/07/22 10:42 Estimat Average Glucose 332 06/07/22 10:42 Hemoglobin A1c 13.2 % (4.0-6.0) H 06/07/22 10:42 Calculated Osmolality 288 mOsm/kg (285-295) 06/07/22 10:42 Calcium 8.8 mg/dL (8.5-10.5) 06/07/22 10:42 Total Bilirubin 0.6 mg/dL (0.15-1.2) 06/07/22 10:42 AST 11 U/L (0-40) 06/07/22 10:42 ALT 17 U/L (0-41) 06/07/22 10:42 Alkaline Phosphatase 136 U/L (40-130) H 06/07/22 10:42 Total Protein 6.8 g/dL (6.6-8.7) 06/07/22 10:42 Albumin 3.6 g/dL (3.5-5.2) 06/07/22 10:42 Globulin 3.2 g/dL (1.3-4.6) 06/07/22 10:42 Triglycerides 229 mg/dL (0-150) H 06/07/22 10:42 Lipase 217 U/L (13-60) H 06/07/22 10:42 Urine Color Yellow (Yellow) 06/07/22 10:45 Urine Appearance Clear (CLEAR) 06/07/22 10:45 Urine pH 6.5 (5-7) 06/07/22 10:45 Ur Specific [employer] 1.010 (1.005-1.030) 06/07/22 10:45 Urine Protein Neg (Negative) 06/07/22 10:45 Urine Glucose (UA) 4+ (Normal) H 06/07/22 10:45 Urine Ketones Negative (Negative) 06/07/22 10:45 Urine Blood Neg (Negative) 06/07/22 10:45 Urine Nitrate Negative (Negative) 06/07/22 10:45 Urine Bilirubin Neg (Negative) 06/07/22 10:45 Urine Urobilinogen Norm mg/dL (Negative) 06/07/22 10:45 Ur Leukocyte Esterase Negative (Negative) 06/07/22 10:45 Serum Ketones Negative (Negative) 06/07/22 10:42 Discharge Plan Discharge Patient Disposition: Admitted As Inpatient Admit Provider: Familia Abbasi Clinical Impression: Pancreatitis, DM type 2 (diabetes mellitus, type 2) Condition: Stable Sign Out Sign Out Data: Patient Sign Out occurred on 06/07/22 at 14:43. Patient's care was discussed, and care was transferred from to Mo Stock DO. Coding Level of Care Code ED Pre Planning Advisor for Renzo Courtney
[2022-06-07 11:10] LABS: Add Urine Microscopic? NO; Charge for UA Resulting for Rev
[2022-06-07 11:11] LABS: Basophils % 0.4 %; Eosinophils # 0.1 10^3/uL (0.0-0.8); Hematocrit 50.2 % (42.0-52.0); Hemoglobin 16.5 g/dL (11.7-16.6); Lymphocytes # 1.5 10^3/uL (0.8-4.8); Lymphocytes % 18.2 %; Mean Corpuscular HGB Conc 32.9 g/dL (30.0-36.0); Mean Corpuscular Hemoglobin 29.1 pg (28.0-34.0); Mean Corpuscular Volume 88.5 fl (80-94); Mean Platelet Volume 11.5 fL (7.4-10.4); Monocytes # 0.5 10^3/uL (0.2-0.9); Monocytes % 5.9 %; Neutrophils # 6.06 10^3/uL (1.8-7.7); Neutrophils % 74.1 %; Nucleated Red Blood Cells % 0 %; Platelet Count 159 10^3/cmm (130-400); Red Blood Count 5.67 10^6/uL (4.1-5.3); Red Cell Distribution Width 13.2 % (12.1-15.1); White Blood Count 8.2 10^3/uL (4.0-10.0)
[2022-06-07 11:20] LABS: Bilirubin Urine Neg (Negative); Blood Urine Neg (Negative); Glucose Urine UA 4+ (Normal); Ketones Urine Negative (Negative); Leukocyte Esterase Urine Negative (Negative); Nitrate Urine Negative (Negative); Protein Urine Neg (Negative); Urine Appearance Clear (CLEAR); Urine Color Yellow (Yellow); Urobilinogen Urine Norm (Negative); pH Urine 6.5 (5-7)
[2022-06-07 11:26] LABS: Alanine Aminotransferase 17 U/L (0-41); Albumin Level 3.6 g/dL (3.5-5.2); Alkaline Phosphatase 136 U/L (40-130); Anion Gap 14.1 (5-19); Aspartate Amino Transferase 11 U/L (0-40); Blood Urea Nitrogen 12 mg/dL (8-23); Calcium 8.8 mg/dL (8.5-10.5); Carbon Dioxide 26 mmol/L (22-29); Chloride 94 mmol/L (98-107); Creatinine Clr Calc Pharmacy 110.1469; Globulin 3.2 g/dL (1.3-4.6); Glomerular Filtration Rate 96.4 mL/min (90-130); Glucose 420 mg/dL (65-115); Lipase 217 U/L (13-60); Osmolality Calculated 288 mOsm/kg (285-295); Potassium 4.1 mmol/L (3.5-5.1); Sodium 130 mmol/L (136-145); Total Bilirubin 0.6 mg/dL (0.15-1.2); Total Protein 6.8 g/dL (6.6-8.7)
--- NOTE | 2022-06-07 11:36 | CT_ITS ---
WS: [id number] CT ABDOMEN PELVIS TECHNIQUE: Contrast-enhanced CT of the abdomen and pelvis with coronal and sagittal reformatted image s. CLINICAL INFORMATION: generalized abdominal pain, constipation, Elevated Lipase COMPARISON: CT July 30, 2019 DLP: 965.[address] scans at [facility] use at least one of these dose optimization techniques: automated e xposure control; mA and/or kV adjustment per patient size (includes targeted exams where dose is matc hed to clinical indication); or iterative reconstruction. FINDINGS: Small infrarenal abdominal aortic aneurysm with peripheral mural thrombus and moderate calcified athe romatous plaque. This measures approximately 2.9 x 3.1 CM this is slightly larger compared to 2019. Mild diffuse fatty infiltration liver. Normal gallbladder. Normal portal vein and splenic vein. Tiny esophageal hiatal hernia. Fatty atrophy of the pancreas. Suggestion of slight edema in the head of th e pancreas with inflammatory stranding and induration compatible with acute pancreatitis. No fluid co llections. Sigmoid colon. Normal appendix in the RIGHT lower quadrant. Celiac and SMA are patent. Adrenal glands are normal. Bilateral renal cysts. No hydronephrosis in either kidney. Fat-containing RIGHT inguinal hernia. RIGHT SUMIT. CT/CT abdomen pelvis w con* [id number] IMPRESSION: 1. Slight edema and inflammatory stranding head of the pancreas compatible wit h acute pancreatitis. No fluid collections. 2. Slightly aneurysmal infrarenal abdominal aorta described above a few millim eters more prominent compared to previous
[2022-06-07] MEDS: iohexol 350 mg/mL 500 mL Btl (per mL) IV (12:05)
--- NOTE | 2022-06-07 12:33 | PC.NURSE ---
PC TO [facility] FOR 500 ML NS BAGS SHE STATED THEY WOULD BE MADE AVAILABLE IN 30 TO 40 MINUTES.
--- NOTE | 2022-06-07 13:07 | P.HP_ITS ---
Providers/Chief Complaint Primary Care Provider: ROLAND Lopez Chief Complaint: hemroid/cant go to the bathroom History of Present Illness Camron Burnett is a 66 year old male who is an active smoker, drinks alcohol occasionally presented with chief complaint of worsening abdominal pain. Patient stating that he has been experiencing abdominal pain for last 3 to 4 weeks, he has not noticed any nausea, vomiting but couple of loose stools only. He has not experienced any fever he has not been getting his medications. Today worsening abdominal pain prompted his visit to the ER, clinically he looks dehydrated, complaining abdominal pain, investigation revealed pancreatitis, triglyceride level below 500, hospital service has been requested to admit him overnight Review of Systems Const: Denies: chills Eyes: Denies: change in vision ENMT: Denies: throat pain Card: Denies: chest pain Resp: Denies: dyspnea GI: Reports: abdominal pain : Denies: flank pain Musc: Denies: neck pain Skin/Breast: Denies: rash Medications/Allergies Home Medications Medication Instructions Recorded Confirmed Last Taken Type CAM boot #1 08/08/21 11/22/21 Unknown Rx CAM boot #1 08/08/21 11/22/21 Unknown Rx Lace up ankle brace right foot #1 09/19/21 11/22/21 Unknown Rx Bed Side Commode #1 10/19/21 11/22/21 Unknown Rx Bed Side Commode #1 10/19/21 11/22/21 Unknown Rx cam boot #1 11/16/21 11/22/21 Unknown Rx insulin lispro 100 unit/mL 12 unit SUBCUT TID 06/07/22 06/07/22 Unknown History subcutaneous pen Allergies Allergy/AdvReac Type Severity Reaction Status Date / Time codeine Allergy UNKNOWN Verified 06/07/22 10:01 REACTION, PT STATES Penicillins Allergy ALGY-Difficulty Verified 06/07/22 10:01 Breathing PFSH Acute PFSH: Medical History DM type 2 (diabetes mellitus, type 2) Presence of drug-eluting stent in left circumflex coronary artery 04/21/2019 Smoking addiction Surgical History History of transmetatarsal amputation of foot S/P hip replacement Family History Father Urinary bladder cancer Brother Urinary bladder cancer Social History Smoking and tobacco status: current every day smoker Alcohol intake: never Household members: spouse Marital status: Current occupational status: retired Vitals/I&O/Wt Last Vital Signs Temp 98.2 F 06/07/22 09:56 Pulse 88 06/07/22 09:56 Resp 17 06/07/22 09:56 BP 104/65 06/07/22 09:56 Pulse Ox 95 06/07/22 09:56 O2 Del Method 06/07/22 09:56 Weight last 48 hrs Weight 104.326 kg Physical Exam Narrative: Patient is sitting at the bedside Awake and alert No active chest pain Clinically dehydrated Abdomen soft No tenderness to palpation on mid epigastric region Currently well on room air Hemodynamically stable Poor hygiene Unkept appearance Data 06/07/22 10:42 06/07/22 10:42 A&P Assessment and plan (1) Pancreatitis: (2) Encounter for smoking cessation counseling: (3) Coronary artery disease: Qualifiers: Associated angina: without angina Coronary Disease-Associated Artery/Lesion type: [place] artery [place] vs. transplanted heart: [place] heart Qualified Code(s): I25.10 - Atherosclerotic heart disease of [place] coronary artery without angina pectoris (4) Presence of drug-eluting stent in left circumflex coronary artery: (5) DM type 2 (diabetes mellitus, type 2): Plan Acute pancreatitis No signs of stone in gallbladder or CBD Patient is an active smoker, drinks alcohol alcohol occasional Uncontrolled diabetes Triglyceride below 500 No need of insulin drip I will keep patient on n.p.o. status for now Start IV fluids and pain management with opioids If patient feels hungry by tonight or tomorrow morning we can advance his diet Coronary disease, I will continue his Plavix along other medications for his underlying diastolic heart failure and coronary disease no active chest pain Hypertension: I will keep antihypertensives on hold because of low blood pressure at this point Type 2 diabetes: Check A1c, keep him on sliding scale for now BPH: Continue tamsulosin once he starts eating DVT prophylaxis on board Full code N.p.o. for now Last alcoholic drink was a month ago Attestations Medical Necessity Statement*: Anticipating discharge within 48 hours Diagnoses Pancreatitis K85.90 Encounter for smoking cessation counseling Z71.6 Coronary artery disease I25.10 Associated angina: without angina Coronary Disease-Associated Artery/Lesion type: [place] artery [place] vs. transplanted heart: [place] heart Presence of drug-eluting stent in left circumflex coronary artery Z95.5 DM type 2 (diabetes mellitus, type 2) E11.9
[2022-06-07 13:29] LABS: Ketone (Acetest) Serum Negative (Negative); Triglycerides 229 mg/dL (0-150)
[2022-06-07] MEDS: insulin regular-human 100 units/1 mL 10 UNIT IVP (13:35)
--- NOTE | 2022-06-07 13:35 | PC.PHAR ---
PT STS HE STOPED TAKING HIS HOME MEDICATIONS 3-4 MONTHS AGO AND GIVES HIMSELF LILLIE INSULIN SHOT EVERY ONCE IN A WHILE- LET DR WATSON AND HIS NURSE KNOW
[2022-06-07] MEDS: sodium chloride 0.9% 500 ML 999 ML IV (13:50)
--- NOTE | 2022-06-07 15:10 | PC.NURSE ---
REPORT CALLED TO HOWIE FAM IN [facility].
[2022-06-07 15:25] VITALS: BP 115/69; PULSE 89; RESP 18; O2SAT 95
[2022-06-07 16:00] VITALS: BP 134/71; PULSE 89; RESP 18; TEMP 36.5; O2SAT 97
[2022-06-07] MEDS: heparin 5,000 unit/mL INJ 1 mL 5000 UNIT SUBCUT (16:02)
[2022-06-07] MEDS: sodium chloride 0.9% 1,000 ML 150 ML IV ×2 (16:02→19:30)
[2022-06-07 16:13] LABS: Estmated Average Glucose 332; Hemoglobin A1C 13.2 % (4.0-6.0)
[2022-06-07 16:30] LABS: Glucose Point of Care 244 mg/dL (70-110)
[2022-06-07 17:27] VITALS: PULSE 89; RESP 18; O2SAT 93
[2022-06-07] MEDS: insulin lispro 100 unit/1 mL SUBCUT (17:47)
--- NOTE | 2022-06-07 17:51 | PC.NURSE ---
Patient arrived to unit via WC from ED. No c/o pain or discomfort, AAOx4, requesting food and soda. Calm and cooperative, VSS, no needs at this time. Room clean and clutter free with call light in reach. RLE has edema, wound to interior leg and jacqueline. LLE jacqueline with abrasions. Left foot has 3,4,5th toes amputated. Bilateral feet red and swollen and hot to touch. Bilateral hands/fingers hot to touch and swollen.
--- NOTE | 2022-06-07 19:25 | PC.NURSE ---
Patient educated on PRN nausea and pain medications and verbalized understanding.
[2022-06-07] MEDS: metoprolol succinate ER (24 HR) 25 mg Tablet 12.5 MG PO (19:26)
[2022-06-07 19:36] VITALS: BP 137/65; PULSE 81; RESP 19; TEMP 36.8; O2SAT 92
[2022-06-07 21:09] LABS: Glucose Point of Care 125 mg/dL (70-110)
--- NOTE | 2022-06-07 22:49 | PC.NURSE ---
Patient rates pain 3/10 to abdomen. Patient denies need for any pain medications at this time.
[2022-06-08] VITALS (7 sets, daily range): BP systolic 133–156; BP diastolic 70–86; PULSE 68–89; RESP 12–18; TEMP 36.6–36.8; O2SAT 93–96
--- NOTE | 2022-06-08 03:40 | PC.NURSE ---
Patient still rates pain 3/10. Patient asked if he needed anything for pain and states no.
[2022-06-08] MEDS: heparin 5,000 unit/mL INJ 1 mL 5000 UNIT SUBCUT ×2 (03:41→16:19)
[2022-06-08] MEDS: sodium chloride 0.9% 1,000 ML 150 ML IV ×2 (03:41→14:42)
[2022-06-08 03:57] LABS: Basophils # 0.1 10^3/uL (0.0-0.1); Basophils % 0.6 %; Eosinophils # 0.1 10^3/uL (0.0-0.8); Eosinophils % 1.6 %; Lymphocytes # 2.6 10^3/uL (0.8-4.8); Lymphocytes % 30.9 %; Mean Corpuscular HGB Conc 33.3 g/dL (30.0-36.0); Mean Corpuscular Hemoglobin 30.1 pg (28.0-34.0); Mean Corpuscular Volume 90.4 fl (80-94); Mean Platelet Volume 11.4 fL (7.4-10.4); Monocytes # 0.5 10^3/uL (0.2-0.9); Monocytes % 6.5 %; Neutrophils # 5.01 10^3/uL (1.8-7.7); Neutrophils % 60.2 %; Nucleated Red Blood Cells % 0 %; Platelet Count 170 10^3/cmm (130-400); Red Blood Count 5.31 10^6/uL (4.1-5.3); Red Cell Distribution Width 13.2 % (12.1-15.1); White Blood Count 8.3 10^3/uL (4.0-10.0)
[2022-06-08 04:20] LABS: Alanine Aminotransferase 15 U/L (0-41); Albumin Level 3.4 g/dL (3.5-5.2); Alkaline Phosphatase 112 U/L (40-130); Anion Gap 13.9 (5-19); Aspartate Amino Transferase 12 U/L (0-40); Blood Urea Nitrogen 8 mg/dL (8-23); C Reactive Protein 15.7 mg/L (0.0-4.9); Calcium 8.4 mg/dL (8.5-10.5); Carbon Dioxide 27 mmol/L (22-29); Chloride 101 mmol/L (98-107); Creatinine Clr Calc Pharmacy 110.1469; Globulin 2.9 g/dL (1.3-4.6); Glomerular Filtration Rate 112.5 mL/min (90-130); Glucose 135 mg/dL (65-115); Magnesium 2.2 mg/dL (1.7-2.3); Osmolality Calculated 286 mOsm/kg (285-295); Potassium 3.9 mmol/L (3.5-5.1); Sodium 138 mmol/L (136-145); Total Bilirubin 0.7 mg/dL (0.15-1.2); Total Protein 6.3 g/dL (6.6-8.7)
[2022-06-08 06:38] LABS: Glucose Point of Care 171 mg/dL (70-110)
[2022-06-08] MEDS: clopidogrel 75 mg Tablet PO (07:43)
[2022-06-08] MEDS: metoprolol succinate ER (24 HR) 25 mg Tablet 12.5 MG PO (07:43)
[2022-06-08 11:27] LABS: Glucose Point of Care 241 mg/dL (70-110)
[2022-06-08 12:02] LABS: Iron 65 ug/dL (59-158); Total Iron Binding Capacity 216 mcg/dl; Unsaturated Iron Binding 151 ug/dL (112-347)
[2022-06-08 12:42] LABS: Chol HDL Ratio 5.07 mg/dL (1.0-5.00); Cholesterol 147 mg/dL (0-200); HDL Cholesterol 29 mg/dL (60-100); LDL Cholesterol Calculated 81 mg/dL (50-129); Thyroid Stimulating Hormone 0.01 uIU/mL (0.27-4.20); Triglycerides 186 mg/dL (0-150); VLDL Cholestrol Calculation 37 mg/dL (0-30); Vitamin B12 209 pg/mL (232-1245)
[2022-06-08 12:47] LABS: C Reactive Protein 15.7 mg/L (0.0-4.9)
[2022-06-08 14:40] LABS: Folate Level > 20.0 ng/mL (4.5-32.2)
[2022-06-08] MEDS: insulin lispro 100 unit/1 mL SUBCUT ×2 (14:44→17:29)
[2022-06-08] MEDS: nicotine 14 mg Patch 1 PATCH TRANSDERMA (14:44)
--- NOTE | 2022-06-08 17:01 | PM.PN ---
Subjective Subjective: Hospital course, labs appreciated. As per the nurse patient has been itching to go home. He has been occasionally noncompliant with treatment. On examination patient lying comfortably in bed. States pain is a lot better. Patient was supposed to be n.p.o. but he is already ordered a cheeseburger and had it earlier in the day. Patient is complaining of mild nausea and epigastric pain but denies any vomiting. We discussed that going forward he needs to be on a liquid diet at least for the next 24 hours and then advance gradually depending on his pain level and nausea along with vomiting. Patient is agreeable to stay and continue treatment as prescribed. Vitals/I&O/Wt Last Vital Signs Temp 98.2 F 06/08/22 16:00 Pulse 73 06/08/22 16:00 Resp 17 06/08/22 16:00 BP 156/78 06/08/22 16:00 Pulse Ox 96 06/08/22 16:00 O2 Del Method 06/08/22 09:14 06/08/22 06/08/22 06/08/22 06:59 14:59 22:59 Intake Total 805 / 1875 1120 / 1120 Output Total 700 / 1100 1050 / 1050 350 / 1400 Balance 105 / 775 70 / 70 -350 / -280 Weight last 48 hrs Weight 104.326 kg Physical Exam Narrative: General: No acute distress, AO x3 HEENT: PERRLA, pupils bilaterally equal and reactive Chest: Normal vesicular breath sounds, no added sounds, equal good air entry bilaterally CVS: S1-S2 regular, no murmurs, no tachycardia, no gallops, no rubs Abdomen: Soft, nontender, no organomegaly, bowel sounds present Neuro: No focal deficits, no facial deformity, AO x3, power 5/5 in all limbs Data 06/08/22 03:24 06/08/22 03:24 A&P Assessment and plan (1) Pancreatitis: (2) Encounter for smoking cessation counseling: (3) Coronary artery disease: Qualifiers: Associated angina: without angina Coronary Disease-Associated Artery/Lesion type: [place] artery [place] vs. transplanted heart: [place] heart Qualified Code(s): I25.10 - Atherosclerotic heart disease of [place] coronary artery without angina pectoris (4) Presence of drug-eluting stent in left circumflex coronary artery: (5) DM type 2 (diabetes mellitus, type 2): Plan Acute pancreatitis: Conservative treatment. CT abdomen pelvis appreciated without any signs for cholelithiasis. Active smoker with occasional alcohol drinker along with uncontrolled type 2 diabetes mellitus. Appreciate triglyceride levels. Advance fluid to clear liquid diet. Discussed in detail with patient regarding adherence with the diet plan. He verbalized understanding and is agreeable. If doing fine with lunch we will advance to full liquid diet in the evening. Protonix IV twice daily, Zofran as needed. Dilaudid 0.2 mg IV every 6 hours as needed. CAD: Continue with home dose of Plavix, metoprolol twice daily. Denies any active chest pain. Hypertension: Goal blood pressure less than 140/90 mmHg. Increase metoprolol 25 mg twice daily. Add lisinopril 10 mg oral daily. Uptitrate as per goal blood pressures. Type 2 diabetes mellitus: A1c 13.2. Insulin sliding scale before meals and at bedtime. Most likely will discharge on Lantus and sliding scale as per 24-hour of insulin requirement. BPH: Continue tamsulosin once he starts eating DVT prophylaxis on board Full code Clear liquid diet Protonix OPD prophylaxis Attestations Medical Necessity Statement*: Requires further hospitalization for management of acute pancreatitis, uncontrolled type 2 diabetes mellitus and hypertension Diagnoses Pancreatitis K85.90 Encounter for smoking cessation counseling Z71.6 Coronary artery disease I25.10 Associated angina: without angina Coronary Disease-Associated Artery/Lesion type: [place] artery [place] vs. transplanted heart: [place] heart Presence of drug-eluting stent in left circumflex coronary artery Z95.5 DM type 2 (diabetes mellitus, type 2) E11.9
[2022-06-08 17:18] LABS: Glucose Point of Care 230 mg/dL (70-110)
[2022-06-08 18:45] LABS: Free T4 Free Thyroxine 1.64 ng/dL (0.82-1.77); T3 Free 3.1 PG/ML (2.0-4.4)
[2022-06-08 19:05] LABS: Cortisol Random 5.14 ug/dL (2.47-19.5)
[2022-06-08] MEDS: cyanocobalamin 1,000 mcg/mL SDV 1000 MCG IM (20:02)
[2022-06-08] MEDS: metoprolol succinate ER (24 HR) 25 mg Tablet PO (20:25)
[2022-06-08] MEDS: sodium chloride 0.9% 1,000 ML 100 ML IV (20:25)
[2022-06-08 21:11] LABS: Glucose Point of Care 75 mg/dL (70-110)
[2022-06-09 00:13] VITALS: BP 136/69; PULSE 66; RESP 20; TEMP 36.5; O2SAT 94
[2022-06-09 00:17] LABS: Glucose Point of Care 95 mg/dL (70-110)
[2022-06-09 03:59] VITALS: BP 134/67; PULSE 67; RESP 14; TEMP 36.4; O2SAT 95
[2022-06-09 05:36] LABS: Basophils % 0.5 %; Eosinophils # 0.1 10^3/uL (0.0-0.8); Eosinophils % 1.8 %; Hematocrit 45.1 % (42.0-52.0); Hemoglobin 14.5 g/dL (11.7-16.6); Lymphocytes # 2.2 10^3/uL (0.8-4.8); Lymphocytes % 33.8 %; Mean Corpuscular HGB Conc 32.2 g/dL (30.0-36.0); Mean Corpuscular Hemoglobin 29.4 pg (28.0-34.0); Mean Corpuscular Volume 91.3 fl (80-94); Mean Platelet Volume 11.5 fL (7.4-10.4); Monocytes # 0.5 10^3/uL (0.2-0.9); Monocytes % 6.8 %; Neutrophils # 3.77 10^3/uL (1.8-7.7); Neutrophils % 56.8 %; Nucleated Red Blood Cells % 0 %; Platelet Count 152 10^3/cmm (130-400); Red Blood Count 4.94 10^6/uL (4.1-5.3); Red Cell Distribution Width 13.2 % (12.1-15.1); White Blood Count 6.6 10^3/uL (4.0-10.0)
[2022-06-09 06:08] LABS: Alanine Aminotransferase 13 U/L (0-41); Albumin Level 3.3 g/dL (3.5-5.2); Alkaline Phosphatase 98 U/L (40-130); Aspartate Amino Transferase 16 U/L (0-40); Blood Urea Nitrogen 7 mg/dL (8-23); Carbon Dioxide 24 mmol/L (22-29); Globulin 2.6 g/dL (1.3-4.6); Glomerular Filtration Rate 134.4 mL/min (90-130); Glucose 110 mg/dL (65-115); Total Bilirubin 0.6 mg/dL (0.15-1.2); Total Protein 5.9 g/dL (6.6-8.7)
[2022-06-09 06:12] LABS: Creatinine Clr Calc Pharmacy 110.1469
[2022-06-09 06:18] LABS: Glucose Point of Care 146 mg/dL (70-110)
[2022-06-09 07:34] VITALS: BP 151/76; PULSE 60; RESP 16; TEMP 36.6; O2SAT 94
[2022-06-09 07:46] VITALS: PULSE 70; O2SAT 93
[2022-06-09] MEDS: cyanocobalamin 1,000 mcg Tablet 500 MCG PO (08:15)
[2022-06-09] MEDS: clopidogrel 75 mg Tablet PO (08:15)
[2022-06-09] MEDS: heparin 5,000 unit/mL INJ 1 mL 5000 UNIT SUBCUT (08:15)
[2022-06-09] MEDS: lisinopril 10 mg Tablet PO (08:16)
[2022-06-09] MEDS: metoprolol succinate ER (24 HR) 25 mg Tablet PO (08:16)
[2022-06-09] MEDS: insulin lispro 100 unit/1 mL SUBCUT ×2 (08:16→12:25)
[2022-06-09] MEDS: nicotine 14 mg Patch 1 PATCH TRANSDERMA (08:17)
[2022-06-09] MEDS: pantoprazole 40 mg SDV IVP (08:17)
[2022-06-09 08:52] LABS: Glucose Point of Care 203 mg/dL (70-110)
[2022-06-09] MEDS: sodium chloride 0.9% 1,000 ML 100 ML IV (09:23)
[2022-06-09 09:24] LABS: Sodium 136 mmol/L (136-145)
[2022-06-09 09:25] LABS: Anion Gap 11.2 (5-19); Chloride 105 mmol/L (98-107); Osmolality Calculated 281 mOsm/kg (285-295); Potassium 4.2 mmol/L (3.5-5.1)
--- NOTE | 2022-06-09 11:42 | PM.DCS ---
Discharge Providers Date of Admission: 06/07/22 15:31 Date of Discharge: June 09, 2022 Attending Provider at Admission: Familia Abbasi MD Attending Provider at Discharge: Gasper Vega MD Primary Care Provider: ROLAND Lopez Diagnoses at Discharge Discharge Diagnosis (1) Pancreatitis: Status: Acute (2) Encounter for smoking cessation counseling: Status: Acute (3) Coronary artery disease: Status: Acute Qualifiers: Associated angina: without angina Coronary Disease-Associated Artery/Lesion type: [place] artery [place] vs. transplanted heart: [place] heart Qualified Code(s): I25.10 - Atherosclerotic heart disease of [place] coronary artery without angina pectoris (4) Presence of drug-eluting stent in left circumflex coronary artery: Status: Acute Permanent problem details: 04/21/2019 (5) DM type 2 (diabetes mellitus, type 2): Status: Acute Reason for Visit Reason for Visit: hemroid/cant go to the bathroom Hospital Course Hospital Course Camron Burnett is a 66 year old male who is an active smoker, drinks alcohol occasionally presented with chief complaint of worsening abdominal pain.? Patient stating that he has been experiencing abdominal pain for last 3 to 4 weeks, he has not noticed any nausea, vomiting but couple of loose stools only.? He has not experienced any fever he has not been getting his medications.? Today worsening abdominal pain prompted his visit to the ER, clinically he looks dehydrated, complaining abdominal pain, investigation revealed pancreatitis, triglyceride level below 500, hospital service has been requested to admit him overnight. Patient was admitted to hospital evaluation and management of pancreatitis. Gallstones and triglyceridemia was ruled out. It is believed his pancreatitis is most likely secondary to uncontrolled type 2 diabetes mellitus. A1c was checked which is more than 13. He was treated conservatively with pain control, nothing by mouth and IV fluids. Diet was gradually advanced. He has been discharged hemodynamically stable condition with advised to continue with full liquid diet for next few days and advance to soft and regular diet within next 1 week. He is to continue taking his aspirin, Plavix and statin as before. His dose of metoprolol has been increased to 50 mg oral daily, lisinopril 10 mg oral daily has been added to his medication list. For his type 2 diabetes mellitus,dose of lispro has been increased to 15 units premeals and Lantus 15 units nightly has been added. He is advised to continue checking his blood pressures and blood sugars daily at home and maintain a diary and follow-up with a primary care provider within next 1 week for further adjustment of medications. Physical Exam Narrative: General: No acute distress, AO x3 HEENT: PERRLA, pupils bilaterally equal and reactive Chest: Normal vesicular breath sounds, no added sounds, equal good air entry bilaterally CVS: S1-S2 regular, no murmurs, no tachycardia, no gallops, no rubs Abdomen: Soft, nontender, no organomegaly, bowel sounds present Neuro: No focal deficits, no facial deformity, AO x3, power 5/5 in all limbs Discharge Data Studies Completed and Pending Completed Studies During Hospitalization Category Date Time Status CT abdomen pelvis w con* [id number] Stat Cat Scan 06/07/22 11:36 Completed XR KUB [id number] Stat Exams 06/07/22 10:16 Completed Radiology Impressions KUB X-Ray 06/07/22 10:16 IMPRESSION: 1. No acute abdominal finding. No sign of constipation or bowel obstruction. Abdomen/Pelvis CT 06/07/22 11:36 IMPRESSION: 1. Slight edema and inflammatory stranding head of the pancreas compatible with acute pancreatitis. No fluid collections. 2. Slightly aneurysmal infrarenal abdominal aorta described above a few millimeters more prominent compared to previous Laboratory Results WBC 6.6 10^3/uL (4.0-10.0) 06/09/22 04:30 RBC 4.94 10^6/uL (4.1-5.3) 06/09/22 04:30 Hgb 14.5 g/dL (11.7-16.6) 06/09/22 04:30 Hct 45.1 % (42.0-52.0) 06/09/22 04:30 MCV 91.3 fl (80-94) 06/09/22 04:30 MCH 29.4 pg (28.0-34.0) 06/09/22 04:30 MCHC 32.2 g/dL (30.0-36.0) 06/09/22 04:30 RDW 13.2 % (12.1-15.1) 06/09/22 04:30 Plt Count 152 10^3/cmm (130-400) 06/09/22 04:30 MPV 11.5 fL (7.4-10.4) H 06/09/22 04:30 Neut % (Auto) 56.8 % 06/09/22 04:30 Lymph % (Auto) 33.8 % 06/09/22 04:30 [place] % (Auto) 6.8 % 06/09/22 04:30 Eos % (Auto) 1.8 % 06/09/22 04:30 Baso % (Auto) 0.5 % 06/09/22 04:30 Neut # (Auto) 3.77 10^3/uL (1.8-7.7) 06/09/22 04:30 Lymph # (Auto) 2.2 10^3/uL (0.8-4.8) 06/09/22 04:30 [place] # (Auto) 0.5 10^3/uL (0.2-0.9) 06/09/22 04:30 Eos # (Auto) 0.1 10^3/uL (0.0-0.8) 06/09/22 04:30 Baso # (Auto) 0.0 10^3/uL (0.0-0.1) 06/09/22 04:30 Nucleated RBC % (auto) 0 % 06/09/22 04:30 Nucleated RBCs # 0.0 /100WBC 06/09/22 04:30 Sodium 136 mmol/L (136-145) 06/09/22 04:30 Potassium 4.2 mmol/L (3.5-5.1) 06/09/22 04:30 Chloride 105 mmol/L (98-107) 06/09/22 04:30 Carbon Dioxide 24 mmol/L (22-29) 06/09/22 04:30 Anion Gap 11.2 (5-19) 06/09/22 04:30 BUN 7 mg/dL (8-23) L 06/09/22 04:30 Creatinine 0.6 mg/dL (0.7-1.2) L 06/09/22 04:30 GFR Calculation 134.4 mL/min (90-130) H 06/09/22 04:30 Glucose 110 mg/dL (65-115) 06/09/22 04:30 POC Glucose 146 mg/dL (70-110) H 06/09/22 06:16 Estimat Average Glucose 332 06/07/22 10:42 Hemoglobin A1c 13.2 % (4.0-6.0) H 06/07/22 10:42 Calculated Osmolality 281 mOsm/kg (285-295) L 06/09/22 04:30 Calcium 8.0 mg/dL (8.5-10.5) L 06/09/22 04:30 Magnesium 2.2 mg/dL (1.7-2.3) 06/08/22 03:24 Iron 65 ug/dL (59-158) 06/08/22 03:24 TIBC 216 mcg/dl 06/08/22 03:24 % Saturation 30.0 % (20-50) 06/08/22 03:24 Unsat Iron Binding 151 ug/dL (112-347) 06/08/22 03:24 Total Bilirubin 0.6 mg/dL (0.15-1.2) 06/09/22 04:30 AST 16 U/L (0-40) 06/09/22 04:30 ALT 13 U/L (0-41) 06/09/22 04:30 Alkaline Phosphatase 98 U/L (40-130) 06/09/22 04:30 C-Reactive Protein 15.7 mg/L (0.0-4.9) H 06/08/22 03:24 C-Reactive Protein 15.7 mg/L (0.0-4.9) H 06/08/22 03:24 Total Protein 5.9 g/dL (6.6-8.7) L 06/09/22 04:30 Albumin 3.3 g/dL (3.5-5.2) L 06/09/22 04:30 Globulin 2.6 g/dL (1.3-4.6) 06/09/22 04:30 Triglycerides 186 mg/dL (0-150) H 06/08/22 03:24 Cholesterol 147 mg/dL (0-200) 06/08/22 03:24 LDL Cholesterol, Calc 81 mg/dL (50-129) 06/08/22 03:24 Total VLDL Cholesterol 37 mg/dL (0-30) H 06/08/22 03:24 HDL Cholesterol 29 mg/dL (60-100) L 06/08/22 03:24 Cholesterol/HDL Ratio 5.07 mg/dL (1.0-5.00) H 06/08/22 03:24 Lipase 217 U/L (13-60) H 06/07/22 10:42 Vitamin B12 209 pg/mL (232-1245) L 06/08/22 03:24 Folate > 20.0 ng/mL (4.5-32.2) 06/08/22 12:14 TSH 0.01 uIU/mL (0.27-4.20) L 06/08/22 03:24 Free T4 1.64 ng/dL (0.82-1.77) 06/08/22 03:24 Free T3 3.1 PG/ML (2.0-4.4) 06/08/22 03:24 Random Cortisol 5.14 ug/dL (2.47-19.5) 06/08/22 03:24 Urine Color Yellow (Yellow) 06/07/22 10:45 Urine Appearance Clear (CLEAR) 06/07/22 10:45 Urine pH 6.5 (5-7) 06/07/22 10:45 Ur Specific [place] 1.010 (1.005-1.030) 06/07/22 10:45 Urine Protein Neg (Negative) 06/07/22 10:45 Urine Glucose (UA) 4+ (Normal) H 06/07/22 10:45 Urine Ketones Negative (Negative) 06/07/22 10:45 Urine Blood Neg (Negative) 06/07/22 10:45 Urine Nitrate Negative (Negative) 06/07/22 10:45 Urine Bilirubin Neg (Negative) 06/07/22 10:45 Urine Urobilinogen Norm mg/dL (Negative) 06/07/22 10:45 Ur Leukocyte Esterase Negative (Negative) 06/07/22 10:45 Serum Ketones Negative (Negative) 06/07/22 10:42 Vitals Last Vital Signs Temp 97.8 F 06/09/22 07:34 Pulse 70 06/09/22 07:46 Resp 16 06/09/22 07:34 BP 151/76 06/09/22 07:34 Pulse Ox 93 06/09/22 07:46 O2 Del Method 06/09/22 07:46 Discharge Plan Discharge Patient Disposition: Home Condition: Stable Prescriptions: New cyanocobalamin (vitamin B-12) [Vitamin B-12] 1,000 mcg Tablet 500 mcg PO DAILY 30 Days Qty: 30 0RF aspirin 81 mg capsule 81 mg PO DAILY Qty: 30 0RF atorvastatin 40 mg tablet 40 mg PO DAILY Qty: 30 0RF insulin lispro 100 unit/mL insulin pen 15 unit SUBCUT TID Qty: 15 0RF metoprolol succinate 50 mg capsule,sprinkle,ER 24hr 50 mg PO DAILY Qty: 30 0RF ondansetron HCl 4 mg tablet 4 mg PO Q8H PRN (Reason: nausea and vomiting) 4 Days Qty: 14 0RF clopidogrel [Plavix] 75 mg tablet 75 mg PO DAILY Qty: 30 0RF insulin glargine [Lantus Solostar U-100 Insulin] 100 unit/mL (3 mL) insulin pen 15 unit SUBCUT QAM Qty: 15 0RF lisinopril 10 mg tablet 10 mg PO DAILY Qty: 30 0RF pantoprazole [Protonix] 40 mg tablet,delayed release (DR/EC) 40 mg PO DAILY 56 Days Qty: 30 0RF Discontinued insulin lispro 100 unit/mL insulin pen 12 unit SUBCUT TID No Action (DME) Lace up ankle brace right foot See Rx Instructions .Route .MEDSUPPLY Qty: 1 0RF Rx Instructions: As directed (DME) CAM boot See Rx Instructions .Route .MEDSUPPLY Qty: 1 0RF Rx Instructions: As directed (DME) CAM boot See Rx Instructions .Route .MEDSUPPLY Qty: 1 0RF Rx Instructions: As directed (DME) Bed Side Commode See Rx Instructions .Route .MEDSUPPLY Qty: 1 0RF Rx Instructions: As directed by HOME for 90 Days (DME) Bed Side Commode See Rx Instructions .Route .MEDSUPPLY Qty: 1 0RF Rx Instructions: As directed (DME) cam boot See Rx Instructions .Route .MEDSUPPLY Qty: 1 0RF Rx Instructions: As directed Discharge Orders: Discharge Order (Routine); Ordered 06/09/22 Ordered By: Gasper Vega Referrals: Simin Martínez MAINTENANCE AIDE [Primary Care Provider] - 1 week Discharge Diet: Advance as tolerated and As Directed Discharge Activity: Resume usual activity and Increase activity as tolerated Patient Instructions: Opioid Safety Activity Restrictions/Additional Instructions: Continue taking full liquid diet for now for next couple of days and then advance gradually to regular diet within next 1 week. Continue aspirin, statin, Plavix as before. Dose of metoprolol has been increased to 50 mg daily. Dose of lispro has been changed to 15 units premeals. Lisinopril 10 mg oral daily has been added for blood pressures. Also Lantus 15 units nightly has been added. Check your blood pressure daily at home and maintain a blood pressure diary. Check your blood sugars each meal daily at home and maintain a blood sugar diary. Follow-up with a primary care provider within the next 1 week. Blood sugar diary for further adjustment of medications as needed. Continue taking your Protonix as before. Discharge Attestations Time Spent in Discharge Care*: greater than 30 min Specific Discharge Activities: educating patient, discussing with pcp/other providers, discussing with rn field case manager/social workers/dc planners, documenting/other paperwork and evaluating patient/reviewing data Status at Discharge: Cognitive status at discharge: cognitively intact, Behavioral status at discharge: cooperative, Functional status at discharge: independent ambulation, Overall status at discharge: patient is back to baseline Quality Metrics Clinical Quality Measures [ No reported AMI, CVA or VTE this stay] Coding Level of Care Code 39355 Total time (in minutes) for Discharge: 60 Diagnoses Pancreatitis K85.90 Encounter for smoking cessation counseling Z71.6 Coronary artery disease I25.10 Associated angina: without angina Coronary Disease-Associated Artery/Lesion type: [place] artery [place] vs. transplanted heart: [place] heart Presence of drug-eluting stent in left circumflex coronary artery Z95.5 DM type 2 (diabetes mellitus, type 2) E11.9
[2022-06-09 12:00] VITALS: BP 142/72; PULSE 62; RESP 18; TEMP 36.7; O2SAT 96
[2022-06-09 12:04] LABS: Glucose Point of Care 256 mg/dL (70-110)
[2022-06-09 13:04] VITALS: BP 142/72; PULSE 62; RESP 18; TEMP 36.7; O2SAT 96
== END 2022-06-09 12:45 | disposition home or self-care (01) ==
LOC: ER 10:38 → MEDSURG 14:43
PROVIDERS: Physician Assistant; Admitting Provider Internal Medicine; Emergency Provider Family Medicine; PCP Nurse Practitioner Family; Visit Provider Student in an Organized Health Care Education/Training Program
DX: K85.90 Acute pancreatitis without necrosis or infection, unspecified (principal); E11.65 Type 2 diabetes mellitus with hyperglycemia; Z79.4 Long term (current) use of insulin; I11.0 Hypertensive heart disease with heart failure; I50.30 Unspecified diastolic (congestive) heart failure; K64.9 Unspecified hemorrhoids; K59.00 Constipation, unspecified; F17.200 Nicotine dependence, unspecified, uncomplicated; Z95.5 Presence of coronary angioplasty implant and graft; Z79.82 Long term (current) use of aspirin; Z79.02 Long term (current) use of antithrombotics/antiplatelets; N40.0 Benign prostatic hyperplasia without lower urinary tract symptoms
CPT/HCPCS: 36415; 36416; 74018; 74177; 80053; 80061; 81003; 82009; 82533; 82607; 82746; 82962; 83036; 83540; 83550; 83690; 83735; 84439; 84443; 84478; 84481; 85025; 86140; 96361; 96372; 96374; 99285; C9113; G0378; J1644; J1815; J3420; J7030; Q9967

== ENCOUNTER → 2022-06-13 10:52 | Outpatient (BNVA) | payer MEDICARE, MEDICAID, SELFPAY | PROVIDERS: PCP Clinical Nurse Specialist Adult Health; Visit Provider Clinical Nurse Specialist Adult Health | DX: I50.9 Heart failure, unspecified (principal); Z09 Encounter for follow-up examination after completed treatment for conditions other than malignant neoplasm; K85.90 Acute pancreatitis without necrosis or infection, unspecified; E11.9 Type 2 diabetes mellitus without complications | CPT/HCPCS: 80053; 83880 ==

== ENCOUNTER 2023-09-02 11:06 | Inpatient (IN) | payer MEDICARE, MEDICAID, SELFPAY ==
[2023-09-02] VITALS (9 sets, daily range): BP systolic 102–156; BP diastolic 61–92; PULSE 82–90; RESP 16–18; TEMP 36.7–36.9; O2SAT 90–94
[2023-09-02 11:38] LABS: Glucose Point of Care 478 mg/dL (70-110)
--- NOTE | 2023-09-02 11:59 | XR_ITS ---
WS: [id number] Exam: XR foot RT min 3V* [id number] Date/Time of Exam: 09/02/2023 12:06 PM Reason For Exam: concern for osteo. right 4th/5th toes and foot No acute fracture noted. There is soft tissue swelling of the fourth and fifth toes. There is soft ti ssue gas along the lateral aspect of the fourth toe. No obvious acute bone destruction noted. Degener ative changes in the IP joints and midfoot joints. Arthrodesis of the ankle mortise and hindfoot join ts with janina and screw fixation. Marked soft tissue swelling of the forefoot. Old fracture deformity o f the lower tibia and fibula. Recommendations: MRI of the foot could be helpful for further work-up if thought to be clinically war ranted. XR/XR foot RT min 3V* [id number] IMPRESSION: 1. Soft tissue swelling of the fourth and fifth toes. There is soft tissue air in the fourth toe that might be secondary to infection with gas-forming bacteri a. No acute bone destruction noted at this time. 2. Degenerative and postoperative changes of the foot. 3. Marked soft tissue edema of the forefoot.
[2023-09-02 12:21] LABS: Basophils # 0.1 10^3/uL (0.0-0.1); Basophils % 0.7 %; Eosinophils # 0.2 10^3/uL (0.0-0.8); Eosinophils % 1.6 %; Lymphocytes # 1.5 10^3/uL (0.8-4.8); Lymphocytes % 16.4 %; Mean Corpuscular HGB Conc 32.2 g/dL (30-55); Mean Corpuscular Hemoglobin 29.7 pg (27-33); Mean Corpuscular Volume 92.3 fl (82-101); Mean Platelet Volume 11.5 fL (7.4-10.4); Monocytes # 0.6 10^3/uL (0.2-0.9); Monocytes % 6.5 %; Neutrophils # 6.79 10^3/uL (1.8-7.7); Neutrophils % 74.4 %; Nucleated Red Blood Cells % 0 %; Platelet Count 199 10^3/cmm (157-399); Red Blood Count 5.42 10^6/uL (3.85-5.65); Red Cell Distribution Width 13.2 % (12.1-15.1); White Blood Count 9.13 10^3/uL (3.29-11.43)
--- NOTE | 2023-09-02 12:38 | PC.PHAR ---
PT STATES HAS NOT TAKEN MEDICATIONS IN 2 YEARS. I PHONED DARREL () WHO VERIFIED THAT STATEMENT. MEDICATIONS ON [facility] LIST ARE FROM JUNE 2022 (1YEAR AGO). PT SHOULD HAVE BEEN TAKING THEM, SO I DID NOT REMOVE FROM PT PROFILE.
[2023-09-02 12:44] LABS: Ketone (Acetest) Serum Negative (Negative)
--- NOTE | 2023-09-02 12:46 | W.ED.GENADLT ---
HPI - General Adult General: Chief complaint: General Medical Stated complaint: Right toe black, right leg swollen Time Seen by Provider: 09/02/23 11:57 History of Present Illness: 68-year-old male with a history of insulin-dependent diabetes, diabetic neuropathy and history of diabetic foot infections, hypertension coronary artery disease with stents, CHF, and medical noncompliance who presents the emergency room with an infection of his foot and his family's urging. He says this has been there for probably several weeks. He does not feel anything so was not hurting. On exam there appears to be holding between his fourth and fifth toes on his right foot. There is swelling and redness of the foot proximal to this. Has some blackened and on his toes. He has had toe amputations on the other foot in the past. Review of Systems Narrative: Constitutional symptoms: Negative except as documented in HPI. Skin symptoms: Negative except as documented in HPI. Eye symptoms: Negative except as documented in HPI. ENMT symptoms: Negative except as documented in HPI. Respiratory symptoms: Negative except as documented in HPI. Cardiovascular symptoms: Negative except as documented in HPI. Gastrointestinal symptoms: Negative except as documented in HPI. Genitourinary symptoms: Negative except as documented in HPI. Musculoskeletal symptoms: Negative except as documented in HPI. Neurologic symptoms: Negative except as documented in HPI. Psychiatric symptoms: Negative except as documented in HPI. Endocrine symptoms: Negative except as documented in HPI. [facility] ED PFSH: Medical History (Updated 09/02/23 @ 14:00 by Samantha Shannon MD) Pancreatitis Dehiscence of incision Closed fracture of right distal tibia Traumatic arthritis of right ankle Other instability, right ankle Trimalleolar fracture of right ankle Fracture of proximal end of right fibula Closed fracture of phalanx of right fourth toe Blister over site of fracture of bone Closed fracture of right distal fibula Toe fracture Tibial plateau fracture Ankle fracture Coronary artery disease CHF (congestive heart failure) Acute non-ST elevation myocardial infarction (NSTEMI) Presence of drug-eluting stent in left circumflex coronary artery 04/21/2019 Smoking addiction DM type 2 (diabetes mellitus, type 2) Surgical History (Updated 09/02/23 @ 13:52 by Familia Abbasi MD) S/P ORIF (open reduction internal fixation) fracture S/P hip replacement History of transmetatarsal amputation of foot Family History Father Bladder cancer Brother Bladder cancer Social History Smoking and tobacco/nicotine status: current every day tobacco/nicotine user Alcohol intake: never Substance/Drug Use: never Household members: spouse Marital status: Current occupational status: retired Physical Exam Narrative: EXAM NARRATIVE: General: Alert, no acute distress. Skin: Warm, dry. Head: Normocephalic, atraumatic. Neck: Supple, trachea midline. Eye: Extraocular movements are intact. Ears, nose, mouth and throat: Tacky oral mucosa Cardiovascular: Regular, Normal peripheral perfusion. Respiratory: Lungs are clear to auscultation, respirations are non-labored, breath sounds are equal, Symmetrical chest wall expansion. Gastrointestinal: Soft, Nontender, Non distended Musculoskeletal: Right foot there is an open wound between the fourth and fifth digits. There is erythema warmth and swelling of the foot lateral side. Blackened plantar side of his fourth and fifth toes. Neurological: Alert and oriented, No focal neurological deficit observed. Psychiatric: Cooperative, appropriate mood & affect. Course Vital Signs: Vital signs: Vital Signs Temperature 98.0 F 09/02/23 11:28 Pulse Rate 84 09/02/23 12:11 Respiratory Rate 18 09/02/23 12:11 Blood Pressure 102/61 09/02/23 12:11 Pulse Oximetry 91 09/02/23 12:11 Oxygen Delivery Me thod Room Air 09/02/23 11:28 MDM - General Adult Medical Decision Making Medical decision making: Differential diagnosis including but not limited to and based on the above HPI, review of systems and physical exam: In this patient with a diabetic foot infection concern for osteomyelitis so inflammatory markers and x-ray were ordered. He apparently has cellulitis. He has not been taking his meds so I ordered some ketones because report of high blood glucose. CBC and a comprehensive metabolic panel were ordered. Have also ordered a lactate and blood cultures to evaluate for sepsis. Orders placed to evaluate differential diagnosis based on the above differential, HPI and physical exam Lab Review: Laboratory results were reviewed and interpreted by myself the emergency room physician. Patient only has a white count of 9. But his ESR and CRP are quite elevated. Blood glucose is 425. However no renal failure with BUN and creatinine of 15 and 0.9. ESR and CRP are significantly elevated. X-ray of the right foot: There is evidence of the open infection with some air. However no bony evidence of osteomyelitis. This was reviewed and interpreted by myself the emergency room physician. I also reviewed the radiology report. Consultation: I spoke with the tank truck milk receiver on-call Dr. Phillips who evaluated images and recommends admission and IV antibiotics and he will consult on the patient. Consultation: I spoke with the hospitalist on-call Dr. Abbasi who agrees with admission I reviewed the patient's medical record. Reexamination: Patient remained stable. No increased work of breathing. No altered mental status. No focal motor deficits. No change in the infection in the interim. Assessment and plan: Diabetic foot infection Diabetic neuropathy Hyperglycemia Medical noncompliance -IV cefepime and vancomycin in the emergency room. Normal saline bolus. IV insulin. -I discussed the patient with the hospitalist on-call who is admitting the patient. - Discussed findings and plan with patient. Answered any questions. - All laboratory values were reviewed and interpreted personally by myself, the ER physician - All imaging was reviewed and interpreted personally by myself, the ER physician. - Evaluation and treatment of this problem were appropriate in the emergency setting Lab Data 09/02/23 12:09 09/02/23 12:09 Radiology Impressions Foot X-Ray 09/02/23 11:59 IMPRESSION: 1. Soft tissue swelling of the fourth and fifth toes. There is soft tissue air in the fourth toe that might be secondary to infection with gas-forming bacteria. No acute bone destruction noted at this time. 2. Degenerative and postoperative changes of the foot. 3. Marked soft tissue edema of the forefoot. Laboratory Results WBC 9.13 10^3/uL (3.29-11.43) 09/02/23 12:09 RBC 5.42 10^6/uL (3.85-5.65) 09/02/23 12:09 Hgb 16.10 g/dL (11.27-16.99) 09/02/23 12:09 Hct 50.0 % (37-53) 09/02/23 12:09 MCV 92.3 fl (82-101) 09/02/23 12:09 MCH 29.7 pg (27-33) 09/02/23 12:09 MCHC 32.2 g/dL (30-55) 09/02/23 12:09 RDW 13.2 % (12.1-15.1) 09/02/23 12:09 Plt Count 199 10^3/cmm (157-399) 09/02/23 12:09 MPV 11.5 fL (7.4-10.4) H 09/02/23 12:09 Neut % (Auto) 74.4 % 09/02/23 12:09 Lymph % (Auto) 16.4 % 09/02/23 12:09 [place] % (Auto) 6.5 % 09/02/23 12:09 Eos % (Auto) 1.6 % 09/02/23 12:09 Baso % (Auto) 0.7 % 09/02/23 12:09 Neut # (Auto) 6.79 10^3/uL (1.8-7.7) 09/02/23 12:09 Lymph # (Auto) 1.5 10^3/uL (0.8-4.8) 09/02/23 12:09 [place] # (Auto) 0.6 10^3/uL (0.2-0.9) 09/02/23 12:09 Eos # (Auto) 0.2 10^3/uL (0.0-0.8) 09/02/23 12:09 Baso # (Auto) 0.1 10^3/uL (0.0-0.1) 09/02/23 12:09 Nucleated RBC % (auto) 0 % 09/02/23 12:09 Nucleated RBCs # 0.0 /100WBC 09/02/23 12:09 ESR 49 mm/hr (0-10) H 09/02/23 12:09 Sodium 134 mmol/L (136-145) L 09/02/23 12:09 Potassium 4.4 mmol/L (3.5-5.1) 09/02/23 12:09 Chloride 94 mmol/L (98-107) L 09/02/23 12:09 Carbon Dioxide 26 mmol/L (22-29) 09/02/23 12:09 Anion Gap 18.4 (5-19) 09/02/23 12:09 BUN 15 mg/dL (8-23) 09/02/23 12:09 Creatinine 0.9 mg/dL (0.7-1.2) 09/02/23 12:09 GFR Calculation 83.7 mL/min (90-130) L 09/02/23 12:09 Glucose 425 mg/dL (65-115) H 09/02/23 12:09 POC Glucose 478 mg/dL (70-110) H 09/02/23 11:35 Calculated Osmolality 297 mOsm/kg (285-295) H 09/02/23 12:09 Lactic Acid 1.5 mmol/L (0.5-2.2) 09/02/23 12:09 Calcium 9.5 mg/dL (8.5-10.5) 09/02/23 12:09 Total Bilirubin 0.6 mg/dL (0.15-1.2) 09/02/23 12:09 AST 11 U/L (0-40) 09/02/23 12:09 ALT 13 U/L (0-41) 09/02/23 12:09 Alkaline Phosphatase 144 U/L (40-130) H 09/02/23 12:09 C-Reactive Protein 30.0 mg/L (0.0-4.9) H 09/02/23 12:09 Total Protein 7.6 g/dL (6.6-8.7) 09/02/23 12:09 Albumin 3.9 g/dL (3.5-5.2) 09/02/23 12:09 Globulin 3.7 g/dL (1.3-4.6) 09/02/23 12:09 Procalcitonin 0.08 ng/mL (0-0.5) 09/02/23 12:09 Serum Ketones Negative (Negative) 09/02/23 12:09 All radiology interpretation(s) finalized by discharge Discharge Plan Discharge Patient Disposition: Admitted As Inpatient Admit Provider: Familia Abbasi Clinical Impression: Diabetic foot infection, Hyperglycemia, Medical non-compliance, Diabetic neuropathy Condition: Stable Coding Level of Care Code ED Roofer Assistant for Renzo Courtney
[2023-09-02 12:48] LABS: Alanine Aminotransferase 13 U/L (0-41); Albumin Level 3.9 g/dL (3.5-5.2); Alkaline Phosphatase 144 U/L (40-130); Aspartate Amino Transferase 11 U/L (0-40); Blood Urea Nitrogen 15 mg/dL (8-23); Calcium 9.5 mg/dL (8.5-10.5); Carbon Dioxide 26 mmol/L (22-29); Chloride 94 mmol/L (98-107); Globulin 3.7 g/dL (1.3-4.6); Glomerular Filtration Rate 83.7 mL/min (90-130); Glucose 425 mg/dL (65-115); Osmolality Calculated 297 mOsm/kg (285-295); Sodium 134 mmol/L (136-145); Total Bilirubin 0.6 mg/dL (0.15-1.2); Total Protein 7.6 g/dL (6.6-8.7)
[2023-09-02 12:49] LABS: Anion Gap 18.4 (5-19); Lactic Sepsis W/Reflex 1.5 mmol/L (0.5-2.2); Potassium 4.4 mmol/L (3.5-5.1)
--- NOTE | 2023-09-02 13:05 | PM.HP ---
Providers/Chief Complaint Primary Care Provider: Eric Mckeon Chief Complaint: Right toe black, right leg swollen History of Present Illness Camron Burnett is a 68 year old male who has a history of diabetic foot ulcer status post amputation left toe, noncompliant, history of coronary disease, diabetes, hip fracture, presenting from home for worsening of right foot. Patient is stating that he has not been taking his medication for last year or so. For last few months he has been noticing right foot swelling with redness, now his right fifth toe is getting dark-colored with foul-smelling discharge he is not endorsing fever, nausea, vomiting, chest pain, shortness of breath, endorsing to smoking on daily basis. Uses a wheelchair. In the ER there is concern for wet gangrene Dr. Lewis has been consulted, I will request MRI foot without contrast He is afebrile, no significant leukocytosis No active signs of sepsis Hyperglycemia without DKA, ESR is 49 Patient is stating that he has not taken aspirin and Plavix in a long time despite coronary disease Review of Systems Const: Reports: body aches and malaise; Denies: chills Eyes: Denies: change in vision ENMT: Denies: throat pain Card: Reports: swelling of feet/ankles; Denies: chest pain Resp: Denies: dyspnea GI: Denies: abdominal pain Medications/Allergies Home Medications Medication Instructions Recorded Confirmed Last Taken Type Lace up ankle brace right foot #1 ea 09/19/21 09/02/23 Unknown Rx Bed Side Commode #1 ea 10/19/21 09/02/23 Unknown Rx cam boot #1 ea 11/16/21 09/02/23 Unknown Rx aspirin 81 mg capsule 81 mg PO DAILY #30 caps 06/09/22 09/02/23 1 Year Ago Rx ~09/01/22 atorvastatin 40 mg tablet 40 mg PO DAILY #30 tabs 06/09/22 09/02/23 1 Year Ago Rx ~09/01/22 clopidogrel 75 mg tablet (Plavix) 75 mg PO DAILY #30 tabs 06/09/22 09/02/23 1 Year Ago Rx ~09/01/22 lisinopril 10 mg tablet 10 mg PO DAILY #30 tabs 06/09/22 09/02/23 1 Year Ago Rx ~09/01/22 metoprolol succinate 50 mg capsule 50 mg PO DAILY #30 ea 06/09/22 09/02/23 1 Year Ago Rx sprinkle, ext. release 24 hr ~09/01/22 potassium chloride 20 mEq 20 meq PO BID@0800,1999 #180 tabs 06/13/22 09/02/23 1 Year Ago Rx tablet,extended release ~09/01/22 torsemide 20 mg tablet 20 mg PO BID@0800,1999 #180 tabs 06/13/22 09/02/23 1 Year Ago Rx ~09/01/22 insulin glargine 100 unit/mL (3 20 unit (0.2 mL) SUBCUT QAM #15 mL 08/19/22 09/02/23 1 Year Ago Rx mL) subcutaneous pen (Lantus ~09/01/22 Solostar U-100 Insulin) insulin lispro 100 unit/mL 15 unit (0.15 mL) SUBCUT TID #15 mL 08/20/22 09/02/23 1 Year Ago Rx subcutaneous pen ~09/01/22 Allergies Allergy/AdvReac Type Severity Reaction Status Date / Time codeine Allergy UNKNOWN Verified 06/13/22 10:32 REACTION, PT STATES Penicillins Allergy ALGY-Difficulty Verified 06/13/22 10:32 Breathing PFSH Acute PFSH: Medical History (Updated 09/02/23 @ 13:52 by Familia Abbasi MD) Pancreatitis Dehiscence of incision Closed fracture of right distal tibia Traumatic arthritis of right ankle Other instability, right ankle Trimalleolar fracture of right ankle Fracture of proximal end of right fibula Closed fracture of phalanx of right fourth toe Blister over site of fracture of bone Closed fracture of right distal fibula Toe fracture Tibial plateau fracture Ankle fracture Coronary artery disease CHF (congestive heart failure) Acute non-ST elevation myocardial infarction (NSTEMI) Presence of drug-eluting stent in left circumflex coronary artery 04/21/2019 Smoking addiction DM type 2 (diabetes mellitus, type 2) Surgical History (Updated 09/02/23 @ 13:52 by Familia Abbasi MD) S/P ORIF (open reduction internal fixation) fracture S/P hip replacement History of transmetatarsal amputation of foot Family History Father Bladder cancer Brother Bladder cancer Social History Smoking and tobacco/nicotine status: current every day tobacco/nicotine user Alcohol intake: never Substance/Drug Use: never Household members: spouse Marital status: Current occupational status: retired Vitals/I&O/Wt Last Vital Signs Temp 98.0 F 09/02/23 11:28 Pulse 84 09/02/23 12:11 Resp 18 09/02/23 12:11 BP 102/61 09/02/23 12:11 Pulse Ox 91 09/02/23 12:11 O2 Del Method Room Air 09/02/23 11:28 Weight last 48 hrs Weight 102.058 kg Physical Exam Narrative: Awake and alert Morbid obese Neurology GCS 15 Nonfocal neuroexam Wet gangrene with foul-smelling discharge right fifth toe Significant swelling extending all the way up to ankle involving soleus muscle extending up to knee S1, S2 Currently on room air Nonfocal neuroexam Data 09/02/23 12:09 09/02/23 12:09 Micro: Microbiology 09/02/23 12:34 Blood Culture - Preliminary Blood SPECIMEN COLLECTED 09/02/23 12:09 Blood Culture - Preliminary Blood SPECIMEN COLLECTED A&P Assessment and plan (1) Diastolic heart failure: Qualifiers: Heart failure chronicity: chronic Qualified Code(s): I50.32 - Chronic diastolic (congestive) heart failure (2) DM type 2 (diabetes mellitus, type 2): Qualifiers: Diabetes mellitus complication status: with circulatory complication Diabetes mellitus longterm insulin use: with long term care administrator use (3) Wet gangrene: (4) Non-compliant behavior: (5) Smoking addiction: (6) Gas gangrene: Plan Gas gangrene Diabetic foot ulcer worsening Requesting stat MRI right foot Antibiotics administered Patient is not septic at this point ESR CRP noted Dr. Reyes consulted who is planning for intervention well logger after reviewing MRI report today to delineate the extent of infection Patient has not taken any medication for last year or so Active smoker Noncompliant Uncontrolled diabetes with hyperglycemia no signs of DKA Start IV fluids continue sliding scale insulin Check A1c level History of coronary disease no active pain Patient has not taken aspirin Plavix in a long time Diastolic CHF with mild exacerbation for now patient needs IV fluids Goals of care discussed with the patient he is stating that he is DNR/DNI he does not want any resuscitative measures in case of any cardiac arrest he should be made comfortable Attestations Medical Necessity Statement*: More than 2 midnights anticipated Diagnoses Chronic diastolic heart failure I50.32 Heart failure chronicity: chronic DM type 2 (diabetes mellitus, type 2) E11.9 Diabetes mellitus complication status: with circulatory complication Diabetes mellitus long term care administrator insulin use: with longterm use Wet gangrene I96 Non-compliant behavior R46.89 Smoking addiction F17.200 Gas gangrene A48.0
[2023-09-02] MEDS: sodium chloride 0.9% 1,000 ML 999 ML IV (13:13)
[2023-09-02] MEDS: insulin regular-human 100 units/1 mL 10 UNIT IVP (13:16)
[2023-09-02] MEDS: cefepime 2,000 MG in sodium chloride 0.9% (plus) 50 ML 100 MG IV (13:16)
[2023-09-02 13:30] LABS: Erythrocyte Sedimentation Rate 49 mm/hr (0-10)
[2023-09-02 13:47] LABS: Procalcitonin 0.08 ng/mL (0-0.5)
[2023-09-02 13:51] LABS: Glucose Point of Care 292 mg/dL (70-110)
[2023-09-02 14:02] LABS: ABG PH Result 7.37 (7.35-7.45); Arterial Blood Gas Hematocrit 48.5 % (42-52); Base Excess ABG 1.3 mmol/L (-2.0-2.0); Blood Gas Allen Test Pos; Blood Gas Operator Identificat CAK; Blood Gas Sample Site Radial, left; Blood Gas Sample Type Arterial; HCO3 ABG 27.3 mmol/L (22-26); Oxygen Device ROOM AIR; PO2 FiO2 Ratio Arterial Blood 0
[2023-09-02] MEDS: vancomycin 2,000 MG/400 ML PIGGYBACK 200 MG IV (14:03)
[2023-09-02 15:39] LABS: Estmated Average Glucose 338; Hemoglobin A1C 13.4 % (4.0-6.0)
[2023-09-02] MEDS: cyclobenzaprine 10 mg Tablet PO (15:43)
--- NOTE | 2023-09-02 15:44 | PM.CONSULT ---
Providers/Reason For Consult Consulting Physician/Specialty*: Dr. Bowen Ulloa, D.P.M./podiatry Reason for Consult*: Right foot gangrene Attending Physician: Familia Abbasi MD Primary Care Provider: Eric Mckeon History of Present Illness History of Present Illness Camron Burnett is a 68 year old male with history of uncontrolled type 2 diabetes, coronary artery disease and amputation of partial fourth and fifth ray of left foot presented to the emergency department today 09/02/2023 based on recommendations from his family members. Patient states over the course the past couple months he has noticed his right foot has become increasingly more swollen and red. He states over the course the past 2 weeks he has had a wound in between his fourth and fifth digits of the right foot. This has become erythematous, edematous with active drainage and malodor. Patient denies any constitutional symptoms. He does endorse a [id number] smoking history. Review of Systems General: Reports: 10 or more systems reviewed and unremarkable except in HPI and below Const: Denies: fever(s), chills, body aches or change in appetite Eyes: Denies: change in vision or blurry vision Card: Denies: chest pain, palpitations or irregular heart rhythm Resp: Denies: dyspnea GI: Denies: abdominal pain, nausea, vomiting or diarrhea Musc: Reports: joint stiffness Skin/Breast: Reports: non-healing lesions and lesions Neuro: Reports: numbness in extremities Medications/Allergies Home Medications Medication Instructions Recorded Confirmed Last Taken Type Lace up ankle brace right foot #1 ea 09/19/21 09/02/23 Unknown Rx Bed Side Commode #1 ea 10/19/21 09/02/23 Unknown Rx cam boot #1 ea 11/16/21 09/02/23 Unknown Rx aspirin 81 mg capsule 81 mg PO DAILY #30 caps 06/09/22 09/02/23 1 Year Ago Rx ~09/01/22 atorvastatin 40 mg tablet 40 mg PO DAILY #30 tabs 06/09/22 09/02/23 1 Year Ago Rx ~09/01/22 clopidogrel 75 mg tablet (Plavix) 75 mg PO DAILY #30 tabs 06/09/22 09/02/23 1 Year Ago Rx ~09/01/22 lisinopril 10 mg tablet 10 mg PO DAILY #30 tabs 06/09/22 09/02/23 1 Year Ago Rx ~09/01/22 metoprolol succinate 50 mg capsule 50 mg PO DAILY #30 ea 06/09/22 09/02/23 1 Year Ago Rx sprinkle, ext. release 24 hr ~09/01/22 potassium chloride 20 mEq 20 meq PO BID@0800,1999 #180 tabs 06/13/22 09/02/23 1 Year Ago Rx tablet,extended release ~09/01/22 torsemide 20 mg tablet 20 mg PO BID@0800,1999 #180 tabs 06/13/22 09/02/23 1 Year Ago Rx ~09/01/22 insulin glargine 100 unit/mL (3 20 unit (0.2 mL) SUBCUT QAM #15 mL 08/19/22 09/02/23 1 Year Ago Rx mL) subcutaneous pen (Lantus ~09/01/22 Solostar U-100 Insulin) insulin lispro 100 unit/mL 15 unit (0.15 mL) SUBCUT TID #15 mL 08/20/22 09/02/23 1 Year Ago Rx subcutaneous pen ~09/01/22 Allergies Allergy/AdvReac Type Severity Reaction Status Date / Time codeine Allergy UNKNOWN Verified 06/13/22 10:32 REACTION, PT STATES Penicillins Allergy ALGY-Difficulty Verified 06/13/22 10:32 Breathing PFSH Acute PFSH: Medical History (Updated 09/02/23 @ 14:00 by Samantha Shannon MD) Pancreatitis Dehiscence of incision Closed fracture of right distal tibia Traumatic arthritis of right ankle Other instability, right ankle Trimalleolar fracture of right ankle Fracture of proximal end of right fibula Closed fracture of phalanx of right fourth toe Blister over site of fracture of bone Closed fracture of right distal fibula Toe fracture Tibial plateau fracture Ankle fracture Coronary artery disease CHF (congestive heart failure) Acute non-ST elevation myocardial infarction (NSTEMI) Presence of drug-eluting stent in left circumflex coronary artery 04/21/2019 Smoking addiction DM type 2 (diabetes mellitus, type 2) Surgical History (Updated 09/02/23 @ 13:52 by Familia Abbasi MD) S/P ORIF (open reduction internal fixation) fracture S/P hip replacement History of transmetatarsal amputation of foot Family History Father Bladder cancer Brother Bladder cancer Social History Smoking and tobacco/nicotine status: current every day tobacco/nicotine user Alcohol intake: never Substance/Drug Use: never Household members: spouse Marital status: Current occupational status: retired Vitals/I&O/Wt Last Vital Signs Temp 98.0 F 09/02/23 11:28 Pulse 90 09/02/23 14:18 Resp 18 09/02/23 14:18 BP 135/71 09/02/23 14:18 Pulse Ox 92 09/02/23 14:18 O2 Del Method Room Air 09/02/23 13:15 09/02/23 09/02/23 09/02/23 06:59 14:59 22:59 Intake Total 1050 / 1050 Balance 1050 / 1050 Weight last 48 hrs Weight 233 lb 4.8 oz Weight 225 lb Physical Exam Narrative: BELOW IS A FOCUSED LOWER EXTREMITY EXAM GENERAL: A&O x 3 VASCULAR: DP/PT pulses nonpalpable. Strong biphasic on hand-held Doppler. Edema right foot consistent with infectious state DERMATOLOGICAL: Full-thickness ulceration to fourth interdigital space with positive probe to bone, necrotic/fibrotic wound base surrounding erythema and active drainage. Malodor present. Erythema circumferentially around the wound extending to the midfoot proximally. No lymphangitic streaking. Fourth digit is erythematous and edematous. Fifth digit is without color with no cap refill. MUSCULOSKELETAL: Status post left foot partial fourth and fifth ray resection NEUROLOGICAL: Neurological sensation to the affected foot and ankle is diminished through L4-S1 dermatomes via 10g SWMF, diminished sensation extends proximally to the level of the ankle IMAGING: Three-view x-rays of right foot taken in the emergency department were personally interpreted by me which show increase soft tissue density of fourth and fifth digits of the right foot. Potential small gas formation in the lateral aspect of the fourth digit. Data 09/02/23 12:09 09/02/23 12:09 Micro: Microbiology 09/02/23 12:34 Blood Culture - Preliminary Blood SPECIMEN COLLECTED 09/02/23 12:09 Blood Culture - Preliminary Blood SPECIMEN COLLECTED A&P Assessment and plan (1) DM type 2 (diabetes mellitus, type 2): Qualifiers: Diabetes mellitus complication status: with circulatory complication Diabetes mellitus wood treating inspector insulin use: with alf use (2) Diabetic foot infection: (3) Wet gangrene: Plan -Right foot fifth digit wet gangrene with fourth digit involvement -Labs and vitals reviewed -WBC 9.13 -ESR 49 -CRP 30 -HR 90 -RR 18 -Tmax 98.0 -Cultures wound cultures pending -Abx Vanco/cefepime -Diet: N.p.o. at midnight for procedure 09/03/2023 -Plan for fifth digit amputation with fillet of toe fourth digit, debridement of necrotic/nonviable tissue and bone. Possible partial fourth and fifth ray resection right foot. MRI pending to evaluate extent of infection which will help determine course of surgical treatment -Pain Mgmt: Per primary team -Weight bearing: Nonweightbearing to right foot -Dressings: Betadine wet-to-dry dressing applied. Reinforce if needed -Continue current Abx therapy until ID and Sensitivity results -Trend labs -Discharge plan: To be determined -Podiatry will continue to round on patient daily and provide recommendations Coding Level of Care Code Acute Code for Chg Fwd Diagnoses DM type 2 (diabetes mellitus, type 2) E11.9 Diabetes mellitus complication status: with circulatory complication Diabetes mellitus wood treating inspector insulin use: with wood treating inspector use Diabetic foot infection E11.628; L08.9 Wet gangrene I96
[2023-09-02] MEDS: sodium chloride 0.9% 1,000 ML 75 ML IV (16:14)
[2023-09-02] MEDS: aztreonam 2,000 MG in sodium chloride 0.9% (plus) 100 ML 200 MG IV (16:14)
[2023-09-02 16:41] LABS: Glucose Point of Care 236 mg/dL (70-110)
[2023-09-02] MEDS: clindamycin 900 MG/50 ML PREMIX 100 MG IV (17:02)
[2023-09-02] MEDS: pantoprazole 40 mg SDV IVP (17:46)
[2023-09-02] MEDS: insulin lispro 100 unit/1 mL SUBCUT (17:46)
[2023-09-02 20:25] LABS: Glucose Point of Care 189 mg/dL (70-110)
[2023-09-03] VITALS (9 sets, daily range): BP systolic 99–144; BP diastolic 51–85; PULSE 72–86; RESP 17–22; TEMP 36.4–36.9; O2SAT 90–100; BMI 32.8
[2023-09-03] MEDS: vancomycin 1,250 MG/250 ML PIGGYBACK 250 MG IV ×2 (01:10→14:30)
[2023-09-03] MEDS: aztreonam 2,000 MG in sodium chloride 0.9% (plus) 100 ML 200 MG IV ×2 (03:10→17:42)
[2023-09-03 05:09] LABS: Basophils # 0.1 10^3/uL (0.0-0.1); Basophils % 0.5 %; Eosinophils # 0.2 10^3/uL (0.0-0.8); Eosinophils % 1.9 %; Hematocrit 48.3 % (37-53); Lymphocytes # 1.6 10^3/uL (0.8-4.8); Mean Corpuscular HGB Conc 31.5 g/dL (30-55); Mean Corpuscular Hemoglobin 29.7 pg (27-33); Mean Corpuscular Volume 94.5 fl (82-101); Mean Platelet Volume 11.9 fL (7.4-10.4); Monocytes # 0.7 10^3/uL (0.2-0.9); Monocytes % 6.9 %; Neutrophils # 6.97 10^3/uL (1.8-7.7); Neutrophils % 73.3 %; Nucleated Red Blood Cells % 0 %; Platelet Count 169 10^3/cmm (157-399); Red Blood Count 5.11 10^6/uL (3.85-5.65); Red Cell Distribution Width 13.2 % (12.1-15.1); White Blood Count 9.52 10^3/uL (3.29-11.43)
[2023-09-03] MEDS: sodium chloride 0.9% 1,000 ML 75 ML IV (05:14)
[2023-09-03 05:32] LABS: Anion Gap 16.3 (5-19); Blood Urea Nitrogen 12 mg/dL (8-23); Calcium 8.5 mg/dL (8.5-10.5); Carbon Dioxide 26 mmol/L (22-29); Chloride 100 mmol/L (98-107); Glomerular Filtration Rate 83.7 mL/min (90-130); Glucose 247 mg/dL (65-115); Magnesium 1.8 mg/dL (1.7-2.3); Osmolality Calculated 294 mOsm/kg (285-295); Phosphorus 2.6 mg/dL (2.5-4.5); Potassium 4.3 mmol/L (3.5-5.1); Sodium 138 mmol/L (136-145)
[2023-09-03] MEDS: insulin glargine 100 units/1 mL 20 UNIT SUBCUT (05:44)
[2023-09-03 06:20] LABS: Glucose Point of Care 219 mg/dL (70-110)
[2023-09-03] MEDS: metoprolol succinate ER (24 HR) 50 mg Tablet PO (08:26)
[2023-09-03] MEDS: clindamycin 900 MG/50 ML PREMIX 100 MG IV ×3 (08:26→17:42)
[2023-09-03] MEDS: atorvastatin 40 mg Tablet PO (08:27)
[2023-09-03] MEDS: insulin lispro 100 unit/1 mL SUBCUT ×2 (08:27→17:43)
--- NOTE | 2023-09-03 09:30 | MR_ITS ---
WS: [id number] MRI RIGHT FOOT WITHOUT CONTRAST. COMPARISON: Radiograph 09/02/2023 Multiplanar, multisequence imaging is performed without contrast. Significant amount of soft tissue edema surrounding the metatarsals greatest along the dorsal surface . No focal fluid collection is identified without IV contrast. The most significant soft tissue edema and swelling is encasing the distal fourth and fifth metatarsals through the metatarsophalangeal sharad nts. There is edema and increased T2 signal involving portions of the fourth and fifth toes, most sig nificantly the proximal phalanges. There is just a tiny amount of edema in the lateral most fourth me tatarsal head. No additional signal abnormality noted within the bones. No foreign body identified. MR/MR foot RT wo con* [id number] IMPRESSION: 1. Large amount of soft tissue edema surrounding the metatarsals and the metat arsal phalangeal regions, most significant involving the fourth and fifth metat arsophalangeal joints. 2. No focal fluid collection. Study was performed without IV contrast. 3. Marrow edema involving large portions of the fourth and fifth proximal phal anges and to a lesser extent the remaining phalanges. Tiny amount of edema in t he fourth lateral metatarsal head. Suspicious but nondiagnostic for osteomyelit is without IV contrast.
[2023-09-03] MEDS: pantoprazole 40 mg SDV IVP ×2 (09:35→18:24)
[2023-09-03] MEDS: sodium chloride 0.9% 1,000 ML 30 ML IV (11:08)
--- NOTE | 2023-09-03 11:17 | P.PN_ITS ---
Subjective 2 Subjective: Patient is n.p.o. Went for MRI No overnight events Hemoglobin A1c 13.4 Agreeable to go to rehab after amputation Vitals/I&O/Wt Last Vital Signs Temp 97.6 F 09/03/23 07:12 Pulse 86 09/03/23 07:12 Resp 17 09/03/23 07:12 BP 144/75 09/03/23 07:12 Pulse Ox 90 09/03/23 07:12 O2 Del Method Room Air 09/03/23 07:12 09/02/23 09/03/23 09/03/23 22:59 06:59 14:59 Intake Total 1030 / 2080 1375.0 / 3455.0 50 / 50 Output Total 650 / 650 600 / 1250 700 / 700 Balance 380 / 1430 775.0 / 2205.0 -650 / -650 Weight last 48 hrs Weight 106.651 kg Weight 105.823 kg Weight 102.058 kg Physical Exam 2 Narrative: Patient looks very tired and drowsy however able to answer questions in simple form Family at the bedside Awake alert Able to follow commands No active focal deficit S1, S2 Currently on room air Normotensive Data 09/03/23 04:30 09/03/23 04:30 Micro: Microbiology 09/02/23 12:34 Blood Culture - Preliminary Blood SPECIMEN COLLECTED 09/02/23 12:09 Blood Culture - Preliminary Blood SPECIMEN COLLECTED A&P Assessment and plan (1) Medical non-compliance: (2) Non-compliant behavior: (3) Diastolic heart failure: Qualifiers: Heart failure chronicity: chronic Qualified Code(s): I50.32 - Chronic diastolic (congestive) heart failure (4) DM type 2 (diabetes mellitus, type 2): Qualifiers: Diabetes mellitus complication status: with circulatory complication 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 Reyes on board Appreciate his recommendations Pain well-managed Patient has neuropathy does not get any pain in his foot Will start consistent carb diet with insulin and sliding scale after surgery Patient agreeable to rehab if needed Uncontrolled diabetes hemoglobin A1c is 13 Patient has not used medications for at least 1 year has not seen his PCP for a year Will start lisinopril after his surgery Patient required IV fluid hydration, carries history of diastolic CHF, monitor closely he may need diuresis after surgery DNR/DNI N.p.o. 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
[2023-09-03 11:23] LABS: Glucose Point of Care 207 mg/dL (70-110)
--- NOTE | 2023-09-03 12:03 | W.PM.OPSUD ---
Surgery/Procedure H&P Update DATE OF PROCEDURE: September 03, 2023 DATE H&P PERFORMED: 09/02/23 H&P UPDATE INFORMATION: I have reviewed H&P completed within last 30 days, I have examined patient prior to procedure, No changes to prior documentation and H&P is in [facility] EMR on date indicated PLANNED PROCEDURE: Operation Date: 09/03/23 10:55 Proposed Procedures p Right foot 4th and 5th digit amputation with possible 4th and 5th ray resection(Right) - Bowen Ulloa DPM
--- NOTE | 2023-09-03 12:14 | P.ANESASSM_ITS ---
Pre-Anesthetic Assessment Height/Weight: Height 1.8 m Weight 106.651 kg Temp Pulse Resp BP Pulse Ox O2 Del Method 97.6 F 86 17 144/75 90 Room Air 09/03/23 07:12 09/03/23 07:12 09/03/23 07:12 09/03/23 07:12 09/03/23 07:12 09/03/23 07:12 Operation Date: 09/03/23 10:55 Proposed Procedures p Right foot 4th and 5th digit amputation with possible 4th and 5th ray resection(Right) - Bowen Ulloa DPM Familial anesthetic complications: None Was Beta Nikki taken within 24 hours: N/A Was Clonidine taken within 24 hours: N/A Last intake: Intake Last Liquid Date 09/02/23 Last Liquid Time 23:00 Last Solid Date 09/02/23 Last Solid Time 20:00 Social Tobacco and No alcohol Exam alert, oriented x 3, clear to auscultation bilaterally and regular rate & rhythm Airway Mallampati: Class II Dentition: other (no teeth) CV/HEM Coronary Artery Disease (stents), Congestive Heart Failure and Hypertension Metabolic Diabetes Mellitus and Hyperlipidemia Anesthetic Plan ASA status: 4 Anesthesia: MAC Risk of > 500 ml blood loss (7ml/kg in children): No Medications/Allergies Home Medications Medication Instructions Recorded Confirmed Last Taken Type Lace up ankle brace right foot #1 ea 09/19/21 09/02/23 Unknown Rx Bed Side Commode #1 ea 10/19/21 09/02/23 Unknown Rx cam boot #1 ea 11/16/21 09/02/23 Unknown Rx aspirin 81 mg capsule 81 mg PO DAILY #30 caps 06/09/22 09/02/23 1 Year Ago Rx ~09/01/22 atorvastatin 40 mg tablet 40 mg PO DAILY #30 tabs 06/09/22 09/02/23 1 Year Ago Rx ~09/01/22 clopidogrel 75 mg tablet (Plavix) 75 mg PO DAILY #30 tabs 06/09/22 09/02/23 1 Year Ago Rx ~09/01/22 lisinopril 10 mg tablet 10 mg PO DAILY #30 tabs 06/09/22 09/02/23 1 Year Ago Rx ~09/01/22 metoprolol succinate 50 mg capsule 50 mg PO DAILY #30 ea 06/09/22 09/02/23 1 Year Ago Rx sprinkle, ext. release 24 hr ~09/01/22 potassium chloride 20 mEq 20 meq PO BID@ #180 tabs 06/13/22 09/02/23 1 Year Ago Rx tablet,extended release ~09/01/22 torsemide 20 mg tablet 20 mg PO BID@799,1999 #180 tabs 06/13/22 09/02/23 1 Year Ago Rx ~09/01/22 insulin glargine 100 unit/mL (3 20 unit (0.2 mL) SUBCUT QAM #15 mL 08/19/22 09/02/23 1 Year Ago Rx mL) subcutaneous pen (Lantus ~09/01/22 Solostar U-100 Insulin) insulin lispro 100 unit/mL 15 unit (0.15 mL) SUBCUT TID #15 mL 08/20/22 09/02/23 1 Year Ago Rx subcutaneous pen ~09/01/22 Allergies Allergy/AdvReac Type Severity Reaction Status Date / Time codeine Allergy UNKNOWN Verified 06/13/22 10:32 REACTION, PT STATES Penicillins Allergy ALGY-Difficulty Verified 06/13/22 10:32 Breathing Current Medications Generic Name Dose Route Start Last Admin Trade Name Freq PRN Reason Stop Dose Admin Atorvastatin Calcium 40 mg 09/03/23 09:00 09/03/23 08:27 Atorvastatin 40 Mg Tablet PO 40 mg DAILY CARSON Administration Sodium Chloride 1,000 mls @ 75 mls/hr 09/02/23 14:39 09/03/23 05:14 Sodium Chloride 0.9% IV 75 mls/hr .[id number] CARSON Administration Aztreonam 2,000 mg/ Sodium 100 mls @ 200 mls/hr 09/02/23 14:39 09/03/23 04:05 Chloride IV Infused Q12H CARSON Infusion Protocol Clindamycin HCl/Dextrose 900 mg in 50 mls @ 100 mls/hr 09/02/23 14:39 09/03/23 08:57 Cleocin IV Infused Q8H CARSON Infusion Protocol Vancomycin/PEG/NADA/Lysine/Water 1,250 mg in 250 mls @ 250 mls/hr 09/03/23 02:00 09/03/23 02:37 Vancocin IV Infused Q12H CARSON Infusion Sodium Chloride 1,000 mls @ 30 mls/hr 09/03/23 11:00 09/03/23 11:08 Sodium Chloride 0.9% IV 09/04/23 10:59 30 mls/hr .Q24H CARSON Administration Insulin Glargine 20 unit 09/03/23 06:00 09/03/23 05:44 Insulin Glargine 100 Units/1 Ml SUBCUT 20 unit QAM CARSON Administration Insulin Human Lispro 0 unit 09/02/23 18:00 09/03/23 08:27 Insulin Lispro 100 Unit/1 Ml SUBCUT 6 unit TIDWM CARSON Administration Protocol Metoprolol Succinate 50 mg 09/03/23 09:00 09/03/23 08:26 Metoprolol Succinate Er (24 Hr) 50 Mg Tablet PO 50 mg DAILY CARSON Administration Pantoprazole Sodium 40 mg 09/02/23 18:00 09/03/23 09:35 Pantoprazole 40 Mg Sdv IVP 40 mg BID CARSON Administration PFSH Anesthesia Medical History (Updated 09/03/23 @ 11:19 by Familia Abbasi MD) Pancreatitis Dehiscence of incision Closed fracture of right distal tibia Traumatic arthritis of right ankle Other instability, right ankle Trimalleolar fracture of right ankle Fracture of proximal end of right fibula Closed fracture of phalanx of right fourth toe Blister over site of fracture of bone Closed fracture of right distal fibula Toe fracture Tibial plateau fracture Ankle fracture Coronary artery disease CHF (congestive heart failure) Acute non-ST elevation myocardial infarction (NSTEMI) Presence of drug-eluting stent in left circumflex coronary artery 04/21/2019 Smoking addiction DM type 2 (diabetes mellitus, type 2) Surgical History (Updated 09/02/23 @ 13:52 by Familia Abbasi MD) S/P ORIF (open reduction internal fixation) fracture S/P hip replacement History of transmetatarsal amputation of foot Family History Father Bladder cancer Brother Bladder cancer Social History Smoking and tobacco/nicotine status: current every day tobacco/nicotine user Alcohol intake: never Substance/Drug Use: never Household members: spouse Marital status: Current occupational status: retired Data Anesthesia 09/03/23 04:30 09/03/23 04:30 Short CBC 09/02/23 09/03/23 Range/Units 12:09 04:30 WBC 9.13 9.52 (3.29-11.43) 10^3/uL Hgb 16.10 15.20 (11.27-16.99) g/dL Hct 50.0 48.3 (37-53) % MCV 92.3 94.5 (82-101) fl Plt Count 199 169 (157-399) 10^3/cmm Neut % (Auto) 74.4 73.3 % Neut # (Auto) 6.79 6.97 (1.8-7.7) 10^3/uL BMP 09/02/23 09/03/23 12:09 04:30 Sodium 134 L 138 Potassium 4.4 4.3 Chloride 94 L 100 Carbon Dioxide 26 26 BUN 15 12 Creatinine 0.9 0.9 Glucose 425 H 247 H Calcium 9.5 8.5 Liver Function 09/02/23 Range/Units 12:09 Total Bilirubin 0.6 (0.15-1.2) mg/dL AST 11 (0-40) U/L ALT 13 (0-41) U/L Alkaline Phosphatase 144 H (40-130) U/L Albumin 3.9 (3.5-5.2) g/dL Coags 09/02/23 12:09 ESR 49 H C-Reactive Protein 30.0 H ABG 09/02/23 13:51 Specimen Type Arterial Sample Site Radial, left ABG pH 7.37 ABG pCO2 47.0 H ABG pO2 65.0 L ABG PO2/FiO2 Ratio 0 ABG HCO3 27.3 H ABG Base Excess 1.3 O2 Delivery Device Room air FiO2 21.0 Microbiology 09/02/23 12:34 Blood Culture - Preliminary Blood SPECIMEN COLLECTED 09/02/23 12:09 Blood Culture - Preliminary Blood SPECIMEN COLLECTED Cardiac Studies: 2 Echocardiogram Limited Views 07/31/19 Echocardiogram Ultrasound 04/19/19
[2023-09-03] MEDS: BUPivacaine 0.5% INJ 30 mL INJECTION (12:35)
--- NOTE | 2023-09-03 13:01 | P.BOP_ITS ---
Date of procedure: 09/03/2023 Surgeon name: Dr. Bowen Ulloa D.P.M. Electronic Science Teacher(s) name(s): Kar Procedure(s) performed: Right foot fifth digit amputation with fillet of toe fourth digit Description of findings: Osteomyelitis of fourth and fifth digit proximal phalanges Estimated blood loss: 5 cc Specimen(s) removed: Fourth and fifth toes right foot Post-operative diagnosis: Osteomyelitis
--- NOTE | 2023-09-03 13:02 | P.OP_ITS ---
Operative Report Date of procedure: September 03, 2023 Pre-op diagnosis: Gangrene right foot fifth digit, osteomyelitis fourth and fifth digits Post-op diagnosis: Same Post-op findings: Gangrenous changes of fifth digit with discoloration and degenerative changes of proximal phalanges of fourth and fifth digits consistent with osteomyelitis. Fourth and fifth metatarsal heads appeared healthy and viable Procedure done: 1. Right foot fifth digit amputation CPT 21635 2. Filleted toe flap fourth digit right foot CPT 20689 Specimens removed/disposition: Right foot fourth and fifth digits sent to pathology as surgical specimen Surgeon: Bowen Ulloa DPM Well Logging Captain Mud Analysis: Kar Estimated blood loss: 5 cc 30 minutes Complications: None Findings: See above Procedure: Patient is a 68-year-old male that has a history of gangrene right foot fifth digit, osteomyelitis of fourth and fifth digits. Extent of infection and necrosis warrants surgical intervention. A lengthy discussion regarding the procedure, including risks and complications has been had with the patient and is noted in the recent clinic note. Written and verbal consent have been obtained. All patient questions have been answered to the patient?s satisfaction. No written or verbal guarantees have been given or implied. The patient has been NPO since midnight. The history has been reviewed and the history and physical is current. The signed consent was confirmed and placed in the patient chart. Patient imaging has been reviewed and is consistent with the diagnosis. Under mild sedation, the patient was brought into the operating room and placed on the table in the supine position. Patient is receiving antibiotics [id number] on the floor.. IV sedation was then performed by the anesthesiateam. A local field block was performed using 0.5% Marcaine plain. A pneumatic tourniquet was then placed about the right ankle. The operative extremity was then prepped and draped in the usual fashion. The extremity was then elevated and exsanguinated before the tourniquet was inflated to 250 mmHg. After inflation, the following procedure was then performed. Attention was directed to the lateral aspect of the right foot where a necrotic fifth digit was visualized. Circumferential incision was made overlying the fifth digit at the level of the metatarsophalangeal joint using #15 blade. This incision was carried full-thickness down to the level of metatarsophalangeal joint. The digit was dissected free from the joint and passed from the operative field be sent as specimen. The base the proximal phalanx appeared to be discolored and degenerative consistent with osteomyelitis. Fifth metatarsal head appeared healthy and viable. Significant amount of necrotic tissue was noted medial to the fifth digit in the interdigital space. This was removed using rongeur. Attention was directed to the fourth digit where a 15 blade was used to make a full-thickness incision to the lateral aspect of the fifth digit. This was carried down to the level of the phalanges. The phalanges of the fourth digit were removed from the skin flap in their entirety and passed from the operative field be sent as surgical specimen. The fourth metatarsal head was noted to be viable without any signs of infection. The site was debrided from any devitalized tissue. The remaining tissue appeared healthy. No further infection remained. No deep abscess was visualized. Site was irrigated with copious muscle sterile saline before attention was directed to closure. The skin from the fourth toe was flapped down laterally to close the defect from the fifth digit amputation. The incision sites were reapproximated using a combination of 2-0 and 3-0 nylon. The tourniquet was let down and good hypere addi response was noted to all remaining digits of the right foot. The incision site was dressed with Xeroform, 4 x 4 gauze, Kerlix, ABD pad, Dheeraj bandage. The patient tolerated the procedure and anesthesia well and without complication. The patient was transported from the operating room to the recovery room with vital signs stable and vascular status intact to all remaining digits of the right foot. Thepatient was instructed to remain weightbearing to right foot in postop shoe for transfers only to the operative extremity, to keep surgical dressing clean, dry and intact. The patient will be transferred back to the floor once anesthesia criteria is met. I will continue to round on and follow the patient in the inpatientsetting and provide recommendations to stabilize the patient for discharge.
--- NOTE | 2023-09-03 13:20 | ANE.PACU2 ---
Inpatient post-anesthesia follow up: Airway intact: Yes Vital signs: Temperature 98.5 F Pulse Rate 79 Respiratory Rate 20 Blood Pressure 131/74 Pulse Oximetry 92 Oxygen Delivery Me thod Room Air Oxygen Flow Rate 8 Fraction of Inspir ed Oxygen Hydration adequate: Yes Nausea and vomiting: No Pain level: 1 Mental status: Baseline
[2023-09-03 16:30] LABS: Glucose Point of Care 146 mg/dL (70-110)
[2023-09-03 21:01] LABS: Glucose Point of Care 219 mg/dL (70-110)
[2023-09-04] VITALS: BP 134/68; PULSE 78; RESP 20; TEMP 37; O2SAT 91
[2023-09-04] MEDS: clindamycin 900 MG/50 ML PREMIX 100 MG IV (00:12)
[2023-09-04 02:26] LABS: Vancomycin Trough 16.5 ug/mL (10-15)
[2023-09-04] MEDS: vancomycin 1,250 MG/250 ML PIGGYBACK 250 MG IV (02:31)
[2023-09-04 04:00] VITALS: BP 165/53; PULSE 76; RESP 18; TEMP 36.8; O2SAT 91
[2023-09-04 04:13] VITALS: BMI 32.4
[2023-09-04] MEDS: aztreonam 2,000 MG in sodium chloride 0.9% (plus) 100 ML 200 MG IV (04:13)
[2023-09-04] MEDS: insulin glargine 100 units/1 mL 20 UNIT SUBCUT (05:48)
[2023-09-04 05:51] LABS: Glucose Point of Care 218 mg/dL (70-110)
[2023-09-04 07:19] LABS: Glucose Point of Care 199 mg/dL (70-110)
[2023-09-04 07:35] LABS: Basophils # 0.1 10^3/uL (0.0-0.1); Basophils % 0.5 %; Eosinophils # 0.1 10^3/uL (0.0-0.8); Eosinophils % 1.5 %; Hematocrit 48.9 % (37-53); Lymphocytes # 1.6 10^3/uL (0.8-4.8); Lymphocytes % 16.7 %; Mean Corpuscular HGB Conc 30.9 g/dL (30-55); Mean Corpuscular Hemoglobin 30.1 pg (27-33); Mean Corpuscular Volume 97.4 fl (82-101); Mean Platelet Volume 11.8 fL (7.4-10.4); Monocytes # 0.8 10^3/uL (0.2-0.9); Monocytes % 8.7 %; Neutrophils # 6.82 10^3/uL (1.8-7.7); Neutrophils % 72.2 %; Nucleated Red Blood Cells % 0 %; Platelet Count 155 10^3/cmm (157-399); Red Blood Count 5.02 10^6/uL (3.85-5.65); Red Cell Distribution Width 13.3 % (12.1-15.1); White Blood Count 9.45 10^3/uL (3.29-11.43)
--- NOTE | 2023-09-04 07:54 | PM.PN ---
Subjective Subjective: Patient seen at bedside this morning. Resting comfortably. No pain. Vitals/I&O/Wt Last Vital Signs Temp 98.3 F 09/04/23 04:00 Pulse 76 09/04/23 04:00 Resp 18 09/04/23 04:00 BP 165/53 09/04/23 04:00 Pulse Ox 91 09/04/23 04:00 O2 Del Method Room Air 09/04/23 04:00 O2 Flow Rate 8 09/03/23 13:08 09/03/23 09/04/23 09/04/23 22:59 06:59 14:59 Intake Total 1880 / 2058 640 / 2698 Output Total 510 / 1215 600 / 1815 450 / 450 Balance 1370 / 843 40 / 883 -450 / -450 Weight last 48 hrs Weight 232 lb 7 oz Weight 235 lb 2 oz Weight 233 lb 4.8 oz Weight 225 lb Physical Exam Narrative: BELOW IS A FOCUSED LOWER EXTREMITY EXAM GENERAL: A&O x 3 VASCULAR: DP/PT pulses nonpalpable. Strong biphasic on hand-held Doppler. Edema right foot consistent with infectious state DERMATOLOGICAL: Incision well coapted. No evidence of necrosis. No active drainage no erythema. MUSCULOSKELETAL: Status post right foot partial fourth and fifth ray resection NEUROLOGICAL: Neurological sensation to the affected foot and ankle is diminished through L4-S1 dermatomes via 10g SWMF, diminished sensation extends proximally to the level of the ankle IMAGING: Three-view x-rays of right foot taken in the emergency department were personally interpreted by me which show increase soft tissue density of fourth and fifth digits of the right foot. Potential small gas formation in the lateral aspect of the fourth digit. Data 09/04/23 06:37 09/03/23 04:30 Micro: Microbiology 09/02/23 15:30 Gram Stain - Final Tissue Wound Culture - Preliminary 09/02/23 12:34 Blood Culture - Preliminary Blood NEGATIVE TO DATE 09/02/23 12:09 Blood Culture - Preliminary Blood NEGATIVE TO DATE A&P Assessment and plan (1) DM type 2 (diabetes mellitus, type 2): Qualifiers: Diabetes mellitus complication status: with circulatory complication Diabetes mellitus senior care insulin use: with termite exterminator helper use (2) Diabetic foot infection: (3) Wet gangrene: Plan -Right foot fifth digit wet gangrene with fourth digit involvement -Labs and vitals reviewed -WBC 9.13 -ESR 49 -CRP 30 VSS -Cultures wound cultures pending -Abx Vanco/cefepime -Diet: Okay for diet -Status post fifth digit amputation with fillet of toe fourth digit right foot. No further surgical intervention during this admission from podiatry standpoint -Pain Mgmt: Per primary team -Weight bearing: Okay to weight-bear in postoperative shoe to right foot for transfers only -Dressings: Surgical dressing changed at bedside this morning. Consisting of Xeroform, 4 x 4 gauze, Kerlix, Dheeraj. Reinforce if needed. -Continue current Abx therapy until ID and Sensitivity results -Trend labs -Discharge plan: Patient can be discharged home on oral antibiotics once EVE report results from wound culture taken 09/02/2023. Recommend follow-up with myself in the outpatient setting within 1 week of discharge. -Podiatry following Attestations Medical Necessity Statement*: See hospitalist note Coding Level of Care Code Acute Code for [facility] Fwd Diagnoses DM type 2 (diabetes mellitus, type 2) E11.9 Diabetes mellitus complication status: with circulatory complication Diabetes mellitus senior care insulin use: with senior care use Diabetic foot infection E11.628; L08.9 Wet gangrene I96
[2023-09-04 07:55] LABS: Blood Urea Nitrogen 9 mg/dL (8-23); Calcium 8.2 mg/dL (8.5-10.5); Carbon Dioxide 21 mmol/L (22-29); Chloride 102 mmol/L (98-107); Glomerular Filtration Rate 111.8 mL/min (90-130); Glucose 191 mg/dL (65-115); Osmolality Calculated 284 mOsm/kg (285-295); Sodium 135 mmol/L (136-145)
[2023-09-04 08:00] VITALS: BP 138/65; PULSE 84; RESP 21; TEMP 36.7; O2SAT 92
[2023-09-04] MEDS: metoprolol succinate ER (24 HR) 50 mg Tablet PO (08:57)
[2023-09-04] MEDS: pantoprazole 40 mg SDV IVP (08:57)
[2023-09-04] MEDS: atorvastatin 40 mg Tablet PO (08:57)
[2023-09-04] MEDS: insulin lispro 100 unit/1 mL SUBCUT (08:58)
[2023-09-04] MEDS: clindamycin 900 MG/50 ML PREMIX 250 MG IV (08:58)
--- NOTE | 2023-09-04 11:18 | P.DS_ITS ---
Discharge Providers Date of Admission: 09/02/23 13:24 Date of Discharge: September 04, 2023 Attending Provider at Admission: Familia Abbasi MD Attending Provider at Discharge: Familia Abbasi MD Primary Care Provider: Eric Mckeon Diagnoses at Discharge Discharge Diagnosis (1) DM type 2 (diabetes mellitus, type 2): Status: Acute Qualifiers: Diabetes mellitus complication status: with circulatory complication Diabetes mellitus penitentiary insulin use: with penitentiary use (2) Diabetic foot infection: Status: Acute (3) Wet gangrene: Status: Acute Reason for Visit Reason for Visit: Right toe black, right leg swollen Hospital Course Hospital Course 68-year male who presented to hospital for worsening of right fifth toe swelling and change of color, patient has not taken his medications for at least a year, he has been noncompliant has not seen his primary care as well, in the hospital he was diagnosed with gas gangrene, Dr. Newton was consulted MRI was requested, he was put on clindamycin vancomycin and aztreonam, he remained afebrile without any sign of sepsis, no leukocytosis, patient went for right foot fifth digit amputation with fillet toe flap fourth digit right foot, 09/02. No postoperative complications. At the time of discharge patient will get Augmentin and doxycycline 10-day regimen, he will follow-up with Dr. Linder Friday to follow- up on final culture report, there is no plan to use IV antibiotics since bone ma rgins were showing healthy tissue. Patient will get insulin Lantus at the time of discharge along sliding scale patient need to continue aspirin along atorvastatin and antihypertensive regimen at the time of discharge. Patient will need home health, he is being discharged with stable hemodynamics to home. Wound care orders have been placed. Physical Exam Narrative: Awake and alert Right foot covered with dressing GCS 15 Nonfocal neuroexam S1, S2 Hemodynamically stable Discharge Data Studies Completed and Pending Completed Studies During Hospitalization Category Date Time Status XR foot RT min 3V* 25521 Stat Exams 09/02/23 11:59 Completed MR foot RT wo con* [id number] Routine MRI 09/03/23 09:30 Completed Pending at discharge Category Date Time Status Blood Culture Stat Lab 09/02/23 12:34 Results Wound Culture and Gram Stain Routine Lab 09/02/23 15:30 Results Pathology: Surgical [PTH] Routine Pth 09/03/23 12:52 Received Radiology Impressions Foot X-Ray 09/02/23 11:59 IMPRESSION: 1. Soft tissue swelling of the fourth and fifth toes. There is soft tissue air i n the fourth toe that might be secondary to infection with gas-forming bacteria. No acute bone destruction noted at this time. 2. Degenerative and postoperative changes of the foot. 3. Marked soft tissue edema of the forefoot. Foot MRI 09/03/23 09:30 IMPRESSION: 1. Large amount of soft tissue edema surrounding the metatarsals and the metatarsal phalangeal regions, most significant involving the fourth and fifth metatarsophalangeal joints. 2. No focal fluid collection. Study was performed without IV contrast. 3. Marrow edema involving large portions of the fourth and fifth proximal phalanges and to a lesser extent the remaining phalanges. Tiny amount of edema in the fourth lateral metatarsal head. Suspicious but nondiagnostic for osteomyelitis without IV contrast. Laboratory Results WBC 9.45 10^3/uL (3.29-11.43) 09/04/23 06:37 Corrected WBC Cancelled 09/04/23 01:25 RBC 5.02 10^6/uL (3.85-5.65) 09/04/23 06:37 Hgb 15.10 g/dL (11.27-16.99) 09/04/23 06:37 Hct 48.9 % (37-53) 09/04/23 06:37 MCV 97.4 fl (82-101) 09/04/23 06:37 MCH 30.1 pg (27-33) 09/04/23 06:37 MCHC 30.9 g/dL (30-55) 09/04/23 06:37 RDW 13.3 % (12.1-15.1) 09/04/23 06:37 Plt Count 155 10^3/cmm (157-399) L 09/04/23 06:37 MPV 11.8 fL (7.4-10.4) H 09/04/23 06:37 Gran % Cancelled 09/04/23 01:25 Neut % (Auto) 72.2 % 09/04/23 06:37 Lymph % (Auto) 16.7 % 09/04/23 06:37 [place] % (Auto) 8.7 % 09/04/23 06:37 Eos % (Auto) 1.5 % 09/04/23 06:37 Baso % (Auto) 0.5 % 09/04/23 06:37 Neut # (Auto) 6.82 10^3/uL (1.8-7.7) 09/04/23 06:37 Lymph # (Auto) 1.6 10^3/uL (0.8-4.8) 09/04/23 06:37 [place] # (Auto) 0.8 10^3/uL (0.2-0.9) 09/04/23 06:37 Eos # (Auto) 0.1 10^3/uL (0.0-0.8) 09/04/23 06:37 Baso # (Auto) 0.1 10^3/uL (0.0-0.1) 09/04/23 06:37 Absolute Gran (auto) Cancelled 09/04/23 01:25 Nucleated RBC % (auto) 0 % 09/04/23 06:37 Nucleated RBCs # 0.0 /100WBC 09/04/23 06:37 ESR 49 mm/hr (0-10) H 09/02/23 12:09 Specimen Type Arterial 09/02/23 13:51 Sample Site Radial, left 09/02/23 13:51 ABG pH 7.37 (7.35-7.45) 09/02/23 13:51 ABG pCO2 47.0 mmHg (35-45) H 09/02/23 13:51 ABG pO2 65.0 mmHg (80.0-100.0) L 09/02/23 13:51 ABG PO2/FiO2 Ratio 0 09/02/23 13:51 ABG HCO3 27.3 mmol/L (22-26) H 09/02/23 13:51 ABG Base Excess 1.3 mmol/L (-2.0-2.0) 09/02/23 13:51 Camron Test Pos 09/02/23 13:51 Hematocrit 48.5 % (42-52) 09/02/23 13:51 O2 Delivery Device Room air 09/02/23 13:51 FiO2 21.0 % 09/02/23 13:51 Copy Clerk ID Cak 09/02/23 13:51 Sodium 135 mmol/L (136-145) L 09/04/23 06:37 Potassium 4.0 mmol/L (3.5-5.1) 09/04/23 06:37 Chloride 102 mmol/L (98-107) 09/04/23 06:37 Carbon Dioxide 21 mmol/L (22-29) L 09/04/23 06:37 Anion Gap 16.0 (5-19) 09/04/23 06:37 BUN 9 mg/dL (8-23) 09/04/23 06:37 Creatinine 0.7 mg/dL (0.7-1.2) 09/04/23 06:37 GFR Calculation 111.8 mL/min (90-130) 09/04/23 06:37 Glucose 191 mg/dL (65-115) H 09/04/23 06:37 POC Glucose 199 mg/dL (70-110) H 09/04/23 07:15 Estimat Average Glucose 338 09/02/23 12:09 Hemoglobin A1c 13.4 % (4.0-6.0) H 09/02/23 12:09 Calculated Osmolality 284 mOsm/kg (285-295) L 09/04/23 06:37 Lactic Acid 1.5 mmol/L (0.5-2.2) 09/02/23 12:09 Calcium 8.2 mg/dL (8.5-10.5) L 09/04/23 06:37 Phosphorus 2.6 mg/dL (2.5-4.5) 09/03/23 04:30 Magnesium 1.8 mg/dL (1.7-2.3) 09/03/23 04:30 Total Bilirubin 0.6 mg/dL (0.15-1.2) 09/02/23 12:09 AST 11 U/L (0-40) 09/02/23 12:09 ALT 13 U/L (0-41) 09/02/23 12:09 Alkaline Phosphatase 144 U/L (40-130) H 09/02/23 12:09 C-Reactive Protein 30.0 mg/L (0.0-4.9) H 09/02/23 12:09 Total Protein 7.6 g/dL (6.6-8.7) 09/02/23 12:09 Albumin 3.9 g/dL (3.5-5.2) 09/02/23 12:09 Globulin 3.7 g/dL (1.3-4.6) 09/02/23 12:09 Procalcitonin 0.08 ng/mL (0-0.5) 09/02/23 12:09 Vancomycin Trough 16.5 ug/mL (10-15) H 09/04/23 01:25 Serum Ketones Negative (Negative) 09/02/23 12:09 Vitals Last Vital Signs Temp 98.1 F 09/04/23 08:00 Pulse 84 09/04/23 08:00 Resp 21 H 09/04/23 08:00 BP 138/65 09/04/23 08:00 Pulse Ox 92 09/04/23 08:00 O2 Del Method Room Air 09/04/23 10:00 O2 Flow Rate 8 09/03/23 13:08 Discharge Plan Discharge Patient Disposition: Home Health Service Condition: Stable Prescriptions: New doxycycline hyclate 100 mg tablet 100 mg PO BID 10 Days Qty: 20 0RF levofloxacin 750 mg tablet 750 mg PO DAILY 10 Days Qty: 10 0RF metformin 500 mg tablet 500 mg PO BID Qty: 60 4RF Continued (DME) Lace up ankle brace right foot See Rx Instructions .Route .MEDSUPPLY Qty: 1 0RF Rx Instructions: As directed (DME) Bed Side Commode See Rx Instructions .Route .MEDSUPPLY Qty: 1 0RF Rx Instructions: As directed (DME) cam boot See Rx Instructions .Route .MEDSUPPLY Qty: 1 0RF Rx Instructions: As directed atorvastatin 40 mg tablet 40 mg PO DAILY Qty: 30 0RF torsemide 20 mg tablet 20 mg PO BID@799,1999 Qty: 180 3RF lisinopril 10 mg tablet 10 mg PO DAILY Qty: 30 4RF insulin lispro 100 unit/mL insulin pen 15 unit SUBCUT TID Qty: 15 8RF potassium chloride 20 mEq tablet extended release 20 meq PO BID@799,1999 Qty: 180 3RF metoprolol succinate 50 mg capsule,sprinkle,ER 24hr 50 mg PO DAILY Qty: 30 4RF clopidogrel [Plavix] 75 mg tablet 75 mg PO DAILY Qty: 30 0RF Changed insulin glargine 100 unit/mL (3 mL) insulin pen 25 unit SUBCUT QAM Qty: 15 10RF Discontinued aspirin 81 mg capsule 81 mg PO DAILY Qty: 30 0RF Discharge Orders: Discharge Order (Routine); Ordered 09/04/23 Ordered By: Familia Abbasi Referrals: Bowen Ulloa DPM [Physician] - 09/08/23 Eric Mckeon NP [Primary Care Provider] - 2 weeks Discharge Diet: Diabetic Patient Instructions: Acute Wound Care (DC), Opioid Safety, Post Anesthesia Care Activity Restrictions/Additional Instructions: Dressings: Consisting of Xeroform, 4 x 4 gauze, Kerlix, Dheeraj. Discharge Attestations Time Spent in Discharge Care*: greater than 30 min Status at Discharge: Cognitive status at discharge: cognitively intact , Behavioral status at discharge: cooperative , Quality Metrics Clinical Quality Measures [ No reported AMI, CVA or VTE this stay] Coding Level of Care Code Acute Code for [facility] Fwd Diagnoses DM type 2 (diabetes mellitus, type 2) E11.9 Diabetes mellitus complication status: with circulatory complication Diabetes mellitus intermediate designer insulin use: with penitentiary use Diabetic foot infection E11.628; L08.9 Wet gangrene I96
[2023-09-04 11:31] LABS: Glucose Point of Care 243 mg/dL (70-110)
== END 2023-09-04 12:22 | disposition home or self-care (01) | DRG 255 ==
LOC: ER 12:46 → MEDSURG 13:25
PROVIDERS: Podiatrist Foot & Ankle Surgery; Admitting Provider Internal Medicine; Emergency Provider Emergency Medicine; PCP Clinical Nurse Specialist Adult Health; Visit Provider Internal Medicine
PROC: 0Y6X0Z0 Detachment at Right 5th Toe, Complete, Open Approach (ICD-10-PCS; principal; 2023-09-03 10:45)
DX: E11.52 Type 2 diabetes mellitus with diabetic peripheral angiopathy with gangrene (principal); A48.0 Gas gangrene; I50.33 Acute on chronic diastolic (congestive) heart failure; M86.9 Osteomyelitis, unspecified; E11.65 Type 2 diabetes mellitus with hyperglycemia; Z79.4 Long term (current) use of insulin; E11.40 Type 2 diabetes mellitus with diabetic neuropathy, unspecified; E11.59 Type 2 diabetes mellitus with other circulatory complications; Z91.148 Patient's other noncompliance with medication regimen for other reason; I25.10 Atherosclerotic heart disease of native coronary artery without angina pectoris; Z95.5 Presence of coronary angioplasty implant and graft; I11.0 Hypertensive heart disease with heart failure; Z66 Do not resuscitate; F17.210 Nicotine dependence, cigarettes, uncomplicated; Z79.82 Long term (current) use of aspirin; E11.628 Type 2 diabetes mellitus with other skin complications; L08.9 Local infection of the skin and subcutaneous tissue, unspecified; E11.69 Type 2 diabetes mellitus with other specified complication
CPT/HCPCS: 36415; 36416; 36600; 73630; 73718; 80048; 80053; 80202; 82009; 82803; 82962; 83036; 83605; 83735; 84100; 84145; 85025; 85651; 86140; 87040; 87070; 87075; 87077; 87186; 87205; 88305; 88311; 96365; 96367; 96372; 99285; C9113; J0692; J1815; J2371; J2704; J3370; J3372; J3490; J7030

== ENCOUNTER → 2023-09-08 08:30 | Outpatient (BNVA) | payer MEDICARE, MEDICAID, SELFPAY | PROVIDERS: PCP Clinical Nurse Specialist Adult Health; Visit Provider Podiatrist Foot & Ankle Surgery | DX: Z09 Encounter for follow-up examination after completed treatment for conditions other than malignant neoplasm (principal); Z89.421 Acquired absence of other right toe(s) | CPT/HCPCS: 99203 ==

== ENCOUNTER → 2023-09-19 15:15 | Outpatient (BNVA) | payer MEDICARE, MEDICAID, SELFPAY | PROVIDERS: PCP Clinical Nurse Specialist Adult Health; Visit Provider Podiatrist Foot & Ankle Surgery | DX: T81.31XA Disruption of external operation (surgical) wound, not elsewhere classified, initial encounter (principal); E11.59 Type 2 diabetes mellitus with other circulatory complications; Z79.4 Long term (current) use of insulin; G62.9 Polyneuropathy, unspecified; Y83.8 Other surgical procedures as the cause of abnormal reaction of the patient, or of later complication, without mention of misadventure at the time of the procedure; Z79.84 Long term (current) use of oral hypoglycemic drugs | CPT/HCPCS: 99213 ==

== ENCOUNTER → 2023-09-23 13:20 | Outpatient (BNVA) | payer MEDICARE, MEDICAID, SELFPAY | PROVIDERS: PCP Clinical Nurse Specialist Adult Health; Visit Provider Podiatrist Foot & Ankle Surgery | DX: Z98.890 Other specified postprocedural states | CPT/HCPCS: 99024; A6219 ==

== ENCOUNTER → 2023-10-01 13:09 | Outpatient (BNVA) | payer MEDICARE, MEDICAID, SELFPAY | PROVIDERS: PCP Clinical Nurse Specialist Adult Health; Visit Provider Clinical Nurse Specialist Adult Health | DX: E11.59 Type 2 diabetes mellitus with other circulatory complications (principal); Z79.4 Long term (current) use of insulin | CPT/HCPCS: 80053 ==

== ENCOUNTER → 2023-10-02 13:55 | Outpatient (BNVA) | payer MEDICARE, MEDICAID, SELFPAY | PROVIDERS: PCP Clinical Nurse Specialist Adult Health; Visit Provider Thoracic Surgery (Cardiothoracic Vascular Surgery) | DX: T87.81 Dehiscence of amputation stump (principal); Y83.8 Other surgical procedures as the cause of abnormal reaction of the patient, or of later complication, without mention of misadventure at the time of the procedure; Z89.421 Acquired absence of other right toe(s) | CPT/HCPCS: 11042; 99213 ==

== ENCOUNTER → 2023-10-09 13:57 | Outpatient (BNVA) | payer MEDICARE, MEDICAID, SELFPAY | PROVIDERS: PCP Clinical Nurse Specialist Adult Health; Visit Provider Thoracic Surgery (Cardiothoracic Vascular Surgery) | DX: I96 Gangrene, not elsewhere classified (principal); T87.81 Dehiscence of amputation stump; Y83.8 Other surgical procedures as the cause of abnormal reaction of the patient, or of later complication, without mention of misadventure at the time of the procedure; Z89.421 Acquired absence of other right toe(s) | CPT/HCPCS: 97597 ==

== ENCOUNTER → 2023-10-23 14:40 | Outpatient (BNVA) | payer MEDICARE, MEDICAID, SELFPAY | PROVIDERS: PCP Clinical Nurse Specialist Adult Health; Visit Provider Thoracic Surgery (Cardiothoracic Vascular Surgery) | DX: I96 Gangrene, not elsewhere classified (principal); T81.31XD Disruption of external operation (surgical) wound, not elsewhere classified, subsequent encounter; Y83.8 Other surgical procedures as the cause of abnormal reaction of the patient, or of later complication, without mention of misadventure at the time of the procedure | CPT/HCPCS: 97597 ==

== ENCOUNTER → 2023-10-30 14:26 | Outpatient (BNVA) | payer MEDICARE, MEDICAID, SELFPAY | PROVIDERS: PCP Clinical Nurse Specialist Adult Health; Visit Provider Thoracic Surgery (Cardiothoracic Vascular Surgery) | DX: I96 Gangrene, not elsewhere classified (principal); T87.81 Dehiscence of amputation stump; Y83.8 Other surgical procedures as the cause of abnormal reaction of the patient, or of later complication, without mention of misadventure at the time of the procedure; Z89.421 Acquired absence of other right toe(s) | CPT/HCPCS: 11044; 87070; 87176; 87205 ==

== ENCOUNTER → 2023-11-06 14:18 | Outpatient (BNVA) | payer MEDICARE, MEDICAID, SELFPAY | PROVIDERS: PCP Clinical Nurse Specialist Adult Health; Visit Provider Thoracic Surgery (Cardiothoracic Vascular Surgery) | DX: T87.81 Dehiscence of amputation stump (principal); Y83.8 Other surgical procedures as the cause of abnormal reaction of the patient, or of later complication, without mention of misadventure at the time of the procedure; Z89.421 Acquired absence of other right toe(s); E11.52 Type 2 diabetes mellitus with diabetic peripheral angiopathy with gangrene; E11.622 Type 2 diabetes mellitus with other skin ulcer; L97.811 Non-pressure chronic ulcer of other part of right lower leg limited to breakdown of skin | CPT/HCPCS: 11044; 87070; 87077; 87176; 87186; 87205; 97597 ==

== ENCOUNTER → 2023-11-13 10:23 | Outpatient (BNVA) | payer MEDICARE, MEDICAID, SELFPAY | PROVIDERS: PCP Clinical Nurse Specialist Adult Health; Visit Provider Thoracic Surgery (Cardiothoracic Vascular Surgery) | DX: T87.81 Dehiscence of amputation stump (principal); Y83.8 Other surgical procedures as the cause of abnormal reaction of the patient, or of later complication, without mention of misadventure at the time of the procedure; Z89.421 Acquired absence of other right toe(s); Z09 Encounter for follow-up examination after completed treatment for conditions other than malignant neoplasm | CPT/HCPCS: 97597 ==

== ENCOUNTER → 2023-11-18 09:04 | Outpatient (BNVA) | payer MEDICARE, MEDICAID, SELFPAY | PROVIDERS: PCP Clinical Nurse Specialist Adult Health; Visit Provider Podiatrist Foot & Ankle Surgery | DX: M86.8X7 Other osteomyelitis, ankle and foot; E11.59 Type 2 diabetes mellitus with other circulatory complications; Z79.4 Long term (current) use of insulin; G62.9 Polyneuropathy, unspecified; F17.200 Nicotine dependence, unspecified, uncomplicated; Z79.84 Long term (current) use of oral hypoglycemic drugs | CPT/HCPCS: 73630; 99214 ==

== ENCOUNTER → 2023-11-20 10:30 | Outpatient (BNVA) | payer MEDICARE, MEDICAID, SELFPAY | PROVIDERS: PCP Clinical Nurse Specialist Adult Health; Visit Provider Thoracic Surgery (Cardiothoracic Vascular Surgery) | DX: I96 Gangrene, not elsewhere classified (principal); T87.81 Dehiscence of amputation stump; Y83.8 Other surgical procedures as the cause of abnormal reaction of the patient, or of later complication, without mention of misadventure at the time of the procedure; Z89.421 Acquired absence of other right toe(s) | CPT/HCPCS: 80053; 83036; 85025; 97597 ==

== ENCOUNTER → 2023-11-26 05:35 | Day surgery (SDC) | payer MEDICARE, SELFPAY ==
--- NOTE | 2023-11-25 17:48 | ANES.PREANE2 ---
Pre-Anesthetic Assessment Height/Weight: Height 5 ft 11 in Operation Date: 11/26/23 07:00 Proposed Procedures p Right foot partial 4th ray resection and Right foot partial 5th ray resection(Right) - Bowen Ulloa DPM Was Beta Nikki taken within 24 hours: N/A Was Clonidine taken within 24 hours: N/A Anesthetic Plan ASA status: 4 Anesthesia: MAC Other: Patient has no reported issues with anesthesia NPO since midnight Patient had similar procedure earlier this year without issues Current smoker Type 2 diabetes CHF Patient has a SIMÓN stent to left circumflex placed in 2019 History of pancreatitis Labs 11/19 reviewed and supple for surgery Plan for MAC anesthetic with local via surgeon Medications/Allergies Home Medications Medication Instructions Recorded Confirmed Last Taken Type Lace up ankle brace right foot #1 ea 09/19/21 11/18/23 Unknown Rx Bed Side Commode #1 ea 10/19/21 11/18/23 Unknown Rx cam boot #1 ea 11/16/21 11/18/23 Unknown Rx clopidogrel 75 mg tablet (Plavix) 75 mg PO DAILY #30 tabs 06/09/22 11/25/23 1 Year Ago Rx ~09/01/22 atorvastatin 40 mg tablet 40 mg PO DAILY #30 tabs 09/04/23 11/25/23 11/25/23 Rx insulin lispro 100 unit/mL 15 unit (0.15 mL) SUBCUT TID #15 mL 09/04/23 11/25/23 11/25/23 Rx subcutaneous pen metformin 500 mg tablet 500 mg PO BID #60 tabs 09/04/23 11/25/23 11/25/23 Rx metoprolol succinate 50 mg capsule 50 mg PO DAILY #30 ea 09/04/23 11/25/23 11/25/23 Rx sprinkle, ext. release 24 hr potassium chloride 20 mEq 20 meq PO BID@08 #180 tabs 09/04/23 11/25/23 11/25/23 Rx tablet,extended release torsemide 20 mg tablet 20 mg PO BID@799,1999 #180 tabs 09/04/23 11/20/23 Unknown Rx pen needle, diabetic 31 gauge x #100 ea 09/17/23 11/18/23 Unknown Rx 3/16 (BD Ultra-Fine Mini Pen Needle) insulin glargine 100 unit/mL (3 45 unit (0.45 mL) SUBCUT QAM #15 mL 11/20/23 11/25/23 11/25/23 Rx mL) subcutaneous pen Allergies Allergy/AdvReac Type Severity Reaction Status Date / Time codeine Allergy UNKNOWN Verified 11/25/23 13:27 REACTION, PT STATES Penicillins Allergy ALGY-Difficulty Verified 11/25/23 13:27 Breathing [facility] Anesthesia Medical History (Updated 11/22/23 @ 22:01 by Bowen Ulloa DPM) Osteomyelitis Dehiscence of incision DM type 2 (diabetes mellitus, type 2) Diabetic neuropathy Acute non-ST elevation myocardial infarction (NSTEMI) CHF (congestive heart failure) Presence of drug-eluting stent in left circumflex coronary artery 04/21/2019 Smoking addiction Coronary artery disease Medical non-compliance Essential hypertension Diabetic foot infection Gas gangrene Wet gangrene Pancreatitis Closed fracture of right distal tibia Traumatic arthritis of right ankle Trimalleolar fracture of right ankle Fracture of proximal end of right fibula Closed fracture of phalanx of right fourth toe Closed fracture of right distal fibula Tibial plateau fracture Charcot's joint of right ankle Surgical History History of revision of total hip arthroplasty S/P ORIF (open reduction internal fixation) fracture S/P hip replacement History of transmetatarsal amputation of foot Family History Father Bladder cancer Brother Bladder cancer Social History Smoking and tobacco/nicotine status: current every day tobacco/nicotine user Alcohol intake: never Substance/Drug Use: never Household members: spouse Marital status: Current occupational status: retired Data Anesthesia Cardiac Studies: Echocardiogram Limited Views 07/31/19 Echocardiogram Ultrasound 04/19/19
[2023-11-26] VITALS (9 sets, daily range): BP systolic 89–148; BP diastolic 51–82; PULSE 68–83; RESP 16–18; TEMP 36.4–37.4; O2SAT 93–100; BMI 34.0
[2023-11-26] MEDS: acetaminophen 1,000 MG/100 ML PIGGYBACK 400 MG IV (06:12)
[2023-11-26] MEDS: sodium chloride 0.9% 1,000 ML 30 ML IV (06:13)
[2023-11-26] MEDS: gabapentin 300 mg Capsule PO (06:16)
[2023-11-26 06:17] LABS: Glucose Point of Care 122 mg/dL (70-110)
--- NOTE | 2023-11-26 06:49 | W.PM.OPSUD ---
Surgery/Procedure H&P Update DATE OF PROCEDURE: November 26, 2023 DATE H&P PERFORMED: 11/18/23 H&P UPDATE INFORMATION: I have reviewed H&P completed within last 30 days, I have examined patient prior to procedure, No changes to prior documentation and H&P is in [facility] EMR on date indicated PREOP DIAGNOSIS: osteomyelitis PLANNED PROCEDURE: Operation Date: 11/26/23 07:00 Proposed Procedures p Right foot partial 4th ray resection and Right foot partial 5th ray resection(Right) - Bowen Ulloa DPM
[2023-11-26] MEDS: clindamycin 600 MG/50 ML PREMIX 100 MG IV (07:01)
[2023-11-26] MEDS: BUPivacaine 0.5% INJ 30 mL INJECTION (07:34)
--- NOTE | 2023-11-26 07:47 | P.BOP_ITS ---
Date of procedure: 11/26/2023 Surgeon name: Tatianna FungPAxel Sustainability Specialist(s) name(s): Jose Procedure(s) performed: right foot partial fourth and fifth ray resection Description of findings: Necrotic fourth metatarsal head right foot, discolored fifth metatarsal head right foot Estimated blood loss: 5 cc Tourniquet time: 21 minutes Specimen(s) removed: Fourth and fifth metatarsal heads right foot Post-operative diagnosis: Osteomyelitis
--- NOTE | 2023-11-26 08:47 | ANE.PACU2 ---
Inpatient post-anesthesia follow up: Airway intact: Yes Vital signs: Temperature 97.8 F Pulse Rate 72 Respiratory Rate 18 Blood Pressure 132/76 Pulse Oximetry 96 Oxygen Delivery Me thod Room Air Oxygen Flow Rate 6 Fraction of Inspir ed Oxygen Hydration adequate: Yes Nausea and vomiting: No Pain level: 2 Mental status: Baseline
--- NOTE | 2023-11-26 22:00 | P.OP_ITS ---
Operative Report Date of procedure: November 26, 2023 Surgeon: Bowen Ulloa DPM Procedure: Date of procedure: November 26, 2023 Pre-op diagnosis: Osteomyelitis right foot fourth and fifth metatarsal Post-op diagnosis: Same Post-op findings: Osteomyelitis of fourth and fifth metatarsal heads right foot Procedure done: 1. Partial fourth ray resection right foot CPT 34714 2. Partial fifth ray resection right foot CPT 87093 Implants: None Specimens removed: Fourth and fifth metatarsal heads right foot Surgeon: Dr. Bowen Ulloa DPM Administration Manager: Jose Estimated blood loss: 5 cc Tourniquet time: 21 minutes Complications: None Patient is a 68-year-old male that has a history of chronic ulceration with underlying osteomyelitis. Right foot. The patient has had the aforementioned chief complaint for some time. Conservative treatment measures have been attempted and the patient has opted for surgical intervention at this time. A lengthy discussion regarding the procedure, including risks and complications has been had with the patient and is noted in the recent clinic note. Written and verbal consent have been obtained. All patient questions have been answered to the patient?s satisfaction. No written or verbal guarantees have been given or implied. The patient has been NPO since midnight. The history has been reviewed and the history and physical is current. The signed consent was confirmed and placed in the patient chart. Patient imaging has been reviewed and is consistent with the diagnosis. Under mild sedation, the patient was brought into the operating room and placed on the table in the supine position. IV antibiotics were given by the anesthesia team as preoperative surgical prophylaxis. IV sedation was then performed by the anesthesiateam. A pneumatic tourniquet was then placed about the right ankle. The operative extremity was then prepped and draped in the usual fashion. The extremity was then elevated and the tourniquet was inflated to 250 mmHg. After inflation, the following procedure was then performed. Attention was directed to the right foot where a racquet style incision was made around the distal aspect of the fourth and fifth metatarsals. Dissection was carried down full-thickness down to the level of periosteum. Periosteum was reflected to expose the fourth and fifth metatarsal heads. These were noted to be discolored and showing signs of degeneration consistent with osteomyelitis. No abscess visualized. Sagittal bone saw was used to resect the fourth and fifth metatarsals. The distal aspects of the metatarsals were passed from the operative field to be sent as surgical specimen. The remaining bone appeared healthy and viable and free from discoloration or signs of osteomyelitis. The remaining tissues appeared healthy and viable. The site was irrigated with copious amounts of sterile saline before attention was directed to closure. Skin was closed with 3-0 Prolene in a combination of simple interrupted and horizontal mattress fashion. The tourniquet was let down good hyperemic response was noted to all remaining digits of the right foot. Hemostasis was noted to be achieved. The site was dressed with Xeroform, 4 x 4 gauze, Kerlix, Dheeraj bandage. The patient tolerated the procedure and anesthesia well and without complication. The patient was transported from the operating room to the recovery room with vital signs stable and vascular status intact to all digits of the right foot. The patient was given both written and verbal instructions to remain minimally weightbearing to the operative extremity, to keep dressings/splint clean, dry and intact and to take pain medication as directed. The patient will follow-up in the outpatient setting at their scheduled appointment. The patient was discharged with my personal number and was ins tructed to call if any questions or issues should arise. They were discharged home once anesthesia criteria was met.
== END | disposition home or self-care (01) ==
PROVIDERS: PCP Clinical Nurse Specialist Adult Health; Visit Provider Podiatrist Foot & Ankle Surgery
PROC: (CPT 28810; principal; 2023-11-26 07:00)
DX: M86.8X7 Other osteomyelitis, ankle and foot (principal); F17.200 Nicotine dependence, unspecified, uncomplicated; I50.9 Heart failure, unspecified; Z95.5 Presence of coronary angioplasty implant and graft; Z79.4 Long term (current) use of insulin; Z79.84 Long term (current) use of oral hypoglycemic drugs; E11.40 Type 2 diabetes mellitus with diabetic neuropathy, unspecified; I25.2 Old myocardial infarction; I25.10 Atherosclerotic heart disease of native coronary artery without angina pectoris
CPT/HCPCS: 28810 ×2; 36416; 82962; 87070; 87075; 87077; 87186; 87205; 88305; 88311; J0131; J2704; J3490; J7030

== ENCOUNTER → 2023-12-10 14:58 | Outpatient (BNVA) | payer MEDICARE, SELFPAY | PROVIDERS: PCP Clinical Nurse Specialist Adult Health; Visit Provider Podiatrist Foot & Ankle Surgery | DX: E11.59 Type 2 diabetes mellitus with other circulatory complications (principal); Z79.4 Long term (current) use of insulin; G62.9 Polyneuropathy, unspecified; F17.200 Nicotine dependence, unspecified, uncomplicated; Z79.84 Long term (current) use of oral hypoglycemic drugs | CPT/HCPCS: 99024; A6219 ==

== ENCOUNTER 2023-12-17 15:04 | Emergency (ER) | payer MEDICARE, SELFPAY ==
[2023-12-17 15:09] VITALS: BP 97/63; PULSE 78; RESP 18; TEMP 36.9; O2SAT 98; BMI 34.8
--- NOTE | 2023-12-17 15:16 | ECG_ITS ---
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: : 1955 Requested By: Samantha Velez Order Number: [id number] Sun MD: RADHA NEAL Measurements Intervals [place] Rate: 79 P: 58 WV: 135 QRS: -37 QRSD: 97 T: 17 QT: 405 QTc: 467 Interpretive Statements SINUS RHYTHM INDETERMINATE AXIS MODERATE VOLTAGE CRITERIA FOR LVH, CONSIDER NORMAL VARIANT [MEETS CRITERIA IN ONE OF: R(aVL), S(V1), R(V5), R(V5/V6)+S(V1)] INFERIOR MYOCARDIAL INFARCTION , PROBABLY OLD [40+ ms Q WAVE AND/OR ST/T ABNORMALITY IN II/aVF] Compared to ECG 04/27/2021 06:53:20 Indeterminate axis now present Myocardial infarct finding now present Electronically Signed On 12-17-2023 20:04:37 CDT by RADHA NEAL [id number]
--- NOTE | 2023-12-17 18:11 | PC.NURSE ---
attempted to call for patient twice to bring back to room, no answer x2 times. this nurses assessed [facility] patients, did not see this pt.
--- NOTE | 2023-12-17 18:38 | PC.NURSE ---
attempted to call for pt third time, no answer, no pts in [facility]
== END 2023-12-17 18:11 | disposition left against medical advice (07) ==
PROVIDERS: Emergency Provider Family Medicine; PCP Clinical Nurse Specialist Adult Health
DX: Z98.890 Other specified postprocedural states (principal); M86.672 Other chronic osteomyelitis, left ankle and foot; E11.59 Type 2 diabetes mellitus with other circulatory complications; Z79.4 Long term (current) use of insulin; G62.9 Polyneuropathy, unspecified; F17.200 Nicotine dependence, unspecified, uncomplicated; R07.9 Chest pain, unspecified; Z79.84 Long term (current) use of oral hypoglycemic drugs; I49.8 Other specified cardiac arrhythmias; R94.31 Abnormal electrocardiogram [ECG] [EKG]; Z53.21 Procedure and treatment not carried out due to patient leaving prior to being seen by health care provider
CPT/HCPCS: 93005; 99213

== ENCOUNTER → 2024-06-08 14:12 | Outpatient (BNVA) | payer MEDICARE, SELFPAY | PROVIDERS: PCP Clinical Nurse Specialist Adult Health; Visit Provider Family Medicine | DX: E53.8 Deficiency of other specified B group vitamins (principal); R53.81 Other malaise; R53.83 Other fatigue; R35.0 Frequency of micturition; R25.2 Cramp and spasm; E11.9 Type 2 diabetes mellitus without complications; Z51.81 Encounter for therapeutic drug level monitoring; E55.9 Vitamin D deficiency, unspecified | CPT/HCPCS: 85025 ==

== ENCOUNTER → 2025-01-31 12:32 | Outpatient (BNVA) | payer MEDICARE, SELFPAY | PROVIDERS: PCP Family Medicine; Visit Provider Family Medicine | DX: E53.8 Deficiency of other specified B group vitamins (principal); R32 Unspecified urinary incontinence; R35.0 Frequency of micturition; Z13.6 Encounter for screening for cardiovascular disorders; E11.9 Type 2 diabetes mellitus without complications; Z51.81 Encounter for therapeutic drug level monitoring | CPT/HCPCS: 80053; 80061; 81000; 82607; 83036; 84153; 85025; 87086 ==